=== PATIENT | male | born 1940 | race Caucasian/White ===

== ENCOUNTER 2019-04-10 17:47 | Inpatient (IN) | payer OTHER, MEDICAID ==
[~2019-04-10] VITALS: Ht 175.3 cm; Wt 74.9 kg
[2019-04-10 17:52] VITALS: Ht 175.3 cm; Wt 74.9 kg
[2019-04-10] MEDS ORDERED: SOD CHLORIDE 0.9% 500 ML IV STA (17:56)
[2019-04-10] MEDS ORDERED: SOD CHLORIDE 0.9% 100 ML ONE (19:41)
[2019-04-10] MEDS ORDERED: IOHEXOL 300MG/ML 150 ML BTL ONE (19:41)
[2019-04-10] MEDS ORDERED: SOD CHLORIDE 0.9% 1,000 ML IV STA (20:10)
[2019-04-10] MEDS ORDERED: CEFEPIME 2GM/50 ML (PMX) 50 ML IVPB STA (21:59)
[2019-04-10] MEDS ORDERED: ALBUMIN HUMAN 25% 100 ML IV ONE (22:00)
[2019-04-10] MEDS ORDERED: VANCOMYCIN 1 GM (PMX) 250 ML IVPB ONE (22:00)
[2019-04-10] MEDS ORDERED: ONDANSETRON 4 MG INJ IV PRN (22:30)
[2019-04-10] MEDS ORDERED: ACETAMINOPHEN 325 MG TAB PO PRN (22:30)
--- NOTE | 2019-04-10 22:58 | ERD ---
ER Documentation Chief Complaint Chief Complaint SOB, Low O2 saturation HPI This is a 78-year-old gentleman who presents to the emergency room with reported hypoxia. EMS reports that the patient was supposed to be transferred to [facility] because of a pleural effusion. However, when BLS arrived they took him off his regular 2 L of oxygen and noted that he became hypoxic. ALS was called and the patient was transferred to the nearest facility. Patient himself states that he feels that his baseline. He denies any fevers chills cough chest pain or shortness of breath. Patient has a complex medical history and has a biliary drain. He cannot articulate his underlying illness or history. ROS All systems reviewed and are negative except as per history of present illness. Allergies Allergies: Coded Allergies: No Known Allergy (Unverified , 04/10/19) PMhx/Soc History of Surgery: Yes (LBKA, Gall bladder stents, liver drain) Anesthesia Reaction: No Hx Neurological Disorder: No Hx Respiratory Disorders: No Hx Cardiac Disorders: Yes (arrhythmias) Hx Psychiatric Problems: No Hx Miscellaneous Medical Probl: No Hx Alcohol Use: No Hx Substance Use: No Hx Tobacco Use: No Smoking Status: Never smoker FmHx Family History: No diabetes Physical Exam Vitals Vital Signs Date Temp Pulse Resp B/P (MAP) Pulse Ox O2 O2 Flow FiO2 Time Delivery Rate 04/10/19 98.1 107 20 125/88 94 Nasal 5.0 22:00 (100) Cannula 04/10/19 113 30 95/73 (80) 91 Nasal 5.0 20:14 Cannula 04/10/19 Nasal 4 18:11 Cannula 04/10/19 Nasal 4.0 18:11 Cannula 04/10/19 98.3 109 25 92/78 (83) 94 Nasal 5.0 18:11 Cannula 04/10/19 98.1 80 18 97/61 (73) 92 17:52 Physical Exam General: Cachectic and jaundiced Head: Normocephalic, atraumatic. Eyes: Pupils equally reactive, EOM intact ENT: Dry mucous membranes Neck: Supple, no lymphadenopathy Respiratory: Lungs clear bilaterally, no distress Cardiovascular: RRR, no murmurs, rubs, or gallops Abdominal: Soft, biliary drain appears to be intact and draining bilious liquid : Deferred MSK: No edema, no unilateral swelling, 5/5 strength Neurologic: Alert and oriented, moving all extremities, normal speech, no focal weakness, no cerebellar signs Skin: No rash Psych: Normal mood Result Diagram: 04/10/198 04/10/191807 Results 24 hrs Laboratory Tests Test 04/10/19 18:08 04/10/19 22:19 White Blood Count 20.5 10^3/ul Red Blood Count 2.58 10^6/ul Hemoglobin 8.2 g/dl Hematocrit 25.3 % Mean Corpuscular Volume 98.1 fl Mean Corpuscular Hemoglobin 31.8 pg Mean Corpuscular Hemoglobin Concent 32.4 g/dl Red Cell Distribution Width 15.8 % Platelet Count 320 10^3/UL Mean Platelet Volume 9.9 fl Immature Granulocytes % 6.100 % Neutrophils % 85.8 % Lymphocytes % 3.6 % Monocytes % 3.9 % Eosinophils % 0.2 % Basophils % 0.4 % Nucleated Red Blood Cells % 0.0 /100WBC Immature Granulocytes # 1.240 10^3/ul Neutrophils # 17.6 10^3/ul Lymphocytes # 0.7 10^3/ul Monocytes # 0.8 10^3/ul Eosinophils # 0.0 10^3/ul Basophils # 0.1 10^3/ul Nucleated Red Blood Cells # 0.0 10^3/ul Prothrombin Time 26.2 Sec Prothrombin Time Ratio 2.0 INR International Normalized Ratio 2.40 Activated Partial Thromboplast Time 71.7 Sec Sodium Level 137 mmol/L Potassium Level 4.5 mmol/L Chloride Level 108 mmol/L Carbon Dioxide Level 16 mmol/L Anion Gap 13 Blood Urea Nitrogen 30 mg/dl Creatinine 1.93 mg/dl Est Glomerular Filtrat Rate mL/min mL/min Glucose Level 224 mg/dl Calcium Level 8.5 mg/dl Total Bilirubin 0.9 mg/dl Direct Bilirubin 0.00 mg/dl Indirect Bilirubin 0.9 mg/dl Aspartate Amino Transf (AST/SGOT) 22 IU/L Alanine Aminotransferase (ALT/SGPT) 30 IU/L Alkaline Phosphatase 383 IU/L Ammonia < 9 umol/l Troponin I < 0.012 ng/ml Total Protein 6.3 g/dl Albumin 2.7 g/dl Globulin 3.60 g/dl Albumin/Globulin Ratio 0.75 Lipase 35 U/L POC Venous Lactate 2.5 mmol/L Current Medications Medications Dose Sig/Rakesh Start Time Status Last (Trade) Ordered Route PRN Stop Time Admin Dose Reason Admin Sodium 500 ml @ Q1H STAT 04/10/19 DC 04/10/19 Chloride 500 mls/hr IV 17:56 18:10 04/10/19 18:55 IV Flush 10 ml STK-MED 04/10/19 DC (NS 10 ml) ONCE .ROUTE 19:41 04/10/19 19:42 Sodium 100 ml @ ud STK-MED 04/10/19 DC Chloride ONCE .ROUTE 19:41 04/10/19 19:42 Iohexol 150 ml STK-MED 04/10/19 DC (Omnipaque ONCE .ROUTE 19:41 300mg/ ml) 04/10/19 19:42 Sodium 1,000 ml @ Q1H STAT 04/10/19 DC 04/10/19 Chloride 1,000 mls/hr IV 20:10 20:42 04/10/19 21:09 Cefepime HCl 50 ml @ ONCE STAT 04/10/19 DC 04/10/19 100 mls/hr IVPB 21:59 22:32 04/10/19 22:28 Vancomycin 250 ml @ ONCE ONCE 04/10/19 HCl 125 mls/hr IVPB 22:00 04/10/19 23:59 Albumin 100 ml @ ONCE ONCE 04/10/19 DC Human 100 mls/hr IV 22:00 04/10/19 22:59 Ondansetron 4 mg ER BRIDGE 04/10/19 HCl (Zofran PRN IV 22:30 Inj) NAUSEA/VOMITI 04/11/19 22:29 NG 650 mg ER BRIDGE 04/10/19 Acetaminophen PRN PO 22:30 (Tylenol .MILD PAIN 04/11/19 22:29 Tab) 1-3 OR TEMP Procedures/MDM EKG, MONITORS, & DIAGNOSTIC IMAGING: EKG: I reviewed and interpreted a 12-lead EKG. Rhythm: Normal sinus rhythm ST Changes: No contiguous ST segment elevations T waves: No contiguous T wave inversions Impression: [No evidence of acute cardiac ischemia] CXR IMPRESSION: 1. Moderate to large right pleural effusion with probable underlying atelectasis/infiltrates. RPTAT: EE CT chest IMPRESSION: CT of the abdomen demonstrates presence of a transhepatic drain with the distal tip into the duodenum. There is intrahepatic ductal dilatation left greater than right. The gallbladder is not well visualized. Is contracted with thickening of the castañeda and multiple gallstones. There is questionable area of hypodensity within the pancreatic head and underline mass is not excluded. Would clinically correlate with previous imaging studies. Mild ascites is present with apparent wall thickening of the small bowel loops although this may be secondary to hypoalbuminemia. Large right-sided pleural effusion which is likely partially loculated along the superior aspect of the hemithorax with complete atelectasis of the right middle lobe and right lower lobe. There is also a small left pleural effusion present. Cardiomegaly with thin pericardial effusion measuring under 5 mm. Confluent soft tissue edema consistent with anasarca. RPTAT: LAB INTERPRETATION: I reviewed the laboratory testing and it shows elevated white blood cell count, creatinine elevation and elevated lactic acid MEDICAL DECISION MAKING: The patient presents to the emergency room because of hypoxia though the patient was removed from his regular nasal cannula. This is the potential etiology of the hypoxia. The patient is clear complex medical history that is possibly consistent with malignancy, he has a biliary drain. Concern for possible drain failure, consider pneumonia pleural effusion, less likely pulmonary embolism. Broad work-up was initiated. ER COURSE: * Initial work-up was initiated. The patient did not have a fever and had a normal heart rate. However during the patient's ER course his white blood cell count came back elevated. He became tachycardic and remained hypotensive. At that point sepsis screening was initiated and empiric antibiotics were provided. * Patient has a PICC line. His blood pressure seemed to improve with fluid resuscitation. Albumin provided. * Blood cultures were taken prior to antibiotics. * A phone call was made at [facility] to see if they were expecting the patient. * It should be noted that the patient does not in fact appear to have pneumonia based on dedicated CAT scan imaging. Empiric antibiotics would seem appropriate but there is no absolute clear source of infection. The patient's blood pressure, tachycardia and lactic acid could all be medical claims representative of the patient's malignancy status. Patient's hepatic failure will also likely contribute to this. Therefore I am not convinced that this is consistent with sepsis or severe sepsis or septic shock. * Again, vital signs have improved and the patient is more him dynamically stable. The patient does not require ICU at this time. Continue to monitor. CONSULTATION: [None] DISPOSITION PLAN: Telemetry admission Accepting care team and consultations: I discussed the current laboratory data, diagnostic imaging and emergency care provided. Admitting team: Dr. Nayak Admitting team indication: Insurance directed Departure Diagnosis: Primary Impression: SIRS (systemic inflammatory response syndrome) Additional Impressions: Acute renal insufficiency Pancreatic mass Lactic acidosis Leukocytosis Leukocytosis type: unspecified Qualified Codes: D72.829 - Elevated white blood cell count, unspecified Anemia Anemia type: unspecified type Qualified Codes: D64.9 - Anemia, unspecified Condition: Stable JANICE WILLIS MD Apr 10, 2019 22:58
--- NOTE | 2019-04-10 23:48 | HP ---
Date/Time of Note Date/Time of Note DATE: 04/10/19 TIME: 23:48 Assessment/Plan VTE Prophylaxis SCD applied (from Nsg): Yes Pharmacological prophylaxis: NA/contraindicated Pharm contraindication: low risk/ambulating Lines/Catheters IV Catheter Type (from Nrsg): PICC Line Central line still needed: Yes (clinical condition) Assessment/Plan Hospital Course This is a 78-year-old male being admitted to the telemetry floor for: #1 right-sided pleural effusion with hypoxia: Secondary possibly to underlying malignancy. Will obtain a diagnostic and therapeutic ultrasound thoracentesis. Patient does have elevated INR and PTT. He is on Eliquis. We will hold Eliquis. We will give 2 units of FFP. Obtain pleural fluid cell count, albumin, lactic dehydrogenase, glucose, Gram stain. Will consult pulmonology. Supplemental O2, may need BiPAP. Awaiting outside records. #2 diffuse jaundice: LFTs are within normal values. Patient does have evidence on CT scan of a transhepatic drain and possible pancreatic mass. MRI of the abdomen once patient is stable respiratory [place]. Will consult hepatobiliary surgery . #3 acute kidney injury: Unknown baseline. Creatinine 1.91. Will monitor renal function. Will check renal ultrasound. Check urine studies. Avoid nephrotoxic agents #4 lactic acidosis: Possibly secondary to underlying hypoxia. Patient is afebrile. I do not suspect at the current time pneumonia. He did receive antibiotics in the emergency room. We will continue to monitor closely. Check a procalcitonin. Blood cultures have been ordered. Check ESR and CRP #5 hypertension: Hold home BP meds given borderline blood pressures #6 diabetes mellitus: We will check hemoglobin A 1C, insulin sliding scale #7 possible pancreatic disease: CT scan shows mass in the pancreatic head. Continue Creon #8leukocytosis: Currently afebrile. No overt signs of infection. Did receive a dose of antibiotics in the emergency department. Patient was also on antibiotics as an outpatient of Zyvox and fluconazole we will continue these at the current time and await culture results. Will consult infectious disease Dr. Price. Awaiting outside hospital records. #9 DVT GI prophylaxis: Patient was on Eliquis however unsure what exactly this was for. We will hold this at the current time as patient will likely have a thoracentesis, and then can resume. Home H2 anival Further treatment strategy will be implemented as per the clinical course ++Awaiting outside hospital records, nursing communication put in to help obtain. Result Diagram: 04/10/19 1808 04/10/19 1808 Results 24hrs Laboratory Tests Test 04/10/19 18:08 04/10/19 22:19 White Blood Count 20.5 H Red Blood Count 2.58 L Hemoglobin 8.2 L Hematocrit 25.3 L Mean Corpuscular Volume 98.1 Mean Corpuscular Hemoglobin 31.8 Mean Corpuscular Hemoglobin Concent 32.4 Red Cell Distribution Width 15.8 H Platelet Count 320 Mean Platelet Volume 9.9 Immature Granulocytes % 6.100 H Neutrophils % 85.8 H Lymphocytes % 3.6 L Monocytes % 3.9 Eosinophils % 0.2 Basophils % 0.4 Nucleated Red Blood Cells % 0.0 Immature Granulocytes # 1.240 H Neutrophils # 17.6 H Lymphocytes # 0.7 L Monocytes # 0.8 Eosinophils # 0.0 Basophils # 0.1 Nucleated Red Blood Cells # 0.0 Prothrombin Time 26.2 H Prothrombin Time Ratio 2.0 INR International Normalized Ratio 2.40 Activated Partial Thromboplast Time 71.7 *H Sodium Level 137 Potassium Level 4.5 Chloride Level 108 Carbon Dioxide Level 16 L Anion Gap 13 Blood Urea Nitrogen 30 H Creatinine 1.93 H Est Glomerular Filtrat Rate mL/min Glucose Level 224 H Calcium Level 8.5 Total Bilirubin 0.9 Direct Bilirubin 0.00 Indirect Bilirubin 0.9 Aspartate Amino Transf (AST/SGOT) 22 Alanine Aminotransferase (ALT/SGPT) 30 Alkaline Phosphatase 383 H Ammonia < 9 L Troponin I < 0.012 Total Protein 6.3 Albumin 2.7 L Globulin 3.60 H Albumin/Globulin Ratio 0.75 Lipase 35 POC Venous Lactate 2.5 *H HPI/ROS Admit Date/Time Admit Date/Time Hx of Present Illness Chief complaint: Hypoxia Patient is a poor historian unable to provide full history. This is a 78-year-old gentleman who presents to the emergency room with reported hypoxia. EMS reports that the patient was supposed to be transferred to [place] because of a pleural effusion. However, when BLS arrived they took him off his regular 2 L of oxygen and noted that he became hypoxic. ALS was called and the patient was transferred to the nearest facility. Patient himself states that he feels that his baseline. He denies any fevers chills cough chest pain or shortness of breath. She reports that he was recently admitted to [facility] for his jaundice but he does not know what he had done for himself. He denies any chest pain or shortness of breath. He visibly on exam has generalized jaundice. Allergies: NKDA medications: Acetaminophen Eliquis Dulcolax Famotidine Fluconazole Glipizide Guaifenesin DuoNeb Lactobacillus Zyvox Creon Mag-Ox Reglan Lopressor Mineral oil enema Nifedipine Zofran Potassium 20 M EQ Senna Calcium carbonate Insulin Melatonin ROS Const: As per HPI Eyes : No pain discharge or redness or change in visual acuity ENT: No pain, sore throat, congestion, congestion, dysphagia or discharge Respiratory: As per HPI Cardiovascular: No chest pain, palpitation, PND, or edema GI : no change in appetite, abdominal pain, nausea, vomiting, diarrhea, constipation, or change in the color his stool Genitourinary: No dysuria, hematuria, flank pain , discharge or CVA tenderness Musculoskeletal: No joint pain, back pain, neck pain, restricted range of motion in neck or joints Skin: As per HPI Neuro: No headache, dizziness, syncope, seizure, focal weakness Endocrine: No polyuria, polydipsia, temperature intolerance Psych: No hallucination, depression, anxiety or suicidal ideation PMH/Family/Social Past Medical History Hypertension, Diabetes mellitus Possible pancreatic disease GERD Diabetes mellitus Further history unknown as patient is unable to provide Medications Current Medications Vancomycin HCl 250 ml @ 125 mls/hr ONCE ONCE IVPB ; Start 04/10/19 at 22:00; Stop 04/10/19 at 23:59 Ondansetron HCl (Zofran Inj) 4 mg ER BRIDGE PRN IV NAUSEA/VOMITING; Start 04/10/19 at 22:30; Stop 04/11/19 at 22:29 Acetaminophen (Tylenol Tab) 650 mg ER BRIDGE PRN PO .MILD PAIN 1-3 OR TEMP; Start 04/10/19 at 22:30; Stop 04/11/19 at 22:29 Coded Allergies: No Known Allergy (Unverified , 04/10/19) Past Surgical History Transhepatic drain, further history unknown as patient is unable to provide Social History Unknown Smoking Status: Never smoker Exam/Review of Systems Vital Signs Vitals Vital Signs Date Temp Pulse Resp B/P (MAP) Pulse Ox O2 O2 Flow FiO2 Time Delivery Rate 04/10/19 88 18 95/66 (76) 87 Nasal 5.0 23:32 Cannula 04/10/19 98.1 22:00 Exam Exam General: Currently lying in bed in no acute distress, patient has diffuse jaundice HEENT: Atraumatic, normocephalic. The pupils are equal, round and reactive. Extraocular motor are intact currently on BiPAP Neck: Supple with full range of motion. No rigidity or meningismus Chest: Nontender Lungs: Diminished breath sounds on the right lung field, no increased work of breathing Heart: Normal S1-S2, Regular rhythm and rate. No murmur, S3, or S4 Abdomen: Soft , nontender, nondistended , bowel sounds are present. No guarding no rebound tenderness , No masses or organomegaly. No costovertebral temporal angle mass Extremities: Normal to inspection, no edema no cyanosis Neurologic: Normal mental status, speech normal, cranial nerves II through XII are intact, motor and sensory are intact, Skin: Diffuse jaundice Additional Comments EKG Rhythm: Normal sinus rhythm ST Changes: No contiguous ST segment elevations T waves: No contiguous T wave inversions Impression: [No evidence of acute cardiac ischemia PROCEDURE: XR Chest. CLINICAL INDICATION: SOB. TECHNIQUE: Single view chest x-ray. COMPARISON: None FINDINGS: Lines/Tubes: None. Cardiac silhouette appears enlarged, partially obscured. There are atherosclerotic calcifications of the aortic arch.. Moderate to large right pleural effusion with probable underlying atelectasis/infiltrates. Left lung appears clear. No pneumothorax. Degenerative changes of the osseous structures. IMPRESSION: 1. Moderate to large right pleural effusion with probable underlying atelectasis/infiltrates. RPTAT: EE Physician Adelaide Date Time Electronically viewed and signed by Physician Adelaide on 04/10/2019 19:08 RP/ CC: JANICE WILLIS MD [id number] PROCEDURE: CT Chest, Abdomen and Pelvis with contrast. CLINICAL INDICATION: Biliary drain with jaundice TECHNIQUE: CT scan of the chest, abdomen, and pelvis with contrast was performed on a multi-detector high-resolution CT scanner. The patient was scanned following the uncomplicated intravenous administration of 100 cc of Omnipaque-300 intravenous contrast. Coronal and sagittal reformatted images were obtained from the axial source images. DICOM images are available. CTDI equals 12.55 mGy, DLP equals 1004.91 mGy-cm. One or more of the following dose reduction techniques were used: - Automated exposure control. - Adjustment of the mA and/or kV according to patient size. - Use of iterative reconstruction technique. COMPARISON: None available FINDINGS: CT CHEST: Images soft tissues demonstrate the aorta and great vessels are normal in appearance. The heart size is enlarged. Images the mediastinum demonstrate prominent right lower paratracheal node measuring 9 mm in diameter. There is a very thin pericardial effusion measuring under 5 mm. The visualized thyroid is normal. Images lungs demonstrate a probable loculated right-sided pleural effusion seen along the periphery of the upper lobe and layering along the right lower lobe with atelectasis of the entire right middle and lower lobes and partial atelectasis of the right upper lobe. Focal prominent interstitial markings are seen within the visualized right upper lobe. Images the left lung demonstrate a small left pleural effusion with mild left lower lobe atelectasis. The osseous structures are unremarkable. CT ABDOMEN/PELVIS: Images of the abdomen demonstrate presence of a transhepatic biliary drain with the distal tip in the duodenum. Images liver demonstrate presence of intrahepatic ductal dilatation, greater within the left lobe. Calcifications with and thickening contracted gallbladder are present. Images of the pancreas demonstrate mild prominence of the pancreatic duct, measuring up to 4 mm. There is slight hypodense appearance of the pancreatic head, ill-defined. The spleen and adrenal glands are unremarkable. There is symmetric contrast excretion within the kidneys. No evidence of hydronephrosis or renal stones are present. Bowel loops demonstrate prominent wall thickening of proximal jejunal loops which are not dilated. Colon is unremarkable. There is mild ascites present. Minimal calcifications are seen along the length of the aorta. No evidence of lymphadenopathy is visualized. Images the pelvis demonstrate the visualized colon is unremarkable. Prominent walled small bowel loops are present without distension in the setting of ascites. There is scattered stool throughout the length of the colon.. The bladder and reproductive organs are unremarkable. Osseous structures demonstrate no sclerotic or lytic lesions. There are degenerative changes at the L5-S1 level. Images of the surrounding soft tissues demonstrate confluent edema along the posterior subcutaneous tissues. IMPRESSION: CT of the abdomen demonstrates presence of a transhepatic drain with the distal tip into the duodenum. There is intrahepatic ductal dilatation left greater than right. The gallbladder is not well visualized. Is contracted with thickening of the castañeda and multiple gallstones. There is questionable area of hypodensity within the pancreatic head and underline mass is not excluded. Would clinically correlate with previous imaging studies. Mild ascites is present with apparent wall thickening of the small bowel loops although this may be secondary to hypoalbuminemia. Large right-sided pleural effusion which is likely partially loculated along the superior aspect of the hemithorax with complete atelectasis of the right middle lobe and right lower lobe. There is also a small left pleural effusion present. Cardiomegaly with thin pericardial effusion measuring under 5 mm. Confluent soft tissue edema consistent with anasarca. RPTAT: HH Physician Segun Date Time Electronically viewed and signed by Physician Segun on 04/10/2019 20:57 RL/ CC: JANICE WILLIS MD [id number] PETR REESE Apr 10, 2019 23:48
[2019-04-11] VITALS (14 sets, daily range): BP systolic 104–131; BP diastolic 57–76; PULSE 61–124; RESP 18–22
[2019-04-11] MEDS ORDERED: IPRA3AMP29 INHALATION
[2019-04-11] MEDS ORDERED: LACT1CAP28 PO
[2019-04-11] MEDS ORDERED: ALBUTEROL 0.083% (NEB) 2.5 MG/3 ML AMP NEB PRN
[2019-04-11] MEDS ORDERED: INSU100C SQ
[2019-04-11] MEDS ORDERED: GLIP5TAB13 PO
[2019-04-11] MEDS ORDERED: IPRATROPIUM (NEB) 0.5 MG/2.5 ML AMP NEB PRN
[2019-04-11] MEDS ORDERED: BISA10SU55 RC
[2019-04-11] MEDS ORDERED: FAMO20TA18 PO
[2019-04-11] MEDS ORDERED: DOCUSATE SODIUM 100 MG CAP PO PRN
[2019-04-11] MEDS ORDERED: BISACODYL (EC) 5 MG TAB PO PRN
[2019-04-11] MEDS ORDERED: MINE133E23 PR
[2019-04-11] MEDS ORDERED: MAGN400T28 PO
[2019-04-11] MEDS ORDERED: ACETAMINOPHEN 650MG/20.3ML CUP PO PRN
[2019-04-11] MEDS ORDERED: LIPA1CAP4 PO
[2019-04-11] MEDS ORDERED: CALC-459 PO
[2019-04-11] MEDS ORDERED: GUAI120S25 PO
[2019-04-11] MEDS ORDERED: MELA1TAB15 PO
[2019-04-11] MEDS ORDERED: APIX2.5T PO
[2019-04-11] MEDS ORDERED: HYDROCODONE/APAP (5/325) TAB PO PRN
[2019-04-11] MEDS ORDERED: FLUC100T39 PO
[2019-04-11] MEDS ORDERED: ALBUMIN HUMAN 25% 100 ML IV ONE
[2019-04-11] MEDS ORDERED: METO10TA92 PO (00:10)
[2019-04-11] MEDS ORDERED: SENN-120 PO (00:10)
[2019-04-11] MEDS ORDERED: TERA2CAP3 PO (00:10)
[2019-04-11] MEDS ORDERED: NIFE30TA23 PO (00:10)
[2019-04-11] MEDS ORDERED: POTA-57 PO (00:10)
[2019-04-11] MEDS ORDERED: METO25TA4 PO (00:10)
[2019-04-11] MEDS ORDERED: ACET325T33 PO (00:15)
[2019-04-11] MEDS ORDERED: ONDA4TAB95 PO (00:24)
[2019-04-11] MEDS ORDERED: LINE600T PO (00:26)
[2019-04-11] MEDS ORDERED: GLUCOSE GEL 15 GRAM TUBE PO PRN ×2 (00:30)
[2019-04-11] MEDS ORDERED: DEXTROSE 50% 50 ML SYRINGE IV PRN ×2 (00:30)
[2019-04-11] MEDS ORDERED: GLUCOSE GEL 15 GRAM TUBE BUCCAL PRN (00:30)
[2019-04-11] MEDS ORDERED: GLUCAGON 1 MG INJ IM PRN (00:30)
[2019-04-11] MEDS: FAMOTIDINE 20 MG INJ IV SCH ×2 (01:32→08:49)
[2019-04-11] MEDS: ACCU-CHEK XX SCH (04:00)
[2019-04-11] MEDS ORDERED: PENDING SANTYL ORDER FOR WOUND CARE XX PRN (08:00)
[2019-04-11] MEDS: INSULIN ASPART [NOVOLOG] 3 ML PEN SC SCH ×4 (08:00→20:56)
[2019-04-11] MEDS ORDERED: BISACODYL 10 MG SUPP PR PRN (09:00)
--- NOTE | 2019-04-11 13:31 | CONS ---
Assessment/Plan Assessment/Plan Hospital Course (Demo Recall) 1. marti on ckd vs progression of marti: due to hemodynamic changes with hypotension? - check urine lytes - MAURICIO pending - s/p albumin and gentle hydration 2. right sided pleural effusion: - thoracentesis 3. possible pancreatic mass with transhepatic drain: - hbs consulted 4. hx of htn: - recent hypotensive episode - improved 5. anemia: - check iron studies 6. leukocytosis: - unclear etiology - cx pending - ID consulted 7. Bone mineral disease: - monitor ca and phos Consultation Date/Type/Reason Admit Date/Time Type of Consult nephrology Reason for Consultation marti on ckd Date/Time of Note DATE: 04/11/19 TIME: 13:21 Hx of Present Illness Pt is a 78yo M with hx of HTN. DM and pancreatic disease who presented with hypoxia. Pt had CT a/p with IV contrast showing pleural effusion, and hepatic drain with hepatic duct dictation. Per SNF records pt's cr has been rising from 1.5 to 1.7 and now 1.9. He shortness of breath at this time. He is urinating without problems and denies n/v. He is currently receiving FFP. ROS Const: As per HPI Eyes : No pain discharge or redness or change in visual acuity ENT: No pain, sore throat, congestion, congestion, dysphagia or discharge Respiratory: As per HPI Cardiovascular: No chest pain, palpitation, PND, or edema GI : no change in appetite, abdominal pain, nausea, vomiting, diarrhea, constipation, or change in the color his stool Genitourinary: No dysuria, hematuria, flank pain , discharge or CVA tenderness Musculoskeletal: No joint pain, back pain, neck pain, restricted range of motion in neck or joints Skin: As per HPI Neuro: No headache, dizziness, syncope, seizure, focal weakness Endocrine: No polyuria, polydipsia, temperature intolerance Psych: No hallucination, depression, anxiety or suicidal ideation PMH/Family/Social PMH/Family/Social Past Medical History Hypertension, Diabetes mellitus Possible pancreatic disease GERD Diabetes mellitus Further history unknown as patient is unable to provide Medications Current Medications Vancomycin HCl 250 ml @ 125 mls/hr ONCE ONCE IVPB ; Start 04/10/19 at 22:00; Stop 04/10/19 at 23:59 Ondansetron HCl (Zofran Inj) 4 mg ER BRIDGE PRN IV NAUSEA/VOMITING; Start 04/10/19 at 22:30; Stop 04/11/19 at 22:29 Acetaminophen (Tylenol Tab) 650 mg ER BRIDGE PRN PO .MILD PAIN 1-3 OR TEMP; Start 04/10/19 at 22:30; Stop 04/11/19 at 22:29 Coded Allergies: No Known Allergy (Unverified , 04/10/19) Past Surgical History Transhepatic drain, further history unknown as patient is unable to provide Social History Unknown Smoking Status: Never smoker Past Medical History Home Meds Reported Medications Linezolid* (Zyvox*) 600 Mg Tablet, 600 MG PO BID, TAB 04/11/19 Ondansetron Hcl* (Ondansetron Hcl*) 4 Mg Tablet, 4 MG PO Q6H PRN for NAUSEA AND/ OR VOMITING, TAB 04/11/19 Acetaminophen* (Tylenol*) 325 Mg Tablet, 650 MG PO Q4H PRN for PAIN AND OR ELEVATED TEMP, TAB Give 2 tablets by mouth every 8hrs as needed 04/11/19 Terazosin Hcl* (Terazosin Hcl*) 2 Mg Capsule, 2 MG PO HS for HTN, CAP 04/11/19 Sennosides* (Senna Lax*) 8.6 Mg Tablet, 2 TAB PO BID for CONST, TAB 04/11/19 Potassium Chloride* (Klor-Con*) 20 Meq Tabsr, 20 MEQ PO TID for HYPOKALEMIA, TAB.SA 04/11/19 Nifedipine* (Nifedipine ER*) 30 Mg Tablet.sa, 30 MG PO DAILY for HTN, TAB.SA GIVE 30mgBY MOUTH ONE TIME A DAY FOR HTN HOLD IF SBP IS <110 or HR is <60 04/11/19 Metoprolol Tartrate* (Lopressor*) 25 Mg Tablet, 25 MG PO BID for HTN, #60 TAB 04/11/19 Metoclopramide* (Reglan*) 10 Mg Tablet, 0.5 MG PO TID for GERD, TAB 04/11/19 Melatonin (Melatonin) 1 Mg Tablet, 1 MG PO HS, TAB 04/11/19 Magnesium Oxide* (Magnesium Oxide*) 400 Mg Tablet, 400 MG PO BID, TAB 04/11/19 Lactobacillus Rhamnosus GG (Culturelle) 1 Each Capsule, 1 EACH PO BID WITH MEALS for To SupportGUT Tosin, CAP 04/11/19 Ipratropium-Albuterol (Ipratropium-Albuterol) 0.5-3 Mg/3 Ml Ampul.neb, 3 ML INHALATION Q2H, #30 VIAL 04/11/19 Insulin Lispro (Humalog) 100 Unit/1 Ml Cartridge, 100 UNIT SQ SS, EA INJECT PER SLIDING SCALE: IF 70-150=0 UNIT;151-200= 2 UNITS; 201-250=4UNITS; 251-300=6UNITS;301-350=8UNITS; 351-400=10UNITS>400=12UNITS and CALL 04/11/19 Ecmyzhiskvg-S-Ylahffbefg Hb* (Guaifenesin* DM Syrup) 120 Ml Syrup, 5 ML PO Q4H PRN for COUGH, ML 04/11/19 Glipizide* (Glipizide*) 5 Mg Tablet, 5 MG PO AC BREAKFAST, TAB 04/11/19 Fluconazole* (Fluconazole*) 100 Mg Tablet, 100 MG PO DAILY for FUNGAL INFECTION, TAB 04/11/19 Mineral Oil* (Fleet* Mineral Oil Enema) 133 Ml Oil, 133 ML SC NEEDED PRN for CONSTIPATION, ENEMA 04/11/19 Famotidine* (Famotidine*) 20 Mg Tablet, 20 MG PO DAILY, #30 TAB 04/11/19 Bisacodyl (Dulcolax) 10 Mg Supp.rect, 10 MG RC, SUPP.RECT 04/11/19 Vcmuig-Jkaraivn-Cntzdgy* (Al DR* 12,000) 12,000 L-38,000-60,000 Unit Capsule.dr, 1 CAP PO WITH MEALS, CAP 04/11/19 Calcium Carbonate (Calcium Carbonate) 500 Mg Tab.chew, 500 MG PO Q4H WHILE AWAKE for INDIGESTION, TAB.CHEW 04/11/19 Apixaban* (Eliquis*) 2.5 Mg Tablet, 2.5 MG PO BID, TAB 04/11/19 Medications Current Medications Ondansetron HCl (Zofran Inj) 4 mg ER BRIDGE PRN IV NAUSEA/VOMITING; Start 04/10/19 at 22:30; Stop 04/11/19 at 22:29 Acetaminophen (Tylenol Tab) 650 mg ER BRIDGE PRN PO .MILD PAIN 1-3 OR TEMP; Start 04/10/19 at 22:30; Stop 04/11/19 at 22:29 Albuterol (Proventil 0.083% (Neb)) 2.5 mg Q2H RESP THERAPY PRN NEB SHORTNESS OF BREATH; Start 04/11/19 at 00:00 Ipratropium [place] (Atrovent 0.02% (Neb)) 0.5 mg Q2H RESP THERAPY PRN NEB SHORTNESS OF BREATH; Start 04/11/19 at 00:00 Acetaminophen (Tylenol Liquid) 650 mg Q6H PRN PO PAIN LEVEL 1-3 OR FEVER; Start 04/11/19 at 00:00 Acetaminophen/ Hydrocodone Bitart ([place] (5/325)) 1 tab Q6H PRN PO PAIN LEVEL 4-6 Last administered on 04/11/19at 01:35; Admin Dose 1 TAB; Start 04/11/19 at 00:00 Docusate Sodium (Colace) 100 mg Q12H PRN PO CONSTIPATION; Start 04/11/19 at 00:00 Bisacodyl (Dulcolax) 5 mg DAILY PRN PO CONSTIPATION; Start 04/11/19 at 00:00 Diagnostic Test (Pha) (Accu-Chek) 1 ea 02 XX ; Start 04/11/19 at 02:00 Insulin Aspart (Novolog Insulin Pen) NOVOLOG *MILD* ALGORITHM WITH MEALS BEDTIME SC Last administered on 04/11/19at 12:05; Admin Dose 2 UNIT; Start 04/11/19 at 08:00 Miscellaneous Information 1 ea NOTE XX ; Start 04/11/19 at 00:30 Glucose (Glutose) 15 gm Q15M PRN PO DECREASED GLUCOSE; Start 04/11/19 at 00:30 Glucose (Glutose) 22.5 gm Q15M PRN PO DECREASED GLUCOSE; Start 04/11/19 at 00:30 Dextrose (D50w Syringe) 25 ml Q15M PRN IV DECREASED GLUCOSE; Start 04/11/19 at 00:30 Dextrose (D50w Syringe) 50 ml Q15M PRN IV DECREASED GLUCOSE; Start 04/11/19 at 00:30 Glucagon (Glucagen) 1 mg Q15M PRN IM DECREASED GLUCOSE; Start 04/11/19 at 00:30 Glucose (Glutose) 15 gm Q15M PRN BUCCAL DECREASED GLUCOSE; Start 04/11/19 at 00:30 Miscellaneous Information ([facility] This patient coyle... PRN PRN XX WOUND CARE; Start 04/11/19 at 08:00 Acetaminophen (Tylenol Tab) 650 mg Q4H PRN PO MILD PAIN(1-3)OR ELEVATED TEMP; Start 04/11/19 at 09:00 Bisacodyl (Dulcolax Supp) 10 mg DAILY PRN SC CONSTIPATION; Start 04/11/19 at 0 9:00 Famotidine (Pepcid) 20 mg DAILY PO ; Start 04/12/19 at 09:00 Fluconazole (Diflucan) 100 mg DAILY PO ; Start 04/11/19 at 09:00 Albuterol/ Ipratropium (Duoneb) 3 ml Q4H RESP THERAPY PRN INH SHORTNESS OF BREATH; Start 04/11/19 at 09:00 Linezolid (Zyvox) 600 mg BID PO ; Start 04/11/19 at 09:00 Amylase/Lipase/ Protease (CREON ([id number]-23k)) 1 cap WITH MEALS PO ; Start 04/11/19 at 12:00 Senna (Senokot) 2 tab BID PO ; Start 04/11/19 at 09:00 Terazosin HCl (Hytrin) 2 mg HS PO ; Start 04/11/19 at 21:00 Cefepime HCl 50 ml @ 100 mls/hr DAILY IVPB ; Start 04/11/19 at 13:00 Allergies: Coded Allergies: No Known Allergy (Unverified , 04/10/19) Social History Smoking Status: Never smoker Exam/Review of Systems Exam Vitals Vital Signs Date Temp Pulse Resp B/P (MAP) Pulse Ox O2 O2 Flow FiO2 Time Delivery Rate 04/11/19 122 12:01 04/11/19 98.8 120/65 98 Nasal 11:36 (83) Cannula 04/11/19 4.0 09:20 04/11/19 20 07:48 04/11/19 50 07:40 Exam gen nad cv rrr pulm decreased bs in lower lung field abd soft, nd, nt +bs ext: no edema Results Result Diagram: 04/10/19180704/10/191807 Results 24hrs Laboratory Tests Test 04/10/19 18:08 04/10/19 22:19 04/11/19 00:12 04/11/19 02:36 White Blood Count 20.5 H Red Blood Count 2.58 L Hemoglobin 8.2 L Hematocrit 25.3 L Mean Corpuscular 98.1 Volume Mean Corpuscular 31.8 Hemoglobin Mean Corpuscular 32.4 Hemoglobin Concen t Red Cell 15.8 H Distribution Width Platelet Count 320 Mean Platelet 9.9 Volume Immature 6.100 H Granulocytes % Neutrophils % 85.8 H Lymphocytes % 3.6 L Monocytes % 3.9 Eosinophils % 0.2 Basophils % 0.4 Nucleated Red 0.0 Blood Cells % Immature 1.240 H Granulocytes # Neutrophils # 17.6 H Lymphocytes # 0.7 L Monocytes # 0.8 Eosinophils # 0.0 Basophils # 0.1 Nucleated Red 0.0 Blood Cells # Prothrombin Time 26.2 H Prothrombin Time 2.0 Ratio INR International 2.40 Normalized Ratio Activated 71.7 *H Partial Thrombopl ast Time Sodium Level 137 Potassium Level 4.5 Chloride Level 108 Carbon Dioxide 16 L Level Anion Gap 13 Blood Urea 30 H Nitrogen Creatinine 1.93 H Est Glomerular Filtrat Rate mL/min Glucose Level 224 H Calcium Level 8.5 Total Bilirubin 0.9 Direct Bilirubin 0.00 Indirect 0.9 Bilirubin Aspartate Amino 22 Transf (AST/SGOT) Alanine 30 Aminotransferase (ALT/SGPT) Alkaline 383 H Phosphatase Ammonia < 9 L Troponin I < 0.012 Total Protein 6.3 Albumin 2.7 L Globulin 3.60 H Albumin/Globulin 0.75 Ratio Lipase 35 POC Venous 2.5 *H Lactate Lactic Acid Level 1.6 1.5 Test 04/11/19 07:00 04/11/19 07:44 04/11/19 10:04 04/11/19 11:54 Blood Gas Blood arterial Specimen Source Arterial Blood 04/11/2019 8:10:3 Date Drawn 9 AM Arterial Blood pH 7.394 (Temp corrected) Arterial Blood 26.7 L pCO2 (Temp correct) Arterial Blood 73.8 L pO2 (Temp corrected) Arterial Blood 15.9 L HCO3 Arterial Blood -8.0 L Base Excess Arterial Blood 94.7 L Oxygen Saturation [place] Test N/A Arterial Blood Right Brachial Gas Puncture Site Arterial 0.2 Blood Carboxyhemo globin Arterial Blood 0.3 Methemoglobin Blood Gas A-a O2 252.7 H Differential Oxyhemoglobin 94.2 Percent Blood Gas 37.0 Temperature Blood Gas 16.0 Respiration Rate Blood Gas Actual 21 Respiration Rate Blood Gas MASK - BIPAP Modality FiO2 50.0 Blood Gas 10 Pressure Support Blood Gas 15/5 IPAP/EPAP Ratio Blood Gas ALVARO IVY RN Critical Value Read Back Blood Gas [employer] Notified Whom Blood Gas 04/11/2019 9:16:3 Notified Time 3 AM Bedside Glucose 217 189 Erythrocyte 80 H Sedimentation Rate Osmolality 293 C-Reactive 23.8 H Protein Procalcitonin 1.00 H Medications Medication Current Medications Ondansetron HCl (Zofran Inj) 4 mg ER BRIDGE PRN IV NAUSEA/VOMITING; Start 04/10 at 22:30; Stop 04/11/19 at 22:29 Acetaminophen (Tylenol Tab) 650 mg ER BRIDGE PRN PO .MILD PAIN 1-3 OR TEMP; Start 04/10/19 at 22:30; Stop 04/11/19 at 22:29 Albuterol (Proventil 0.083% (Neb)) 2.5 mg Q2H RESP THERAPY PRN NEB SHORTNESS OF BREATH; Start 04/11/19 at 00:00 Ipratropium [place] (Atrovent 0.02% (Neb)) 0.5 mg Q2H RESP THERAPY PRN NEB SHORTNESS OF BREATH; Start 04/11/19 at 00:00 Acetaminophen (Tylenol Liquid) 650 mg Q6H PRN PO PAIN LEVEL 1-3 OR FEVER; Start 04/11/19 at 00:00 Acetaminophen/ Hydrocodone Bitart ([place] (5/325)) 1 tab Q6H PRN PO PAIN LEVEL 4-6 Last administered on 04/11/19at 01:35; Admin Dose 1 TAB; Start 04/11/19 at 00:00 Docusate Sodium (Colace) 100 mg Q12H PRN PO CONSTIPATION; Start 04/11/19 at 00:00 Bisacodyl (Dulcolax) 5 mg DAILY PRN PO CONSTIPATION; Start 04/11/19 at 00:00 Diagnostic Test (Pha) (Accu-Chek) 1 ea 02 XX ; Start 04/11/19 at 02:00 Insulin Aspart (Novolog Insulin Pen) NOVOLOG *MILD* ALGORITHM WITH MEALS BEDTIME SC Last administered on 04/11/19at 12:05; Admin Dose 2 UNIT; Start 04/11/19 at 08:00 Miscellaneous Information 1 ea NOTE XX ; Start 04/11/19 at 00:30 Glucose (Glutose) 15 gm Q15M PRN PO DECREASED GLUCOSE; Start 04/11/19 at 00:30 Glucose (Glutose) 22.5 gm Q15M PRN PO DECREASED GLUCOSE; Start 04/11/19 at 00:30 Dextrose (D50w Syringe) 25 ml Q15M PRN IV DECREASED GLUCOSE; Start 04/11/19 at 00:30 Dextrose (D50w Syringe) 50 ml Q15M PRN IV DECREASED GLUCOSE; Start 04/11/19 at 00:30 Glucagon (Glucagen) 1 mg Q15M PRN IM DECREASED GLUCOSE; Start 04/11/19 at 00:30 Glucose (Glutose) 15 gm Q15M PRN BUCCAL DECREASED GLUCOSE; Start 04/11/19 at 00:30 Miscellaneous Information [facility] This patient coyle. .. PRN PRN XX WOUND CARE; Start 04/11/19 at 08:00 Acetaminophen (Tylenol Tab) 650 mg Q4H PRN PO MILD PAIN(1-3)OR ELEVATED TEMP; Start 04/11/19 at 09:00 Bisacodyl (Dulcolax Supp) 10 mg DAILY PRN SC CONSTIPATION; Start 04/11/19 at 09:00 Famotidine (Pepcid) 20 mg DAILY PO ; Start 04/12/19 at 09:00 Fluconazole (Diflucan) 100 mg DAILY PO ; Start 04/11/19 at 09:00 Albuterol/ Ipratropium (Duoneb) 3 ml Q4H RESP THERAPY PRN INH SHORTNESS OF BREATH; Start 04/11/19 at 09:00 Linezolid (Zyvox) 600 mg BID PO ; Start 04/11/19 at 09:00 Amylase/Lipase/ Protease (CREON (12k-38k-60k)) 1 cap WITH MEALS PO ; Start 04/11/19 at 12:00 Senna (Senokot) 2 tab BID PO ; Start 04/11/19 at 09:00 Terazosin HCl (Hytrin) 2 mg HS PO ; Start 04/11/19 at 21:00 Cefepime HCl 50 ml @ 100 mls/hr DAILY IVPB ; Start 04/11/19 at 13:00 ELLIS PURCELL MD Apr 11, 2019 13:31
[2019-04-11] MEDS: SENNA TAB PO SCH ×2 (13:42→20:48)
[2019-04-11] MEDS: ZYVOX 600 MG TAB PO SCH ×2 (13:42→20:48)
[2019-04-11] MEDS: FLUCONAZOLE 100 MG TAB PO SCH (13:42)
[2019-04-11] MEDS: CREON (12k-38k-60k) 1 CAP PO SCH ×2 (13:44→18:10)
--- NOTE | 2019-04-11 13:51 | CONS ---
DATE OF ADMISSION: 04/11/2019 DATE OF CONSULTATION: 04/11/2019 Infectious Disease Consultation REASON FOR CONSULTATION: Antibiotic management. HISTORY OF PRESENT ILLNESS: Vicente Baca is a 78-year-old male who comes in with shortness of breath an d low oxygen saturation. EMS reports that the patient was supposed to be transferred to [facility] cause of pleural effusion; however, when BLS arrived, they took him off his regular 2 liters of oxyge n and noted that he became hypoxic. Patient was transferred to the nearest facility. He denies any fever or chills or cough or chest pain. His past problems include surgical problems includin. Left BKA. 2. Gallbladder stents. 3. Liver drain. 4. The patient has a history of cardiac arrhythmias. FAMILY HISTORY: Noncontributory. SOCIAL HISTORY: He does not smoke, drink or abuse drugs. ALLERGIES: NONE TO PENICILLIN, SULFA OR FOODS. MEDICATIONS: Per chart. REVIEW OF SYSTEMS: Noncontributory. PHYSICAL EXAMINATION: GENERAL: The patient is jaundiced and cachectic. VITAL SIGNS: Stable. Blood pressure is about 97/61, on the low side. SKIN: Without generalized rash, but he is icteric. HEENT: Scleral icterus. NECK: Supple. LYMPH NODES: None palpable. CHEST: Decreased breath sounds at the bases. HEART: Without murmur or gallop. ABDOMEN: Soft. There is a biliary drain that appears to be intact, draining bilious liquid. No org anosplenomegaly or masses. EXTREMITIES: Without cyanosis, clubbing, or edema. RECTAL AND GENITAL: Deferred. NEUROLOGIC: No focal neurological abnormality. ANCILLARY LABORATORY DATA: White count of 20.5, H and H of 8.2 and 25.3, platelet count 320,000. BU N and creatinine 30/1.93 and glucose of 224 with 86% neutrophils. As noted, his BUN and creatinine a re 30/1.93. The patient was started on vancomycin and cefepime. Chest x-ray shows moderate to large right pleural effusion with probable underlying atelectasis and infiltrate. A CT scan of the abdome n shows presence of a transhepatic drain with the distal tip into the duodenum. There is intrahepati c ductal dilatation, left greater than right. Gallbladder is not visualized, is contracted with thic kening of the castañeda with multiple gallstones. There is questionable area of hypodensity within the p ancreatic head and underlying mass is not excluded. Mild ascites is present with apparent thickening of the small bowel loops which may be secondary to hypoalbuminemia. A large right-sided pleural eff usion, partially loculated along the superior aspect of the hemithorax with complete atelectasis of t he right middle lobe and right lower lobe. There is also small left pleural effusion present, cardio megaly with thin pericardial effusion measuring under 5 mm. Confluent soft tissue edema consistent w ith anasarca. IMPRESSION AND PLAN: The patient comes in with hypoxemia, etiology is related to his pleural effusio n. He also has a biliary drain, his white count was significantly elevated, he had a tachycardia and was hypotensive, empiric antibiotics and fluids were provided. He has a PICC line. He had fluid re suscitation and albumin provided. Blood cultures were done. The patient is currently on fluconazole , linezolid. He was on vancomycin and cefepime. His right-sided pleural effusion could be possibly secondary to underlying malignancy. Plan is to get a diagnostic and therapeutic ultrasound thoracent esis. He is on Eliquis and that has to be held. He needs 2 units of fresh frozen plasma. He is dif fusely jaundice, possible pancreatic mass. He has lactic acidosis, hypotension, diabetes and leukocy tosis. The patient is on Zyvox and Fluconazole but is on no gram-negative coverage. I am going to add cefepime to his regimen. I am not sure why he is on linezolid rather than vancomycin. He seems to have been on it when he came into the hospital. I will dictate my findings to the hospitalist. Dictated By: JACEK JAVED MD, JD/ALEXI Conf#: [id number] DID#: [id number] CC: TANIKA GRAYSON MD; PETR REESE MD; ALVARO LA MD;*[facility]*
--- NOTE | 2019-04-11 15:05 | PN ---
Date/Time of Note Date/Time of Note DATE: 04/11/19 TIME: 14:53 Assessment/Plan VTE Prophylaxis Risk score (from Nsg)>0 risk: 6 SCD applied (from Nsg): Yes Pharmacological prophylaxis: NA/contraindicated Pharm contraindication: low risk/ambulating Lines/Catheters IV Catheter Type (from Nrsg): PICC Line Central line still needed: Yes Assessment/Plan Assessment/Plan This is a 78-year-old man with unclear medical history admitted for shortness of breath soon after recent hospital admission at [place]. #Hypoxemia #Dyspnea #R pleural effusion - Currently patient breathing comfortably on nasal cannula - According to speech therapy patient has dysphagia, will continue puree diet for now - Has loculated R pleural effusion. Thoracentesis has risks and may not improve respiratory status especially because it is loculated. Will wait to get outside records. #On antibiotics - Patient apparently was on linezolid and fluconazole - Not septic on admission. - Continue these for now until we get records from recent hospitalization. #Jaundice #Transhepatic drain #Pancreatic mass - Pending outside records #Elevated Cr - Unknown baseline Cr - Pending outside records. # hypertension: - Hold home BP meds given borderline blood pressures # diabetes mellitus: - insulin sliding scale #9 DVT GI prophylaxis: Patient was on Eliquis however unsure what exactly this was for. We will hold this at the current time as patient will likely have a thoracentesis, and then can resume. Home H2 anival Result Diagram: 04/10/198 04/10/19 1808 Subjective 24 Hr Interval Summary Free Text/Dictation Patient doing well overall. Breathing comfortably on nasal cannula after being on BiPAP overnight. Exam/Review of Systems Exam Vitals Vital Signs Date Temp Pulse Resp B/P (MAP) Pulse Ox O2 O2 Flow FiO2 Time Delivery Rate 04/11/19 103 22 96 Nasal 4.0 13:50 Cannula 04/11/19 98.8 120/65 11:36 (83) 04/11/19 50 07:40 Exam General: Frail appearing elderly man lying in bed, awake and alert. HEENT: Atraumatic, normocephalic. The pupils are equal, round and reactive. Neck: Supple with full range of motion. No JVD Chest: Nontender Lungs: Coarse breath sounds bilaterally, no increased work of breathing. Heart: Normal S1-S2, Regular rhythm and rate. No murmur, S3, or S4 Abdomen: Soft , nontender, nondistended , bowel sounds are present. RUQ transhepatic tube with biliary drainage. Extremities: Normal to inspection, no edema no cyanosis Neurologic: Normal mental status, speech normal, alert and oriented, able to give most medical history. Skin: Diffuse jaundice Results Results 24hrs Laboratory Tests Test 04/10/19 18:08 04/10/19 22:19 04/11/19 00:12 04/11/19 02:36 White Blood Count 20.5 H Red Blood Count 2.58 L Hemoglobin 8.2 L Hematocrit 25.3 L Mean Corpuscular 98.1 Volume Mean Corpuscular 31.8 Hemoglobin Mean Corpuscular 32.4 Hemoglobin Concen t Red Cell 15.8 H Distribution Width Platelet Count 320 Mean Platelet 9.9 Volume Immature 6.100 H Granulocytes % Neutrophils % 85.8 H Lymphocytes % 3.6 L Monocytes % 3.9 Eosinophils % 0.2 Basophils % 0.4 Nucleated Red 0.0 Blood Cells % Immature 1.240 H Granulocytes # Neutrophils # 17.6 H Lymphocytes # 0.7 L Monocytes # 0.8 Eosinophils # 0.0 Basophils # 0.1 Nucleated Red 0.0 Blood Cells # Prothrombin Time 26.2 H Prothrombin Time 2.0 Ratio INR International 2.40 Normalized Ratio Activated 71.7 *H Partial Thrombopl ast Time Sodium Level 137 Potassium Level 4.5 Chloride Level 108 Carbon Dioxide 16 L Level Anion Gap 13 Blood Urea 30 H Nitrogen Creatinine 1.93 H Est Glomerular Filtrat Rate mL/min Glucose Level 224 H Calcium Level 8.5 Total Bilirubin 0.9 Direct Bilirubin 0.00 Indirect 0.9 Bilirubin Aspartate Amino 22 Transf (AST/SGOT) Alanine 30 Aminotransferase (ALT/SGPT) Alkaline 383 H Phosphatase Ammonia < 9 L Troponin I < 0.012 Total Protein 6.3 Albumin 2.7 L Globulin 3.60 H Albumin/Globulin 0.75 Ratio Lipase 35 POC Venous 2.5 *H Lactate Lactic Acid Level 1.6 1.5 Test 04/11/19 07:00 04/11/19 07:44 04/11/19 10:04 04/11/19 11:54 Blood Gas Blood arterial Specimen Source Arterial Blood 04/11/2019 8:10:3 Date Drawn 9 AM Arterial Blood pH 7.394 (Temp corrected) Arterial Blood 26.7 L pCO2 (Temp correct) Arterial Blood 73.8 L pO2 (Temp corrected) Arterial Blood 15.9 L HCO3 Arterial Blood -8.0 L Base Excess Arterial Blood 94.7 L Oxygen Saturation [place] Test N/A Arterial Blood Right Brachial Gas Puncture Site Arterial 0.2 Blood Carboxyhemo globin Arterial Blood 0.3 Methemoglobin Blood Gas A-a O2 252.7 H Differential Oxyhemoglobin 94.2 Percent Blood Gas 37.0 Temperature Blood Gas 16.0 Respiration Rate Blood Gas Actual 21 Respiration Rate Blood Gas MASK - BIPAP Modality FiO2 50.0 Blood Gas 10 Pressure Support Blood Gas 15/ IPAP/EPAP Ratio Blood Gas ALVARO IVY RN Critical Value Read Back Blood Gas [employer]IST Notified Whom Blood Gas 04/11/2019 9:16:3 Notified Time 3 AM Bedside Glucose 217 189 Erythrocyte 80 H Sedimentation Rate Osmolality 293 C-Reactive 23.8 H Protein Procalcitonin 1.00 H Medications Medication Current Medications Ondansetron HCl (Zofran Inj) 4 mg ER BRIDGE PRN IV NAUSEA/VOMITING; Start 04/10/19 at 22:30; Stop 04/11/19 at 22:29 Acetaminophen (Tylenol Tab) 650 mg ER BRIDGE PRN PO .MILD PAIN 1-3 OR TEMP; Start 04/10/19 at 22:30; Stop 04/11/19 at 22:29 Albuterol (Proventil 0.083% (Neb)) 2.5 mg Q2H RESP THERAPY PRN NEB SHORTNESS OF BREATH Last administered on 04/11/19at 13:54; Admin Dose 2.5 MG; Start 04/11/19 at 00:00 Ipratropium [place] (Atrovent 0.02% (Neb)) 0.5 mg Q2H RESP THERAPY PRN NEB SHORTNESS OF BREATH Last administered on 04/11/19at 13:54; Admin Dose 0.5 MG; Start 04/11/19 at 00:00 Acetaminophen (Tylenol Liquid) 650 mg Q6H PRN PO PAIN LEVEL 1-3 OR FEVER; Start 04/11/19 at 00:00 Acetaminophen/ Hydrocodone Bitart ([place] (5/325)) 1 tab Q6H PRN PO PAIN LEVEL 4-6 Last administered on 04/11/19at 01:35; Admin Dose 1 TAB; Start 04/11/19 at 00:00 Docusate Sodium (Colace) 100 mg Q12H PRN PO CONSTIPATION; Start 04/11/19 at 00:00 Bisacodyl (Dulcolax) 5 mg DAILY PRN PO CONSTIPATION; Start 04/11/19 at 00:00 Diagnostic Test (Pha) (Accu-Chek) 1 ea 02 XX ; Start 04/11/19 at 02:00 Insulin Aspart (Novolog Insulin Pen) NOVOLOG *MILD* ALGORITHM WITH MEALS BEDTIME SC Last administered on 04/11/19at 12:05; Admin Dose 2 UNIT; Start 04/11/19 at 08:00 Miscellaneous Information 1 ea NOTE XX ; Start 04/11/19 at 00:30 Glucose (Glutose) 15 gm Q15M PRN PO DECREASED GLUCOSE; Start 04/11/19 at 00:30 Glucose (Glutose) 22.5 gm Q15M PRN PO DECREASED GLUCOSE; Start 04/11/19 at 00:30 Dextrose (D50w Syringe) 25 ml Q15M PRN IV DECREASED GLUCOSE; Start 04/11/19 at 00:30 Dextrose (D50w Syringe) 50 ml Q15M PRN IV DECREASED GLUCOSE; Start 04/11/19 at 00:30 Glucagon (Glucagen) 1 mg Q15M PRN IM DECREASED GLUCOSE; Start 04/11/19 at 00:30 Glucose (Glutose) 15 gm Q15M PRN BUCCAL DECREASED GLUCOSE; Start 04/11/19 at 00:30 Miscellaneous Information (Pending [facility] Order For Wound Care) This patient coyle... PRN PRN XX WOUND CARE; Start 04/11/19 at 08:00 Acetaminophen (Tylenol Tab) 650 mg Q4H PRN PO MILD PAIN(1-3)OR ELEVATED TEMP; Start 04/11/19 at 09:00 Bisacodyl (Dulcolax Supp) 10 mg DAILY PRN [place] CONSTIPATION; Start 04/11/19 at 09:00 Famotidine (Pepcid) 20 mg DAILY PO ; Start 04/12/19 at 09:00 Fluconazole (Diflucan) 100 mg DAILY PO Last administered on 04/11/19at 13:42; Admin Dose 100 MG; Start 04/11/19 at 09:00 Albuterol/ Ipratropium (Duoneb) 3 ml Q4H RESP THERAPY PRN INH SHORTNESS OF BREATH; Start 04/11/19 at 09:00 Linezolid (Zyvox) 600 mg BID PO Last administered on 04/11/19 13:42; Admin Dose 600 MG; Start 04/11/19 at 09:00 Amylase/Lipase/ Protease (CREON (12k-38k-60k)) 1 cap WITH MEALS PO Last administered on 04/11/19 13:44; Admin Dose 1 CAP; Start 04/11/19 at 12:00 Senna (Senokot) 2 tab BID PO Last administered on 04/11/19 13:42; Admin Dose 2 TAB; Start 04/11/19 at 09:00 Terazosin HCl (Hytrin) 2 mg HS PO ; Start 04/11/19 at 21:00 Cefepime HCl 50 ml @ 100 mls/hr DAILY IVPB ; Start 04/11/19 at 13:00 ALVARO LA MD Apr 11, 2019 15:04
[2019-04-11] MEDS: CEFEPIME 1GM/50 ML (PMX) 50 ML IVPB SCH (15:21)
--- NOTE | 2019-04-11 16:30 | CONS ---
Assessment/Plan Assessment/Plan Assessment/Plan (Daily) IMP: 1. Large loculated right pleural effusion--concerning for underlying malignancy; less likely parapneumonic. RECS: 1. Diagnostic/therapeutic thoracentesis today. 2. Please send pleural fluid for cell count with diff, LDH, TP, cytology, glucose, and GS/Cx Consultation Date/Type/Reason Admit Date/Time Date of Consultation: Apr 11, 2019 Type of Consult Pulm Date/Time of Note DATE: 04/11/19 TIME: 16:24 Hx of Present Illness Briefly, this is a 78-year-old man with a history of DM, HTN, GERD, likely pancreatobiliary pathology s/p transhepatic stent, poor historian, who was transferred from OSH for hypoxemia found to have a large loculated right pleural effusion. Subjective hx not possible: pt non-verbal Past Medical History Medical History: diabetes, GERD, hypertension, pancreatitis, renal disease Home Meds Reported Medications Linezolid* (Zyvox*) 600 Mg Tablet, 600 MG PO BID, TAB 04/11/19 Ondansetron Hcl* (Ondansetron Hcl*) 4 Mg Tablet, 4 MG PO Q6H PRN for NAUSEA A ND/OR VOMITING, TAB 04/11/19 Acetaminophen* (Tylenol*) 325 Mg Tablet, 650 MG PO Q4H PRN for PAIN AND OR ELEVATED TEMP, TAB Give 2 tablets by mouth every 8hrs as needed 04/11/19 Terazosin Hcl* (Terazosin Hcl*) 2 Mg Capsule, 2 MG PO HS for HTN, CAP 04/11/19 Sennosides* (Senna Lax*) 8.6 Mg Tablet, 2 TAB PO BID for CONST, TAB 04/11/19 Potassium Chloride* (Klor-Con*) 20 Meq Tabsr, 20 MEQ PO TID for HYPOKALEMIA, TAB.SA 04/11/19 Nifedipine* (Nifedipine ER*) 30 Mg Tablet.sa, 30 MG PO DAILY for HTN, TAB.SA GIVE 30mgBY MOUTH ONE TIME A DAY FOR HTN HOLD IF SBP IS <110 or HR is <60 04/11/19 Metoprolol Tartrate* (Lopressor*) 25 Mg Tablet, 25 MG PO BID for HTN, #60 TAB 04/11/19 Metoclopramide* (Reglan*) 10 Mg Tablet, 0.5 MG PO TID for GERD, TAB 04/11/19 Melatonin (Melatonin) 1 Mg Tablet, 1 MG PO HS, TAB 04/11/19 Magnesium Oxide* (Magnesium Oxide*) 400 Mg Tablet, 400 MG PO BID, TAB 04/11/19 Lactobacillus Rhamnosus GG (Culturelle) 1 Each Capsule, 1 EACH PO BID WITH MEALS for To SupportGUT Tosin, CAP 04/11/19 Ipratropium-Albuterol (Ipratropium-Albuterol) 0.5-3 Mg/3 Ml Ampul.neb, 3 ML INHALATION Q2H, #30 VIAL 04/11/19 Insulin Lispro (Humalog) 100 Unit/1 Ml Cartridge, 100 UNIT SQ SS, EA INJECT PER SLIDING SCALE: IF 70-150=0 UNIT;151-200= 2 UNITS; 201-250=4UNITS; 251-300=6UNITS;301-350=8UNITS; 351-400=10UNITS>400=12UNITS and CALL 04/11/19 Sziejhwysty-J-Twoldqjjsa Hb* (Guaifenesin* DM Syrup) 120 Ml Syrup, 5 ML PO Q4H PRN for COUGH, ML 04/11/19 Glipizide* (Glipizide*) 5 Mg Tablet, 5 MG PO AC BREAKFAST, TAB 04/11/19 Fluconazole* (Fluconazole*) 100 Mg Tablet, 100 MG PO DAILY for FUNGAL INFECTION, TAB 04/11/19 Mineral Oil* (Fleet* Mineral Oil Enema) 133 Ml Oil, 133 ML IN NEEDED PRN for CONSTIPATION, ENEMA 04/11/19 Famotidine* (Famotidine*) 20 Mg Tablet, 20 MG PO DAILY, #30 TAB 04/11/19 Bisacodyl (Dulcolax) 10 Mg Supp.rect, 10 MG RC, SUPP.RECT 04/11/19 Rvczbr-Xjdqqvrg-Abqahbk* (Al HUMPHREYS* 12000) 12,000 L-38,000-60,000 Unit Capsule.dr, 1 CAP PO WITH MEALS, CAP 04/11/19 Calcium Carbonate (Calcium Carbonate) 500 Mg Tab.chew, 500 MG PO Q4H WHILE AWAKE for INDIGESTION, TAB.CHEW 04/11/19 Apixaban* (Eliquis*) 2.5 Mg Tablet, 2.5 MG PO BID, TAB 04/11/19 Medications Current Medications Ondansetron HCl (Zofran Inj) 4 mg ER BRIDGE PRN IV NAUSEA/VOMITING; Start 04/10/19 at 22:30; Stop 04/11/19 at 22:29 Acetaminophen (Tylenol Tab) 650 mg ER BRIDGE PRN PO .MILD PAIN 1-3 OR TEMP; Start 04/10/19 at 22:30; Stop 04/11/19 at 22:29 Albuterol (Proventil 0.083% (Neb)) 2.5 mg Q2H RESP THERAPY PRN NEB SHORTNESS OF BREATH Last administered on 04/11/19at 13:54; Admin Dose 2.5 MG; Start 04/11/19 at 00:00 Ipratropium [place] (Atrovent 0.02% (Neb)) 0.5 mg Q2H RESP THERAPY PRN NEB SHORTNESS OF BREATH Last administered on 04/11/19at 13:54; Admin Dose 0.5 MG; Start 04/11/19 at 00:00 Acetaminophen (Tylenol Liquid) 650 mg Q6H PRN PO PAIN LEVEL 1-3 OR FEVER; Start 04/11/19 at 00:00 Acetaminophen/ Hydrocodone Bitart ([place] (5/325)) 1 tab Q6H PRN PO PAIN LEVEL 4-6 Last administered on 04/11/19at 01:35; Admin Dose 1 TAB; Start 04/11/19 at 00:00 Docusate Sodium (Colace) 100 mg Q12H PRN PO CONSTIPATION; Start 04/11/19 at 00:00 Bisacodyl (Dulcolax) 5 mg DAILY PRN PO CONSTIPATION; Start 04/11/19 at 00:00 Diagnostic Test (Pha) (Accu-Chek) 1 ea 02 XX ; Start 04/11/19 at 02:00 Insulin Aspart (Novolog Insulin Pen) NOVOLOG *MILD* ALGORITHM WITH MEALS BEDTIME SC Last administered on 04/11/19at 12:05; Admin Dose 2 UNIT; Start 04/11/19 at 08:00 Miscellaneous Information 1 ea NOTE XX ; Start 04/11/19 at 00:30 Glucose (Glutose) 15 gm Q15M PRN PO DECREASED GLUCOSE; Start 04/11/19 at 00:30 Glucose (Glutose) 22.5 gm Q15M PRN PO DECREASED GLUCOSE; Start 04/11/19 at 00:30 Dextrose (D50w Syringe) 25 ml Q15M PRN IV DECREASED GLUCOSE; Start 04/11/19 at 00:30 Dextrose (D50w Syringe) 50 ml Q15M PRN IV DECREASED GLUCOSE; Start 04/11/19 at 00:30 Glucagon (Glucagen) 1 mg Q15M PRN IM DECREASED GLUCOSE; Start 04/11/19 at 00:30 Glucose (Glutose) 15 gm Q15M PRN BUCCAL DECREASED GLUCOSE; Start 04/11/19 at 00:30 Miscellaneous Information ([facility] This patient coyle... PRN PRN XX WOUND CARE; Start 04/11/19 at 08:00 Acetaminophen (Tylenol Tab) 650 mg Q4H PRN PO MILD PAIN(1-3)OR ELEVATED TEMP; Start 04/11/19 at 09:00 Bisacodyl (Dulcolax Supp) 10 mg DAILY PRN [place] CONSTIPATION; Start 04/11/19 at 09:00 Famotidine (Pepcid) 20 mg DAILY PO ; Start 04/12/19 at 09:00 Fluconazole (Diflucan) 100 mg DAILY PO Last administered on 04/11/19at 13:42; Admin Dose 100 MG; Start 04/11/19 at 09:00 Albuterol/ Ipratropium (Duoneb) 3 ml Q4H RESP THERAPY PRN INH SHORTNESS OF BREATH; Start 04/11/19 at 09:00 Linezolid (Zyvox) 600 mg BID PO Last administered on 04/11/19at 13:42; Admin Dose 600 MG; Start 04/11/19 at 09:00 Amylase/Lipase/ Protease (CREON (12k-38k-60k)) 1 cap WITH MEALS PO Last ad ministered on 04/11/19at 13:44; Admin Dose 1 CAP; Start 04/11/19 at 12:00 Senna (Senokot) 2 tab BID PO Last administered on 04/11/19at 13:42; Admin Dose 2 TAB; Start 04/11/19 at 09:00 Terazosin HCl (Hytrin) 2 mg HS PO ; Start 04/11/19 at 21:00 Cefepime HCl 50 ml @ 100 mls/hr DAILY IVPB Last administered on 04/11/19at 15:21; Admin Dose 100 MLS/HR; Start 04/11/19 at 13:00 Allergies: Coded Allergies: No Known Allergy (Unverified , 04/10/19) Social History Smoking Status: Never smoker Exam/Review of Systems Exam Vitals Vital Signs Date Temp Pulse Resp B/P (MAP) Pulse Ox O2 O2 Flow FiO2 Time Delivery Rate 04/11/19 96.6 122 22 131/76 96 Nasal 15:40 (94) Cannula 04/11/19 4.0 13:50 04/11/19 50 07:40 Constitutional: frail Psych: confusion Head: normocephalic, atraumatic Eyes: nl conjunctiva, EOMI ENMT: nl external ears & nose Neck: supple, non-tender Respiratory: diminished breath sounds Cardiovascular: regular rate and rhythm Gastrointestinal: soft, nl liver, spleen Musculoskeletal: nl extremities to inspection Extremities: normal pulses Neurological: BABCOCK TESTER II-XII intact, confused Results Result Diagram: 04/10/19 1808 04/10/19 1808 Results 24hrs Laboratory Tests Test 04/10/19 18:08 04/10/19 22:19 04/11/19 00:12 04/11/19 02:36 White Blood 20.5 H Count Red Blood Count 2.58 L Hemoglobin 8.2 L Hematocrit 25.3 L Mean Corpuscular 98.1 Volume Mean Corpuscular 31.8 Hemoglobin Mean Corpuscular 32.4 Hemoglobin Neli nt Red Cell 15.8 H Distribution Width Platelet Count 320 Mean Platelet 9.9 Volume Immature 6.100 H Granulocytes % Neutrophils % 85.8 H Lymphocytes % 3.6 L Monocytes % 3.9 Eosinophils % 0.2 Basophils % 0.4 Nucleated Red 0.0 Blood Cells % Immature 1.240 H Granulocytes # Neutrophils # 17.6 H Lymphocytes # 0.7 L Monocytes # 0.8 Eosinophils # 0.0 Basophils # 0.1 Nucleated Red 0.0 Blood Cells # Prothrombin Time 26.2 H Prothrombin Time 2.0 Ratio INR 2.40 International Normalized Ratio Activated 71.7 *H Partial Thrombop last Time Sodium Level 137 Potassium Level 4.5 Chloride Level 108 Carbon Dioxide 16 L Level Anion Gap 13 Blood Urea 30 H Nitrogen Creatinine 1.93 H Est Glomerular Filtrat Rate mL/min Glucose Level 224 H Calcium Level 8.5 Total Bilirubin 0.9 Direct Bilirubin 0.00 Indirect 0.9 Bilirubin Aspartate Amino 22 Transf (AST/SGOT ) Alanine 30 Aminotransferase (ALT/SGPT) Alkaline 383 H Phosphatase Ammonia < 9 L Troponin I < 0.012 Total Protein 6.3 Albumin 2.7 L Globulin 3.60 H Albumin/Globulin 0.75 Ratio Lipase 35 POC Venous 2.5 *H Lactate Lactic Acid 1.6 1.5 Level Test 04/11/19 07:00 04/11/19 07:44 04/11/19 09:58 04/11/19 10:04 Blood Gas Blood arterial Specimen Source Arterial Blood 04/11/2019 8:10: Date Drawn 39 AM Arterial Blood 7.394 pH (Temp corrected) Arterial Blood 26.7 L pCO2 (Temp correct) Arterial Blood 73.8 L pO2 (Temp corrected) Arterial Blood 15.9 L HCO3 Arterial Blood -8.0 L Base Excess Arterial Blood 94.7 L Oxygen Saturatio n [place] Test N/A Arterial Blood Right Brachial Gas Puncture Site Arterial 0.2 Blood Carboxyhem oglobin Arterial Blood 0.3 Methemoglobin Blood Gas A-a O2 252.7 H Differential Oxyhemoglobin 94.2 Percent Blood Gas 37.0 Temperature Blood Gas 16.0 Respiration Rate Blood Gas Actual 21 Respiration Rate Blood Gas MASK - BIPAP Modality FiO2 50.0 Blood Gas 10 Pressure Support Blood Gas 15/5 IPAP/EPAP Ratio Blood Gas ALVARO IVY RN Critical Value Read Back Blood Gas [employer] 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 Notified Whom Blood Gas 04/11/2019 9:16: Notified Time 33 AM Bedside Glucose 217 Alpha < 0.83 Fetoprotein Carcinoembryonic 2.5 Antigen CA 19-9 Antigen 882.0 H Erythrocyte 80 H Sedimentation Rate Osmolality 293 C-Reactive 23.8 H Protein Procalcitonin 1.00 H Test 04/11/19 11:54 04/11/19 14:00 Bedside Glucose 189 Urine Color ANGELICA Urine Clarity SLIGHTLY CLOUDY A Urine pH 5.0 Urine Specific 1.035 H [place] Urine Ketones NEGATIVE Urine Nitrite NEGATIVE Urine Bilirubin NEGATIVE Urine NEGATIVE Urobilinogen Urine Leukocyte NEGATIVE Esterase Urine 4 Microscopic RBC Urine 3 Microscopic WBC Urine Hyaline FEW A Casts Urine Mucus FEW A Urine Hemoglobin NEGATIVE Urine Osmolality 525 Urine Random 82.60 Creatinine Urine Random 46 Sodium Urine 0.25 Protein/Creatini ne Ratio Urine Glucose NEGATIVE Urine Total NEGATIVE Protein Medications Medication Current Medications Ondansetron HCl (Zofran Inj) 4 mg ER BRIDGE PRN IV NAUSEA/VOMITING; Start 04/10/19 at 22:30; Stop 04/11/19 at 22:29 Acetaminophen (Tylenol Tab) 650 mg ER BRIDGE PRN PO .MILD PAIN 1-3 OR TEMP; Start 04/10/19 at 22:30; Stop 04/11/19 at 22:29 Albuterol (Proventil 0.083% (Neb)) 2.5 mg Q2H RESP THERAPY PRN NEB SHORTNESS OF BREATH Last administered on 04/11/19at 13:54; Admin Dose 2.5 MG; Start 04/11/19 at 00:00 Ipratropium [place] (Atrovent 0.02% (Neb)) 0.5 mg Q2H RESP THERAPY PRN NEB AMIRA RTNESS OF BREATH Last administered on 04/11/19at 13:54; Admin Dose 0.5 MG; Start 04/11/19 at 00:00 Acetaminophen (Tylenol Liquid) 650 mg Q6H PRN PO PAIN LEVEL 1-3 OR FEVER; Start 04/11/19 at 00:00 Acetaminophen/ Hydrocodone Bitart ([place] (5/325)) 1 tab Q6H PRN PO PAIN LEVEL 4-6 Last administered on 04/11/19at 01:35; Admin Dose 1 TAB; Start 04/11/19 at 00:00 Docusate Sodium (Colace) 100 mg Q12H PRN PO CONSTIPATION; Start 04/11/19 at 00:00 Bisacodyl (Dulcolax) 5 mg DAILY PRN PO CONSTIPATION; Start 04/11/19 at 00:00 Diagnostic Test (Pha) (Accu-Chek) 1 ea 02 XX ; Start 04/11/19 at 02:00 Insulin Aspart (Novolog Insulin Pen) NOVOLOG *MILD* ALGORITHM WITH MEALS BEDTIME SC Last administered on 04/11/19at 12:05; Admin Dose 2 UNIT; Start 04/11/19 at 08:00 Miscellaneous Information 1 ea NOTE XX ; Start 04/11/19 at 00:30 Glucose (Glutose) 15 gm Q15M PRN PO DECREASED GLUCOSE; Start 04/11/19 at 00:30 Glucose (Glutose) 22.5 gm Q15M PRN PO DECREASED GLUCOSE; Start 04/11/19 at 00:30 Dextrose (D50w Syringe) 25 ml Q15M PRN IV DECREASED GLUCOSE; Start 04/11/19 at 00:30 Dextrose (D50w Syringe) 50 ml Q15M PRN IV DECREASED GLUCOSE; Start 04/11/19 at 00:30 Glucagon (Glucagen) 1 mg Q15M PRN IM DECREASED GLUCOSE; Start 04/11/19 at 00:30 Glucose (Glutose) 15 gm Q15M PRN BUCCAL DECREASED GLUCOSE; Start 04/11/19 at 00:30 Miscellaneous Information ([facility] This patient coyle... PRN PRN XX WOUND CARE; Start 04/11/19 at 08:00 Acetaminophen (Tylenol Tab) 650 mg Q4H PRN PO MILD PAIN(1-3)OR ELEVATED TEMP; Start 04/11/19 at 09:00 Bisacodyl (Dulcolax Supp) 10 mg DAILY PRN IN CONSTIPATION; Start 04/11/19 at 09:00 Famotidine (Pepcid) 20 mg DAILY PO ; Start 04/12/19 at 09:00 Fluconazole (Diflucan) 100 mg DAILY PO Last administered on 04/11/19at 13:42; Admin Dose 100 MG; Start 04/11/19 at 09:00 Albuterol/ Ipratropium (Duoneb) 3 ml Q4H RESP THERAPY PRN INH SHORTNESS OF B REATH; Start 04/11/19 at 09:00 Linezolid (Zyvox) 600 mg BID PO Last administered on 04/11/19at 13:42; Admin Dose 600 MG; Start 04/11/19 at 09:00 Amylase/Lipase/ Protease (CREON (26o-63k-60k)) 1 cap WITH MEALS PO Last administered on 04/11/19at 13:44; Admin Dose 1 CAP; Start 04/11/19 at 12:00 Senna (Senokot) 2 tab BID PO Last administered on 04/11/19at 13:42; Admin Dose 2 TAB; Start 04/11/19 at 09:00 Terazosin HCl (Hytrin) 2 mg HS PO ; Start 04/11/19 at 21:00 Cefepime HCl 50 ml @ 100 mls/hr DAILY IVPB Last administered on 04/11/19at 15:21; Admin Dose 100 MLS/HR; Start 04/11/19 at 13:00 JAMES COLES MD Apr 11, 2019 16:30
--- NOTE | 2019-04-11 17:33 | RADRPT ---
Echocardiogram Report Patient Name: Edda RITTER ID: [id number] : 1940 (78y 6m)Study Date: 04/11/2019 7:24:32 AM Gender: Jadcession #: [id number] Tech: Jn Crowell RDCS Location: ER Ref.Physician: PETR REESE Height(Cm): BSA: Weight(Kg): Quality: AdequateOrder Physician: PETR REESE Account #: Procedures: Echocardiographic Report: Transthoracic echocardiogram with complete 2D, M-Mode, and doppler examination. Indications: Pericardial Effusion. Measurements: 2D/M Mode Doppler Measurement Value Normal Range Measurement Value Normal Range LVIDd 2D 4.7 [ 4.2 - 5.8 ] cm AV Peak Boaz 1.0 [ 100.0 - 170.0 ] cm/se c LVIDs 2D 2.9 [ 2.5 - 4.0 ] cm AV Peak PG 4.0 [ 2.0 - 9.0 ] mmHg LVPWd 2D 1.2 [ 0.6 - 1.0 ] cm LVOT Peak Boaz 0.6 [ 70.0 - 110.0 ] cm/sec IVSd 2D 0.6 [ 0.6 - 1.0 ] cm LVOT Peak PG 1.0 [ 2.0 - 6.0 ] mmHg AoR Diam 2D 3.8 [ 2.6 - 3.4 ] cm MV E Peak Boaz 1.0 [ 60.0 - 130.0 ] cm/sec EDV 2D 101.0 [ 62.0 - 150.0 ] ml MV A Peak [place] 1.1 [ 100.0 - 120.0 ] cm/se c ESV 2D 33.3 [ 21.0 - 61.0 ] ml MV E/A 0.9 [ 0.8 - 1.5 ] ratio EF 2D 67.0 [ 52.0 - 72.0 ] percent MV PHT 120.0 [ 20.0 - 100.0 ] msec LA Dimen 2D 4.0 [ 3.0 - 4.0 ] cm MV Decel Time 408 [ 104 - 258 ] msec MV Decel [place] 2 Med E` Boaz 0.2 cm/sec MV E/A 0.9 [ 0.8 - 1.5 ] ratio MVA PHT 1.8 [ 2.0 - 4.0 ] cm2 TR Peak Boaz 2.2 [ 100.0 - 280.0 ] cm/se c TR Peak PG 20.0 mmHg Findings: Left Ventricle: Normal left ventricular systolic function. Normal left ventricular cavity size. Normal left ventricular wall thickness. Ejection fraction is visually estimated at 50-55 %. Tissue Doppler/Mitral Doppler indices are consistent with impaired relaxation (Stage I diastolic dysfunction). Right Ventricle: Normal right ventricular size. Normal right ventricular systolic function. Left Atrium: The left atrium is normal in size. Right Atrium: The right atrium is normal in size. Atrial Septum: Normal atrial septum. Ventricular septum: Normal/intact ventricular septum. Mitral Valve: Normal appearance of the mitral valve. Mild to moderate mitral valve regurgitation. Aortic Valve: Normal appearance of the aortic valve. Mild aortic valve regurgitation. Tricuspid Valve: Normal appearance of the tricuspid valve. The estimated Peak RVSP is 20 mmHg. There is moderate to severe tricuspid regurgitation. Pulmonic Valve: Normal pulmonic valve appearance. No evidence of pulmonic regurgitation. Pericardium: Normal pericardium with no significant pericardial effusion. Aorta: Sinus of valsalva 3.80 cm. IVC: The IVC is not well visualized. Conclusions: Normal left ventricular systolic function. Normal left ventricular cavity size. Normal left ventricular wall thickness. Ejection fraction is visually estimated at 50-55 %. Tissue Doppler/Mitral Doppler indices are consistent with impaired relaxation (Stage I diastolic dysfunction). ). Normal right ventricular size. Normal right ventricular systolic function. Mild to moderate mitral valve regurgitation. Mild aortic valve regurgitation. The estimated Peak RVSP is 20 mmHg. There is moderate to severe tricuspid regurgitation. Normal pericardium with no significant pericardial effusion. Electronically Signed By: Aleksandar Dunbar 2019-04-11 17:32:18 PDT
[2019-04-11] MEDS: TERAZOSIN 2 MG CAP PO SCH (20:48)
--- NOTE | 2019-04-11 21:15 | CONS ---
DATE OF ADMISSION: 04/11/2019 DATE OF CONSULTATION: TYPE OF CONSULTATION: Gastroenterology. Dear Dr. Reese: Thank you for asking me to see Mr. Baca in GI consultation. HISTORY OF PRESENT ILLNESS: As you know, patient is a 78-year-old white gentleman who is admitted to the hospital because of shortness of breath and he has pleural effusion on the right side. However, as mentioned, he came to the hospital because of shortness of breath. The patient was supposed to b e transferred to [facility] because of the pleural effusion; however, he ended up getting ad mitted to [facility]. From the GI standpoint, he has abnormal liver functions and he has a transhepatic biliary drainage in place. Hence, the consultation is requested. Upon questioning the patient, the patient was hospita lized at [facility] where the endoscopic retrograde biliary stents were placed, including th e metal stent, and apparently, they did not help his jaundice. Transhepatic biliary drain was put in to the duodenum. He was seen by ____, the surgeon from [facility]. CAT scan of the abdomen in thi s hospitalization shows multiple findings: There is evidence of a transhepatic biliary drainage in p lacalejandra. Biliary ductal dilatation noted, more so in the left than on the right side. Gallbladder not visualized. It could be contracted with stones. Hypodensity within the pancreatic head, underlying mass cannot be excluded. Mild ascites noted. Large right-sided pleural effusion noted. Cardiomegal y noted. Again, upon discussion with the patient, very minimal information is given to me by the patient. How ever, the rest of the history includes hypertension, diabetes, kidney injury, and jaundice. SOCIAL HISTORY: The patient does have some history of alcoholism. Details are not available at the moment. PHYSICAL EXAMINATION GENERAL: The patient is a 78-year-old white gentleman who at this time is alert. He is quite short of breath. There is no jaundice. VITAL SIGNS: Pulse is 103, temperature is 98.8, blood pressure is 120/65. CARDIOVASCULAR EXAM: Normal heart sounds. RESPIRATORY: Some decreased breath sounds noted in the right chest. ABDOMEN: Soft. LABORATORY WORKUP: The WBC count is 20,700, hemoglobin 8.2. Potassium 4.5, bilirubin 0.9, AST 22, A LT 30, alkaline phosphatase 383, ammonia 0.9, lipase 25. CLINICAL IMPRESSION: The patient currently has a right pleural effusion, and that is giving us to sh ortness of breath. He has a transhepatic biliary drainage into the duodenum with a possible mass in the head of the pancreas. He does have a biliary ductal dilatation, more so on the left side than on the right side. We could be dealing with a metastatic pancreatic disease. PLAN: At this time, recommend continue present management, stabilize the patient, improve the prothr ombin time. Eventually, we may need to do ERCP and endoscopic biliary stent placement. Once again, doctor, thank you for this consultation. Dictated By: ANTONIA REYNOLDS/ALEXI Conf#: [id number] DID#: [id number] CC: ANTONIA BERRY MD; PETR REESE MD;*EndCC*
[2019-04-12] VITALS (9 sets, daily range): BP systolic 124–141; BP diastolic 79–88; PULSE 115–125; RESP 20–24
[2019-04-12] MEDS: ACCU-CHEK XX SCH (02:00)
[2019-04-12] MEDS: INSULIN ASPART [NOVOLOG] 3 ML PEN SC SCH ×4 (07:40→21:04)
[2019-04-12] MEDS: FAMOTIDINE 20 MG TAB PO SCH (08:14)
[2019-04-12] MEDS: FLUCONAZOLE 100 MG TAB PO SCH (08:14)
[2019-04-12] MEDS: CEFEPIME 1GM/50 ML (PMX) 50 ML IVPB SCH (08:14)
[2019-04-12] MEDS: ZYVOX 600 MG TAB PO SCH ×2 (08:14→20:52)
[2019-04-12] MEDS: SENNA TAB PO SCH ×2 (08:14→20:52)
[2019-04-12] MEDS: CREON (12k-38k-60k) 1 CAP PO SCH ×3 (08:14→17:40)
--- NOTE | 2019-04-12 13:20 | CONS ---
Assessment/Plan Assessment/Plan Hospital Course (Demo Recall) 1. marti on ckd vs progression of marti: due to hemodynamic changes with hypotension? - s/p albumin and gentle hydration - improved with gentle hydration - monitor renal function 2. right sided pleural effusion: - thoracentesis 3. possible pancreatic mass with transhepatic drain: - ercp per gi 4. hx of htn: - recent hypotensive episode - improved 5. anemia: - of chronic disease - monitor hg 6. leukocytosis: - unclear etiology - cx pending - ID consulted 7. Bone mineral disease: - monitor ca and phos Consultation Date/Type/Reason Admit Date/Time Apr 11, 2019 at 01:42 Initial Consult Date 04/11/19 Type of Consult nephrology Date/Time of Note DATE: 04/12/19 TIME: 13:17 24 HR Interval Summary Free Text/Dictation denies n/v or urinary issues still having some shortness of breath d/w rn gen nad cv rr pulm bibasilar rales abd soft, nd, nt +bs ext: no edema Exam/Review of Systems Exam Vitals Vital Signs Date Temp Pulse Resp B/P (MAP) Pulse Ox O2 O2 Flow FiO2 Time Delivery Rate 04/12/19 123 12:01 04/12/19 97.7 24 127/83 99 Nasal 11:37 (98) Cannula 04/12/19 3.0 08:00 04/11/19 50 07:40 Intake and Output 04/11/19 04/11/19 04/12/19 1515:00 23:00 07:00 IntakeIntake Total 880 ml 300 ml OutputOutput Total 400 ml 150 ml 400 ml BalanceBalance -400 ml 730 ml -100 ml Results Result Diagram: 04/12/19 0456 04/12/19 0456 Results 24hrs Laboratory Tests Test 04/11/19 14:00 04/11/19 17:59 04/11/19 20:41 04/12/19 01:14 Urine Color ANGELICA Urine Clarity SLIGHTLY CLOUDY A Urine pH 5.0 Urine Specific 1.035 H [place] Urine Ketones NEGATIVE Urine Nitrite NEGATIVE Urine Bilirubin NEGATIVE Urine NEGATIVE Urobilinogen Urine Leukocyte NEGATIVE Esterase Urine Microscopic 4 RBC Urine Microscopic 3 WBC Urine Hyaline FEW A Casts Urine Mucus FEW A Urine Hemoglobin NEGATIVE Urine Osmolality 525 Urine Random 82.60 Creatinine Urine Random 46 Sodium Urine 0.25 Protein/Creatinin e Ratio Urine Glucose NEGATIVE Urine Total NEGATIVE Protein Bedside Glucose 223 H 207 220 Test 04/12/19 04:56 04/12/19 07:22 04/12/19 11:51 White Blood Count 17.8 H Red Blood Count 2.63 L Hemoglobin 8.3 L Hematocrit 25.8 L Mean Corpuscular 98.1 Volume Mean Corpuscular 31.6 Hemoglobin Mean Corpuscular 32.2 Hemoglobin Concen t Red Cell 16.1 H Distribution Width Platelet Count 309 Mean Platelet 9.9 Volume Immature 6.100 H Granulocytes % Neutrophils % 87.4 H Lymphocytes % 2.5 L Monocytes % 3.5 Eosinophils % 0.3 Basophils % 0.2 Nucleated Red 0.0 Blood Cells % Immature 1.090 H Granulocytes # Neutrophils # 15.6 H Lymphocytes # 0.5 L Monocytes # 0.6 Eosinophils # 0.1 Basophils # 0.0 Nucleated Red 0.0 Blood Cells # Prothrombin Time 23.9 H Prothrombin Time 1.9 Ratio INR International 2.13 Normalized Ratio Activated 67.2 H Partial Thrombopl ast Time Sodium Level 139 Potassium Level 4.6 Chloride Level 110 Carbon Dioxide 19 L Level Anion Gap 10 Blood Urea 28 H Nitrogen Creatinine 1.80 H Est Glomerular Filtrat Rate mL/min Glucose Level 203 Hemoglobin A1c 5.6 Calcium Level 8.7 Magnesium Level 1.9 Iron Level 11 L Total Iron 200 L Binding Capacity Percent Iron 6 L Saturation Ferritin 1540.0 H Total Bilirubin 0.9 Direct Bilirubin 0.00 Indirect 0.9 Bilirubin Aspartate Amino 17 Transf (AST/SGOT) Alanine 27 Aminotransferase (ALT/SGPT) Alkaline 304 H Phosphatase Total Protein 6.3 Albumin 2.9 L Globulin 3.40 H Albumin/Globulin 0.85 Ratio Triglycerides 90 Level Cholesterol Level 173 LDL Cholesterol, 133 Calculated HDL Cholesterol 22 L Cholesterol/HDL 7.8 Ratio Thyroid 1.100 Stimulating Hormone (TSH) Bedside Glucose 195 239 H Medications Medication Current Medications Albuterol (Proventil 0.083% (Neb)) 2.5 mg Q2H RESP THERAPY PRN NEB SHORTNESS OF BREATH Last administered on 04/11/19at 13:54; Admin Dose 2.5 MG; Start 04/11/19 at 00:00 Ipratropium [place] (Atrovent 0.02% (Neb)) 0.5 mg Q2H RESP THERAPY PRN NEB SHORTNESS OF BREATH Last administered on 04/11/19at 13:54; Admin Dose 0.5 MG; Start 04/11/19 at 00:00 Acetaminophen (Tylenol Liquid) 650 mg Q6H PRN PO PAIN LEVEL 1-3 OR FEVER; Start 04/11/19 at 00:00 Acetaminophen/ Hydrocodone Bitart ([place] (5/325)) 1 tab Q6H PRN PO PAIN LEVEL 4-6 Last administered on 04/11/19at 01:35; Admin Dose 1 TAB; Start 04/11/19 at 00:00 Docusate Sodium (Colace) 100 mg Q12H PRN PO CONSTIPATION; Start 04/11/19 at 00:00 Bisacodyl (Dulcolax) 5 mg DAILY PRN PO CONSTIPATION; Start 04/11/19 at 00:00 Diagnostic Test (Pha) (Accu-Chek) 1 ea 02 XX ; Start 04/11/19 at 02:00 Insulin Aspart (Novolog Insulin Pen) NOVOLOG *MILD* ALGORITHM WITH MEALS BEDTIME SC Last administered on 04/12/19at 12:43; Admin Dose 3 UNIT; Start 04/11/19 at 08:00 Miscellaneous Information 1 ea NOTE XX ; Start 04/11/19 at 00:30 Glucose (Glutose) 15 gm Q15M PRN PO DECREASED GLUCOSE; Start 04/11/19 at 00:30 Glucose (Glutose) 22.5 gm Q15M PRN PO DECREASED GLUCOSE; Start 04/11/19 at 00:30 Dextrose (D50w Syringe) 25 ml Q15M PRN IV DECREASED GLUCOSE; Start 04/11/19 at 00:30 Dextrose (D50w Syringe) 50 ml Q15M PRN IV DECREASED GLUCOSE; Start 04/11/19 at 00:30 Glucagon (Glucagen) 1 mg Q15M PRN IM DECREASED GLUCOSE; Start 04/11/19 at 00:30 Glucose (Glutose) 15 gm Q15M PRN BUCCAL DECREASED GLUCOSE; Start 04/11/19 at 00:30 Miscellaneous Information (Pending [facility] Order For Wound Care) This patient coyle... PRN PRN XX WOUND CARE; Start 04/11/19 at 08:00 Acetaminophen (Tylenol Tab) 650 mg Q4H PRN PO MILD PAIN(1-3)OR ELEVATED TEMP; Start 04/11/19 at 09:00 Bisacodyl (Dulcolax Supp) 10 mg DAILY PRN [place] CONSTIPATION; Start 04/11/19 at 09:00 Famotidine (Pepcid) 20 mg DAILY PO Last administered on 04/12/19 08:14; Admin Dose 20 MG; Start 04/12/19 at 09:00 Fluconazole (Diflucan) 100 mg DAILY PO Last administered on 04/12/19 08:14; Admin Dose 100 MG; Start 04/11/19 at 09:00 Albuterol/ Ipratropium (Duoneb) 3 ml Q4H RESP THERAPY PRN INH SHORTNESS OF BREATH; Start 04/11/19 at 09:00 Linezolid (Zyvox) 600 mg BID PO Last administered on 04/12/19 08:14; Admin Dose 600 MG; Start 04/11/19 at 09:00 Amylase/Lipase/ Protease (CREON (12k-38k-60k)) 1 cap WITH MEALS PO Last administered on 04/12/19 12:39; Admin Dose 1 CAP; Start 04/11/19 at 12:00 Senna (Senokot) 2 tab BID PO Last administered on 04/12/19 08:14; Admin Dose 2 TAB; Start 04/11/19 at 09:00 Terazosin HCl (Hytrin) 2 mg HS PO Last administered on 04/11/19 20:48; Admin Dose 2 MG; Start 04/11/19 at 21:00 Cefepime HCl 50 ml @ 100 mls/hr DAILY IVPB Last administered on 04/12/19at 0 8:14; Admin Dose 100 MLS/HR; Start 04/11/19 at 13:00 ELLIS PURCELL MD Apr 12, 2019 13:20
--- NOTE | 2019-04-12 13:31 | CONS ---
Assessment/Plan Assessment/Plan Hospital Course (Demo Recall) Patient is awake looks comfortable no fevers overnight no pain WBC today 17.8 platelets 309 neutrophils 87.4 BUN 28 creatinine 1.80 Microbiology: Blood cultures remain negative Renal ultrasound was unremarkable. CT abdomen pelvis on admission revealed presence of transhepatic drain within the distal tip into the duodenum contracted gallbladder bladder with thickening of the castañeda and multiple gallstones questionable area of hypodensity within the pancreatic head and underlying mass is not excluded. Mild ascites with apparent wall thickening of the small bowel loops that could be secondary to hypoalbuminemia. Large right- sided pleural effusions which is likely partially loculated along the superior aspect of the hemithorax with complete atelectasis of the right middle lobe and right lower lobe. Please see final report in the chart Antimicrobials: Cefepime, fluconazole, Zyvox Physical examination: Well-developed ill-appearing elderly man who is awake in no distress. Head atraumatic normocephalic sclera anicteric bugle mucosa dry neck is supple trachea midline chest rise symmetrical breath sounds diminished bases heart: S1-S2 abdomen soft bowel sounds present patient has right-sided abdominal drainage catheter with the back attached. Extremities without cyanosis. Skin: Patient has jaundice Assessment: 1. Systemic inflammatory response syndrome with ongoing leukocytosis 2. Jaundice with abnormal CT of the abdomen finding, possible metastatic pancreatic disease 3. Large loculated right-sided pleural effusion possible malignant 4. Acute on chronic kidney disease 5. Hypertension 6. Hypertension Plan: Patient is clinically stable, being seen by pulmonary, GI and nephrology teams, continue on current antibiotics for now, pending medical records from [facility] facility, possible diagnostic thoracentesis Consultation Date/Type/Reason Admit Date/Time Apr 11, 2019 at 01:42 Initial Consult Date 04/11/19 Type of Consult id Date/Time of Note DATE: 04/12/19 TIME: 13:30 Exam/Review of Systems Exam Vitals Vital Signs Date Temp Pulse Resp B/P (MAP) Pulse Ox O2 O2 Flow FiO2 Time Delivery Rate 04/12/19 123 12:01 04/12/19 97.7 24 127/83 99 Nasal 11:37 (98) Cannula 04/12/19 3.0 08:00 04/11/19 50 07:40 Intake and Output 04/11/19 04/11/19 04/12/19 1515:00 23:00 07:00 IntakeIntake Total 880 ml 300 ml OutputOutput Total 400 ml 150 ml 400 ml BalanceBalance -400 ml 730 ml -100 ml Results Result Diagram: 04/12/19 0456 04/12/19 0456 Results 24hrs Laboratory Tests Test 04/11/19 14:00 04/11/19 17:59 04/11/19 20:41 04/12/19 01:14 Urine Color ANGELICA Urine Clarity SLIGHTLY CLOUDY A Urine pH 5.0 Urine Specific 1.035 H [place] Urine Ketones NEGATIVE Urine Nitrite NEGATIVE Urine Bilirubin NEGATIVE Urine NEGATIVE Urobilinogen Urine Leukocyte NEGATIVE Esterase Urine Microscopic 4 RBC Urine Microscopic 3 WBC Urine Hyaline FEW A Casts Urine Mucus FEW A Urine Hemoglobin NEGATIVE Urine Osmolality 525 Urine Random 82.60 Creatinine Urine Random 46 Sodium Urine 0.25 Protein/Creatinin e Ratio Urine Glucose NEGATIVE Urine Total NEGATIVE Protein Bedside Glucose 223 H 207 220 Test 04/12/19 04:56 04/12/19 07:22 04/12/19 11:51 White Blood Count 17.8 H Red Blood Count 2.63 L Hemoglobin 8.3 L Hematocrit 25.8 L Mean Corpuscular 98.1 Volume Mean Corpuscular 31.6 Hemoglobin Mean Corpuscular 32.2 Hemoglobin Concen t Red Cell 16.1 H Distribution Width Platelet Count 309 Mean Platelet 9.9 Volume Immature 6.100 H Granulocytes % Neutrophils % 87.4 H Lymphocytes % 2.5 L Monocytes % 3.5 Eosinophils % 0.3 Basophils % 0.2 Nucleated Red 0.0 Blood Cells % Immature 1.090 H Granulocytes # Neutrophils # 15.6 H Lymphocytes # 0.5 L Monocytes # 0.6 Eosinophils # 0.1 Basophils # 0.0 Nucleated Red 0.0 Blood Cells # Prothrombin Time 23.9 H Prothrombin Time 1.9 Ratio INR International 2.13 Normalized Ratio Activated 67.2 H Partial Thrombopl ast Time Sodium Level 139 Potassium Level 4.6 Chloride Level 110 Carbon Dioxide 19 L Level Anion Gap 10 Blood Urea 28 H Nitrogen Creatinine 1.80 H Est Glomerular Filtrat Rate mL/min Glucose Level 203 Hemoglobin A1c 5.6 Calcium Level 8.7 Magnesium Level 1.9 Iron Level 11 L Total Iron 200 L Binding Capacity Percent Iron 6 L Saturation Ferritin 1540.0 H Total Bilirubin 0.9 Direct Bilirubin 0.00 Indirect 0.9 Bilirubin Aspartate Amino 17 Transf (AST/SGOT) Alanine 27 Aminotransferase (ALT/SGPT) Alkaline 304 H Phosphatase Total Protein 6.3 Albumin 2.9 L Globulin 3.40 H Albumin/Globulin 0.85 Ratio Triglycerides 90 Level Cholesterol Level 173 LDL Cholesterol, 133 Calculated HDL Cholesterol 22 L Cholesterol/HDL 7.8 Ratio Thyroid 1.100 Stimulating Hormone (TSH) Bedside Glucose 195 239 H Medications Medication Current Medications Albuterol (Proventil 0.083% (Neb)) 2.5 mg Q2H RESP THERAPY PRN NEB SHORTNESS OF BREATH Last administered on 04/11/19at 13:54; Admin Dose 2.5 MG; Start 04/11/19 at 00:00 Ipratropium [place] (Atrovent 0.02% (Neb)) 0.5 mg Q2H RESP THERAPY PRN NEB SHORTNESS OF BREATH Last administered on 04/11/19at 13:54; Admin Dose 0.5 MG; Start 04/11/19 at 00:00 Acetaminophen (Tylenol Liquid) 650 mg Q6H PRN PO PAIN LEVEL 1-3 OR FEVER; Start 04/11/19 at 00:00 Acetaminophen/ Hydrocodone Bitart ([place] (5/325)) 1 tab Q6H PRN PO PAIN LEVEL 4-6 Last administered on 04/11/19at 01:35; Admin Dose 1 TAB; Start 04/11/19 at 00:00 Docusate Sodium (Colace) 100 mg Q12H PRN PO CONSTIPATION; Start 04/11/19 at 00:00 Bisacodyl (Dulcolax) 5 mg DAILY PRN PO CONSTIPATION; Start 04/11/19 at 00:00 Diagnostic Test (Pha) (Accu-Chek) 1 ea 02 XX ; Start 04/11/19 at 02:00 Insulin Aspart (Novolog Insulin Pen) NOVOLOG *MILD* ALGORITHM WITH MEALS BEDTIME SC Last administered on 04/12/19at 12:43; Admin Dose 3 UNIT; Start 04/11/19 at 08:00 Miscellaneous Information 1 ea NOTE XX ; Start 04/11/19 at 00:30 Glucose (Glutose) 15 gm Q15M PRN PO DECREASED GLUCOSE; Start 04/11/19 at 00:30 Glucose (Glutose) 22.5 gm Q15M PRN PO DECREASED GLUCOSE; Start 04/11/19 at 00:30 Dextrose (D50w Syringe) 25 ml Q15M PRN IV DECREASED GLUCOSE; Start 04/11/19 at 00:30 Dextrose (D50w Syringe) 50 ml Q15M PRN IV DECREASED GLUCOSE; Start 04/11/19 at 00:30 Glucagon (Glucagen) 1 mg Q15M PRN IM DECREASED GLUCOSE; Start 04/11/19 at 00:30 Glucose (Glutose) 15 gm Q15M PRN BUCCAL DECREASED GLUCOSE; Start 04/11/19 at 00:30 Miscellaneous Information ([facility]) This patient coyle... PRN PRN XX WOUND CARE; Start 04/11/19 at 08:00 Acetaminophen (Tylenol Tab) 650 mg Q4H PRN PO MILD PAIN(1-3)OR ELEVATED TEMP; Start 04/11/19 at 09:00 Bisacodyl (Dulcolax Supp) 10 mg DAILY PRN [place] CONSTIPATION; Start 04/11/19 at 09:00 Famotidine (Pepcid) 20 mg DAILY PO Last administered on 04/12/19at 08:14; Admin Dose 20 MG; Start 04/12/19 at 09:00 Fluconazole (Diflucan) 100 mg DAILY PO Last administered on 04/12/19at 08:14; Admin Dose 100 MG; Start 04/11/19 at 09:00 Albuterol/ Ipratropium (Duoneb) 3 ml Q4H RESP THERAPY PRN INH SHORTNESS OF BREATH; Start 04/11/19 at 09:00 Linezolid (Zyvox) 600 mg BID PO Last administered on 04/12/19at 08:14; Admin Dose 600 MG; Start 04/11/19 at 09:00 Amylase/Lipase/ Protease (CREON (12q-91k-60k)) 1 cap WITH MEALS PO Last administered on 04/12/19at 12:39; Admin Dose 1 CAP; Start 04/11/19 at 12:00 Senna (Senokot) 2 tab BID PO Last administered on 04/12/19at 08:14; Admin Dose 2 TAB; Start 04/11/19 at 09:00 Terazosin HCl (Hytrin) 2 mg HS PO Last administered on 04/11/19at 20:48; Admin Dose 2 MG; Start 04/11/19 at 21:00 Cefepime HCl 50 ml @ 100 mls/hr DAILY IVPB Last administered on 04/12/19at 08:1 4; Admin Dose 100 MLS/HR; Start 04/11/19 at 13:00 MAMI DIAZ NP Apr 12, 2019 13:31
[2019-04-12] MEDS ORDERED: SOD CHLORIDE 0.9% 250 ML IV* ONE (14:19)
--- NOTE | 2019-04-12 15:04 | PN ---
Date/Time of Note Date/Time of Note DATE: 04/12/19 TIME: 14:59 Assessment/Plan VTE Prophylaxis Risk score (from Nsg)>0 risk: 5 SCD applied (from Nsg): Yes Pharmacological prophylaxis: NA/contraindicated Pharm contraindication: blood coag disorder Lines/Catheters IV Catheter Type (from Nrsg): PICC Line Central line still needed: Yes Urinary Cath still in place: No Assessment/Plan Assessment/Plan This is a 78-year-old man with unclear medical history admitted for shortness of breath soon after recent hospital admission at [place]. #Hypoxemia #Dyspnea #R pleural effusion - Currently patient breathing comfortably on nasal cannula - According to speech therapy patient has dysphagia, will continue puree diet for now - Has loculated R pleural effusion. Per discussion with Dr. Baires will pursue US-guided drainage. - However interventionalist today Dr. Beck is not comfortable doing thoracentesis with INR>1.5. I explained we cannot get INR<1.7 with FFP. She recommended to wait until next radiologist comes on Saturday. #On antibiotics - Patient apparently was on linezolid and fluconazole - Not septic on admission. - Continue these for now until we get records from recent hospitalization. #Jaundice #Transhepatic drain #Pancreatic mass - Pending outside records #Elevated Cr - Unknown baseline Cr - Pending outside records. # hypertension: - Hold home BP meds given borderline blood pressures # diabetes mellitus: - insulin sliding scale #9 DVT GI prophylaxis: Patient was on Eliquis however unsure what exactly this was for. We will hold this at the current time as patient will likely have a thoracentesis, and then can resume. Home H2 anival Result Diagram: 04/12/19 0456 04/12/19 0456 Subjective 24 Hr Interval Summary Free Text/Dictation Still no outside records. Patient reports poor appetite. No nausea. No pain. Overall minimal complaints. Still on 5L nasal cannula. Exam/Review of Systems Exam Vitals Vital Signs Date Temp Pulse Resp B/P (MAP) Pulse Ox O2 O2 Flow FiO2 Time Delivery Rate 04/12/19 123 12:01 04/12/19 97.7 24 127/83 99 Nasal 11:37 (98) Cannula 04/12/19 3.0 08:00 04/11/19 50 07:40 Intake and Output 6/04/11/19 04/12/19 1515:00 23:00 07:00 IntakeIntake Total 880 ml 300 ml OutputOutput Total 400 ml 150 ml 400 ml BalanceBalance -400 ml 730 ml -100 ml Exam General: Frail appearing elderly man lying in bed, awake and alert. HEENT: Atraumatic, normocephalic. The pupils are equal, round and reactive. Neck: Supple with full range of motion. No JVD Chest: Nontender Lungs: Coarse breath sounds bilaterally, no increased work of breathing. Heart: Normal S1-S2, Regular rhythm and rate. No murmur, S3, or S4 Abdomen: Soft , nontender, nondistended , bowel sounds are present. RUQ transhepatic tube with biliary drainage. Extremities: Normal to inspection, no edema no cyanosis Neurologic: Normal mental status, speech normal, alert and oriented, able to give most medical history. Skin: Diffuse jaundice Results Results 24hrs Laboratory Tests Test 04/11/19 17:59 04/11/19 20:41 04/12/19 01:14 04/12/19 04:56 Bedside Glucose 223 H 207 220 White Blood Count 17.8 H Red Blood Count 2.63 L Hemoglobin 8.3 L Hematocrit 25.8 L Mean Corpuscular 98.1 Volume Mean Corpuscular 31.6 Hemoglobin Mean Corpuscular 32.2 Hemoglobin Concent Red Cell 16.1 H Distribution Width Platelet Count 309 Mean Platelet Volume 9.9 Immature 6.100 H Granulocytes % Neutrophils % 87.4 H Lymphocytes % 2.5 L Monocytes % 3.5 Eosinophils % 0.3 Basophils % 0.2 Nucleated Red Blood 0.0 Cells % Immature 1.090 H Granulocytes # Neutrophils # 15.6 H Lymphocytes # 0.5 L Monocytes # 0.6 Eosinophils # 0.1 Basophils # 0.0 Nucleated Red Blood 0.0 Cells # Prothrombin Time 23.9 H Prothrombin Time 1.9 Ratio INR International 2.13 Normalized Ratio Activated 67.2 H Partial Thromboplast Time Sodium Level 139 Potassium Level 4.6 Chloride Level 110 Carbon Dioxide Level 19 L Anion Gap 10 Blood Urea Nitrogen 28 H Creatinine 1.80 H Est Glomerular Filtrat Rate mL/min Glucose Level 203 Hemoglobin A1c 5.6 Calcium Level 8.7 Magnesium Level 1.9 Iron Level 11 L Total Iron Binding 200 L Capacity Percent Iron 6 L Saturation Ferritin 1540.0 H Total Bilirubin 0.9 Direct Bilirubin 0.00 Indirect Bilirubin 0.9 Aspartate Amino 17 Transf (AST/SGOT) Alanine 27 Aminotransferase (AL T/SGPT) Alkaline Phosphatase 304 H Total Protein 6.3 Albumin 2.9 L Globulin 3.40 H Albumin/Globulin 0.85 Ratio Triglycerides Level 90 Cholesterol Level 173 LDL Cholesterol, 133 Calculated HDL Cholesterol 22 L Cholesterol/HDL 7.8 Ratio Thyroid Stimulating 1.100 Hormone (TSH) Test 04/12/19 07:22 04/12/19 11:51 Bedside Glucose 195 239 H Medications Medication Current Medications Albuterol (Proventil 0.083% (Neb)) 2.5 mg Q2H RESP THERAPY PRN NEB SHORTNESS OF BREATH Last administered on 04/11/19at 13:54; Admin Dose 2.5 MG; Start 04/11/19 at 00:00 Ipratropium [place] (Atrovent 0.02% (Neb)) 0.5 mg Q2H RESP THERAPY PRN NEB SHORTNESS OF BREATH Last administered on 04/11/19at 13:54; Admin Dose 0.5 MG; Start 04/11/19 at 00:00 Acetaminophen (Tylenol Liquid) 650 mg Q6H PRN PO PAIN LEVEL 1-3 OR FEVER; Start 04/11/19 at 00:00 Acetaminophen/ Hydrocodone Bitart ([place] (5/325)) 1 tab Q6H PRN PO PAIN LEVEL 4-6 Last administered on 04/11/19at 01:35; Admin Dose 1 TAB; Start 04/11/19 at 00:00 Docusate Sodium (Colace) 100 mg Q12H PRN PO CONSTIPATION; Start 04/11/19 at 00: 00 Bisacodyl (Dulcolax) 5 mg DAILY PRN PO CONSTIPATION; Start 04/11/19 at 00:00 Diagnostic Test (Pha) (Accu-Chek) 1 ea 02 XX ; Start 04/11/19 at 02:00 Insulin Aspart (Novolog Insulin Pen) NOVOLOG *MILD* ALGORITHM WITH MEALS BEDTIME SC Last administered on 04/12/19at 12:43; Admin Dose 3 UNIT; Start 04/11/19 at 08:00 Miscellaneous Information 1 ea NOTE XX ; Start 04/11/19 at 00:30 Glucose (Glutose) 15 gm Q15M PRN PO DECREASED GLUCOSE; Start 04/11/19 at 00:30 Glucose (Glutose) 22.5 gm Q15M PRN PO DECREASED GLUCOSE; Start 04/11/19 at 00:30 Dextrose (D50w Syringe) 25 ml Q15M PRN IV DECREASED GLUCOSE; Start 04/11/19 at 00:30 Dextrose (D50w Syringe) 50 ml Q15M PRN IV DECREASED GLUCOSE; Start 04/11/19 at 00:30 Glucagon (Glucagen) 1 mg Q15M PRN IM DECREASED GLUCOSE; Start 04/11/19 at 00:30 Glucose (Glutose) 15 gm Q15M PRN BUCCAL DECREASED GLUCOSE; Start 04/11/19 at 00:30 Miscellaneous Information (Pending [facility] Order For Wound Care) This patient coyle... PRN PRN XX WOUND CARE; Start 04/11/19 at 08:00 Acetaminophen (Tylenol Tab) 650 mg Q4H PRN PO MILD PAIN(1-3)OR ELEVATED TEMP; Start 04/11/19 at 09:00 Bisacodyl (Dulcolax Supp) 10 mg DAILY PRN [place] CONSTIPATION; Start 04/11/19 at 09:00 Famotidine (Pepcid) 20 mg DAILY PO Last administered on 04/12/19at 08:14; Admin Dose 20 MG; Start 04/12/19 at 09:00 Fluconazole (Diflucan) 100 mg DAILY PO Last administered on 04/12/19at 08:14; Admin Dose 100 MG; Start 04/11/19 at 09:00 Albuterol/ Ipratropium (Duoneb) 3 ml Q4H RESP THERAPY PRN INH SHORTNESS OF BREATH; Start 04/11/19 at 09:00 Linezolid (Zyvox) 600 mg BID PO Last administered on 04/12/19at 08:14; Admin Dose 600 MG; Start 04/11/19 at 09:00 Amylase/Lipase/ Protease (CREON (87x-43n-60k)) 1 cap WITH MEALS PO Last administered on 04/12/19at 12:39; Admin Dose 1 CAP; Start 04/11/19 at 12:00 Senna (Senokot) 2 tab BID PO Last administered on 04/12/19at 08:14; Admin Dose 2 TAB; Start 04/11/19 at 09:00 Terazosin HCl (Hytrin) 2 mg HS PO Last administered on 04/11/19at 20:48; Admin Dose 2 MG; Start 04/11/19 at 21:00 Cefepime HCl 50 ml @ 100 mls/hr DAILY IVPB Last administered on 04/12/19at 08:14; Admin Dose 100 MLS/HR; Start 04/11/19 at 13:00 ALVARO LA MD Apr 12, 2019 15:04
--- NOTE | 2019-04-12 15:46 | CONS ---
Consult Date/Type/Reason Admit Date/Time Apr 11, 2019 at 01:42 Initial Consult Date 04/11/19 Type of Consultation: Pulm Date/Time of Note DATE: 04/12/19 TIME: 15:44 Subjective Events noted. INR too elevated for IR to perform diagnostic/therapeutic thoracentesis. Awaiting FFP. Objective Vitals Vital Signs Date Temp Pulse Resp B/P (MAP) Pulse Ox O2 O2 Flow FiO2 Time Delivery Rate 04/12/19 97.5 124 24 127/83 98 Nasal 15:28 (98) Cannula 04/12/19 3.0 08:00 04/11/19 50 07:40 Intake and Output 04/11/19 04/11/19 04/12/19 1515:00 23:00 07:00 IntakeIntake Total 880 ml 300 ml OutputOutput Total 400 ml 150 ml 400 ml BalanceBalance -400 ml 730 ml -100 ml Exam HEENT: Neck supple; no JVD; no LAD CVS: RRR, S1 and S2 CHEST: Decreased BS right lung > 1/2 way up ABD: Soft, NT, + BS EXT: No c/c/e Results/Medications Result Diagram: 04/12/19 0456 04/12/19 0456 Results 24 hrs Laboratory Tests Test 04/11/19 17:59 04/11/19 20:41 04/12/19 01:14 04/12/19 04:56 Bedside Glucose 223 H 207 220 White Blood Count 17.8 H Red Blood Count 2.63 L Hemoglobin 8.3 L Hematocrit 25.8 L Mean Corpuscular 98.1 Volume Mean Corpuscular 31.6 Hemoglobin Mean Corpuscular 32.2 Hemoglobin Concent Red Cell 16.1 H Distribution Width Platelet Count 309 Mean Platelet Volume 9.9 Immature 6.100 H Granulocytes % Neutrophils % 87.4 H Lymphocytes % 2.5 L Monocytes % 3.5 Eosinophils % 0.3 Basophils % 0.2 Nucleated Red Blood 0.0 Cells % Immature 1.090 H Granulocytes # Neutrophils # 15.6 H Lymphocytes # 0.5 L Monocytes # 0.6 Eosinophils # 0.1 Basophils # 0.0 Nucleated Red Blood 0.0 Cells # Prothrombin Time 23.9 H Prothrombin Time 1.9 Ratio INR International 2.13 Normalized Ratio Activated 67.2 H Partial Thromboplast Time Sodium Level 139 Potassium Level 4.6 Chloride Level 110 Carbon Dioxide Level 19 L Anion Gap 10 Blood Urea Nitrogen 28 H Creatinine 1.80 H Est Glomerular Filtrat Rate mL/min Glucose Level 203 Hemoglobin A1c 5.6 Calcium Level 8.7 Magnesium Level 1.9 Iron Level 11 L Total Iron Binding 200 L Capacity Percent Iron 6 L Saturation Ferritin 1540.0 H Total Bilirubin 0.9 Direct Bilirubin 0.00 Indirect Bilirubin 0.9 Aspartate Amino 17 Transf (AST/SGOT) Alanine 27 Aminotransferase (AL T/SGPT) Alkaline Phosphatase 304 H Total Protein 6.3 Albumin 2.9 L Globulin 3.40 H Albumin/Globulin 0.85 Ratio Triglycerides Level 90 Cholesterol Level 173 LDL Cholesterol, 133 Calculated HDL Cholesterol 22 L Cholesterol/HDL 7.8 Ratio Thyroid Stimulating 1.100 Hormone (TSH) Test 04/12/19 07:22 04/12/19 11:51 Bedside Glucose 195 239 H Home Meds Reported Medications Linezolid* (Zyvox*) 600 Mg Tablet, 600 MG PO BID, TAB 04/11/19 Ondansetron Hcl* (Ondansetron Hcl*) 4 Mg Tablet, 4 MG PO Q6H PRN for NAUSEA AND/OR VOMITING, TAB 04/11/19 Acetaminophen* (Tylenol*) 325 Mg Tablet, 650 MG PO Q4H PRN for PAIN AND OR ELEVATED TEMP, TAB Give 2 tablets by mouth every 8hrs as needed 04/11/19 Terazosin Hcl* (Terazosin Hcl*) 2 Mg Capsule, 2 MG PO HS for HTN, CAP 04/11/19 Sennosides* (Senna Lax*) 8.6 Mg Tablet, 2 TAB PO BID for CONST, TAB 04/11/19 Potassium Chloride* (Klor-Con*) 20 Meq Tabsr, 20 MEQ PO TID for HYPOKALEMIA, TAB.SA 04/11/19 Nifedipine* (Nifedipine ER*) 30 Mg Tablet.sa, 30 MG PO DAILY for HTN, TAB.SA GIVE 30mgBY MOUTH ONE TIME A DAY FOR HTN HOLD IF SBP IS <110 or HR is <60 04/11/19 Metoprolol Tartrate* (Lopressor*) 25 Mg Tablet, 25 MG PO BID for HTN, #60 TAB 04/11/19 Metoclopramide* (Reglan*) 10 Mg Tablet, 0.5 MG PO TID for GERD, TAB 04/11/19 Melatonin (Melatonin) 1 Mg Tablet, 1 MG PO HS, TAB 04/11/19 Magnesium Oxide* (Magnesium Oxide*) 400 Mg Tablet, 400 MG PO BID, TAB 04/11/19 Lactobacillus Rhamnosus GG (Culturelle) 1 Each Capsule, 1 EACH PO BID WITH MEALS for To SupportGUT Tosin, CAP 04/11/19 Ipratropium-Albuterol (Ipratropium-Albuterol) 0.5-3 Mg/3 Ml Ampul.neb, 3 ML INHALATION Q2H, #30 VIAL 04/11/19 Insulin Lispro (Humalog) 100 Unit/1 Ml Cartridge, 100 UNIT SQ SS, EA INJECT PER SLIDING SCALE: IF 70-150=0 UNIT;151-200= 2 UNITS; 201-250=4UNITS; 251-300=6UNITS;301-350=8UNITS; 351-400=10UNITS>400=12UNITS and CALL 04/11/19 Mqrynnpnzuq-Y-Qbdkmhemrg Hb* (Guaifenesin* DM Syrup) 120 Ml Syrup, 5 ML PO Q4H PRN for COUGH, ML 04/11/19 Glipizide* (Glipizide*) 5 Mg Tablet, 5 MG PO AC BREAKFAST, TAB 04/11/19 Fluconazole* (Fluconazole*) 100 Mg Tablet, 100 MG PO DAILY for FUNGAL INFECTION, TAB 04/11/19 Mineral Oil* (Fleet* Mineral Oil Enema) 133 Ml Oil, 133 ML NE NEEDED PRN for CONSTIPATION, ENEMA 04/11/19 Famotidine* (Famotidine*) 20 Mg Tablet, 20 MG PO DAILY, #30 TAB 04/11/19 Bisacodyl (Dulcolax) 10 Mg Supp.rect, 10 MG RC, SUPP.RECT 04/11/19 Renxzu-Vovvqfqn-Ukemctd* (Al HUMPHREYS* 12,000) 12,000 L-38,000-60,000 Unit Capsule.dr, 1 CAP PO WITH MEALS, CAP 04/11/19 Calcium Carbonate (Calcium Carbonate) 500 Mg Tab.chew, 500 MG PO Q4H WHILE AWAKE for INDIGESTION, TAB.CHEW 04/11/19 Apixaban* (Eliquis*) 2.5 Mg Tablet, 2.5 MG PO BID, TAB 04/11/19 Medications Current Medications Albuterol (Proventil 0.083% (Neb)) 2.5 mg Q2H RESP THERAPY PRN NEB SHORTNESS OF BREATH Last administered on 04/11/19at 13:54; Admin Dose 2.5 MG; Start 04/11/19 at 00:00 Ipratropium [place] (Atrovent 0.02% (Neb)) 0.5 mg Q2H RESP THERAPY PRN NEB AMIRA RTNESS OF BREATH Last administered on 04/11/19at 13:54; Admin Dose 0.5 MG; Start 04/11/19 at 00:00 Acetaminophen (Tylenol Liquid) 650 mg Q6H PRN PO PAIN LEVEL 1-3 OR FEVER; Start 04/11/19 at 00:00 Acetaminophen/ Hydrocodone Bitart ([place] (5/325)) 1 tab Q6H PRN PO PAIN LEVEL 4-6 Last administered on 04/11/19at 01:35; Admin Dose 1 TAB; Start 04/11/19 at 00:00 Docusate Sodium (Colace) 100 mg Q12H PRN PO CONSTIPATION; Start 04/11/19 at 00:00 Bisacodyl (Dulcolax) 5 mg DAILY PRN PO CONSTIPATION; Start 04/11/19 at 00:00 Diagnostic Test (Pha) (Accu-Chek) 1 ea 02 XX ; Start 04/11/19 at 02:00 Insulin Aspart (Novolog Insulin Pen) NOVOLOG *MILD* ALGORITHM WITH MEALS BEDTIME SC Last administered on 04/12/19at 12:43; Admin Dose 3 UNIT; Start 04/11/19 at 08:00 Miscellaneous Information 1 ea NOTE XX ; Start 04/11/19 at 00:30 Glucose (Glutose) 15 gm Q15M PRN PO DECREASED GLUCOSE; Start 04/11/19 at 00:30 Glucose (Glutose) 22.5 gm Q15M PRN PO DECREASED GLUCOSE; Start 04/11/19 at 00:30 Dextrose (D50w Syringe) 25 ml Q15M PRN IV DECREASED GLUCOSE; Start 04/11/19 at 00:30 Dextrose (D50w Syringe) 50 ml Q15M PRN IV DECREASED GLUCOSE; Start 04/11/19 at 00:30 Glucagon (Glucagen) 1 mg Q15M PRN IM DECREASED GLUCOSE; Start 04/11/19 at 00:30 Glucose (Glutose) 15 gm Q15M PRN BUCCAL DECREASED GLUCOSE; Start 04/11/19 at 00:30 Miscellaneous Information [facility] This patient coyle... PRN PRN XX WOUND CARE; Start 04/11/19 at 08:00 Acetaminophen (Tylenol Tab) 650 mg Q4H PRN PO MILD PAIN(1-3)OR ELEVATED TEMP; Start 04/11/19 at 09:00 Bisacodyl (Dulcolax Supp) 10 mg DAILY PRN [place] CONSTIPATION; Start 04/11/19 at 09:00 Famotidine (Pepcid) 20 mg DAILY PO Last administered on 04/12/19 08:14; Admin Dose 20 MG; Start 04/12/19 at 09:00 Fluconazole (Diflucan) 100 mg DAILY PO Last administered on 04/12/19at 08:14; Admin Dose 100 MG; Start 04/11/19 at 09:00 Albuterol/ Ipratropium (Duoneb) 3 ml Q4H RESP THERAPY PRN INH SHORTNESS OF BREATH; Start 04/11/19 at 09:00 Linezolid (Zyvox) 600 mg BID PO Last administered on 04/12/19 08:14; Admin Dose 600 MG; Start 04/11/19 at 09:00 Amylase/Lipase/ Protease (CREON ([id number])) 1 cap WITH MEALS PO Last administered on 04/12/19at 12:39; Admin Dose 1 CAP; Start 04/11/19 at 12:00 Senna (Senokot) 2 tab BID PO Last administered on 04/12/19 08:14; Admin Dose 2 TAB; Start 04/11/19 at 09:00 Terazosin HCl (Hytrin) 2 mg HS PO Last administered on 04/11/19at 20:48; Admin Dose 2 MG; Start 04/11/19 at 21:00 Cefepime HCl 50 ml @ 100 mls/hr DAILY IVPB Last administered on 04/12/19 08:14; Admin Dose 100 MLS/HR; Start 04/11/19 at 13:00 Assessment/Plan Assessment/Plan (Daily) IMP: 1. Large loculated right pleural effusion--concerning for underlying malignancy; less likely parapneumonic. RECS: 1. Diagnostic/therapeutic thoracentesis. 2. Please send pleural fluid for cell count with diff, LDH, TP, cytology, glucose, and GS/Cx 3. FFP prior to procedure JAMES COLES MD Apr 12, 2019 15:46
--- NOTE | 2019-04-12 17:14 | CONS ---
DATE OF ADMISSION: 04/11/2019 DATE OF CONSULTATION: SUBJECTIVE: The patient continues to have shortness of breath. He has a right pleural effusion. Th oracentesis has not been done because of the prothrombin time still being high with INR of 2.13. He has a pancreatic mass, has got external transhepatic biliary drainage. He is still clinically jaundi aris. PHYSICAL EXAMINATION: CARDIOVASCULAR: Normal heart sounds. RESPIRATORY: Decreased breath sounds in the right lower chest. ABDOMEN: Soft. He has a transhepatic cholangiographic drainage catheter in place. LABORATORY WORKUP: WBC 17,800. The bilirubin is 0.9, AST 17, ALT 27, alkaline phosphatase 304. CLINICAL IMPRESSION: 1. Pleural effusion which needs to be drained. Because of the INR, thoracentesis pending. Now, I a m giving him 2 units of FFP. 2. From the GI standpoint he seems to have a history of pancreatic cancer and there is evidence of C A 19-9 being elevated, being at 882. PLAN: Once the patient becomes comfortable from the breathing standpoint, we may have to further pur dona the biliary tract problems. Dictated By: ANTONIA BERRY MD NC/NTS Conf#: [id number] DID#: [id number] CC: PETR REESE MD;*End*
[2019-04-12] MEDS: TERAZOSIN 2 MG CAP PO SCH (20:53)
[2019-04-13] VITALS (11 sets, daily range): BP systolic 124–150; BP diastolic 73–89; PULSE 121–126; RESP 20–24
[2019-04-13] MEDS: ACETAMINOPHEN 325 MG TAB PO PRN (00:11)
[2019-04-13] MEDS: ALBUTEROL/IPRATROPIUM (NEB) 3 ML AMP INH PRN (00:34)
[2019-04-13] MEDS: ACCU-CHEK XX SCH (02:00)
[2019-04-13] MEDS: FLUCONAZOLE 100 MG TAB PO SCH (08:16)
[2019-04-13] MEDS: CREON (12k-38k-60k) 1 CAP PO SCH ×3 (08:16→17:35)
[2019-04-13] MEDS: ZYVOX 600 MG TAB PO SCH ×2 (08:16→20:52)
[2019-04-13] MEDS: FAMOTIDINE 20 MG TAB PO SCH (08:16)
[2019-04-13] MEDS: SENNA TAB PO SCH ×2 (08:16→20:52)
[2019-04-13] MEDS: INSULIN ASPART [NOVOLOG] 3 ML PEN SC SCH ×4 (08:37→20:57)
[2019-04-13] MEDS: CEFEPIME 1GM/50 ML (PMX) 50 ML IVPB SCH (10:11)
--- NOTE | 2019-04-13 10:50 | CONS ---
Assessment/Plan Assessment/Plan Assessment/Plan (Daily) Assessment and recommendations; 1. Patient admitted for shortness of breath with a moderate to large right pleural effusion, awaiting thoracentesis once INR is at an acceptable level. Malignant versus parapneumonic in etiology. 2. Placement of recent right upper quadrant drain. 3. Chronic renal insufficiency. 4. Anemia. 5. BPH. 6. Hypoxemia. Continue current supportive care. Awaiting thoracentesis. Consultation Date/Type/Reason Admit Date/Time Apr 11, 2019 at 01:42 Initial Consult Date 04/11/19 Type of Consult Pulmonary Patient's condition is stable. Denies any shortness of breath at rest. Any chest pain, coughing, wheezing or sputum production. General exam; elderly male, awake and alert. Currently in no distress. Reason for Consultation H EENT exam; supple neck, no JVD. No lymphadenopathy. Midline trachea. No thyromegaly. Patient has carious teeth. Chest exam; diminished breath sounds right lower lobe. Rest of the lung stone are fairly clear. S1-S2 audible, no murmurs. Abdomen exam; soft, no organomegaly. Bowel sounds audible. Right upper quadrant drain in place. Extremity exam; no edema. 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 Date/Time of Note DATE: 04/13/19 TIME: 10:48 Exam/Review of Systems Exam Vitals Vital Signs Date Temp Pulse Resp B/P (MAP) Pulse Ox O2 O2 Flow FiO2 Time Delivery Rate 04/13/19 Nasal 5.0 09:00 Cannula 04/13/19 124 08:01 04/13/19 98.3 20 136/89 99 07:24 (105) 04/11/19 50 07:40 Intake and Output 04/12/19 04/12/19 04/13/19 1515:00 23:00 07:00 IntakeIntake Total 50 ml 620 ml 850 ml OutputOutput Total 150 ml 400 ml BalanceBalance -100 ml 220 ml 850 ml Results Result Diagram: 04/13/19 0515 04/13/19 0515 Results 24hrs Laboratory Tests Test 04/12/19 11:51 04/12/19 17:09 04/12/19 20:51 04/13/19 01:54 Bedside Glucose 239 H 154 224 H 204 Test 04/13/19 05:15 04/13/19 08:06 White Blood Count 17.5 H Red Blood Count 2.48 L Hemoglobin 7.9 L Hematocrit 24.6 L Mean Corpuscular 99.2 Volume Mean Corpuscular 31.9 Hemoglobin Mean Corpuscular 32.1 Hemoglobin Concent Red Cell 15.9 H Distribution Width Platelet Count 296 Mean Platelet Volume 9.7 Immature 4.100 H Granulocytes % Neutrophils % 88.0 H Lymphocytes % 3.6 L Monocytes % 3.7 Eosinophils % 0.3 Basophils % 0.3 Nucleated Red Blood 0.0 Cells % Immature 0.720 H Granulocytes # Neutrophils # 15.3 H Lymphocytes # 0.6 L Monocytes # 0.7 Eosinophils # 0.1 Basophils # 0.1 Nucleated Red Blood 0.0 Cells # Sodium Level 140 Potassium Level 4.2 Chloride Level 110 Carbon Dioxide Level 19 L Anion Gap 11 Blood Urea Nitrogen 27 H Creatinine 1.51 H Est Glomerular Filtrat Rate mL/min Glucose Level 200 Calcium Level 8.6 Total Bilirubin 1.0 Direct Bilirubin 0.10 Indirect Bilirubin 0.9 Aspartate Amino 22 Transf (AST/SGOT) Alanine 24 Aminotransferase (AL T/SGPT) Alkaline Phosphatase 337 H Total Protein 6.7 Albumin 3.1 L Globulin 3.60 H Albumin/Globulin 0.86 Ratio Bedside Glucose 191 Medications Medication Current Medications Albuterol (Proventil 0.083% (Neb)) 2.5 mg Q2H RESP THERAPY PRN NEB SHORTNESS OF BREATH Last administered on 04/11/19at 13:54; Admin Dose 2.5 MG; Start 04/11/19 at 00:00 Ipratropium [place] (Atrovent 0.02% (Neb)) 0.5 mg Q2H RESP THERAPY PRN NEB SHORTNESS OF BREATH Last administered on 04/11/19at 13:54; Admin Dose 0.5 MG; Start 04/11/19 at 00:00 Acetaminophen (Tylenol Liquid) 650 mg Q6H PRN PO PAIN LEVEL 1-3 OR FEVER; Start 04/11/19 at 00:00 Acetaminophen/ Hydrocodone Bitart ([place] (5/325)) 1 tab Q6H PRN PO PAIN LEVEL 4-6 Last administered on 04/11/19at 01:35; Admin Dose 1 TAB; Start 04/11/19 at 00:00 Docusate Sodium (Colace) 100 mg Q12H PRN PO CONSTIPATION; Start 04/11/19 at 00:00 Bisacodyl (Dulcolax) 5 mg DAILY PRN PO CONSTIPATION; Start 04/11/19 at 00:00 Diagnostic Test (Pha) (Accu-Chek) 1 ea 02 XX ; Start 04/11/19 at 02:00 Insulin Aspart (Novolog Insulin Pen) NOVOLOG *MILD* ALGORITHM WITH MEALS BEDTIME SC Last administered on 04/13/19at 08:37; Admin Dose 2 UNIT; Start 04/11/19 at 08:00 Miscellaneous Information 1 ea NOTE XX ; Start 04/11/19 at 00:30 Glucose (Glutose) 15 gm Q15M PRN PO DECREASED GLUCOSE; Start 04/11/19 at 00:30 Glucose (Glutose) 22.5 gm Q15M PRN PO DECREASED GLUCOSE; Start 04/11/19 at 00:30 Dextrose (D50w Syringe) 25 ml Q15M PRN IV DECREASED GLUCOSE; Start 04/11/19 at 00:30 Dextrose (D50w Syringe) 50 ml Q15M PRN IV DECREASED GLUCOSE; Start 04/11/19 at 00:30 Glucagon (Glucagen) 1 mg Q15M PRN IM DECREASED GLUCOSE; Start 04/11/19 at 00:30 Glucose (Glutose) 15 gm Q15M PRN BUCCAL DECREASED GLUCOSE; Start 04/11/19 at 00:30 Miscellaneous Information (Pending [facility] Order For Wound Care) This patient coyle... PRN PRN XX WOUND CARE; Start 04/11/19 at 08:00 Acetaminophen (Tylenol Tab) 650 mg Q4H PRN PO MILD PAIN(1-3)OR ELEVATED TEMP Last administered on 04/13/19at 00:11; Admin Dose 650 MG; Start 04/11/19 at 09:00 Bisacodyl (Dulcolax Supp) 10 mg DAILY PRN [place] CONSTIPATION; Start 04/11/19 at 09:00 Famotidine (Pepcid) 20 mg DAILY PO Last administered on 04/13/19at 08:16; Admin Dose 20 MG; Start 04/12/19 at 09:00 Fluconazole (Diflucan) 100 mg DAILY PO Last administered on 04/13/19at 08:16; Admin Dose 100 MG; Start 04/11/19 at 09:00 Albuterol/ Ipratropium (Duoneb) 3 ml Q4H RESP THERAPY PRN INH SHORTNESS OF BREATH Last administered on 04/13/19at 00:34; Admin Dose 3 ML; Start 04/11/19 at 09:00 Linezolid (Zyvox) 600 mg BID PO Last administered on 04/13/19at 08:16; Admin Dose 600 MG; Start 04/11/19 at 09:00 Amylase/Lipase/ Protease (CREON (12m-38k-60k)) 1 cap WITH MEALS PO Last administered on 04/13/19at 08:16; Admin Dose 1 CAP; Start 04/11/19 at 12:00 Senna (Senokot) 2 tab BID PO Last administered on 04/13/19at 08:16; Admin Dose 2 TAB; Start 04/11/19 at 09:00 Terazosin HCl (Hytrin) 2 mg HS PO Last administered on 04/12/19at 20:53; Admin Dose 2 MG; Start 04/11/19 at 21:00 Cefepime HCl 50 ml @ 100 mls/hr DAILY IVPB Last administered on 04/13/19at 10:11; Admin Dose 100 MLS/HR; Start 04/11/19 at 13:00 Albumin Human 100 ml @ 100 mls/hr Q8H IV ; Start 04/13/19 at 09:00; Stop 04/14/19 at 01:59 TANIKA GRAYSON 17, 2019 10:50
[2019-04-13] MEDS: ALBUMIN HUMAN 25% 100 ML IV SCH ×2 (11:03→16:45)
--- NOTE | 2019-04-13 12:09 | PN ---
Date/Time of Note Date/Time of Note DATE: 04/13/19 TIME: 11:54 Assessment/Plan VTE Prophylaxis Risk score (from Ns)>0 risk: 8 SCD applied (from Ns): Yes Pharmacological prophylaxis: NA/contraindicated Pharm contraindication: blood coag disorder Lines/Catheters [facility] Urinary Cath still in place: No Assessment/Plan Hospital Course S: Patient seen by pulmonary speech therapy teams. Ordered for albumin today. Had no acute events overnight. Received FFP transfusion yesterday. Awaiting possible thoracentesis later today if INR is satisfactory. O: VS- see below PE: General: Frail appearing elderly man lying in bed HEENT: Atraumatic, normocephalic. The pupils are equal, round and reactive. Neck: Supple with full range of motion. No JVD Chest: Nontender Lungs: Coarse breath sounds bilaterally, no increased work of breathing. Heart: Normal S1-S2, Regular rhythm and rate. No murmur, S3, or S4 Abdomen: Soft , nontender, nondistended , bowel sounds are present. RUQ transhepatic tube with biliary drainage. Extremities: Normal to inspection, no edema no cyanosis Neurologic: Normal mental status, speech normal, alert and oriented, able to give most medical history. Skin: Diffuse jaundice Assessment/Plan: 78-year-old man with unclear medical history admitted for shortness of breath soon after recent hospital admission at [place]. #R pleural effusion- patient also earlier had hypoxia and dyspnea- Currently patient breathing comfortably on nasal cannula 5 L - Has loculated R pleural effusion. Thoracentesis was ordered yesterday, however interventionalist was not comfortable doing thoracentesis with INR>1.5. Thus patient received FFP yesterday. -Follow-up stat INR today, if satisfactory will proceed with thoracentesis later today - According to speech therapy patient has dysphagia, will continue puree diet for now #Unclear possible bacterial infection?-At outside hospital 4 days ago patient apparently was on linezolid and fluconazole- Not septic on admission. - Continue these for now until we get records from recent hospitalization. #Pancreatic mass -patient has jaundice and now transhepatic drain in place, GI on the case -Per them patient seems to have a history of pancreatic cancer and there is evidence of CA 19-9 being elevated, being at 882. -Monitor, follow GI recommendations, also pending outside records #Elevated Cr-slowly trending down but still overall elevated at 1.51 today, unknown baseline Cr -Monitor, follow renal recommendations, pending outside records. # hypertension: Blood pressure presently stable -Monitor, presently holding home BP meds given borderline blood pressures # diabetes mellitus: -Monitor, continue insulin sliding scale # DVT GI prophylaxis: Patient was on Eliquis however unsure what exactly this was for. We will hold this at the current time as patient will likely have a thoracentesis, and then can resume. Home H2 anival Result Diagram: 04/13/19 0515 04/13/1915 Results 24hrs Laboratory Tests Test 04/12/19 17:09 04/12/19 20:51 04/13/19 01:54 04/13/19 05:15 Bedside Glucose 154 224 H 204 White Blood Count 17.5 H Red Blood Count 2.48 L Hemoglobin 7.9 L Hematocrit 24.6 L Mean Corpuscular 99.2 Volume Mean Corpuscular 31.9 Hemoglobin Mean Corpuscular 32.1 Hemoglobin Concent Red Cell 15.9 H Distribution Width Platelet Count 296 Mean Platelet Volume 9.7 Immature 4.100 H Granulocytes % Neutrophils % 88.0 H Lymphocytes % 3.6 L Monocytes % 3.7 Eosinophils % 0.3 Basophils % 0.3 Nucleated Red Blood 0.0 Cells % Immature 0.720 H Granulocytes # Neutrophils # 15.3 H Lymphocytes # 0.6 L Monocytes # 0.7 Eosinophils # 0.1 Basophils # 0.1 Nucleated Red Blood 0.0 Cells # Sodium Level 140 Potassium Level 4.2 Chloride Level 110 Carbon Dioxide Level 19 L Anion Gap 11 Blood Urea Nitrogen 27 H Creatinine 1.51 H Est Glomerular Filtrat Rate mL/min Glucose Level 200 Calcium Level 8.6 Total Bilirubin 1.0 Direct Bilirubin 0.10 Indirect Bilirubin 0.9 Aspartate Amino 22 Transf (AST/SGOT) Alanine 24 Aminotransferase (AL T/SGPT) Alkaline Phosphatase 337 H Total Protein 6.7 Albumin 3.1 L Globulin 3.60 H Albumin/Globulin 0.86 Ratio Test 04/13/19 08:06 Bedside Glucose 191 Exam/Review of Systems Exam Vitals Vital Signs Date Temp Pulse Resp B/P (MAP) Pulse Ox O2 O2 Flow FiO2 Time Delivery Rate 04/13/19 98.3 122 20 134/89 97 11:41 (104) 04/13/19 Nasal 5.0 09:00 Cannula 04/11/19 50 07:40 Intake and Output 04/12/19 04/12/19 04/13/19 1515:00 23:00 07:00 IntakeIntake Total 50 ml 620 ml 850 ml OutputOutput Total 150 ml 400 ml BalanceBalance -100 ml 220 ml 850 ml Results Results 24hrs Laboratory Tests Test 04/12/19 17:09 04/12/19 20:51 04/13/19 01:54 04/13/19 05:15 Bedside Glucose 154 224 H 204 White Blood Count 17.5 H Red Blood Count 2.48 L Hemoglobin 7.9 L Hematocrit 24.6 L Mean Corpuscular 99.2 Volume Mean Corpuscular 31.9 Hemoglobin Mean Corpuscular 32.1 Hemoglobin Concent Red Cell 15.9 H Distribution Width Platelet Count 296 Mean Platelet Volume 9.7 Immature 4.100 H Granulocytes % Neutrophils % 88.0 H Lymphocytes % 3.6 L Monocytes % 3.7 Eosinophils % 0.3 Basophils % 0.3 Nucleated Red Blood 0.0 Cells % Immature 0.720 H Granulocytes # Neutrophils # 15.3 H Lymphocytes # 0.6 L Monocytes # 0.7 Eosinophils # 0.1 Basophils # 0.1 Nucleated Red Blood 0.0 Cells # Sodium Level 140 Potassium Level 4.2 Chloride Level 110 Carbon Dioxide Level 19 L Anion Gap 11 Blood Urea Nitrogen 27 H Creatinine 1.51 H Est Glomerular Filtrat Rate mL/min Glucose Level 200 Calcium Level 8.6 Total Bilirubin 1.0 Direct Bilirubin 0.10 Indirect Bilirubin 0.9 Aspartate Amino 22 Transf (AST/SGOT) Alanine 24 Aminotransferase (AL T/SGPT) Alkaline Phosphatase 337 H Total Protein 6.7 Albumin 3.1 L Globulin 3.60 H Albumin/Globulin 0.86 Ratio Test 04/13/19 08:06 Bedside Glucose 191 Medications Medication Current Medications Albuterol (Proventil 0.083% (Neb)) 2.5 mg Q2H RESP THERAPY PRN NEB SHORTNESS OF BREATH Last administered on 04/11/19at 13:54; Admin Dose 2.5 MG; Start 04/11/19 at 00:00 Ipratropium [place] (Atrovent 0.02% (Neb)) 0.5 mg Q2H RESP THERAPY PRN NEB SHORTNESS OF BREATH Last administered on 04/11/19at 13:54; Admin Dose 0.5 MG; Start 04/11/19 at 00:00 Acetaminophen (Tylenol Liquid) 650 mg Q6H PRN PO PAIN LEVEL 1-3 OR FEVER; Start 04/11/19 at 00:00 Acetaminophen/ Hydrocodone Bitart ([place] (5/325)) 1 tab Q6H PRN PO PAIN LEVEL 4-6 Last administered on 04/11/19at 01:35; Admin Dose 1 TAB; Start 04/11/19 at 00 :00 Docusate Sodium (Colace) 100 mg Q12H PRN PO CONSTIPATION; Start 04/11/19 at 00:00 Bisacodyl (Dulcolax) 5 mg DAILY PRN PO CONSTIPATION; Start 04/11/19 at 00:00 Diagnostic Test (Pha) (Accu-Chek) 1 ea 02 XX ; Start 04/11/19 at 02:00 Insulin Aspart (Novolog Insulin Pen) NOVOLOG *MILD* ALGORITHM WITH MEALS BEDTIME SC Last administered on 04/13/19at 08:37; Admin Dose 2 UNIT; Start 04/11/19 at 08:00 Miscellaneous Information 1 ea NOTE XX ; Start 04/11/19 at 00:30 Glucose (Glutose) 15 gm Q15M PRN PO DECREASED GLUCOSE; Start 04/11/19 at 00:30 Glucose (Glutose) 22.5 gm Q15M PRN PO DECREASED GLUCOSE; Start 04/11/19 at 00:30 Dextrose (D50w Syringe) 25 ml Q15M PRN IV DECREASED GLUCOSE; Start 04/11/19 at 00:30 Dextrose (D50w Syringe) 50 ml Q15M PRN IV DECREASED GLUCOSE; Start 04/11/19 at 00:30 Glucagon (Glucagen) 1 mg Q15M PRN IM DECREASED GLUCOSE; Start 04/11/19 at 00:30 Glucose (Glutose) 15 gm Q15M PRN BUCCAL DECREASED GLUCOSE; Start 04/11/19 at 00:30 Miscellaneous Information (Pending [facility] Order For Wound Care) This patient coyle... PRN PRN XX WOUND CARE; Start 04/11/19 at 08:00 Acetaminophen (Tylenol Tab) 650 mg Q4H PRN PO MILD PAIN(1-3)OR ELEVATED TEMP Last administered on 04/13/19at 00:11; Admin Dose 650 MG; Start 04/11/19 at 09:00 Bisacodyl (Dulcolax Supp) 10 mg DAILY PRN [place] CONSTIPATION; Start 04/11/19 at 09:00 Famotidine (Pepcid) 20 mg DAILY PO Last administered on 04/13/19 08:16; Admin Dose 20 MG; Start 04/12/19 at 09:00 Fluconazole (Diflucan) 100 mg DAILY PO Last administered on 04/13/19 08:16; Admin Dose 100 MG; Start 04/11/19 at 09:00 Albuterol/ Ipratropium (Duoneb) 3 ml Q4H RESP THERAPY PRN INH SHORTNESS OF BREATH Last administered on 04/13/19 00:34; Admin Dose 3 ML; Start 04/11/19 at 09:00 Linezolid (Zyvox) 600 mg BID PO Last administered on 04/13/19 08:16; Admin Dose 600 MG; Start 04/11/19 at 09:00 Amylase/Lipase/ Protease (CREON (12k-38k-60k)) 1 cap WITH MEALS PO Last administered on 04/13/19 08:16; Admin Dose 1 CAP; Start 04/11/19 at 12:00 Senna (Senokot) 2 tab BID PO Last administered on 04/13/19 08:16; Admin Dose 2 TAB; Start 04/11/19 at 09:00 Terazosin HCl (Hytrin) 2 mg HS PO Last administered on 04/12/19at 20:53; Admin Dose 2 MG; Start 04/11/19 at 21:00 Cefepime HCl 50 ml @ 100 mls/hr DAILY IVPB Last administered on 04/13/19at 10:11; Admin Dose 100 MLS/HR; Start 04/11/19 at 13:00 Albumin Human 100 ml @ 100 mls/hr Q8H IV Last administered on 04/13/19 11:03; Admin Dose 100 MLS/HR; Start 04/13/19 at 09:00; Stop 04/14/19 at 01:59 CHRIS GOMEZ 17, 2019 12:04
--- NOTE | 2019-04-13 16:17 | CONS ---
Assessment/Plan Assessment/Plan Hospital Course (Demo Recall) No acute changes, looks comfortable, no fevers over night Microbiology: Blood cultures remain negative Renal ultrasound was unremarkable. CT abdomen pelvis on admission revealed presence of transhepatic drain within the distal tip into the duodenum contracted gallbladder bladder with thickening of the castañeda and multiple gallstones questionable area of hypodensity within the pancreatic head and underlying mass is not excluded. Mild ascites with apparent wall thickening of the small bowel loops that could be secondary to hypoalbuminemia. Large right- sided pleural effusions which is likely partially loculated along the superior aspect of the hemithorax with complete atelectasis of the right middle lobe and right lower lobe. Please see final report in the chart Antimicrobials: Cefepime, fluconazole, Zyvox Physical examination: Well-developed ill-appearing elderly man who is awake in no distress. Head atraumatic normocephalic sclera anicteric bugle mucosa dry neck is supple trachea midline chest rise symmetrical breath sounds diminished bases heart: S1-S2 abdomen soft bowel sounds present patient has right-sided abdominal drainage catheter with the back attached. Extremities without cyanosis. Skin: Patient has jaundice Assessment: 1. Systemic inflammatory response syndrome with ongoing leukocytosis 2. Jaundice with abnormal CT of the abdomen finding, possible metastatic pancreatic disease 3. Large loculated right-sided pleural effusion possible malignant 4. Acute on chronic kidney disease 5. Hypertension 6. Hypertension Plan: Patient is clinically unchanged, pending thoracentesis Consultation Date/Type/Reason Admit Date/Time Apr 11, 2019 at 01:42 Initial Consult Date 04/11/19 Type of Consult id Date/Time of Note DATE: 04/13/19 TIME: 16:17 Exam/Review of Systems Exam Vitals Vital Signs Date Temp Pulse Resp B/P (MAP) Pulse Ox O2 O2 Flow FiO2 Time Delivery Rate 04/13/19 123 16:01 04/13/19 98.3 20 134/89 97 11:41 (104) 04/13/19 Nasal 5.0 09:00 Cannula 04/11/19 50 07:40 Intake and Output 04/12/19 04/12/19 04/13/19 1515:00 23:00 07:00 IntakeIntake Total 50 ml 620 ml 850 ml OutputOutput Total 150 ml 400 ml BalanceBalance -100 ml 220 ml 850 ml Results Result Diagram: 04/13/19 0515 04/13/19 0515 Results 24hrs Laboratory Tests Test 04/12/19 17:09 04/12/19 20:51 04/13/19 01:54 04/13/19 05:15 Bedside Glucose 154 224 H 204 White Blood Count 17.5 H Red Blood Count 2.48 L Hemoglobin 7.9 L Hematocrit 24.6 L Mean Corpuscular 99.2 Volume Mean Corpuscular 31.9 Hemoglobin Mean Corpuscular 32.1 Hemoglobin Concent Red Cell 15.9 H Distribution Width Platelet Count 296 Mean Platelet Volume 9.7 Immature 4.100 H Granulocytes % Neutrophils % 88.0 H Lymphocytes % 3.6 L Monocytes % 3.7 Eosinophils % 0.3 Basophils % 0.3 Nucleated Red Blood 0.0 Cells % Immature 0.720 H Granulocytes # Neutrophils # 15.3 H Lymphocytes # 0.6 L Monocytes # 0.7 Eosinophils # 0.1 Basophils # 0.1 Nucleated Red Blood 0.0 Cells # Sodium Level 140 Potassium Level 4.2 Chloride Level 110 Carbon Dioxide Level 19 L Anion Gap 11 Blood Urea Nitrogen 27 H Creatinine 1.51 H Est Glomerular Filtrat Rate mL/min Glucose Level 200 Calcium Level 8.6 Total Bilirubin 1.0 Direct Bilirubin 0.10 Indirect Bilirubin 0.9 Aspartate Amino 22 Transf (AST/SGOT) Alanine 24 Aminotransferase (AL T/SGPT) Alkaline Phosphatase 337 H Total Protein 6.7 Albumin 3.1 L Globulin 3.60 H Albumin/Globulin 0.86 Ratio Test 04/13/19 08:06 04/13/19 12:06 04/13/19 12:34 04/13/19 14:20 Bedside Glucose 191 173 Prothrombin Time 20.7 H Prothrombin Time 1.6 Ratio INR International 1.77 Normalized Ratio Activated 60.4 H Partial Thromboplast Time Medications Medication Current Medications Albuterol (Proventil 0.083% (Neb)) 2.5 mg Q2H RESP THERAPY PRN NEB SHORTNESS OF BREATH Last administered on 04/11/19at 13:54; Admin Dose 2.5 MG; Start 04/11/19 at 00:00 Ipratropium [place] (Atrovent 0.02% (Neb)) 0.5 mg Q2H RESP THERAPY PRN NEB SHORTNESS OF BREATH Last administered on 04/11/19at 13:54; Admin Dose 0.5 MG; Start 04/11/19 at 00:00 Acetaminophen (Tylenol Liquid) 650 mg Q6H PRN PO PAIN LEVEL 1-3 OR FEVER; Start 04/11/19 at 00:00 Acetaminophen/ Hydrocodone Bitart ([place] (5/325)) 1 tab Q6H PRN PO PAIN LEVEL 4-6 Last administered on 04/11/19at 01:35; Admin Dose 1 TAB; Start 04/11/19 at 00:00 Docusate Sodium (Colace) 100 mg Q12H PRN PO CONSTIPATION; Start 04/11/19 at 00:00 Bisacodyl (Dulcolax) 5 mg DAILY PRN PO CONSTIPATION; Start 04/11/19 at 00:00 Diagnostic Test (Pha) (Accu-Chek) 1 ea 02 XX ; Start 04/11/19 at 02:00 Insulin Aspart (Novolog Insulin Pen) NOVOLOG *MILD* ALGORITHM WITH MEALS BEDTIME SC Last administered on 04/13/19at 12:48; Admin Dose 1 UNIT; Start 04/11/19 at 08:00 Miscellaneous Information 1 ea NOTE XX ; Start 04/11/19 at 00:30 Glucose (Glutose) 15 gm Q15M PRN PO DECREASED GLUCOSE; Start 04/11/19 at 00:30 Glucose (Glutose) 22.5 gm Q15M PRN PO DECREASED GLUCOSE; Start 04/11/19 at 00:30 Dextrose (D50w Syringe) 25 ml Q15M PRN IV DECREASED GLUCOSE; Start 04/11/19 at 00:30 Dextrose (D50w Syringe) 50 ml Q15M PRN IV DECREASED GLUCOSE; Start 04/11/19 at 00:30 Glucagon (Glucagen) 1 mg Q15M PRN IM DECREASED GLUCOSE; Start 04/11/19 at 00:30 Glucose (Glutose) 15 gm Q15M PRN BUCCAL DECREASED GLUCOSE; Start 04/11/19 at 00:30 Miscellaneous Information (Pending [facility] Order For Wound Care) This patient coyle... PRN PRN XX WOUND CARE; Start 04/11/19 at 08:00 Acetaminophen (Tylenol Tab) 650 mg Q4H PRN PO MILD PAIN(1-3)OR ELEVATED TEMP Last administered on 04/13/19at 00:11; Admin Dose 650 MG; Start 04/11/19 at 09:00 Bisacodyl (Dulcolax Supp) 10 mg DAILY PRN [place] CONSTIPATION; Start 04/11/19 at 09 :00 Famotidine (Pepcid) 20 mg DAILY PO Last administered on 04/13/19 08:16; Admin Dose 20 MG; Start 04/12/19 at 09:00 Fluconazole (Diflucan) 100 mg DAILY PO Last administered on 04/13/19at 08:16; Ad min Dose 100 MG; Start 04/11/19 at 09:00 Albuterol/ Ipratropium (Duoneb) 3 ml Q4H RESP THERAPY PRN INH SHORTNESS OF BREATH Last administered on 04/13/19 00:34; Admin Dose 3 ML; Start 04/11/19 at 09:00 Linezolid (Zyvox) 600 mg BID PO Last administered on 04/13/19 08:16; Admin Dose 600 MG; Start 04/11/19 at 09:00 Amylase/Lipase/ Protease (CREON (12m-24k-60k)) 1 cap WITH MEALS PO Last administered on 04/13/19at 12:35; Admin Dose 1 CAP; Start 04/11/19 at 12:00 Senna (Senokot) 2 tab BID PO Last administered on 04/13/19 08:16; Admin Dose 2 TAB; Start 04/11/19 at 09:00 Terazosin HCl (Hytrin) 2 mg HS PO Last administered on 04/12/19at 20:53; Admin Dose 2 MG; Start 04/11/19 at 21:00 Cefepime HCl 50 ml @ 100 mls/hr DAILY IVPB Last administered on 04/13/19at 10:11; Admin Dose 100 MLS/HR; Start 04/11/19 at 13:00 Albumin Human 100 ml @ 100 mls/hr Q8H IV Last administered on 04/13/19 11:03; Admin Dose 100 MLS/HR; Start 04/13/19 at 09:00; Stop 04/14/19 at 01:59 MAMI DIAZ NP Apr 13, 2019 16:17
[2019-04-13] MEDS: TERAZOSIN 2 MG CAP PO SCH (20:51)
[2019-04-14] VITALS (9 sets, daily range): BP systolic 121–132; BP diastolic 81–86; PULSE 50–126; RESP 18–20
[2019-04-14] MEDS: ALBUMIN HUMAN 25% 100 ML IV SCH (00:27)
[2019-04-14] MEDS: ALBUTEROL/IPRATROPIUM (NEB) 3 ML AMP INH PRN ×2 (01:41→22:20)
[2019-04-14] MEDS: ACCU-CHEK XX SCH (02:00)
--- NOTE | 2019-04-14 06:23 | CONS ---
DATE OF ADMISSION: 04/11/2019 DATE OF CONSULTATION: I have been seeing the patient for a biliary tract disease. Some of the records were reviewed from [facility] where patient had an ERCP, plastic stents placed into the bile duct; however, they were not successful. Hence, the patient underwent a percutaneous transhepatic biliary drainage plac ed into the duodenum and at this time, the drainage is occurring through the biliary drain externally and has been draining like a 350 mL yesterday and 550 mL today. I do not think these drains have be en internalized. PHYSICAL EXAMINATION: GENERAL: The patient is alert and is less short of breath at this time. The thoracentesis was attempted, but because of the loculated fluid, thoracentesis was not performed. CLINICAL IMPRESSION: The patient still has sepsis with a white count of 17,500 despite antibiotics. His percutaneous transhepatic biliary drain is draining externally, but does not look like it was dra mustafa internally. PLAN: At this time, I would recommend that we will obtain a cholangiogram through the percutaneous t ranshepatic catheter and then eventually, he may need further ERCP and placement of a biliary stent e ndoscopically. Dictated By: ANTONIA REYNOLDS/NTS Conf#: [id number] DID#: [id number] CC: PETR REESE MD;*EndCC*
--- NOTE | 2019-04-14 07:06 | PN ---
DATE: 04/13/2019 SUBJECTIVE: The patient is stable, no events overnight. Patient remains confused, lethargic, no oth er events noted. OBJECTIVE: VITAL SIGNS: Blood pressure is 136/89, pulse 124, respirations 20, temperature 98.3. HEENT: Head is normocephalic. NECK: Supple. HEART: Regular rate. LUNGS: Show diminished breath sounds at the base. ABDOMEN: Soft, nontender to palpation without rebound or guarding. EXTREMITIES: Negative for clubbing, cyanosis, no edema. DERMATOLOGIC: No rashes. MUSCULOSKELETAL: No joint effusion. NEUROLOGIC: No change in exam. MEDICATIONS: The patient's medications have been reviewed. LABORATORY DATA: Has been reviewed. IMAGING STUDIES: Have been reviewed. ASSESSMENT AND PLAN: 1. Nonoliguric acute kidney injury on top of chronic kidney disease. Etiology of acute kidney injury is secondary to hemodynamics. The patient's renal function has improved with gentle IV hydration. At this point, continue current treatment plan, supportive care, renally dose all medication. 2. Chronic kidney disease. The patient is currently in acute kidney injury as stated above. Contin ue current treatment plan. Otherwise, continue disease factor modification. 3. Anemia. Monitor hemoglobin and hematocrit levels. 4. Mineral bone disorder, monitor calcium and phosphorus levels. 5. Right-sided pleural effusion. The patient is pending thoracentesis. 6. Possible pancreatic mass. Continue to monitor. Follow up with GI for possible ERCP. 7. History of hypertension. Continue to monitor closely as the patient was having episodes of hyper tension. 8. Leukocytosis, etiology unclear. Follow up infectious disease. Cultures have been reviewed. Con tinue antibiotic therapy. Dictated By: PRANEETH RODRIGUEZ DO NR/NTS Conf#: [id number] DID#: [id number] CC: CHRIS GOMEZ; PETR REESE MD; TANIKA GRAYSON MD;*End*
[2019-04-14] MEDS: INSULIN ASPART [NOVOLOG] 3 ML PEN SC SCH ×5 (08:00→22:45)
[2019-04-14] MEDS: CREON (12k-38k-60k) 1 CAP PO SCH ×4 (08:00→17:21)
[2019-04-14] MEDS: SENNA TAB PO SCH (08:34)
[2019-04-14] MEDS: FAMOTIDINE 20 MG TAB PO SCH (08:47)
[2019-04-14] MEDS: ZYVOX 600 MG TAB PO SCH ×2 (08:47→21:37)
[2019-04-14] MEDS: FLUCONAZOLE 100 MG TAB PO SCH (08:47)
[2019-04-14] MEDS: CEFEPIME 1GM/50 ML (PMX) 50 ML IVPB SCH (08:47)
--- NOTE | 2019-04-14 10:52 | PN ---
Date/Time of Note Date/Time of Note DATE: 04/14/19 TIME: 10:46 Assessment/Plan VTE Prophylaxis Risk score (from Ns)>0 risk: 4 SCD applied (from Ns): Yes Pharmacological prophylaxis: NA/contraindicated Pharm contraindication: blood coag disorder Lines/Catheters IV C[facility]ter Type (from [facility] Mid Line Urinary Cath still in place: No Assessment/Plan Hospital Course S: Patient not able to have thoracentesis performed yesterday because of loculated effusion, per radiology discussion. Awaiting cholangiogram for later today. Patient complaining of some mild shortness of breath symptoms. O: VS- see below PE: General: Frail appearing elderly man lying in bed, answering questions properly HEENT: Atraumatic, normocephalic. The pupils are equal, round and reactive. Neck: Supple with full range of motion. No JVD Chest: Nontender Lungs: Coarse breath sounds bilaterally Heart: Normal S1-S2, Regular rhythm and rate. No murmur, S3, or S4 Abdomen: Soft , nontender, nondistended , bowel sounds are present. RUQ transhepatic tube with biliary drainage. Extremities: Normal to inspection, no edema no cyanosis Neurologic: Normal mental status, speech normal, alert and oriented, able to give most medical history. Skin: Diffuse jaundice Assessment/Plan: 78-year-old man with unclear medical history admitted for shortness of breath soon after recent hospital admission at [place]. #R pleural effusion- patient also earlier had hypoxia and dyspnea- Currently patient breathing comfortably on nasal cannula 5 L - Has loculated R pleural effusion. Thoracentesis was attempted yesterday, but again because of the complexity of the fluid and possible loculation, not able to be performed. -Monitor for now, continue oxygen supplementation and follow-up final recommendations from pulmonary team - According to speech therapy patient has dysphagia, continue puree diet for now #Intra-abdominal infection/cholangitis?-At outside hospital a few days ago patient apparently was on linezolid Zosyn, and fluconazole- Not septic on admission. - Continue current antibiotics per ID recommendations, monitor white blood cell count #Pancreatic mass -patient has jaundice and now transhepatic drain in place, GI on the case -Per records obtained from [facility] where the patient was discharged last week on April 07, 2019, patient was found with obstructive jaundice at that time secondary to hepatic duct strictures + CBD strictures, and had percutaneous transhepatic drain placed on April 02, 2019. LFTs are trending down now. Patient also underwent 2 ERCPs with brushing revealing no evidence of malignancy at that time and subsequent biliary stent placement at that time x2, which have since been removed. -Monitor, follow GI recommendations, -Planning for cholangiogram later today #Elevated Cr-slowly trending down -Monitor, follow renal recommendations # hypertension: Blood pressure presently stable -Monitor, presently holding home BP meds given borderline blood pressures # diabetes mellitus: -Monitor, continue insulin sliding scale # DVT prophylaxis: Patient was on Eliquis for a history of atrial flutter, but this is being held secondary to elevated INR and for any potential seizures and may need to be performed in the next few days. Result Diagram: 04/14/19 0532 04/14/19 0532 Results 24hrs Laboratory Tests Test 04/13/19 12:06 04/13/19 12:34 04/13/19 14:20 04/13/19 17:34 Prothrombin Time 20.7 H Prothrombin Time 1.6 Ratio INR International 1.77 Normalized Ratio Bedside Glucose 173 183 Activated 60.4 H Partial Thromboplast Time Test 04/13/19 20:57 04/14/19 05:32 04/14/19 07:45 Bedside Glucose 166 180 White Blood Count 15.9 H Red Blood Count 2.49 L Hemoglobin 8.0 L Hematocrit 25.2 L Mean Corpuscular 101.2 H Volume Mean Corpuscular 32.1 Hemoglobin Mean Corpuscular 31.7 L Hemoglobin Concent Red Cell 15.6 H Distribution Width Platelet Count 269 Mean Platelet Volume 9.9 Immature 2.700 H Granulocytes % Neutrophils % 88.2 H Lymphocytes % 4.5 L Monocytes % 4.0 Eosinophils % 0.3 Basophils % 0.3 Nucleated Red Blood 0.0 Cells % Immature 0.430 H Granulocytes # Neutrophils # 14.0 H Lymphocytes # 0.7 L Monocytes # 0.6 Eosinophils # 0.1 Basophils # 0.1 Nucleated Red Blood 0.0 Cells # Sodium Level 142 Potassium Level 4.4 Chloride Level 109 Carbon Dioxide Level 21 Anion Gap 12 Blood Urea Nitrogen 26 H Creatinine 1.44 H Est Glomerular Filtrat Rate mL/min Glucose Level 184 Calcium Level 9.1 Total Bilirubin 1.5 H Direct Bilirubin 0.40 #H Indirect Bilirubin 1.1 Aspartate Amino 27 Transf (AST/SGOT) Alanine 22 Aminotransferase (AL T/SGPT) Alkaline Phosphatase 302 H Total Protein 6.6 Albumin 3.4 Globulin 3.20 Albumin/Globulin 1.06 Ratio Exam/Review of Systems Exam Vitals Vital Signs Date Temp Pulse Resp B/P (MAP) Pulse Ox O2 O2 Flow FiO2 Time Delivery Rate 04/14/19 123 08:11 04/14/19 98.3 20 128/85 100 07:20 (99) 04/14/19 Nasal 5.0 01:41 Cannula 04/11/19 50 07:40 Intake and Output 04/13/19 04/13/19 04/14/19 1515:00 23:00 07:00 IntakeIntake Total 150 ml 650 ml 200 ml OutputOutput Total 150 ml 1350 ml BalanceBalance 150 ml 500 ml -1150 ml Results Results 24hrs Laboratory Tests Test 04/13/19 12:06 04/13/19 12:34 04/13/19 14:20 04/13/19 17:34 Prothrombin Time 20.7 H Prothrombin Time 1.6 Ratio INR International 1.77 Normalized Ratio Bedside Glucose 173 183 Activated 60.4 H Partial Thromboplast Time Test 04/13/19 20:57 04/14/19 05:32 04/14/19 07:45 Bedside Glucose 166 180 White Blood Count 15.9 H Red Blood Count 2.49 L Hemoglobin 8.0 L Hematocrit 25.2 L Mean Corpuscular 101.2 H Volume Mean Corpuscular 32.1 Hemoglobin Mean Corpuscular 31.7 L Hemoglobin Concent Red Cell 15.6 H Distribution Width Platelet Count 269 Mean Platelet Volume 9.9 Immature 2.700 H Granulocytes % Neutrophils % 88.2 H Lymphocytes % 4.5 L Monocytes % 4.0 Eosinophils % 0.3 Basophils % 0.3 Nucleated Red Blood 0.0 Cells % Immature 0.430 H Granulocytes # Neutrophils # 14.0 H Lymphocytes # 0.7 L Monocytes # 0.6 Eosinophils # 0.1 Basophils # 0.1 Nucleated Red Blood 0.0 Cells # Sodium Level 142 Potassium Level 4.4 Chloride Level 109 Carbon Dioxide Level 21 Anion Gap 12 Blood Urea Nitrogen 26 H Creatinine 1.44 H Est Glomerular Filtrat Rate mL/min Glucose Level 184 Calcium Level 9.1 Total Bilirubin 1.5 H Direct Bilirubin 0.40 #H Indirect Bilirubin 1.1 Aspartate Amino 27 Transf (AST/SGOT) Alanine 22 Aminotransferase (AL T/SGPT) Alkaline Phosphatase 302 H Total Protein 6.6 Albumin 3.4 Globulin 3.20 Albumin/Globulin 1.06 Ratio Medications Medication Current Medications Albuterol (Proventil 0.083% (Neb)) 2.5 mg Q2H RESP THERAPY PRN NEB SHORTNESS OF BREATH Last administered on 04/11/19at 13:54; Admin Dose 2.5 MG; Start 04/11/19 at 00:00 Ipratropium [place] (Atrovent 0.02% (Neb)) 0.5 mg Q2H RESP THERAPY PRN NEB SHORTNESS OF BREATH Last administered on 04/11/19at 13:54; Admin Dose 0.5 MG; Start 04/11/19 at 00:00 Acetaminophen (Tylenol Liquid) 650 mg Q6H PRN PO PAIN LEVEL 1-3 OR FEVER; Start 04/11/19 at 00:00 Acetaminophen/ Hydrocodone Bitart ([place] (5/325)) 1 tab Q6H PRN PO PAIN LEVEL 4-6 Last administered on 04/11/19at 01:35; Admin Dose 1 TAB; Start 04/11/19 at 00:00 Docusate Sodium (Colace) 100 mg Q12H PRN PO CONSTIPATION; Start 04/11/19 at 00:00 Bisacodyl (Dulcolax) 5 mg DAILY PRN PO CONSTIPATION; Start 04/11/19 at 00:00 Diagnostic Test (Pha) (Accu-Chek) 1 ea 02 XX ; Start 04/11/19 at 02:00 Insulin Aspart (Novolog Insulin Pen) NOVOLOG *MILD* ALGORITHM WITH MEALS BEDTIME SC Last administered on 04/14/19at 08:58; Admin Dose 1 UNIT; Start 04/11/19 at 08:00 Miscellaneous Information 1 ea NOTE XX ; Start 04/11/19 at 00:30 Glucose (Glutose) 15 gm Q15M PRN PO DECREASED GLUCOSE; Start 04/11/19 at 00:30 Glucose (Glutose) 22.5 gm Q15M PRN PO DECREASED GLUCOSE; Start 04/11/19 at 00:30 Dextrose (D50w Syringe) 25 ml Q15M PRN IV DECREASED GLUCOSE; Start 04/11/19 at 00:30 Dextrose (D50w Syringe) 50 ml Q15M PRN IV DECREASED GLUCOSE; Start 04/11/19 at 00:30 Glucagon (Glucagen) 1 mg Q15M PRN IM DECREASED GLUCOSE; Start 04/11/19 at 00:30 Glucose (Glutose) 15 gm Q15M PRN BUCCAL DECREASED GLUCOSE; Start 04/11/19 at 00:30 Miscellaneous Information (Pending [facility] Order For Wound Care) This patient coyle... PRN PRN XX WOUND CARE; Start 04/11/19 at 08:00 Acetaminophen (Tylenol Tab) 650 mg Q4H PRN PO MILD PAIN(1-3)OR ELEVATED TEMP Last administered on 04/13/19at 00:11; Admin Dose 650 MG; Start 04/11/19 at 09:00 Bisacodyl (Dulcolax Supp) 10 mg DAILY PRN [place] CONSTIPATION; Start 04/11/19 at 09:00 Famotidine (Pepcid) 20 mg DAILY PO Last administered on 04/14/19at 08:47; Admin Dose 20 MG; Start 04/12/19 at 09:00 Fluconazole (Diflucan) 100 mg DAILY PO Last administered on 04/14/19 08:47; Admin Dose 100 MG; Start 04/11/19 at 09:00 Albuterol/ Ipratropium (Duoneb) 3 ml Q4H RESP THERAPY PRN INH SHORTNESS OF BREATH Last administered on 04/14/19at 01:41; Admin Dose 3 ML; Start 04/11/19 at 09:00 Linezolid (Zyvox) 600 mg BID PO Last administered on 04/14/19 08:47; Admin Dose 600 MG; Start 04/11/19 at 09:00 Amylase/Lipase/ Protease (CREON ([id number])) 1 cap WITH MEALS PO Last administered on 04/14/19 08:47; Admin Dose 1 CAP; Start 04/11/19 at 12:00 Terazosin HCl (Hytrin) 2 mg HS PO Last administered on 04/13/19 20:51; Admin Dose 2 MG; Start 04/11/19 at 21:00 Cefepime HCl 50 ml @ 100 mls/hr DAILY IVPB Last administered on 04/14/19 08:47; Admin Dose 100 MLS/HR; Start 04/11/19 at 13:00 CHRIS GOMEZ Apr 14, 2019 10:52
--- NOTE | 2019-04-14 11:19 | CONS ---
Consultation Date/Type/Reason Admit Date/Time Apr 11, 2019 at 01:42 Initial Consult Date 04/11/19 Type of Consult Pulmonary Patient's condition is stable. Denies any shortness of breath at rest. Any chest pain, coughing, wheezing or sputum production. General exam; elderly male, awake and alert. Currently in no distress. Date/Time of Note DATE: 04/14/19 TIME: 11:17 24 HR Interval Summary Free Text/Dictation Patient's condition is fairly stable. Remains completely awake and alert. Denies any shortness of breath, coughing, abdominal pain. General exam; elderly male, laying comfortably in bed. Currently in no distress. H EENT exam; patient is icteric. Has multiple carious teeth. Pupils are small bilaterally. No neck masses. Supple neck. Chest exam; diminished breath sounds right upper lobe. Rest of the lung stone are fairly clear. S1-S2 audible, no murmurs. Abdomen exam; soft, right upper quadrant drain in place. Bowel sounds audible. Abdomen is nontender. Extremity exam; no peripheral edema. FINANCIAL WR[employer] exam; no focal deficit. Assessment and recommendations; 1. Patient with history of obstructive jaundice status post ERCP and stent placement with removal admitted for shortness of breath, patient does have a complicated right pleural effusion likely representing parapneumonic effusion due to pneumonia. Currently on appropriate empiric antimicrobial coverage. 2. Persistent icterus. Indicative of ongoing obstructive jaundice. Malignancy has been ruled out by cytology. 3. Renal insufficiency. Likely chronic. 4. History of pancreatic exocrine deficiency. 5. Anemia. 6. Persistent leukocytosis. 7. Coagulopathy. Continue current supportive care. Patient is scheduled for cholangiogram. Because of multiple comorbidities patient is currently too high risk for VATS decortication. Once patient's obstructive jaundice resolves, he can certainly be evaluated for possible VATS. Exam/Review of Systems Exam Vitals Vital Signs Date Temp Pulse Resp B/P (MAP) Pulse Ox O2 O2 Flow FiO2 Time Delivery Rate 04/14/19 Nasal 5.0 09:00 Cannula 04/14/19 123 08:11 04/14/19 98.3 20 128/85 100 07:20 (99) 04/11/19 50 07:40 Intake and Output 04/13/19 04/13/19 04/14/19 1515:00 23:00 07:00 IntakeIntake Total 150 ml 650 ml 200 ml OutputOutput Total 150 ml 1350 ml BalanceBalance 150 ml 500 ml -1150 ml Results Result Diagram: 04/14/19 0532 04/14/19 0532 Results 24hrs Laboratory Tests Test 04/13/19 12:06 04/13/19 12:34 04/13/19 14:20 04/13/19 17:34 Prothrombin Time 20.7 H Prothrombin Time 1.6 Ratio INR International 1.77 Normalized Ratio Bedside Glucose 173 183 Activated 60.4 H Partial Thromboplast Time Test 04/13/19 20:57 04/14/19 05:32 04/14/19 07:45 Bedside Glucose 166 180 White Blood Count 15.9 H Red Blood Count 2.49 L Hemoglobin 8.0 L Hematocrit 25.2 L Mean Corpuscular 101.2 H Volume Mean Corpuscular 32.1 Hemoglobin Mean Corpuscular 31.7 L Hemoglobin Concent Red Cell 15.6 H Distribution Width Platelet Count 269 Mean Platelet Volume 9.9 Immature 2.700 H Granulocytes % Neutrophils % 88.2 H Lymphocytes % 4.5 L Monocytes % 4.0 Eosinophils % 0.3 Basophils % 0.3 Nucleated Red Blood 0.0 Cells % Immature 0.430 H Granulocytes # Neutrophils # 14.0 H Lymphocytes # 0.7 L Monocytes # 0.6 Eosinophils # 0.1 Basophils # 0.1 Nucleated Red Blood 0.0 Cells # Sodium Level 142 Potassium Level 4.4 Chloride Level 109 Carbon Dioxide Level 21 Anion Gap 12 Blood Urea Nitrogen 26 H Creatinine 1.44 H Est Glomerular Filtrat Rate mL/min Glucose Level 184 Calcium Level 9.1 Total Bilirubin 1.5 H Direct Bilirubin 0.40 #H Indirect Bilirubin 1.1 Aspartate Amino 27 Transf (AST/SGOT) Alanine 22 Aminotransferase (AL T/SGPT) Alkaline Phosphatase 302 H Total Protein 6.6 Albumin 3.4 Globulin 3.20 Albumin/Globulin 1.06 Ratio Medications Medication Current Medications Albuterol (Proventil 0.083% (Neb)) 2.5 mg Q2H RESP THERAPY PRN NEB SHORTNESS OF BREATH Last administered on 04/11/19at 13:54; Admin Dose 2.5 MG; Start 04/11/19 at 00:00 Ipratropium [place] (Atrovent 0.02% (Neb)) 0.5 mg Q2H RESP THERAPY PRN NEB SHORTNESS OF BREATH Last administered on 04/11/19at 13:54; Admin Dose 0.5 MG; Start 04/11/19 at 00:00 Acetaminophen (Tylenol Liquid) 650 mg Q6H PRN PO PAIN LEVEL 1-3 OR FEVER; Start 04/11/19 at 00:00 Acetaminophen/ Hydrocodone Bitart ([place] (5/325)) 1 tab Q6H PRN PO PAIN LEVEL 4-6 Last administered on 04/11/19at 01:35; Admin Dose 1 TAB; Start 04/11/19 at 00:00 Docusate Sodium (Colace) 100 mg Q12H PRN PO CONSTIPATION; Start 04/11/19 at 00:00 Bisacodyl (Dulcolax) 5 mg DAILY PRN PO CONSTIPATION; Start 04/11/19 at 00:00 Diagnostic Test (Pha) (Accu-Chek) 1 ea 02 XX ; Start 04/11/19 at 02:00 Insulin Aspart (Novolog Insulin Pen) NOVOLOG *MILD* ALGORITHM WITH MEALS BEDTIME SC Last administered on 04/14/19at 08:58; Admin Dose 1 UNIT; Start 04/11/19 at 08:00 Miscellaneous Information 1 ea NOTE XX ; Start 04/11/19 at 00:30 Glucose (Glutose) 15 gm Q15M PRN PO DECREASED GLUCOSE; Start 04/11/19 at 00:30 Glucose (Glutose) 22.5 gm Q15M PRN PO DECREASED GLUCOSE; Start 04/11/19 at 00:30 Dextrose (D50w Syringe) 25 ml Q15M PRN IV DECREASED GLUCOSE; Start 04/11/19 at 00:30 Dextrose (D50w Syringe) 50 ml Q15M PRN IV DECREASED GLUCOSE; Start 04/11/19 at 00:30 Glucagon (Glucagen) 1 mg Q15M PRN IM DECREASED GLUCOSE; Start 04/11/19 at 00:30 Glucose (Glutose) 15 gm Q15M PRN BUCCAL DECREASED GLUCOSE; Start 04/11/19 at 00:30 [facility] This patient coyle... PRN PRN XX WOUND CARE; Start 04/11/19 at 08:00 Acetaminophen (Tylenol Tab) 650 mg Q4H PRN PO MILD PAIN(1-3)OR ELEVATED TEMP Last administered on 04/13/19 00:11; Admin Dose 650 MG; Start 04/11/19 at 09:00 Bisacodyl (Dulcolax Supp) 10 mg DAILY PRN [place] CONSTIPATION; Start 04/11/19 at 09:00 Famotidine (Pepcid) 20 mg DAILY PO Last administered on 04/14/19 08:47; Admin Dose 20 MG; Start 04/12/19 at 09:00 Fluconazole (Diflucan) 100 mg DAILY PO Last administered on 04/14/19 08:47; Admin Dose 100 MG; Start 04/11/19 at 09:00 Albuterol/ Ipratropium (Duoneb) 3 ml Q4H RESP THERAPY PRN INH SHORTNESS OF BREATH Last administered on 04/14/19 01:41; Admin Dose 3 ML; Start 04/11/19 at 09:00 Linezolid (Zyvox) 600 mg BID PO Last administered on 04/14/19 08:47; Admin Dose 600 MG; Start 04/11/19 at 09:00 Amylase/Lipase/ Protease (CREON ([id number])) 1 cap WITH MEALS PO Last administered on 04/14/19 08:47; Admin Dose 1 CAP; Start 04/11/19 at 12:00 Terazosin HCl (Hytrin) 2 mg HS PO Last administered on 04/13/19 20:51; Admin Dose 2 MG; Start 04/11/19 at 21:00 Cefepime HCl 50 ml @ 100 mls/hr DAILY IVPB Last administered on 04/14/19 08:47; Admin Dose 100 MLS/HR; Start 04/11/19 at 13:00 TANIKA GRAYSON 18, 2019 11:19
[2019-04-14] MEDS ORDERED: IOHEXOL 300MG/ML 150 ML BTL ONE (13:17)
[2019-04-14] MEDS: SOD CHLORIDE 0.9% 1,000 ML IV SCH (13:42)
--- NOTE | 2019-04-14 14:44 | CONS ---
Assessment/Plan Assessment/Plan Hospital Course (Demo Recall) No acute changes patient is in no distress looks comfortable he is tachycardic no shortness of breath at rest nasal cannula at 2 L WBC 15.9 H&H 8 and 25.2 platelets 269 neutrophils 88.2 BUN 26 creatinine 1.44 Microbiology: Blood cultures remain negative Renal ultrasound was unremarkable. CT abdomen pelvis on admission revealed presence of transhepatic drain within the distal tip into the duodenum contracted gallbladder bladder with thickening of the castañeda and multiple gallstones questionable area of hypodensity within the pancreatic head and underlying mass is not excluded. Mild ascites with apparent wall thickening of the small bowel loops that could be secondary to hypoalbuminemia. Large right- sided pleural effusions which is likely partially loculated along the superior aspect of the hemithorax with complete atelectasis of the right middle lobe and right lower lobe. Please see final report in the chart Antimicrobials: Cefepime, fluconazole, Zyvox Physical examination: Well-developed ill-appearing elderly man who is awake in no distress. Head atraumatic normocephalic sclera anicteric bugle mucosa dry neck is supple trachea midline chest rise symmetrical breath sounds diminished bases heart: S1-S2 abdomen soft bowel sounds present patient has right-sided abdominal drainage catheter with the back attached. Extremities without cyanosis. Skin: Patient has jaundice Assessment: 1. Systemic inflammatory response syndrome with ongoing leukocytosis 2. Jaundice with abnormal CT of the abdomen finding, possible metastatic pancreatic disease 3. Large loculated right-sided pleural effusion possible malignant 4. Acute on chronic kidney disease 5. Hypertension 6. Hypertension Plan: Patient is clinically unchanged, thoracentesis not performed secondary to loculation, pulmonary recommendations noted, patient is at high risk for VATS, continue on current antibiotics Consultation Date/Type/Reason Admit Date/Time Apr 11, 2019 at 01:42 Initial Consult Date 04/11/19 Type of Consult id Date/Time of Note DATE: 04/14/19 TIME: 14:43 Exam/Review of Systems Exam Vitals Vital Signs Date Temp Pulse Resp B/P (MAP) Pulse Ox O2 O2 Flow FiO2 Time Delivery Rate 04/14/19 124 12:03 04/14/19 98.5 20 121/82 100 11:21 (95) 04/14/19 Nasal 5.0 09:00 Cannula 04/11/19 50 07:40 Intake and Output 604/13/19 04/14/19 1515:00 23:00 07:00 IntakeIntake Total 150 ml 650 ml 200 ml OutputOutput Total 150 ml 1350 ml BalanceBalance 150 ml 500 ml -1150 ml Results Result Diagram: 04/14/19 0532 04/14/19 0532 Results 24hrs Laboratory Tests Test 04/13/19 17:34 04/13/19 20:57 04/14/19 05:32 04/14/19 07:45 Bedside Glucose 183 166 180 White Blood Count 15.9 H Red Blood Count 2.49 L Hemoglobin 8.0 L Hematocrit 25.2 L Mean Corpuscular 101.2 H Volume Mean Corpuscular 32.1 Hemoglobin Mean Corpuscular 31.7 L Hemoglobin Concent Red Cell 15.6 H Distribution Width Platelet Count 269 Mean Platelet Volume 9.9 Immature 2.700 H Granulocytes % Neutrophils % 88.2 H Lymphocytes % 4.5 L Monocytes % 4.0 Eosinophils % 0.3 Basophils % 0.3 Nucleated Red Blood 0.0 Cells % Immature 0.430 H Granulocytes # Neutrophils # 14.0 H Lymphocytes # 0.7 L Monocytes # 0.6 Eosinophils # 0.1 Basophils # 0.1 Nucleated Red Blood 0.0 Cells # Sodium Level 142 Potassium Level 4.4 Chloride Level 109 Carbon Dioxide Level 21 Anion Gap 12 Blood Urea Nitrogen 26 H Creatinine 1.44 H Est Glomerular Filtrat Rate mL/min Glucose Level 184 Calcium Level 9.1 Total Bilirubin 1.5 H Direct Bilirubin 0.40 #H Indirect Bilirubin 1.1 Aspartate Amino 27 Transf (AST/SGOT) Alanine 22 Aminotransferase (AL T/SGPT) Alkaline Phosphatase 302 H Total Protein 6.6 Albumin 3.4 Globulin 3.20 Albumin/Globulin 1.06 Ratio Test 04/14/19 12:08 Bedside Glucose 200 Medications Medication Current Medications Albuterol (Proventil 0.083% (Neb)) 2.5 mg Q2H RESP THERAPY PRN NEB SHORTNESS OF BREATH Last administered on 04/11/19at 13:54; Admin Dose 2.5 MG; Start 04/11/19 at 00:00 Ipratropium [place] (Atrovent 0.02% (Neb)) 0.5 mg Q2H RESP THERAPY PRN NEB SHORTNESS OF BREATH Last administered on 04/11/19at 13:54; Admin Dose 0.5 MG; Start 04/11/19 at 00:00 Acetaminophen (Tylenol Liquid) 650 mg Q6H PRN PO PAIN LEVEL 1-3 OR FEVER; Start 04/11/19 at 00:00 Acetaminophen/ Hydrocodone Bitart ([place] (5/325)) 1 tab Q6H PRN PO PAIN LEVEL 4-6 Last administered on 04/11/19at 01:35; Admin Dose 1 TAB; Start 04/11/19 at 00:00 Docusate Sodium (Colace) 100 mg Q12H PRN PO CONSTIPATION; Start 04/11/19 at 00:00 Bisacodyl (Dulcolax) 5 mg DAILY PRN PO CONSTIPATION; Start 04/11/19 at 00:00 Diagnostic Test (Pha) (Accu-Chek) 1 ea 02 XX ; Start 04/11/19 at 02:00 Insulin Aspart (Novolog Insulin Pen) NOVOLOG *MILD* ALGORITHM WITH MEALS BEDTIME SC Last administered on 04/14/19at 12:14; Admin Dose 2 UNIT; Start 04/11/19 at 08:00 Miscellaneous Information 1 ea NOTE XX ; Start 04/11/19 at 00:30 Glucose (Glutose) 15 gm Q15M PRN PO DECREASED GLUCOSE; Start 04/11/19 at 00:30 Glucose (Glutose) 22.5 gm Q15M PRN PO DECREASED GLUCOSE; Start 04/11/19 at 00:30 Dextrose (D50w Syringe) 25 ml Q15M PRN IV DECREASED GLUCOSE; Start 04/11/19 at 00:30 Dextrose (D50w Syringe) 50 ml Q15M PRN IV DECREASED GLUCOSE; Start 04/11/19 at 00:30 Glucagon (Glucagen) 1 mg Q15M PRN IM DECREASED GLUCOSE; Start 04/11/19 at 00:30 Glucose (Glutose) 15 gm Q15M PRN BUCCAL DECREASED GLUCOSE; Start 04/11/19 at 00:30 Miscellaneous Information (Pending [facility] Order For Wound Care) This patient coyle... PRN PRN XX WOUND CARE; Start 04/11/19 at 08:00 Acetaminophen (Tylenol Tab) 650 mg Q4H PRN PO MILD PAIN(1-3)OR ELEVATED TEMP Last administered on 04/13/19at 00:11; Admin Dose 650 MG; Start 04/11/19 at 09:00 Bisacodyl (Dulcolax Supp) 10 mg DAILY PRN [place] CONSTIPATION; Start 04/11/19 at 09:00 Famotidine (Pepcid) 20 mg DAILY PO Last administered on 04/14/19 08:47; Admin Dose 20 MG; Start 04/12/19 at 09:00 Fluconazole (Diflucan) 100 mg DAILY PO Last administered on 04/14/19 08:47; Admin Dose 100 MG; Start 04/11/19 at 09:00 Albuterol/ Ipratropium (Duoneb) 3 ml Q4H RESP THERAPY PRN INH SHORTNESS OF BREATH Last administered on 04/14/19 01:41; Admin Dose 3 ML; Start 04/11/19 at 09:00 Linezolid (Zyvox) 600 mg BID PO Last administered on 04/14/19 08:47; Admin Dose 600 MG; Start 04/11/19 at 09:00 Amylase/Lipase/ Protease (CREON ([id number])) 1 cap WITH MEALS PO Last administered on 04/14/19 08:47; Admin Dose 1 CAP; Start 04/11/19 at 12:00 Terazosin HCl (Hytrin) 2 mg HS PO Last administered on 04/13/19 20:51; Admin Dose 2 MG; Start 04/11/19 at 21:00 Cefepime HCl 50 ml @ 100 mls/hr DAILY IVPB Last administered on 04/14/19 08:47; Admin Dose 100 MLS/HR; Start 04/11/19 at 13:00 Sodium Chloride 1,000 ml @ 50 mls/hr Q20H IV Last administered on 04/14/19at 13:42; Admin Dose 50 MLS/HR; Start 04/14/19 at 12:30 MAMI DIAZ NP Apr 14, 2019 14:44
[2019-04-14] MEDS: TERAZOSIN 2 MG CAP PO SCH (21:51)
[2019-04-14] MEDS: ACETAMINOPHEN 325 MG TAB PO PRN (23:22)
[2019-04-15] VITALS (8 sets, daily range): BP systolic 103–135; BP diastolic 71–85; PULSE 118–127; RESP 16–19
[2019-04-15] MEDS: ACCU-CHEK XX SCH (01:41)
--- NOTE | 2019-04-15 03:50 | PN ---
DATE: 04/14/2019 SUBJECTIVE: The patient is stable. No events overnight. OBJECTIVE: VITAL SIGNS: Blood pressure is 121/82, pulse 124, respirations 20, temperature 98.5. HEENT: Head is normocephalic. NECK: Supple. HEART: Regular rate. LUNGS: Show diminished breath sounds at the base. ABDOMEN: Soft, nontender to palpation without rebound or guarding. EXTREMITIES: Negative for clubbing, cyanosis, no edema. DERMATOLOGIC: No rashes. MUSCULOSKELETAL: No joint effusions. NEUROLOGIC: No change in exam. MEDICATIONS: Reviewed. LABORATORY DATA: Has been reviewed. ASSESSMENT AND PLAN: 1. Nonoliguric acute kidney injury on top of chronic kidney disease. Etiology of acute kidney injur y is secondary to hemodynamics. Renal function is fluctuating, but appears to be slowly improving wi th gentle IV hydration. At this point, continue current treatment plan, supportive care, renally dos e all meds. Continue another course of IV albumin. 2. Chronic kidney disease. The patient is currently in acute kidney injury as stated above. Contin ue current treatment plan. Continue disease factor modifications. 3. Anemia. Monitor hemoglobin and hematocrit levels. 4. Mineral bone disorder. Monitor calcium and phosphorus levels. 5. Right-sided pleural effusion. 6. Possible pancreatic mass. Continue to monitor. Follow up with GI. 7. History of hypertension. Continue current blood pressure regimen. 8. Tachyarrhythmia. Continue to monitor. 9. Leukocytosis. Etiology is unclear. Continue antibiotic therapy. Infectious workup is ongoing. Dictated By: PRANEETH BARNES/ALEXI Conf#: [id number] DID#: [id number] CC: PETR REESE MD;*EndCC*
[2019-04-15] MEDS: CREON (12k-38k-60k) 1 CAP PO SCH ×3 (08:00→17:18)
[2019-04-15] MEDS: INSULIN ASPART [NOVOLOG] 3 ML PEN SC SCH ×4 (08:09→21:29)
[2019-04-15] MEDS: SOD CHLORIDE 0.9% 1,000 ML IV SCH (08:30)
--- NOTE | 2019-04-15 09:51 | CONS ---
Assessment/Plan Assessment/Plan Assessment/Plan (Daily) Assessment and recommendations; 1. Patient admitted with shortness of breath due to right parapneumonic effusion and right upper lobe pneumonia, currently on appropriate antimicrobial regimen. 2. Partially loculated right pleural effusion, thoracentesis could not be done. 3. Obstructive jaundice, status post extensive work-up done. Malignancy has so far been ruled out. 4. Coagulopathy. 5. Chronic renal insufficiency. Continue current supportive care. Obtain follow-up chest x-ray in 24 hours. Patient currently is too unstable to undergo right VATS procedure. Issue of obstructive jaundice needs to be resolved first. Further recommendations per sld teacher. Consultation Date/Type/Reason Admit Date/Time Apr 11, 2019 at 01:42 Initial Consult Date 04/11/19 Type of Consult Pulmonary Patient's condition is stable. Denies any shortness of breath at rest. Any chest pain, coughing, wheezing or sputum production. General exam; elderly male, awake and alert. Currently in no distress. Date/Time of Note DATE: 04/15/19 TIME: 09:48 24 HR Interval Summary Free Text/Dictation Patient's condition is a stable overall. Remains awake and alert. General exam; elderly male, currently in no distress. Laying comfortably in bed. Exam/Review of Systems Exam Vitals Vital Signs Date Temp Pulse Resp B/P (MAP) Pulse Ox O2 O2 Flow FiO2 Time Delivery Rate 04/15/19 124 08:04 04/15/19 97.5 16 103/71 98 Nasal 5.0 07:22 (82) Cannula 04/11/19 50 07:40 Intake and Output 04/14/19 04/14/19 04/15/19 1515:00 23:00 07:00 IntakeIntake Total 50 ml 850 ml 730 ml OutputOutput Total 280 ml 100 ml BalanceBalance 50 ml 570 ml 630 ml Exam H EENT exam; supple neck, no JVD. No lymphadenopathy. Midline trachea. No thyromegaly. Patient has multiple carious teeth. Remains icteric. Chest exam; diminished breath sounds right upper lobe. Rest of the lung stone are fairly clear. S1-S2 audible, no murmurs. Regular rhythm. Abdomen exam; soft, no organomegaly. Bowel sounds audible. Right upper quadrant drain in place. Extremity exam; no peripheral edema. Patient does have patchy ecchymosis. [employer] exam; no focal motor deficit. Results Result Diagram: 04/15/19 0515 04/15/19 0515 Results 24hrs Laboratory Tests Test 04/14/19 12:08 04/14/19 17:20 04/14/19 21:51 04/15/19 01:35 Bedside Glucose 200 161 236 H 196 Test 04/15/19 05:15 04/15/19 07:58 White Blood Count 13.3 H Red Blood Count 2.60 L Hemoglobin 8.2 L Hematocrit 25.8 L Mean Corpuscular 99.2 Volume Mean Corpuscular 31.5 Hemoglobin Mean Corpuscular 31.8 L Hemoglobin Concent Red Cell 15.6 H Distribution Width Platelet Count 250 Mean Platelet Volume 10.0 Immature 2.000 H Granulocytes % Neutrophils % 88.7 H Lymphocytes % 5.3 L Monocytes % 3.3 Eosinophils % 0.5 Basophils % 0.2 Nucleated Red Blood 0.0 Cells % Immature 0.270 H Granulocytes # Neutrophils # 11.8 H Lymphocytes # 0.7 L Monocytes # 0.4 Eosinophils # 0.1 Basophils # 0.0 Nucleated Red Blood 0.0 Cells # Sodium Level 140 Potassium Level 4.0 Chloride Level 108 Carbon Dioxide Level 23 Anion Gap 9 Blood Urea Nitrogen 25 H Creatinine 1.31 H Est Glomerular Filtrat Rate mL/min Glucose Level 182 Calcium Level 8.6 Total Bilirubin 1.1 Direct Bilirubin 0.10 # Indirect Bilirubin 1.0 Aspartate Amino 29 Transf (AST/SGOT) Alanine 25 Aminotransferase (AL T/SGPT) Alkaline Phosphatase 323 H Total Protein 6.1 Albumin 2.9 L Globulin 3.20 Albumin/Globulin 0.90 Ratio Bedside Glucose 172 Medications Medication Current Medications Albuterol (Proventil 0.083% (Neb)) 2.5 mg Q2H RESP THERAPY PRN NEB SHORTNESS OF BREATH Last administered on 04/11/19at 13:54; Admin Dose 2.5 MG; Start 04/11/19 at 00:00 Ipratropium [place] (Atrovent 0.02% (Neb)) 0.5 mg Q2H RESP THERAPY PRN NEB SHORTNESS OF BREATH Last administered on 04/11/19at 13:54; Admin Dose 0.5 MG; Start 04/11/19 at 00:00 Acetaminophen (Tylenol Liquid) 650 mg Q6H PRN PO PAIN LEVEL 1-3 OR FEVER; Start 04/11/19 at 00:00 Acetaminophen/ Hydrocodone Bitart ([place] (5/325)) 1 tab Q6H PRN PO PAIN LEVEL 4-6 Last administered on 04/11/19at 01:35; Admin Dose 1 TAB; Start 04/11/19 at 00:00 Docusate Sodium (Colace) 100 mg Q12H PRN PO CONSTIPATION; Start 04/11/19 at 00:00 Bisacodyl (Dulcolax) 5 mg DAILY PRN PO CONSTIPATION; Start 04/11/19 at 00:00 Diagnostic Test (Pha) (Accu-Chek) 1 ea 02 XX Last administered on 04/15/19at 01:41; Admin Dose 1 EA; Start 04/11/19 at 02:00 Insulin Aspart (Novolog Insulin Pen) NOVOLOG *MILD* ALGORITHM WITH MEALS BEDTIME SC Last administered on 04/15/19at 08:09; Admin Dose 1 UNIT; Start 04/11/19 at 08:00 Miscellaneous Information 1 ea NOTE XX ; Start 04/11/19 at 00:30 Glucose (Glutose) 15 gm Q15M PRN PO DECREASED GLUCOSE; Start 04/11/19 at 00:30 Glucose (Glutose) 22.5 gm Q15M PRN PO DECREASED GLUCOSE; Start 04/11/19 at 00:30 Dextrose (D50w Syringe) 25 ml Q15M PRN IV DECREASED GLUCOSE; Start 04/11/19 at 00:30 Dextrose (D50w Syringe) 50 ml Q15M PRN IV DECREASED GLUCOSE; Start 04/11/19 at 00:30 Glucagon (Glucagen) 1 mg Q15M PRN IM DECREASED GLUCOSE; Start 04/11/19 at 00:30 Glucose (Glutose) 15 gm Q15M PRN BUCCAL DECREASED GLUCOSE; Start 04/11/19 at 00:30 Miscellaneous Information (Pending [facility] Order For Wound Care) This patient coyle... PRN PRN XX WOUND CARE; Start 04/11/19 at 08:00 Acetaminophen (Tylenol Tab) 650 mg Q4H PRN PO MILD PAIN(1-3)OR ELEVATED TEMP Last administered on 04/14/19at 23:22; Admin Dose 650 MG; Start 04/11/19 at 09:00 Bisacodyl (Dulcolax Supp) 10 mg DAILY PRN IN CONSTIPATION; Start 04/11/19 at 09:00 Famotidine (Pepcid) 20 mg DAILY PO Last administered on 04/14/19 08:47; Admin Dose 20 MG; Start 04/12/19 at 09:00 Fluconazole (Diflucan) 100 mg DAILY PO Last administered on 04/14/19 08:47; Admin Dose 100 MG; Start 04/11/19 at 09:00 Albuterol/ Ipratropium (Duoneb) 3 ml Q4H RESP THERAPY PRN INH SHORTNESS OF BREATH Last administered on 04/14/19 22:20; Admin Dose 3 ML; Start 04/11/19 at 09:00 Linezolid (Zyvox) 600 mg BID PO Last administered on 04/14/19 21:37; Admin Dose 600 MG; Start 04/11/19 at 09:00 Amylase/Lipase/ Protease (CREON ([id number])) 1 cap WITH MEALS PO Last administered on 04/14/19 08:47; Admin Dose 1 CAP; Start 04/11/19 at 12:00 Terazosin HCl (Hytrin) 2 mg HS PO Last administered on 04/14/19 21:51; Admin Dose 2 MG; Start 04/11/19 at 21:00 Cefepime HCl 50 ml @ 100 mls/hr DAILY IVPB Last administered on 04/14/19 08:47; Admin Dose 100 MLS/HR; Start 04/11/19 at 13:00 Sodium Chloride 1,000 ml @ 50 mls/hr Q20H IV Last administered on 04/14/19 13:42; Admin Dose 50 MLS/HR; Start 04/14/19 at 12:30 TANIKA GRAYSON 19, 2019 09:51
[2019-04-15] MEDS: ZYVOX 600 MG TAB PO SCH ×2 (09:54→20:33)
[2019-04-15] MEDS: FAMOTIDINE 20 MG TAB PO SCH (09:54)
[2019-04-15] MEDS: FLUCONAZOLE 100 MG TAB PO SCH (09:54)
[2019-04-15] MEDS: CEFEPIME 1GM/50 ML (PMX) 50 ML IVPB SCH (09:57)
--- NOTE | 2019-04-15 10:32 | PN ---
Date/Time of Note Date/Time of Note DATE: 04/15/19 TIME: 10:28 Assessment/Plan VTE Prophylaxis Risk score (from Ns)>0 risk: 5 SCD applied (from Ns): Yes Pharmacological prophylaxis: NA/contraindicated Pharm contraindication: blood coag disorder Lines/Catheters IV [facility] Mid Line Urinary Cath still in place: No Assessment/Plan Hospital Course S: Patient seen by pulmonary team this morning. Had cholangiogram performed yesterday, which shows some leakage of contrast into the peritoneal cavity originating from the biliary drainage catheter. O: VS- see below PE: General: Frail appearing elderly man lying in bed, answering questions properly HEENT: Atraumatic, normocephalic. The pupils are equal, round and reactive. Neck: Supple with full range of motion. No JVD Chest: Nontender Lungs: Coarse breath sounds bilaterally Heart: Normal S1-S2, Regular rhythm and rate. No murmur, S3, or S4 Abdomen: Soft , nontender, nondistended , bowel sounds are present. RUQ transhepatic tube with biliary drainage. Extremities: Normal to inspection, no edema no cyanosis Neurologic: Normal mental status, speech normal, alert and oriented, able to give most medical history. Skin: Diffuse jaundice Assessment/Plan: 78-year-old man with unclear medical history admitted for shortness of breath soon after recent hospital admission at [place]. #R pleural effusion- patient also earlier had hypoxia and dyspnea- Currently patient breathing comfortably on nasal cannula 5 L - Has loculated R pleural effusion. Thoracentesis was attempted yesterday, but again because of the complexity of the fluid and possible loculation, not able to be performed. -Monitor for now, continue oxygen supplementation and follow-up final recommendations from pulmonary team - According to speech therapy patient has dysphagia, continue puree diet for now #Intra-abdominal infection/cholangitis?-At outside hospital a few days ago patient apparently was on linezolid Zosyn, and fluconazole- Not septic on admission. - Continue current antibiotics per ID recommendations, monitor white blood cell count #Pancreatic mass -patient has jaundice and now transhepatic drain in place, GI on the case -Per records obtained from [place] where the patient was discharged last week on April 07, 2019, patient was found with obstructive jaundice at that time secondary to hepatic duct strictures + CBD strictures, and had percutaneous transhepatic drain placed on April 02, 2019. LFTs are trending down now. Patient also underwent 2 ERCPs with brushing revealing no evidence of malignancy at that time and subsequent biliary stent placement at that time x2, which have since been removed. -Monitor, follow GI recommendations, -Based on cholangiogram results, will discuss with GI team about the need to correct the leakage of the contrast into the peritoneal cavity originating from the midportion of the biliary drainage catheter (ie: IR?) #Elevated Cr-slowly trending down -Monitor, follow renal recommendations # hypertension: Blood pressure presently stable -Monitor, presently holding home BP meds given borderline blood pressures # diabetes mellitus: -Monitor, continue insulin sliding scale # DVT prophylaxis: Patient was on Eliquis for a history of atrial flutter, but this is being held secondary to elevated INR and for any potential procedures and may need to be performed in the next few days. Result Diagram: 04/15/19 0515 04/15/19 0515 Results 24hrs Laboratory Tests Test 04/14/19 12:08 04/14/19 17:20 04/14/19 21:51 04/15/19 01:35 Bedside Glucose 200 161 236 H 196 Test 04/15/19 05:15 04/15/19 07:58 White Blood Count 13.3 H Red Blood Count 2.60 L Hemoglobin 8.2 L Hematocrit 25.8 L Mean Corpuscular 99.2 Volume Mean Corpuscular 31.5 Hemoglobin Mean Corpuscular 31.8 L Hemoglobin Concent Red Cell 15.6 H Distribution Width Platelet Count 250 Mean Platelet Volume 10.0 Immature 2.000 H Granulocytes % Neutrophils % 88.7 H Lymphocytes % 5.3 L Monocytes % 3.3 Eosinophils % 0.5 Basophils % 0.2 Nucleated Red Blood 0.0 Cells % Immature 0.270 H Granulocytes # Neutrophils # 11.8 H Lymphocytes # 0.7 L Monocytes # 0.4 Eosinophils # 0.1 Basophils # 0.0 Nucleated Red Blood 0.0 Cells # Sodium Level 140 Potassium Level 4.0 Chloride Level 108 Carbon Dioxide Level 23 Anion Gap 9 Blood Urea Nitrogen 25 H Creatinine 1.31 H Est Glomerular Filtrat Rate mL/min Glucose Level 182 Calcium Level 8.6 Total Bilirubin 1.1 Direct Bilirubin 0.10 # Indirect Bilirubin 1.0 Aspartate Amino 29 Transf (AST/SGOT) Alanine 25 Aminotransferase (AL T/SGPT) Alkaline Phosphatase 323 H Total Protein 6.1 Albumin 2.9 L Globulin 3.20 Albumin/Globulin 0.90 Ratio Bedside Glucose 172 Exam/Review of Systems Exam Vitals Vital Signs Date Temp Pulse Resp B/P (MAP) Pulse Ox O2 O2 Flow FiO2 Time Delivery Rate 04/15/19 124 08:04 04/15/19 97.5 16 103/71 98 Nasal 5.0 07:22 (82) Cannula 04/11/19 50 07:40 Intake and Output 04/14/19 04/14/19 04/15/19 1515:00 23:00 07:00 IntakeIntake Total 50 ml 850 ml 730 ml OutputOutput Total 280 ml 100 ml BalanceBalance 50 ml 570 ml 630 ml Results Results 24hrs Laboratory Tests Test 04/14/19 12:08 04/14/19 17:20 04/14/19 21:51 04/15/19 01:35 Bedside Glucose 200 161 236 H 196 Test 04/15/19 05:15 04/15/19 07:58 White Blood Count 13.3 H Red Blood Count 2.60 L Hemoglobin 8.2 L Hematocrit 25.8 L Mean Corpuscular 99.2 Volume Mean Corpuscular 31.5 Hemoglobin Mean Corpuscular 31.8 L Hemoglobin Concent Red Cell 15.6 H Distribution Width Platelet Count 250 Mean Platelet Volume 10.0 Immature 2.000 H Granulocytes % Neutrophils % 88.7 H Lymphocytes % 5.3 L Monocytes % 3.3 Eosinophils % 0.5 Basophils % 0.2 Nucleated Red Blood 0.0 Cells % Immature 0.270 H Granulocytes # Neutrophils # 11.8 H Lymphocytes # 0.7 L Monocytes # 0.4 Eosinophils # 0.1 Basophils # 0.0 Nucleated Red Blood 0.0 Cells # Sodium Level 140 Potassium Level 4.0 Chloride Level 108 Carbon Dioxide Level 23 Anion Gap 9 Blood Urea Nitrogen 25 H Creatinine 1.31 H Est Glomerular Filtrat Rate mL/min Glucose Level 182 Calcium Level 8.6 Total Bilirubin 1.1 Direct Bilirubin 0.10 # Indirect Bilirubin 1.0 Aspartate Amino 29 Transf (AST/SGOT) Alanine 25 Aminotransferase (AL T/SGPT) Alkaline Phosphatase 323 H Total Protein 6.1 Albumin 2.9 L Globulin 3.20 Albumin/Globulin 0.90 Ratio Bedside Glucose 172 Medications Medication Current Medications Albuterol (Proventil 0.083% (Neb)) 2.5 mg Q2H RESP THERAPY PRN NEB SHORTNESS OF BREATH Last administered on 04/11/19at 13:54; Admin Dose 2.5 MG; Start 04/11/19 at 00:00 Ipratropium [place] (Atrovent 0.02% (Neb)) 0.5 mg Q2H RESP THERAPY PRN NEB SHORTNESS OF BREATH Last administered on 04/11/19at 13:54; Admin Dose 0.5 MG; Start 04/11/19 at 00:00 Acetaminophen (Tylenol Liquid) 650 mg Q6H PRN PO PAIN LEVEL 1-3 OR FEVER; Start 04/11/19 at 00:00 Acetaminophen/ Hydrocodone Bitart ([place] (5/325)) 1 tab Q6H PRN PO PAIN LEVEL 4-6 Last administered on 04/11/19at 01:35; Admin Dose 1 TAB; Start 04/11/19 at 00:00 Docusate Sodium (Colace) 100 mg Q12H PRN PO CONSTIPATION; Start 04/11/19 at 00:00 Bisacodyl (Dulcolax) 5 mg DAILY PRN PO CONSTIPATION; Start 04/11/19 at 00:00 Diagnostic Test (Pha) (Accu-Chek) 1 ea 02 XX Last administered on 04/15/19at 01:41; Admin Dose 1 EA; Start 04/11/19 at 02:00 Insulin Aspart (Novolog Insulin Pen) NOVOLOG *MILD* ALGORITHM WITH MEALS BEDTIME SC Last administered on 04/15/19at 08:09; Admin Dose 1 UNIT; Start 04/11/19 at 08:00 Miscellaneous Information 1 ea NOTE XX ; Start 04/11/19 at 00:30 Glucose (Glutose) 15 gm Q15M PRN PO DECREASED GLUCOSE; Start 04/11/19 at 00:30 Glucose (Glutose) 22.5 gm Q15M PRN PO DECREASED GLUCOSE; Start 04/11/19 at 00:30 Dextrose (D50w Syringe) 25 ml Q15M PRN IV DECREASED GLUCOSE; Start 04/11/19 at 00:30 Dextrose (D50w Syringe) 50 ml Q15M PRN IV DECREASED GLUCOSE; Start 04/11/19 at 00:30 Glucagon (Glucagen) 1 mg Q15M PRN IM DECREASED GLUCOSE; Start 04/11/19 at 00:30 Glucose (Glutose) 15 gm Q15M PRN BUCCAL DECREASED GLUCOSE; Start 04/11/19 at 00:30 Miscellaneous Information (Pending [facility] Order For Wound Care) This patient coyle... PRN PRN XX WOUND CARE; Start 04/11/19 at 08:00 Acetaminophen (Tylenol Tab) 650 mg Q4H PRN PO MILD PAIN(1-3)OR ELEVATED TEMP Last administered on 04/14/19 23:22; Admin Dose 650 MG; Start 04/11/19 at 09:00 Bisacodyl (Dulcolax Supp) 10 mg DAILY PRN CA CONSTIPATION; Start 04/11/19 at 09:00 Famotidine (Pepcid) 20 mg DAILY PO Last administered on 04/15/19 09:54; Admin Dose 20 MG; Start 04/12/19 at 09:00 Fluconazole (Diflucan) 100 mg DAILY PO Last administered on 04/15/19 09:54; Admin Dose 100 MG; Start 04/11/19 at 09:00 Albuterol/ Ipratropium (Duoneb) 3 ml Q4H RESP THERAPY PRN INH SHORTNESS OF BREATH Last administered on 04/14/19 22:20; Admin Dose 3 ML; Start 04/11/19 at 09:00 Linezolid (Zyvox) 600 mg BID PO Last administered on 04/15/19 09:54; Admin Dose 600 MG; Start 04/11/19 at 09:00 Amylase/Lipase/ Protease (CREON (08u-[id number])) 1 cap WITH MEALS PO Last administered on 04/14/19 08:47; Admin Dose 1 CAP; Start 04/11/19 at 12:00 Terazosin HCl (Hytrin) 2 mg HS PO Last administered on 04/14/19 21:51; Admin Dose 2 MG; Start 04/11/19 at 21:00 Cefepime HCl 50 ml @ 100 mls/hr DAILY IVPB Last administered on 04/15/19at 0 9:57; Admin Dose 100 MLS/HR; Start 04/11/19 at 13:00 Sodium Chloride 1,000 ml @ 50 mls/hr Q20H IV Last administered on 04/14/19 13:42; Admin Dose 50 MLS/HR; Start 04/14/19 at 12:30 CHRIS GOMEZ Apr 15, 2019 10:32
--- NOTE | 2019-04-15 10:44 | CONS ---
DATE OF ADMISSION: 04/11/2019 DATE OF CONSULTATION: SUBJECTIVE: The patient at this time is alert. Cholangiogram was performed today by the radiologist through the percutaneous transhepatic drainage catheter, and the report says that the drainage liset ter has moved from the duodenum into the common hepatic duct area. There is significant leakage of t he contrast into the peritoneal cavity originating from the mid portion of the catheter and with resu ltant suboptimal opacification of the biliary ducts. Visualized right intrahepatic biliary ducts are normal in caliber. Left intrahepatic biliary ducts could not be opacified. Distal portion of the c ommon bile duct is normal in caliber with appropriate emptying of contrast into the duodenum. PHYSICAL EXAMINATION: GASTROINTESTINAL: On examination, the biliary drainage tube is draining into the bag, significant bi le is noted. VITAL SIGNS: His temperature is normal 97.9, blood pressure 132/85. ABDOMEN: Soft. LABORATORY WORKUP: WBC count 15,900. The chemistry bilirubin is 1.5, AST 27, ALT 22, alkaline phosp hatase is 302. ASSESSMENT: The discussion that I had with the business representative from [facility] is as fol lows: 1. Initially, the patient had obstructive jaundice and endoscopic retrograde cholangiopancreatograph y (ERCP) was performed. The brushings of the distal bile duct were done, which was negative. He had 2 common bile duct stents placed. The bilirubin kept going, so transhepatic percutaneous biliary ca theter was put into the distal duodenum. At that time, the patient also underwent subtotal cholecyst ectomy by Dr. Anguiano and he could not do a total cholecystectomy. The cholangiogram shows felecia ost tumor with some strictures in the confluence of the duct in the left and right and probably some middle hepatic ducts but the drainage catheter was placed into the duodenum, which is in a goo d position. 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 But it was also felt that all this process could be due to bad sammy cystitis causing what looks like a tumor-like picture. No definitive diagnosis [facility]. So it was left in the position where the drainage catheter from the bile duct would drai n the bile outside. PLAN: At this time, the drainage catheter has to be replaced, the surgeon has to be involved and thi s can be probably accomplished in the hospital. We need to get a hepatobiliary pancreatic surgeon on the case, then we need to discuss. Dictated By: ANTONIA BERRY MD NC/NTS Conf#: [id number] DID#: [id number] CC: PETR REESE MD;*End*
[2019-04-15] MEDS: ACETAMINOPHEN 325 MG TAB PO PRN ×2 (11:35→18:11)
[2019-04-15] MEDS: ASCORBIC ACID 500 MG TAB PO SCH ×2 (11:41→20:32)
[2019-04-15] MEDS: MULTIVITAMINS THERAPEUTIC TAB PO SCH (11:41)
[2019-04-15] MEDS: ZINC SULFATE 220 MG CAP PO SCH (11:41)
--- NOTE | 2019-04-15 13:29 | PN ---
DATE: 04/15/2019 SUBJECTIVE: The patient is stable. No events overnight. The patient had a cholangiogram yesterday. OBJECTIVE: VITAL SIGNS: Blood pressure is 103/71, respirations 16, pulse 125, temperature 97.5. HEENT: Head is normocephalic. NECK: Supple. HEART: Regular rate. LUNGS: Show diminished breath sounds at the base. ABDOMEN: Soft, nontender to palpation without rebound or guarding. EXTREMITIES: Negative for clubbing, cyanosis, no edema. DERMATOLOGIC: No rashes. MUSCULOSKELETAL: No joint effusion. NEUROLOGIC: No change in exam. MEDICATIONS: The patient's medications have been reviewed. LABORATORY DATA: Has been reviewed. IMAGING STUDIES: Have been reviewed. ASSESSMENT AND PLAN: 1. Nonoliguric acute kidney injury on top of chronic kidney disease. Etiology of acute kidney injur y is secondary to hemodynamics. The patient's renal function is slowly improving with IV hydration. Continue current treatment plan, supportive care, renally dose all meds. 2. Chronic kidney disease. The patient is currently in acute kidney injury as stated above. Contin ue current treatment plan. 3. Anemia. Monitor hemoglobin and hematocrit levels. 4. Mineral bone disorder. Monitor calcium and phosphorus levels. 5. Pancreatic mass. The patient is status post cholangiogram. Results have been reviewed. Follow up with GI. 6. History of hypertension. Continue to monitor. 7. Leukocytosis, systemic inflammatory response syndrome. Continue to monitor. Continue current an tibiotic regimen. Follow up with infectious disease. Dictated By: PRANEEHT BARNES/ALEXI Conf#: [id number] DID#: [id number] CC: PETR REESE MD;*EndCC*
--- NOTE | 2019-04-15 15:08 | CONS ---
Assessment/Plan Assessment/Plan Hospital Course (Demo Recall) No acute changes overnight patient is sleeping looks comfortable no fevers WBC 13.3 platelets 250 neutrophils 88.7 BUN 25 creatinine 1.31 Microbiology: Blood cultures remain negative Cholangiogram: 1. Biliary drainage catheter is changed in position, with pigtail now located within the common hepatic duct, as above. 2. There is significant leakage of contrast into the peritoneal cavity originating from the mid portion of the catheter, with resultant suboptimal opacification of the biliary ducts. 3. Visualized right intrahepatic biliary ducts are normal in caliber. Left intrahepatic biliary ducts could not be opacified. 4. Distal portion of the common bile duct is normal in caliber, with appropriate emptying of contrast into the duodenum. Antimicrobials: Cefepime, fluconazole, Zyvox Physical examination: Well-developed ill-appearing elderly man who is awake in no distress. Head atraumatic normocephalic sclera anicteric bugle mucosa dry neck is supple trachea midline chest rise symmetrical breath sounds diminished bases heart: S1-S2 abdomen soft bowel sounds present patient has right-sided abdominal drainage catheter with the back attached. Extremities without cyanos is. Skin: Patient has jaundice Assessment: 1. Systemic inflammatory response syndrome with ongoing leukocytosis 2. Jaundice with abnormal CT of the abdomen finding, possible metastatic pancreatic disease 3. Large loculated right-sided pleural effusion possible malignant 4. Acute on chronic kidney disease 5. Hypertension 6. Hypertension Plan: Patient is clinically unchanged, wbc trending down, GI rec-s noted, pending evaluation by surgery and hepatobiliary specialist, continue antibiotics Consultation Date/Type/Reason Admit Date/Time Apr 11, 2019 at 01:42 Initial Consult Date 04/11/19 Type of Consult id Date/Time of Note DATE: 04/15/19 TIME: 15:04 Exam/Review of Systems Exam Vitals Vital Signs Date Temp Pulse Resp B/P (MAP) Pulse Ox O2 O2 Flow FiO2 Time Delivery Rate 04/15/19 126 12:03 04/15/19 97.5 17 121/81 Nasal 11:57 (94) Cannula 04/15/19 98 5.0 07:22 04/11/19 50 07:40 Intake and Output 04/14/19 04/14/19 04/15/19 1515:00 23:00 07:00 IntakeIntake Total 50 ml 850 ml 730 ml OutputOutput Total 280 ml 100 ml BalanceBalance 50 ml 570 ml 630 ml Results Result Diagram: 04/15/19 0515 04/15/19 0515 Results 24hrs Laboratory Tests Test 04/14/19 17:20 04/14/19 21:51 04/15/19 01:35 04/15/19 05:15 Bedside Glucose 161 236 H 196 White Blood Count 13.3 H Red Blood Count 2.60 L Hemoglobin 8.2 L Hematocrit 25.8 L Mean Corpuscular 99.2 Volume Mean Corpuscular 31.5 Hemoglobin Mean Corpuscular 31.8 L Hemoglobin Concent Red Cell 15.6 H Distribution Width Platelet Count 250 Mean Platelet Volume 10.0 Immature 2.000 H Granulocytes % Neutrophils % 88.7 H Lymphocytes % 5.3 L Monocytes % 3.3 Eosinophils % 0.5 Basophils % 0.2 Nucleated Red Blood 0.0 Cells % Immature 0.270 H Granulocytes # Neutrophils # 11.8 H Lymphocytes # 0.7 L Monocytes # 0.4 Eosinophils # 0.1 Basophils # 0.0 Nucleated Red Blood 0.0 Cells # Sodium Level 140 Potassium Level 4.0 Chloride Level 108 Carbon Dioxide Level 23 Anion Gap 9 Blood Urea Nitrogen 25 H Creatinine 1.31 H Est Glomerular Filtrat Rate mL/min Glucose Level 182 Calcium Level 8.6 Total Bilirubin 1.1 Direct Bilirubin 0.10 # Indirect Bilirubin 1.0 Aspartate Amino 29 Transf (AST/SGOT) Alanine 25 Aminotransferase (AL T/SGPT) Alkaline Phosphatase 323 H Total Protein 6.1 Albumin 2.9 L Globulin 3.20 Albumin/Globulin 0.90 Ratio Test 04/15/19 07:58 04/15/19 11:46 Bedside Glucose 172 190 Medications Medication Current Medications Albuterol (Proventil 0.083% (Neb)) 2.5 mg Q2H RESP THERAPY PRN NEB SHORTNESS OF BREATH Last administered on 04/11/19at 13:54; Admin Dose 2.5 MG; Start 04/11/19 a t 00:00 Ipratropium [place] (Atrovent 0.02% (Neb)) 0.5 mg Q2H RESP THERAPY PRN NEB SHORTNESS OF BREATH Last administered on 04/11/19at 13:54; Admin Dose 0.5 MG; Start 04/11/19 at 00:00 Acetaminophen (Tylenol Liquid) 650 mg Q6H PRN PO PAIN LEVEL 1-3 OR FEVER; Start 04/11/19 at 00:00 Acetaminophen/ Hydrocodone Bitart ([place] (5/325)) 1 tab Q6H PRN PO PAIN LEVEL 4-6 Last administered on 04/11/19at 01:35; Admin Dose 1 TAB; Start 04/11/19 at 00:00 Docusate Sodium (Colace) 100 mg Q12H PRN PO CONSTIPATION; Start 04/11/19 at 00:00 Bisacodyl (Dulcolax) 5 mg DAILY PRN PO CONSTIPATION; Start 04/11/19 at 00:00 Diagnostic Test (Pha) (Accu-Chek) 1 ea 02 XX Last administered on 04/15/19 01:41; Admin Dose 1 EA; Start 04/11/19 at 02:00 Insulin Aspart (Novolog Insulin Pen) NOVOLOG *MILD* ALGORITHM WITH MEALS BEDTIME SC Last administered on 04/15/19 11:52; Admin Dose 2 UNIT; Start 04/11/19 at 08:00 Miscellaneous Information 1 ea NOTE XX ; Start 04/11/19 at 00:30 Glucose (Glutose) 15 gm Q15M PRN PO DECREASED GLUCOSE; Start 04/11/19 at 00:30 Glucose (Glutose) 22.5 gm Q15M PRN PO DECREASED GLUCOSE; Start 04/11/19 at 00:30 Dextrose (D50w Syringe) 25 ml Q15M PRN IV DECREASED GLUCOSE; Start 04/11/19 at 00:30 Dextrose (D50w Syringe) 50 ml Q15M PRN IV DECREASED GLUCOSE; Start 04/11/19 at 00:30 Glucagon (Glucagen) 1 mg Q15M PRN IM DECREASED GLUCOSE; Start 04/11/19 at 00:30 Glucose (Glutose) 15 gm Q15M PRN BUCCAL DECREASED GLUCOSE; Start 04/11/19 at 00:30 Miscellaneous Information (Pending [facility] Order For Wound Care) This patient coyle... PRN PRN XX WOUND CARE; Start 04/11/19 at 08:00 Acetaminophen (Tylenol Tab) 650 mg Q4H PRN PO MILD PAIN(1-3)OR ELEVATED TEMP Last administered on 04/15/19 11:35; Admin Dose 650 MG; Start 04/11/19 at 09:00 Bisacodyl (Dulcolax Supp) 10 mg DAILY PRN [place] CONSTIPATION; Start 04/11/19 at 09:00 Famotidine (Pepcid) 20 mg DAILY PO Last administered on 04/15/19 09:54; Admin Dose 20 MG; Start 04/12/19 at 09:00 Fluconazole (Diflucan) 100 mg DAILY PO Last administered on 04/15/19 09:54; Admin Dose 100 MG; Start 04/11/19 at 09:00 Albuterol/ Ipratropium (Duoneb) 3 ml Q4H RESP THERAPY PRN INH SHORTNESS OF BREATH Last administered on 04/14/19 22:20; Admin Dose 3 ML; Start 04/11/19 at 09:00 Linezolid (Zyvox) 600 mg BID PO Last administered on 04/15/19 09:54; Admin Dose 600 MG; Start 04/11/19 at 09:00 Amylase/Lipase/ Protease (CREON (12k-38k-60k)) 1 cap WITH MEALS PO Last administered on 04/14/19 08:47; Admin Dose 1 CAP; Start 04/11/19 at 12:00 Terazosin HCl (Hytrin) 2 mg HS PO Last administered on 04/14/19 21:51; Admin Dose 2 MG; Start 04/11/19 at 21:00 Cefepime HCl 50 ml @ 100 mls/hr DAILY IVPB Last administered on 04/15/19 09:57; Admin Dose 100 MLS/HR; Start 04/11/19 at 13:00 Sodium Chloride 1,000 ml @ 50 mls/hr Q20H IV Last administered on 04/15/19 08:30; Admin Dose 50 MLS/HR; Start 04/14/19 at 12:30 Multivitamins Therapeutic (Theragran) 1 tab DAILY PO Last administered on 04/15/19 11:41; Admin Dose 1 TAB; Start 04/15/19 at 11:30 Ascorbic Acid (Vitamin C) 500 mg BID PO Last administered on 04/15/19 11:41; Admin Dose 500 MG; Start 04/15/19 at 11:30 Zinc Sulfate (Zinc Sulfate) 220 mg DAILY PO Last administered on 04/15/19 11:41; Admin Dose 220 MG; Start 04/15/19 at 11:30 MAMI DIAZ NP Apr 15, 2019 15:08
[2019-04-15] MEDS: TERAZOSIN 2 MG CAP PO SCH (20:36)
[2019-04-16] VITALS (11 sets, daily range): BP systolic 100–118; BP diastolic 65–81; PULSE 109–126; RESP 18–20
[2019-04-16] MEDS: ACCU-CHEK XX SCH (02:53)
[2019-04-16] MEDS: SOD CHLORIDE 0.9% 1,000 ML IV SCH ×2 (05:14→23:24)
[2019-04-16] MEDS: INSULIN ASPART [NOVOLOG] 3 ML PEN SC SCH ×4 (07:58→20:48)
[2019-04-16] MEDS: CREON (12k-38k-60k) 1 CAP PO SCH ×3 (08:00→17:26)
[2019-04-16] MEDS: FAMOTIDINE 20 MG TAB PO SCH (09:00)
[2019-04-16] MEDS: ZINC SULFATE 220 MG CAP PO SCH (09:00)
[2019-04-16] MEDS: MULTIVITAMINS THERAPEUTIC TAB PO SCH (09:00)
[2019-04-16] MEDS: ASCORBIC ACID 500 MG TAB PO SCH ×2 (09:00→20:38)
--- NOTE | 2019-04-16 09:03 | CONS ---
DATE OF ADMISSION: 04/11/2019 DATE OF CONSULTATION: 04/15/2019 Patient currently has a percutaneous transhepatic catheter, which was placed into the duodenum. Appa rently it has migrated into the common hepatic duct area. I discussed with radiologist. The radiolo gist agreed that he can put a new percutaneous transhepatic catheter into the duodenum for proper nasrin inage. At this time, the same catheter is draining externally because of the migration of the tube. The patient seems to have some evidence of a [place] tumor based on the cholangiographic study. PHYSICAL EXAMINATION: GENERAL: The patient is alert. He is not in distress. VITAL SIGNS: Blood pressure is 121/81, temperature 97.5, pulse is 120. ABDOMEN: Examination of the abdomen is unremarkable. LABORATORY WORKUP: WBC count is 13,300. The alkaline phosphatase is 323, bilirubin 1.1, AST 29, ALT 25. CLINICAL IMPRESSION: Possible [place] tumor and the patient had a percutaneous transhepatic cathete r placed into the duodenum, which migrated. PLAN: Radiologist has agreed to change the G-tube. Subsequently patient needs ERCP and a cholangios copic examination with a Spy Glass to visualize the possible tumor and to do the biopsy. This can be done in a few days because the equipment and personnel are not available at this time. Dictated By: ANTONIA REYNOLDS/ALEXI Conf#: [id number] DID#: [id number] CC: PETR REESE MD;*EndCC*
[2019-04-16] MEDS: ZYVOX 600 MG TAB PO SCH ×2 (09:22→20:37)
[2019-04-16] MEDS: CEFEPIME 1GM/50 ML (PMX) 50 ML IVPB SCH (09:22)
[2019-04-16] MEDS: FLUCONAZOLE 100 MG TAB PO SCH (09:22)
--- NOTE | 2019-04-16 10:53 | PN ---
DATE: 04/16/2019 SUBJECTIVE: The patient is stable, no events overnight. OBJECTIVE: VITAL SIGNS: Blood pressure is 109/70, pulse 124, respirations 20, temperature 97.4. HEENT: Head is normocephalic. NECK: Supple. HEART: Regular rate. LUNGS: Show diminished breath sounds at the base. ABDOMEN: Soft, nontender to palpation without rebound or guarding. EXTREMITIES: Negative for clubbing, cyanosis, no edema. DERMATOLOGIC: No rashes. MUSCULOSKELETAL: No joint effusion. NEUROLOGIC: No change in exam. MEDICATIONS: Reviewed. LABORATORY DATA: Reviewed. IMAGING STUDIES: Reviewed. ASSESSMENT AND PLAN: 1. Nonoliguric acute kidney injury on top of chronic kidney disease. Etiology of acute kidney injur y is secondary to hemodynamics. Renal function is slowly improving with IV hydration. Continue curr ent treatment plan, supportive care, and renally dose all medications. 2. Chronic kidney disease. The patient is currently in acute kidney injury as stated above, renal f unction appears to have stabilized around creatinine of 1.3 mg/dL. Continue to monitor. 3. Anemia. Monitor hemoglobin and hematocrit levels. 4. Mineral bone disorder. Continue to monitor calcium and phosphorus levels. 5. History of hypertension. Continue to monitor. 6. Leukocytosis, systemic inflammatory response syndrome. Continue current antibiotic regimen. Fol low up with infectious disease. 7. Possible pancreatic mass. The patient is status post cholangiogram. The patient has noted leak of contrast material. The patient's drainage catheter may need to be replaced. Continue to monitor. Follow up with GI. Dictated By: PRANEETH RODRIGUEZ DO NR/NTS Conf#: [id number] DID#: [id number] CC: SEE VILLELA MD; CHRIS GOMEZ; PETR REESE MD;*EndCC*
--- NOTE | 2019-04-16 10:54 | PN ---
Date/Time of Note Date/Time of Note DATE: 04/16/19 TIME: 10:48 Assessment/Plan VTE Prophylaxis Risk score (from Ns)>0 risk: 4 SCD applied (from Ns): Yes Pharmacological prophylaxis: NA/contraindicated Pharm contraindication: blood coag disorder Lines/Catheters IV Catheter Type (from [facility]): Mid Line Urinary Cath still in place: No Assessment/Plan Hospital Course S: Patient seen by GI team yesterday and today, and awaiting IR replacement/exchange of the trans-hepatic biliary drain catheter in place now. O: VS- see below PE: General: Frail appearing elderly man lying in bed, answering questions properly HEENT: Atraumatic, normocephalic. The pupils are equal, round and reactive. Neck: Supple with full range of motion. No JVD Chest: Nontender Lungs: Coarse breath sounds bilaterally Heart: Normal S1-S2, Regular rhythm and rate. No murmur, S3, or S4 Abdomen: Soft , nontender, nondistended , bowel sounds are present. RUQ transhe patic tube with biliary drainage. Extremities: Normal to inspection, no edema no cyanosis Neurologic: Normal mental status, speech normal, alert and oriented, able to give most medical history. Skin: Diffuse jaundice Assessment/Plan: 78-year-old man with unclear medical history admitted for shortness of breath soon after recent hospital admission at [facility]. #R pleural effusion- patient also earlier had hypoxia and dyspnea- Currently patient breathing comfortably on nasal cannula 5 L - Has loculated R pleural effusion-thoracentesis not able to be performed secondary to loculated effusion -Monitor for now, continue oxygen supplementation and follow-up final recommendations from pulmonary team - continue puree diet for now #Intra-abdominal infection/cholangitis?-At outside hospital a few days ago patient apparently was on linezolid Zosyn, and fluconazole- Not septic on admission. - Continue current antibiotics per ID recommendations, monitor white blood cell count #Pancreatic mass -patient has jaundice and now transhepatic drain in place, GI on the case -Per records obtained from [facility] where the patient was discharged last week on April 07, 2019, patient was found with obstructive jaundice at that time secondary to hepatic duct strictures + CBD strictures, and had percutaneous transhepatic drain placed on April 02, 2019. LFTs are trending down now. Patient also underwent 2 ERCPs with brushing revealing no evidence of malignancy at that time and subsequent biliary stent placement at that time x2, which have since been removed. -Monitor, follow GI recommendations; based on cholangiogram results, GI team is recommending the following: a. IR exchange/replacement of the biliary drainage catheter (ie: IR?) today b. Another ERCP and a cholangioscopic examination with a Spy Glass to visualize the possible tumor and perform biopsy c. Hepatobiliary surgeon consult #Elevated Cr-slowly trending down -Monitor, follow renal recommendations # hypertension: Blood pressure presently stable -Monitor, presently holding home BP meds given borderline blood pressures # diabetes mellitus: -Monitor, continue insulin sliding scale # DVT prophylaxis: Patient was on Eliquis for a history of atrial flutter, but this is being held secondary to elevated INR and for any potential procedures and may need to be performed in the next few days. Result Diagram: 04/15/19 0515 04/16/19 0505 Results 24hrs Laboratory Tests Test 04/15/19 11:46 04/15/19 17:10 04/15/19 20:31 04/16/19 02:42 Bedside Glucose 190 215 211 165 Test 04/16/19 05:05 04/16/19 07:03 04/16/19 07:56 Sodium Level 142 Potassium Level 4.3 Chloride Level 109 Carbon Dioxide 23 Level Anion Gap 10 Blood Urea 24 H Nitrogen Creatinine 1.30 H Est Glomerular Filtrat Rate mL/min Glucose Level 162 Calcium Level 8.6 Phosphorus Level 2.9 Magnesium Level 1.9 Lab Scanned BLOOD TRANSFUSIO Report N Bedside Glucose 156 Exam/Review of Systems Exam Vitals Vital Signs Date Temp Pulse Resp B/P (MAP) Pulse Ox O2 O2 Flow FiO2 Time Delivery Rate 04/16/19 124 08:04 04/16/19 97.4 20 109/70 100 Nasal 07:24 (83) Cannula 04/16/19 5.0 04:16 Intake and Output 04/15/19 04/15/19 04/16/19 1515:00 23:00 07:00 IntakeIntake Total 750 ml OutputOutput Total 150 ml 25 ml BalanceBalance 600 ml -25 ml Results Results 24hrs Laboratory Tests Test 04/15/19 11:46 04/15/19 17:10 04/15/19 20:31 04/16/19 02:42 Bedside Glucose 190 215 211 165 Test 04/16/19 05:05 04/16/19 07:03 04/16/19 07:56 Sodium Level 142 Potassium Level 4.3 Chloride Level 109 Carbon Dioxide 23 Level Anion Gap 10 Blood Urea 24 H Nitrogen Creatinine 1.30 H Est Glomerular Filtrat Rate mL/min Glucose Level 162 Calcium Level 8.6 Phosphorus Level 2.9 Magnesium Level 1.9 Lab Scanned BLOOD TRANSFUSIO Report N Bedside Glucose 156 Medications Medication Current Medications Albuterol (Proventil 0.083% (Neb)) 2.5 mg Q2H RESP THERAPY PRN NEB SHORTNESS OF BREATH Last administered on 04/11/19at 13:54; Admin Dose 2.5 MG; Start 04/11/19 at 00:00 Ipratropium [place] (Atrovent 0.02% (Neb)) 0.5 mg Q2H RESP THERAPY PRN NEB SHORTNESS OF BREATH Last administered on 04/11/19at 13:54; Admin Dose 0.5 MG; Start 04/11/19 at 00:00 Acetaminophen (Tylenol Liquid) 650 mg Q6H PRN PO PAIN LEVEL 1-3 OR FEVER; Start 04/11/19 at 00:00 Acetaminophen/ Hydrocodone Bitart ([place] (5/325)) 1 tab Q6H PRN PO PAIN LEVEL 4-6 Last administered on 04/11/19at 01:35; Admin Dose 1 TAB; Start 04/11/19 at 00:00 Docusate Sodium (Colace) 100 mg Q12H PRN PO CONSTIPATION; Start 04/11/19 at 00:00 Bisacodyl (Dulcolax) 5 mg DAILY PRN PO CONSTIPATION; Start 04/11/19 at 00:00 Diagnostic Test (Pha) (Accu-Chek) 1 ea 02 XX Last administered on 04/16/19at 02:53; Admin Dose 1 EA; Start 04/11/19 at 02:00 Insulin Aspart (Novolog Insulin Pen) NOVOLOG *MILD* ALGORITHM WITH MEALS BEDTIME SC Last administered on 04/15/19at 21:29; Admin Dose 1 UNIT; Start 04/11/19 at 08:00 Miscellaneous Information 1 ea NOTE XX ; Start 04/11/19 at 00:30 Glucose (Glutose) 15 gm Q15M PRN PO DECREASED GLUCOSE; Start 04/11/19 at 00:30 Glucose (Glutose) 22.5 gm Q15M PRN PO DECREASED GLUCOSE; Start 04/11/19 at 00:30 Dextrose (D50w Syringe) 25 ml Q15M PRN IV DECREASED GLUCOSE; Start 04/11/19 at 00:30 Dextrose (D50w Syringe) 50 ml Q15M PRN IV DECREASED GLUCOSE; Start 04/11/19 at 00:30 Glucagon (Glucagen) 1 mg Q15M PRN IM DECREASED GLUCOSE; Start 04/11/19 at 00:30 Glucose (Glutose) 15 gm Q15M PRN BUCCAL DECREASED GLUCOSE; Start 04/11/19 at 00:30 Miscellaneous Information (Pending [facility] Order For Wound Care) This patient coyle... PRN PRN XX WOUND CARE; Start 04/11/19 at 08:00 Acetaminophen (Tylenol Tab) 650 mg Q4H PRN PO MILD PAIN(1-3)OR ELEVATED TEMP Last administered on 04/15/19at 18:11; Admin Dose 650 MG; Start 04/11/19 at 09:00 Bisacodyl (Dulcolax Supp) 10 mg DAILY PRN [place] CONSTIPATION; Start 04/11/19 at 09:00 Famotidine (Pepcid) 20 mg DAILY PO Last administered on 04/15/19at 09:54; Admin Dose 20 MG; Start 04/12/19 at 09:00 Fluconazole (Diflucan) 100 mg DAILY PO Last administered on 04/16/19 09:22; Admin Dose 100 MG; Start 04/11/19 at 09:00 Albuterol/ Ipratropium (Duoneb) 3 ml Q4H RESP THERAPY PRN INH SHORTNESS OF BREATH Last administered on 04/14/19at 22:20; Admin Dose 3 ML; Start 04/11/19 at 09:00 Linezolid (Zyvox) 600 mg BID PO Last administered on 04/16/19 09:22; Admin Dose 600 MG; Start 04/11/19 at 09:00 Amylase/Lipase/ Protease (CREON (12k-38k-60k)) 1 cap WITH MEALS PO Last administered on 04/15/19at 17:18; Admin Dose 1 CAP; Start 04/11/19 at 12:00 Terazosin HCl (Hytrin) 2 mg HS PO Last administered on 04/15/19 20:36; Admin Dose 2 MG; Start 04/11/19 at 21:00 Cefepime HCl 50 ml @ 100 mls/hr DAILY IVPB Last administered on 04/16/19 09:22; Admin Dose 100 MLS/HR; Start 04/11/19 at 13:00 Sodium Chloride 1,000 ml @ 50 mls/hr Q20H IV Last administered on 04/16/19 05:14; Admin Dose 50 MLS/HR; Start 04/14/19 at 12:30 Multivitamins Therapeutic (Theragran) 1 tab DAILY PO Last administered on 04/15/19 11:41; Admin Dose 1 TAB; Start 04/15/19 at 11:30 Ascorbic Acid (Vitamin C) 500 mg BID PO Last administered on 04/15/19 20:32; Admin Dose 500 MG; Start 04/15/19 at 11:30 Zinc Sulfate (Zinc Sulfate) 220 mg DAILY PO Last administered on 04/15/19 11:41; Admin Dose 220 MG; Start 04/15/19 at 11:30 CHRIS GOMEZ Apr 16, 2019 10:54
--- NOTE | 2019-04-16 10:57 | CONS ---
Assessment/Plan Assessment/Plan Assessment/Plan (Daily) Assessment and recommendations; 1. Patient admitted with shortness of breath due to likely right lower lobe pneumonia with parapneumonic effusion with loculated which is loculated. Thoracentesis could not be done because of multiple loculations. 2. Obstructive jaundice, patient with hepatic drain in place. Is scheduled for ERCP. Drain has migrated. 3. History of anemia and mild chronic renal insufficiency. 4. Persistent hypoxemia due to right lower lobe pneumonia. Continue current supportive care. Patient likely will need to have a right VATS done after obstructive jaundice issue is resolved. Obtain follow-up chest x- ray. Continue current antimicrobial regimen. Consultation Date/Type/Reason Admit Date/Time Apr 11, 2019 at 01:42 Initial Consult Date 04/11/19 Type of Consult Pulmonary Patient's condition is stable. Denies any shortness of breath at rest. Any chest pain, coughing, wheezing or sputum production. General exam; elderly male, awake and alert. Currently in no distress. Date/Time of Note DATE: 04/16/19 TIME: 10:54 24 HR Interval Summary Free Text/Dictation Patient's condition is fairly stable. Denies any shortness of breath, chest pain, abdominal pain, nausea vomiting. General exam; elderly male, awake alert, laying comfortably in bed. On 4 to 5 L nasal cannula per minute. Currently in no distress. Exam/Review of Systems Exam Vitals Vital Signs Date Temp Pulse Resp B/P (MAP) Pulse Ox O2 O2 Flow FiO2 Time Delivery Rate 04/16/19 124 08:04 04/16/19 97.4 20 109/70 100 Nasal 07:24 (83) Cannula 04/16/19 5.0 04:16 Intake and Output 04/15/19 04/15/19 04/16/19 1515:00 23:00 07:00 IntakeIntake Total 750 ml OutputOutput Total 150 ml 25 ml BalanceBalance 600 ml -25 ml Exam H ENT exam; supple neck, no JVD. No lymphadenopathy. Midline trachea. No thyromegaly. No neck masses. Pupils are small bilaterally. Chest exam; diminished breath sounds like regular. Rest of the lung stone are clear. S1-S2 audible, no murmurs. Regular rhythm. Abdomen exam; right upper quadrant drain in place. Abdomen is nontender. No organomegaly. Bowel sounds audible. Extremity exam; no peripheral edema clubbing. 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 Results Result Diagram: 04/15/19 0515 04/16/19 0505 Results 24hrs Laboratory Tests Test 04/15/19 11:46 04/15/19 17:10 04/15/19 20:31 04/16/19 02:42 Bedside Glucose 190 215 211 165 Test 04/16/19 05:05 04/16/19 07:03 04/16/19 07:56 Sodium Level 142 Potassium Level 4.3 Chloride Level 109 Carbon Dioxide 23 Level Anion Gap 10 Blood Urea 24 H Nitrogen Creatinine 1.30 H Est Glomerular Filtrat Rate mL/min Glucose Level 162 Calcium Level 8.6 Phosphorus Level 2.9 Magnesium Level 1.9 Lab Scanned BLOOD TRANSFUSIO Report N Bedside Glucose 156 Medications Medication Current Medications Albuterol (Proventil 0.083% (Neb)) 2.5 mg Q2H RESP THERAPY PRN NEB SHORTNESS OF BREATH Last administered on 04/11/19at 13:54; Admin Dose 2.5 MG; Start 04/11/19 at 00:00 Ipratropium [place] (Atrovent 0.02% (Neb)) 0.5 mg Q2H RESP THERAPY PRN NEB SHOR TNESS OF BREATH Last administered on 04/11/19at 13:54; Admin Dose 0.5 MG; Start 04/11/19 at 00:00 Acetaminophen (Tylenol Liquid) 650 mg Q6H PRN PO PAIN LEVEL 1-3 OR FEVER; Start 04/11/19 at 00:00 Acetaminophen/ Hydrocodone Bitart ([place] (5/325)) 1 tab Q6H PRN PO PAIN LEVEL 4-6 Last administered on 04/11/19at 01:35; Admin Dose 1 TAB; Start 04/11/19 at 00:00 Docusate Sodium (Colace) 100 mg Q12H PRN PO CONSTIPATION; Start 04/11/19 at 00:00 Bisacodyl (Dulcolax) 5 mg DAILY PRN PO CONSTIPATION; Start 04/11/19 at 00:00 Diagnostic Test (Pha) (Accu-Chek) 1 ea 02 XX Last administered on 04/16/19at 02: 53; Admin Dose 1 EA; Start 04/11/19 at 02:00 Insulin Aspart (Novolog Insulin Pen) NOVOLOG *MILD* ALGORITHM WITH MEALS BEDTIME SC Last administered on 04/15/19at 21:29; Admin Dose 1 UNIT; Start 04/11/19 at 08:00 Miscellaneous Information 1 ea NOTE XX ; Start 04/11/19 at 00:30 Glucose (Glutose) 15 gm Q15M PRN PO DECREASED GLUCOSE; Start 04/11/19 at 00:30 Glucose (Glutose) 22.5 gm Q15M PRN PO DECREASED GLUCOSE; Start 04/11/19 at 00:30 Dextrose (D50w Syringe) 25 ml Q15M PRN IV DECREASED GLUCOSE; Start 04/11/19 at 00:30 Dextrose (D50w Syringe) 50 ml Q15M PRN IV DECREASED GLUCOSE; Start 04/11/19 at 00:30 Glucagon (Glucagen) 1 mg Q15M PRN IM DECREASED GLUCOSE; Start 04/11/19 at 00:30 Glucose (Glutose) 15 gm Q15M PRN BUCCAL DECREASED GLUCOSE; Start 04/11/19 at 00:30 Miscellaneous Information (Pending [facility] Order For Wound Care) This patient coyle... PRN PRN XX WOUND CARE; Start 04/11/19 at 08:00 Acetaminophen (Tylenol Tab) 650 mg Q4H PRN PO MILD PAIN(1-3)OR ELEVATED TEMP Last administered on 04/15/19at 18:11; Admin Dose 650 MG; Start 04/11/19 at 09:00 Bisacodyl (Dulcolax Supp) 10 mg DAILY PRN [place] CONSTIPATION; Start 04/11/19 at 09:00 Famotidine (Pepcid) 20 mg DAILY PO Last administered on 04/15/19at 09:54; Admin Dose 20 MG; Start 04/12/19 at 09:00 Fluconazole (Diflucan) 100 mg DAILY PO Last administered on 04/16/19at 09:22; Admin Dose 100 MG; Start 04/11/19 at 09:00 Albuterol/ Ipratropium (Duoneb) 3 ml Q4H RESP THERAPY PRN INH SHORTNESS OF BREATH Last administered on 04/14/19at 22:20; Admin Dose 3 ML; Start 04/11/19 at 09:00 Linezolid (Zyvox) 600 mg BID PO Last administered on 04/16/19at 09:22; Admin Dose 600 MG; Start 04/11/19 at 09:00 Amylase/Lipase/ Protease (CREON (12k-38k-60k)) 1 cap WITH MEALS PO Last administered on 04/15/19 17:18; Admin Dose 1 CAP; Start 04/11/19 at 12:00 Terazosin HCl (Hytrin) 2 mg HS PO Last administered on 04/15/19 20:36; Admin Dose 2 MG; Start 04/11/19 at 21:00 Cefepime HCl 50 ml @ 100 mls/hr DAILY IVPB Last administered on 04/16/19 09:22; Admin Dose 100 MLS/HR; Start 04/11/19 at 13:00 Sodium Chloride 1,000 ml @ 50 mls/hr Q20H IV Last administered on 04/16/19 05:14; Admin Dose 50 MLS/HR; Start 04/14/19 at 12:30 Multivitamins Therapeutic (Theragran) 1 tab DAILY PO Last administered on 04/15/19 11:41; Admin Dose 1 TAB; Start 04/15/19 at 11:30 Ascorbic Acid (Vitamin C) 500 mg BID PO Last administered on 04/15/19 20:32; Admin Dose 500 MG; Start 04/15/19 at 11:30 Zinc Sulfate (Zinc Sulfate) 220 mg DAILY PO Last administered on 04/15/19 11:41; Admin Dose 220 MG; Start 04/15/19 at 11:30 TANIKA GRAYSON 20, 2019 10:57
--- NOTE | 2019-04-16 15:06 | CONS ---
Assessment/Plan Assessment/Plan Hospital Course (Demo Recall) Patient is awake and looks comfortable no shortness of breath at rest, no fevers Microbiology: Blood cultures remain negative Cholangiogram: 1. Biliary drainage catheter is changed in position, with pigtail now located within the common hepatic duct, as above. 2. There is significant leakage of contrast into the peritoneal cavity originating from the mid portion of the catheter, with resultant suboptimal opacification of the biliary ducts. 3. Visualized right intrahepatic biliary ducts are normal in caliber. Left intrahepatic biliary ducts could not be opacified. 4. Distal portion of the common bile duct is normal in caliber, with appropriate emptying of contrast into the duodenum. Antimicrobials: Cefepime, fluconazole, Zyvox Physical examination: Well-developed ill-appearing elderly man who is awake in no distress. Head atraumatic normocephalic sclera anicteric bugle mucosa dry neck is supple trachea midline chest rise symmetrical breath sounds diminished bases heart: S1-S2 abdomen soft bowel sounds present patient has right-sided abdominal drainage catheter with the back attached. Extremities without cyanosis. Skin: Patient has jaundice Assessment: 1. Systemic inflammatory response syndrome with ongoing leukocytosis 2. Jaundice with abnormal CT of the abdomen finding, possible metastatic pancreatic disease 3. Large loculated right-sided pleural effusion possible malignant 4. Acute on chronic kidney disease 5. Hypertension 6. Hypertension Plan: Patient is clinically unchanged, overall stable, per GI recommendation may need IR exchange or replacement of biliary drainage catheter and possible another ERCP. Continue present care and antibiotics pending hepatic biliary surgical evaluation Consultation Date/Type/Reason Admit Date/Time Apr 11, 2019 at 01:42 Initial Consult Date 04/11/19 Type of Consult id Date/Time of Note DATE: 04/16/19 TIME: 15:05 Exam/Review of Systems Exam Vitals Vital Signs Date Temp Pulse Resp B/P (MAP) Pulse Ox O2 O2 Flow FiO2 Time Delivery Rate 04/16/19 125 12:09 04/16/19 Nasal 5.0 07:35 Cannula 04/16/19 97.4 20 109/70 100 07:24 (83) Intake and Output 04/15/19 04/15/19 04/16/19 1515:00 23:00 07:00 IntakeIntake Total 750 ml OutputOutput Total 150 ml 25 ml BalanceBalance 600 ml -25 ml Results Result Diagram: 04/15/19 0515 04/16/19 0505 Results 24hrs Laboratory Tests Test 04/15/19 17:10 04/15/19 20:31 04/16/19 02:42 04/16/19 05:05 Bedside Glucose 215 211 165 Sodium Level 142 Potassium Level 4.3 Chloride Level 109 Carbon Dioxide 23 Level Anion Gap 10 Blood Urea 24 H Nitrogen Creatinine 1.30 H Est Glomerular Filtrat Rate mL/min Glucose Level 162 Calcium Level 8.6 Phosphorus Level 2.9 Magnesium Level 1.9 Test 04/16/19 07:03 04/16/19 07:56 04/16/19 12:01 Lab Scanned BLOOD TRANSFUSIO Report N Bedside Glucose 156 147 Medications Medication Current Medications Albuterol (Proventil 0.083% (Neb)) 2.5 mg Q2H RESP THERAPY PRN NEB SHORTNESS OF BREATH Last administered on 04/11/19at 13:54; Admin Dose 2.5 MG; Start 04/11/19 at 00:00 Ipratropium [place] (Atrovent 0.02% (Neb)) 0.5 mg Q2H RESP THERAPY PRN NEB SHORTNESS OF BREATH Last administered on 04/11/19at 13:54; Admin Dose 0.5 MG; Start 04/11/19 at 00:00 Acetaminophen (Tylenol Liquid) 650 mg Q6H PRN PO PAIN LEVEL 1-3 OR FEVER; Start 04/11/19 at 00:00 Acetaminophen/ Hydrocodone Bitart ([place] (5/325)) 1 tab Q6H PRN PO PAIN LEVEL 4-6 Last administered on 04/11/19at 01:35; Admin Dose 1 TAB; Start 04/11/19 at 00:00 Docusate Sodium (Colace) 100 mg Q12H PRN PO CONSTIPATION; Start 04/11/19 at 00:00 Bisacodyl (Dulcolax) 5 mg DAILY PRN PO CONSTIPATION; Start 04/11/19 at 00:00 Diagnostic Test (Pha) (Accu-Chek) 1 ea 02 XX Last administered on 04/16/19at 02:53; Admin Dose 1 EA; Start 04/11/19 at 02:00 Insulin Aspart (Novolog Insulin Pen) NOVOLOG *MILD* ALGORITHM WITH MEALS BEDTIME SC Last administered on 04/15/19 21:29; Admin Dose 1 UNIT; Start 04/11/19 at 08:00 Miscellaneous Information 1 ea NOTE XX ; Start 04/11/19 at 00:30 Glucose (Glutose) 15 gm Q15M PRN PO DECREASED GLUCOSE; Start 04/11/19 at 00:30 Glucose (Glutose) 22.5 gm Q15M PRN PO DECREASED GLUCOSE; Start 04/11/19 at 00:30 Dextrose (D50w Syringe) 25 ml Q15M PRN IV DECREASED GLUCOSE; Start 04/11/19 at 00:30 Dextrose (D50w Syringe) 50 ml Q15M PRN IV DECREASED GLUCOSE; Start 04/11/19 at 00:30 Glucagon (Glucagen) 1 mg Q15M PRN IM DECREASED GLUCOSE; Start 04/11/19 at 00:30 Glucose (Glutose) 15 gm Q15M PRN BUCCAL DECREASED GLUCOSE; Start 04/11/19 at 00:30 Miscellaneous Information (Pending [facility] Order For Wound Care) This patient coyle... PRN PRN XX WOUND CARE; Start 04/11/19 at 08:00 Acetaminophen (Tylenol Tab) 650 mg Q4H PRN PO MILD PAIN(1-3)OR ELEVATED TEMP Last administered on 04/15/19at 18:11; Admin Dose 650 MG; Start 04/11/19 at 09:00 Bisacodyl (Dulcolax Supp) 10 mg DAILY PRN [place] CONSTIPATION; Start 04/11/19 at 09:00 Famotidine (Pepcid) 20 mg DAILY PO Last administered on 04/15/19at 09:54; Admin Dose 20 MG; Start 04/12/19 at 09:00 Fluconazole (Diflucan) 100 mg DAILY PO Last administered on 04/16/19at 09:22; Admin Dose 100 MG; Start 04/11/19 at 09:00 Albuterol/ Ipratropium (Duoneb) 3 ml Q4H RESP THERAPY PRN INH SHORTNESS OF BREATH Last administered on 04/14/19at 22:20; Admin Dose 3 ML; Start 04/11/19 at 09:00 Linezolid (Zyvox) 600 mg BID PO Last administered on 04/16/19at 09:22; Admin Dose 600 MG; Start 04/11/19 at 09:00 Amylase/Lipase/ Protease (CREON ([id number]-60k)) 1 cap WITH MEALS PO Last administered on 04/15/19 17:18; Admin Dose 1 CAP; Start 04/11/19 at 12:00 Terazosin HCl (Hytrin) 2 mg HS PO Last administered on 04/15/19 20:36; Admin Dose 2 MG; Start 04/11/19 at 21:00 Cefepime HCl 50 ml @ 100 mls/hr DAILY IVPB Last administered on 04/16/19 09:22; Admin Dose 100 MLS/HR; Start 04/11/19 at 13:00 Sodium Chloride 1,000 ml @ 50 mls/hr Q20H IV Last administered on 04/16/19 05:14; Admin Dose 50 MLS/HR; Start 04/14/19 at 12:30 Multivitamins Therapeutic (Theragran) 1 tab DAILY PO Last administered on 04/15/19 11:41; Admin Dose 1 TAB; Start 04/15/19 at 11:30 Ascorbic Acid (Vitamin C) 500 mg BID PO Last administered on 04/15/19 20:32; Admin Dose 500 MG; Start 04/15/19 at 11:30 Zinc Sulfate (Zinc Sulfate) 220 mg DAILY PO Last administered on 04/15/19 11:41; Admin Dose 220 MG; Start 04/15/19 at 11:30 MAMI DIAZ NP Apr 16, 2019 15:06
[2019-04-16] MEDS ORDERED: LIDOCAINE 1% (MDV) 20 ML INJ ONE (16:29)
[2019-04-16] MEDS ORDERED: IOHEXOL 350MG/ML 50 ML BTL ONE (16:29)
[2019-04-16] MEDS ORDERED: SOD CHLORIDE 0.9% 500 ML ONE (17:14)
[2019-04-16] MEDS ORDERED: FENTAnyl 50 MCG/ML VIAL ONE ×2 (17:14→17:37)
[2019-04-16] MEDS ORDERED: MIDAZOLAM 1 MG/ML 2 ML INJ ONE (17:37)
[2019-04-16] MEDS: TERAZOSIN 2 MG CAP PO SCH (20:37)
[2019-04-17] VITALS (9 sets, daily range): BP systolic 100–111; BP diastolic 58–73; PULSE 18–126; RESP 17–20
[2019-04-17] MEDS: ACCU-CHEK XX SCH ×2 (01:26→21:56)
[2019-04-17] MEDS: CREON (12k-38k-60k) 1 CAP PO SCH ×3 (07:43→18:00)
[2019-04-17] MEDS: INSULIN ASPART [NOVOLOG] 3 ML PEN SC SCH ×4 (07:46→21:00)
[2019-04-17] MEDS: FLUCONAZOLE 100 MG TAB PO SCH (08:08)
[2019-04-17] MEDS: FAMOTIDINE 20 MG TAB PO SCH (08:08)
[2019-04-17] MEDS: MULTIVITAMINS THERAPEUTIC TAB PO SCH (08:08)
[2019-04-17] MEDS: ZYVOX 600 MG TAB PO SCH ×2 (08:08→21:56)
[2019-04-17] MEDS: ASCORBIC ACID 500 MG TAB PO SCH ×2 (08:09→21:56)
[2019-04-17] MEDS: CEFEPIME 1GM/50 ML (PMX) 50 ML IVPB SCH (08:09)
[2019-04-17] MEDS: ZINC SULFATE 220 MG CAP PO SCH (08:09)
--- NOTE | 2019-04-17 09:57 | PN ---
DATE: 04/17/2019 SUBJECTIVE: The patient is stable. No events overnight. OBJECTIVE: VITAL SIGNS: Blood pressure is 102/58, respiration 18, pulse 98, temperature 98.0. HEENT: Head is normocephalic. NECK: Supple. HEART: Regular rate. LUNGS: Show diminished breath sounds at the base. ABDOMEN: Soft, nontender to palpation without rebound or guarding. EXTREMITIES: Negative for clubbing, cyanosis, no edema. DERMATOLOGIC: No rashes. MUSCULOSKELETAL: No joint effusion. NEUROLOGIC: No change in exam. MEDICATIONS: The patient's medications have been reviewed. LABORATORY DATA: Has been reviewed. Imaging studies have been reviewed. ASSESSMENT AND PLAN: 1. Nonoliguric acute kidney injury on top of CKD, etiology is secondary to hemodynamics. Renal func tion has slowly been improving. At this point, renal function appears to be near baseline. We will continue current treatment plan and supportive care and renally dose all meds. Will discontinue IV f luids. 2. Chronic kidney disease. The patient is currently in acute kidney injury as stated above. Renal function appears to be stabilizing. Continue current treatment plan. Continue disease factor modifi cation. 3. Anemia. Monitor hemoglobin and hematocrit levels. 4. Mineral bone disorder. Monitor calcium and phosphorus levels. 5. Hypertension. Continue to monitor. 6. Leukocytosis, SIRS, continue antibiotic regimen. 7. Pancreatic mass. The patient is status post cholangiogram, status post placement of hepatobiliary drainage. Continue to monitor. Follow up with GI. Dictated By: PRANEETH RODRIGUEZ DO NR/NTS Conf#: [id number] DID#: [id number] CC: SEE VILLELA MD; CHRIS GOMEZ; PETR REESE MD;*EndCC*
--- NOTE | 2019-04-17 10:37 | CONS ---
Assessment/Plan Assessment/Plan Assessment/Plan (Daily) Assessment and recommendations; 1. Patient admitted with obstructive jaundice as well as right lower lobe pneumonia with complicated right parapneumonic effusion. Because of septations and loculations thoracentesis could not be performed. Chest x-ray is not showing any interval improvement despite antibiotic administration. 2. Migration of biliary drain. 3. Chronic renal insufficiency. 4. Anemia. Continue current supportive care. Patient scheduled for ERCP. Once obstructive jaundice issue is resolved patient likely will need to have a right-sided VATS procedure performed. Consultation Date/Type/Reason Admit Date/Time Apr 11, 2019 at 01:42 Initial Consult Date 04/11/19 Type of Consult Pulmonary Patient's condition is stable. Denies any shortness of breath at rest. Any chest pain, coughing, wheezing or sputum production. General exam; elderly male, awake and alert. Currently in no distress. Date/Time of Note DATE: 04/17/19 TIME: 10:35 24 HR Interval Summary Free Text/Dictation Patient's condition is fairly stable. Remains awake and alert. Denies any shortness of breath any coughing, chest pain wheezing or sputum production. Denies any fever. Denies any abdominal pain, nausea or vomiting. General exam; elderly male, laying comfortably in bed. Currently in no distress. Exam/Review of Systems Exam Vitals Vital Signs Date Temp Pulse Resp B/P (MAP) Pulse Ox O2 O2 Flow FiO2 Time Delivery Rate 04/17/19 126 08:29 04/17/19 3.0 07:57 04/17/19 Nasal 07:35 Cannula 04/17/19 98.0 18 102/58 98 07:28 (73) Intake and Output 04/16/19 04/16/19 04/17/19 1515:00 23:00 07:00 IntakeIntake Total 120 ml 1540 ml OutputOutput Total 700 ml 400 ml 1100 ml BalanceBalance -700 ml -280 ml 440 ml Exam H EENT exam; supple neck, no JVD. No lymphadenopathy. Midline trachea. No thyromegaly. Patient has a multiple carious teeth. Chest exam; diminished breath sounds like regular. S1-S2 audible, no murmurs. Regular rhythm. Abdomen exam; soft, no organomegaly. Right upper quadrant drain in place. Bowel sounds are audible. Abdomen is nondistended and nontender. Extremity exam; no peripheral edema. Patient does have patchy ecchymosis. 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 Results Result Diagram: 04/15/19 0515 04/17/19 0457 Results 24hrs Laboratory Tests Test 04/16/19 12:01 04/16/19 20:45 04/17/19 04:57 04/17/19 07:26 Bedside Glucose 147 134 244 H Sodium Level 141 Potassium Level 4.6 Chloride Level 110 Carbon Dioxide Level 22 Anion Gap 9 Blood Urea Nitrogen 22 H Creatinine 1.27 H Est Glomerular Filtrat Rate mL/min Glucose Level 220 Calcium Level 8.3 L Phosphorus Level 3.1 Magnesium Level 1.9 Medications Medication Current Medications Albuterol (Proventil 0.083% (Neb)) 2.5 mg Q2H RESP THERAPY PRN NEB SHORTNESS OF BREATH Last administered on 04/11/19at 13:54; Admin Dose 2.5 MG; Start 04/11/19 at 00:00 Ipratropium [place] (Atrovent 0.02% (Neb)) 0.5 mg Q2H RESP THERAPY PRN NEB SHORTNESS OF BREATH Last administered on 04/11/19at 13:54; Admin Dose 0.5 MG; Start 04/11/19 at 00:00 Acetaminophen (Tylenol Liquid) 650 mg Q6H PRN PO PAIN LEVEL 1-3 OR FEVER; Start 04/11/19 at 00:00 Acetaminophen/ Hydrocodone Bitart ([place] (5/325)) 1 tab Q6H PRN PO PAIN LEVEL 4-6 Last administered on 04/11/19at 01:35; Admin Dose 1 TAB; Start 04/11/19 at 00:00 Docusate Sodium (Colace) 100 mg Q12H PRN PO CONSTIPATION; Start 04/11/19 at 00:00 Bisacodyl (Dulcolax) 5 mg DAILY PRN PO CONSTIPATION; Start 04/11/19 at 00:00 Diagnostic Test (Pha) (Accu-Chek) 1 ea 02 XX Last administered on 04/16/19at 02:53; Admin Dose 1 EA; Start 04/11/19 at 02:00 Insulin Aspart (Novolog Insulin Pen) NOVOLOG *MILD* ALGORITHM WITH MEALS BEDTIME SC Last administered on 04/17/19at 07:46; Admin Dose 3 UNIT; Start 04/11/19 at 08:00 Miscellaneous Information 1 ea NOTE XX ; Start 04/11/19 at 00:30 Glucose (Glutose) 15 gm Q15M PRN PO DECREASED GLUCOSE; Start 04/11/19 at 00:30 Glucose (Glutose) 22.5 gm Q15M PRN PO DECREASED GLUCOSE; Start 04/11/19 at 00:30 Dextrose (D50w Syringe) 25 ml Q15M PRN IV DECREASED GLUCOSE; Start 04/11/19 at 00:30 Dextrose (D50w Syringe) 50 ml Q15M PRN IV DECREASED GLUCOSE; Start 04/11/19 at 00:30 Glucagon (Glucagen) 1 mg Q15M PRN IM DECREASED GLUCOSE; Start 04/11/19 at 00:30 Glucose (Glutose) 15 gm Q15M PRN BUCCAL DECREASED GLUCOSE; Start 04/11/19 at 00:30 [facility]isc[facility] This patient coyle... PRN PRN XX WOUND CARE; Start 04/11/19 at 08:00 Acetaminophen (Tylenol Tab) 650 mg Q4H PRN PO MILD PAIN(1-3)OR ELEVATED TEMP Last administered on 04/15/19at 18:11; Admin Dose 650 MG; Start 04/11/19 at 09:00 Bisacodyl (Dulcolax Supp) 10 mg DAILY PRN [place] CONSTIPATION; Start 04/11/19 at 09:00 Famotidine (Pepcid) 20 mg DAILY PO Last administered on 04/17/19at 08:08; Admin Dose 20 MG; Start 04/12/19 at 09:00 Fluconazole (Diflucan) 100 mg DAILY PO Last administered on 04/17/19at 08:08; Admin Dose 100 MG; Start 04/11/19 at 09:00 Albuterol/ Ipratropium (Duoneb) 3 ml Q4H RESP THERAPY PRN INH SHORTNESS OF BREATH Last administered on 04/14/19at 22:20; Admin Dose 3 ML; Start 04/11/19 at 09:00 Linezolid (Zyvox) 600 mg BID PO Last administered on 04/17/19at 08:08; Admin Dose 600 MG; Start 04/11/19 at 09:00 Amylase/Lipase/ Protease (CREON (12k-[id number])) 1 cap WITH MEALS PO Last administered on 04/17/19 07:43; Admin Dose 1 CAP; Start 04/11/19 at 12:00 Terazosin HCl (Hytrin) 2 mg HS PO Last administered on 04/16/19 20:37; Admin Dose 2 MG; Start 04/11/19 at 21:00 Cefepime HCl 50 ml @ 100 mls/hr DAILY IVPB Last administered on 04/17/19 08:09; Admin Dose 100 MLS/HR; Start 04/11/19 at 13:00 Multivitamins Therapeutic (Theragran) 1 tab DAILY PO Last administered on 04/17/19 08:08; Admin Dose 1 TAB; Start 04/15/19 at 11:30 Ascorbic Acid (Vitamin C) 500 mg BID PO Last administered on 04/17/19 08:09; Admin Dose 500 MG; Start 04/15/19 at 11:30 Zinc Sulfate (Zinc Sulfate) 220 mg DAILY PO Last administered on 04/17/19 08:09; Admin Dose 220 MG; Start 04/15/19 at 11:30 TANIKA GRAYSON Apr 17, 2019 10:37
--- NOTE | 2019-04-17 11:18 | RADRPT ---
PROCEDURE: 1. Cholangioplasty 2. Placement of right external internal biliary drainage catheter 3. Fluoroscopic guidance of above CLINICAL INDICATION: Displaced biliary drain. Leak about catheter site. TECHNIQUE: Informed consent was obtained from the patient following careful explanation of the risks and benefit s of the procedure. The procedure was performed under moderate sedation. Fentanyl and Versed were adm inistered intravenously by the nurse monitoring the patient. Fluoroscopy time: 15.2 min Number of images: 1 The patient was placed supine on the angiographic table and the right side of the abdomen and anterio r chest wall were prepped and draped in the usual sterile fashion. Maximal sterile barrier technique was utilized with a cap, mask, sterile gown, sterile gloves, and large sterile drape. Hand hygiene an d surgical site cutaneous antisepsis was also obtained prior to the procedure with 2% chlorhexidine. A procedural pause was performed to ensure the correct procedure was being performed on the correct p atient. 1% lidocaine was used for local anesthesia. The indwelling drain was injected with contrast which opacified the internal hepatic biliary system. Wire was advanced through the catheter and exchange was attempted however significant biliary stenosi s and tortuosity of the indwelling catheter precluded exchange. Catheter was subsequently removed. A 21-gauge needle was advanced from an intercostal pole space in the mid axillary line towards the op acified system utilizing fluoroscopic guidance. Contrast was injected utilizing fluoroscopy and opaci fication of multifocal stenotic bile ducts was appreciated. A guidewire was advanced into the bile du cts and small bowel. The needle was exchanged over the guide wire for a introducer which was placed in the bile ducts. Utilizing a [place] catheter and glide wire, access was obtained into the duodenum. An Amplatz wire was placed within the duodenum. The catheter was exchanged over the wire for an 8.5 [place] biliary drain catheter which could not be advanced into the small bowel secondary to significant biliary stenosis and/or liver parenchymal melida dening. Exchange over wire was made for a 3 mm x 10 cm balloon. Cholangioplasty was performed of the intrahepatic and extrahepatic biliary system. Subsequently an 8 [place] external internal drain was pl aced with distal tip in the duodenum. Contrast injection confirmed proper positioning of the tube. Th e catheter was connected to a drainage bag and sutured to the patient's skin. A sterile dressing was applied. The patient tolerated the procedure well. COMPARISON: CT 04/10/2019 FINDINGS: Displaced biliary drain which was removed. 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 IMPRESSION: Successful placement of a right sided external internal biliary drainage catheter and cholanioplasty of multifocal stenotic biliary ducts. RPTAT: PP Physician Tushar Date Time Electronically viewed and signed by Eugene Dockery Physician on 04/17/2019 11:18 MD/
--- NOTE | 2019-04-17 11:37 | CONS ---
Assessment/Plan Assessment/Plan Hospital Course (Demo Recall) All noted, no acute events Microbiology: Blood cultures remain negative Cholangiogram: 1. Biliary drainage catheter is changed in position, with pigtail now located within the common hepatic duct, as above. 2. There is significant leakage of contrast into the peritoneal cavity originating from the mid portion of the catheter, with resultant suboptimal opacification of the biliary ducts. 3. Visualized right intrahepatic biliary ducts are normal in caliber. Left intrahepatic biliary ducts could not be opacified. 4. Distal portion of the common bile duct is normal in caliber, with ap propriate emptying of contrast into the duodenum. Antimicrobials: Cefepime, fluconazole, Zyvox Physical examination: Well-developed ill-appearing elderly man who is awake in no distress. Head atraumatic normocephalic sclera anicteric bugle mucosa dry neck is supple trachea midline chest rise symmetrical breath sounds diminished bases heart: S1-S2 abdomen soft bowel sounds present patient has right-sided abdominal drainage catheter with the back attached. Extremities without cyanosis. Skin: Patient has jaundice Assessment: 1. Systemic inflammatory response syndrome with ongoing leukocytosis 2. 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 Large loculated right-sided pleural effusion ? malignant vs infectious 4. Acute on chronic kidney disease 5. Hypertension 6. Hypertension Plan: Patient is clinically unchanged, per dw Dr Gurrola pt needs to be tx to [facility] for exchange or replacement of biliary drainage catheter and possible another ERCP. Continue present care and antibiotics, pulmonary rec-s noted, pt may need VATS Consultation Date/Type/Reason Admit Date/Time Apr 11, 2019 at 01:42 Initial Consult Date 04/11/19 Type of Consult id Date/Time of Note DATE: 04/17/19 TIME: 11:34 Exam/Review of Systems Exam Vitals Vital Signs Date Temp Pulse Resp B/P (MAP) Pulse Ox O2 O2 Flow FiO2 Time Delivery Rate 04/17/19 126 08:29 04/17/19 3.0 07:57 04/17/19 Nasal 07:35 Cannula 04/17/19 98.0 18 102/58 98 07:28 (73) Intake and Output 04/16/19 04/16/19 04/17/19 1515:00 23:00 07:00 IntakeIntake Total 120 ml 1540 ml OutputOutput Total 700 ml 400 ml 1100 ml BalanceBalance -700 ml -280 ml 440 ml Results Result Diagram: 04/15/19 0515 04/17/19 0457 Results 24hrs Laboratory Tests Test 04/16/19 12:01 04/16/19 20:45 04/17/19 04:57 04/17/19 07:26 Bedside Glucose 147 134 244 H Sodium Level 141 Potassium Level 4.6 Chloride Level 110 Carbon Dioxide Level 22 Anion Gap 9 Blood Urea Nitrogen 22 H Creatinine 1.27 H Est Glomerular Filtrat Rate mL/min Glucose Level 220 Calcium Level 8.3 L Phosphorus Level 3.1 Magnesium Level 1.9 Medications Medication Current Medications Albuterol (Proventil 0.083% (Neb)) 2.5 mg Q2H RESP THERAPY PRN NEB SHORTNESS OF BREATH Last administered on 04/11/19at 13:54; Admin Dose 2.5 MG; Start 04/11/19 at 00:00 Ipratropium Freedom (Atrovent 0.02% (Neb)) 0.5 mg Q2H RESP THERAPY PRN NEB SHORTNESS OF BREATH Last administered on 04/11/19at 13:54; Admin Dose 0.5 MG; Start 04/11/19 at 00:00 Acetaminophen (Tylenol Liquid) 650 mg Q6H PRN PO PAIN LEVEL 1-3 OR FEVER; Start 04/11/19 at 00:00 Acetaminophen/ Hydrocodone Bitart (Sabin (5/325)) 1 tab Q6H PRN PO PAIN LEVEL 4-6 Last administered on 04/11/19at 01:35; Admin Dose 1 TAB; Start 04/11/19 at 00:00 Docusate Sodium (Colace) 100 mg Q12H PRN PO CONSTIPATION; Start 04/11/19 at 00:00 Bisacodyl (Dulcolax) 5 mg DAILY PRN PO CONSTIPATION; Start 04/11/19 at 00:00 Diagnostic Test (Pha) (Accu-Chek) 1 ea 02 XX Last administered on 04/16/19at 02:53; Admin Dose 1 EA; Start 04/11/19 at 02:00 Insulin Aspart (Novolog Insulin Pen) NOVOLOG *MILD* ALGORITHM WITH MEALS BEDTIME SC Last administered on 04/17/19at 07:46; Admin Dose 3 UNIT; Start 04/11/19 at 08:00 Miscellaneous Information 1 ea NOTE XX ; Start 04/11/19 at 00:30 Glucose (Glutose) 15 gm Q15M PRN PO DECREASED GLUCOSE; Start 04/11/19 at 00:30 Glucose (Glutose) 22.5 gm Q15M PRN PO DECREASED GLUCOSE; Start 04/11/19 at 00:30 Dextrose (D50w Syringe) 25 ml Q15M PRN IV DECREASED GLUCOSE; Start 04/11/19 at 00:30 Dextrose (D50w Syringe) 50 ml Q15M PRN IV DECREASED GLUCOSE; Start 04/11/19 at 00:30 Glucagon (Glucagen) 1 mg Q15M PRN IM DECREASED GLUCOSE; Start 04/11/19 at 00:30 Glucose (Glutose) 15 gm Q15M PRN BUCCAL DECREASED GLUCOSE; Start 04/11/19 at 00:30 Miscellaneous Information (Pending [facility] Order For Wound Care) This patient coyle... PRN PRN XX WOUND CARE; Start 04/11/19 at 08:00 Acetaminophen (Tylenol Tab) 650 mg Q4H PRN PO MILD PAIN(1-3)OR ELEVATED TEMP Last administered on 04/15/19at 18:11; Admin Dose 650 MG; Start 04/11/19 at 09:00 Bisacodyl (Dulcolax Supp) 10 mg DAILY PRN SD CONSTIPATION; Start 04/11/19 at 09:00 Famotidine (Pepcid) 20 mg DAILY PO Last administered on 04/17/19at 08:08; Admin Dose 20 MG; Start 04/12/19 at 09:00 Fluconazole (Diflucan) 100 mg DAILY PO Last administered on 04/17/19at 08:08; Admin Dose 100 MG; Start 04/11/19 at 09:00 Albuterol/ Ipratropium (Duoneb) 3 ml Q4H RESP THERAPY PRN INH SHORTNESS OF BREATH Last administered on 04/14/19at 22:20; Admin Dose 3 ML; Start 04/11/19 at 09:00 Linezolid (Zyvox) 600 mg BID PO Last administered on 04/17/19at 08:08; Admin Dose 600 MG; Start 04/11/19 at 09:00 Amylase/Lipase/ Protease (CREON (35k-35k-60k)) 1 cap WITH MEALS PO Last administered on 04/17/19at 07:43; Admin Dose 1 CAP; Start 04/11/19 at 12:00 Terazosin HCl (Hytrin) 2 mg HS PO Last administered on 04/16/19 20:37; Admin Dose 2 MG; Start 04/11/19 at 21:00 Cefepime HCl 50 ml @ 100 mls/hr DAILY IVPB Last administered on 04/17/19 08:09; Admin Dose 100 MLS/HR; Start 04/11/19 at 13:00 Multivitamins Therapeutic (Theragran) 1 tab DAILY PO Last administered on 04/17/19 08:08; Admin Dose 1 TAB; Start 04/15/19 at 11:30 Ascorbic Acid (Vitamin C) 500 mg BID PO Last administered on 04/17/19 08:09; Admin Dose 500 MG; Start 04/15/19 at 11:30 Zinc Sulfate (Zinc Sulfate) 220 mg DAILY PO Last administered on 04/17/19 08:09; Admin Dose 220 MG; Start 04/15/19 at 11:30 MAMI DIAZ NP Apr 17, 2019 11:37
--- NOTE | 2019-04-17 11:39 | PDOCDIS ---
Discharge Instructions CONDITION [id number] Patient Condition: [id number] Serious HOME CARE INSTRUCTIONS: [id number] Diet Instructions: Unful1p Low Fat /Cholesterol ACTIVITY: [id number] Activity Restrictions: [id number] Slowly Increase Activity Rest between Activity Avoid heavy lifting CHRIS GOMEZ Apr 17, 2019 11:39
--- NOTE | 2019-04-17 11:48 | DS ---
Date/Time of Note Date/Time of Note DATE: 04/17/19 TIME: 11:39 Discharge Summary Admission/Discharge Info Admit Date/Time Apr 11, 2019 at 01:42 Discharge Date/Time Discharge Diagnosis #R pleural effusion- patient also earlier had hypoxia and dyspnea- Currently patient breathing comfortably on nasal cannula 5 L - Has loculated R pleural effusion-thoracentesis not able to be performed secondary to loculated effusion #Intra-abdominal infection/cholangitis-At outside hospital a few days ago patient apparently was on linezolid Zosyn, and fluconazole- Not septic on admission. #Pancreatic mass -patient has jaundice and now transhepatic drain in place, GI on the case -Per records obtained from [facility] where the patient was discharged last week on April 07, 2019, patient was found with obstructive jaundice at that time secondary to hepatic duct strictures + CBD strictures, and had percutaneous transhepatic drain placed on April 02, 2019. LFTs are trending down now. Patient also underwent 2 ERCPs with brushing revealing no evidence of malignancy at that time and subsequent biliary stent placement at that time x2, which have since been removed. #Elevated Cr-slowly trending down -Monitor, follow renal recommendations # hypertension: Blood pressure presently stable # diabetes mellitus: Patient Condition: Serious Procedures A. April 16: PROCEDURE: 1. Cholangioplasty 2. Placement of right external internal biliary drainage catheter 3. Fluoroscopic guidance of above IMPRESSION: Successful placement of a right sided external internal biliary drainage catheter and cholanioplasty of multifocal stenotic biliary ducts. B. 2D ECHO April 11, 2019: Conclusions: Normal left ventricular systolic function. Normal left ventricular cavity size. Normal left ventricular wall thickness. Ejection fraction is visually estimated at 50-55 %. Tissue Doppler/Mitral Doppler indices are consistent with impaired relaxation (Stage I diastolic dysfunction). Normal right ventricular size. Normal right ventricular systolic function. Mild to moderate mitral valve regurgitation. Mild aortic valve regurgitation. The estimated Peak RVSP is 20 mmHg. There is moderate to severe tricuspid regurgitation. Normal pericardium with no significant pericardial effusion. Hx of Present Illness 78-year-old gentleman who presents to the emergency room with reported hypoxia. EMS reports that the patient was supposed to be transferred to [facility] because of a pleural effusion. However, when BLS arrived they took him off his regular 2 L of oxygen and noted that he became hypoxic. ALS was called and the patient was transferred to the nearest facility. Patient himself states that he feels that his baseline. He denies any fevers chills cough chest pain or shortness of breath. She reports that he was recently admitted to [facility] for his jaundice but he does not know what he had done for himself. He denies any chest pain or shortness of breath. He visibly on exam has generalized jaundice. Hospital Course Patient was admitted and seen by infectious disease, renal, GI, and pulmonary teams during this hospital stay. He was placed on oxygen supplementation and found on pulmonary imaging studies with pleural effusion on the right side. There was a thoracentesis that was attempted, however this was unsuccessful as there was found to be loculated pleural effusion. Regarding his hepatic issues, his hepatic biliary drainage catheter was evaluated by the GI team. He underwent cholangiogram which did show some possible leaking internally and the interventional radiologist performed a successful placement of a right sided external internal biliary drainage catheter and cholanioplasty of multifocal stenotic biliary ducts. Patient's LFTs were monitored and he was also continued on antibiotics for possible cholangitis which she was treated for at the outside hospital for 4 weeks at [facility] before he was discharged from there a week prior to this admission. He had no fevers and his white blood cell count was trending down as well. Despite the hepatic drainage catheter appearing to work well and the trending down of the patient's LFTs and improvement in his cholangitis, based on the abdominal imaging studies there is still a concern of a possible [place] tumor or some kind of mass in either the common bile duct area or even the pancreatic head. CA 19 and 9 levels were found to be elevated as well. Thus our GI doctor recommended that the patient needs and another ERCP and a cholangioscopic examination with a Spy Glass to visualize the possible jaxon or and to do the biopsy of any potential mass there. Because we are not able to have the equipment here at this hospital at this time, and because our interventional radiology department does not appear to be able to take a biopsy of the mass at this time, after discussing the case with the GI doctor and also over the phone with the hepatobiliary surgeon, it was determined that the patient could better have these possible procedures done for biopsy performed at an acute care center, specifically the one he was treated at just prior to this admission here. Thus patient will be transferred over there later today once a bed becomes available in current condition. See printed medicine reconciliation sheet for full list of active medications. Home Meds Reported Medications Linezolid* (Zyvox*) 600 Mg Tablet, 600 MG PO BID, TAB 04/11/19 Ondansetron Hcl* (Ondansetron Hcl*) 4 Mg Tablet, 4 MG PO Q6H PRN for NAUSEA AND/OR VOMITING, TAB 04/11/19 Acetaminophen* (Tylenol*) 325 Mg Tablet, 650 MG PO Q4H PRN for PAIN AND OR ELEVATED TEMP, TAB Give 2 tablets by mouth every 8hrs as needed 04/11/19 Terazosin Hcl* (Terazosin Hcl*) 2 Mg Capsule, 2 MG PO HS for HTN, CAP 04/11/19 Sennosides* (Senna Lax*) 8.6 Mg Tablet, 2 TAB PO BID for CONST, TAB 04/11/19 Potassium Chloride* (Klor-Con*) 20 Meq Tabsr, 20 MEQ PO TID for HYPOKALEMIA, TAB.SA 04/11/19 Nifedipine* (Nifedipine ER*) 30 Mg Tablet.sa, 30 MG PO DAILY for HTN, TAB.SA GIVE 30mgBY MOUTH ONE TIME A DAY FOR HTN HOLD IF SBP IS <110 or HR is <60 04/11/19 Metoprolol Tartrate* (Lopressor*) 25 Mg Tablet, 25 MG PO BID for HTN, #60 TAB 04/11/19 Metoclopramide* (Reglan*) 10 Mg Tablet, 0.5 MG PO TID for GERD, TAB 04/11/19 Melatonin (Melatonin) 1 Mg Tablet, 1 MG PO HS, TAB 04/11/19 Magnesium Oxide* (Magnesium Oxide*) 400 Mg Tablet, 400 MG PO BID, TAB 04/11/19 Lactobacillus Rhamnosus GG (Culturelle) 1 Each Capsule, 1 EACH PO BID WITH MEALS for To SupportGUT Tosin, CAP 04/11/19 Ipratropium-Albuterol (Ipratropium-Albuterol) 0.5-3 Mg/3 Ml Ampul.neb, 3 ML INHALATION Q2H, #30 VIAL 04/11/19 Insulin Lispro (Humalog) 100 Unit/1 Ml Cartridge, 100 UNIT SQ SS, EA INJECT PER SLIDING SCALE: IF 70-150=0 UNIT;151-200= 2 UNITS; 201-250=4UNITS; 251-300=6UNITS;301-350=8UNITS; 351-400=10UNITS>400=12UNITS and CALL 04/11/19 Bopclpxirlq-R-Oomzznvrth Hb* (Guaifenesin* DM Syrup) 120 Ml Syrup, 5 ML PO Q4H PRN for COUGH, ML 04/11/19 Glipizide* (Glipizide*) 5 Mg Tablet, 5 MG PO AC BREAKFAST, TAB 04/11/19 Fluconazole* (Fluconazole*) 100 Mg Tablet, 100 MG PO DAILY for FUNGAL INFECTION, TAB 04/11/19 Mineral Oil* (Fleet* Mineral Oil Enema) 133 Ml Oil, 133 ML IN NEEDED PRN for CONSTIPATION, ENEMA 04/11/19 Famotidine* (Famotidine*) 20 Mg Tablet, 20 MG PO DAILY, #30 TAB 04/11/19 Bisacodyl (Dulcolax) 10 Mg Supp.rect, 10 MG RC, SUPP.RECT 04/11/19 Qqabpw-Hseakzya-Fpsosdw* (Al DR* 12,000) 12,000 L-38,000-60,000 Unit Capsule.dr, 1 CAP PO WITH MEALS, CAP 04/11/19 Calcium Carbonate (Calcium Carbonate) 500 Mg Tab.chew, 500 MG PO Q4H WHILE AWAKE for INDIGESTION, TAB.CHEW 04/11/19 Apixaban* (Eliquis*) 2.5 Mg Tablet, 2.5 MG PO BID, TAB 04/11/19 Primary Care Provider Not On Staff Doctor Time spent on discharge: > 30 minutes Pending Labs Laboratory Tests Test 04/16/19 12:01 04/16/19 20:45 04/17/19 04:57 04/17/19 07:26 Bedside 147 134 244 Glucose mg/dL (70-220) mg/dL (70-220) mg/dL (70-220) Sodium Level 141 mmol/L (135-14 4) Potassium 4.6 Level mmol/L (3.5-5. 1) Chloride Level 110 mmol/L (97-110 ) Carbon Dioxide 22 Level mmol/L (21-31) Anion Gap 9 (5-13) Blood Urea 22 Nitrogen mg/dl (7-20) Creatinine 1.27 mg/dl (0.61-1. 24) Est Glomerular mL/min (>60) Filtrat Rate mL/min Glucose Level 220 mg/dl (70-220) Calcium Level 8.3 mg/dl (8.4-10. 2) Phosphorus 3.1 Level mg/dl (2.5-4.9 ) Magnesium 1.9 Level mg/dl (1.7-2.5 ) CHRIS GOMEZ. Apr 17, 2019 11:48
[2019-04-17] MEDS: TERAZOSIN 2 MG CAP PO SCH (21:56)
--- NOTE | 2019-04-17 22:07 | CONS ---
DATE OF ADMISSION: 04/11/2019 DATE OF CONSULTATION: 04/17/2019 HISTORY OF PRESENT ILLNESS: The patient was previously known to have percutaneous transhepatic bilia ry drainage catheter put into the duodenum because of common hepatic duct obstruction, obstruction pr obably in the confluence of the left and right hepatic ducts, etiology not known and drainage cathete r was migrated into the common hepatic duct area and the patient also started leaking contrast into t he peritoneal cavity from the catheter. Hence, the patient was ordered to have a change of the percu taneous transhepatic drainage catheter and a new drainage catheter was placed through the percutaneou s transhepatic approach into the duodenum by the radiologist yesterday. PHYSICAL EXAMINATION: The patient is alert and he is afebrile. Drainage catheter through the percut aneous approach is draining bile. LABORATORY WORKUP: WBC count 13,300. Alkaline phosphatase is 323, bilirubin is 1.1, AST 29 and ALT is 25. 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 CA 19-9 is elevated t o 800, indicating that there could be cholangiocarcinoma or perhaps even this elevation of CA 19-9 of 882 could also be due to cholangitis. The patient had a subtotal cholecystectomy in the past at [facility], [place]. PLAN: At this time, discussion was made between the hepatobiliary pancreatic surgeon and the hospita list. Plan was made to transfer the patient to [facility] for further management. However, if the patient needs cholangioscopy with the SpyGlass instrument, there seems to be some problems wi th the side-viewing duodenoscope at [facility]. Hence, the transfer to [facility] at this time is put on hold and it is felt that cholangioscopy could be attempted in this hospital an d if necessary, the patient can be transferred subsequently to [facility], depending upon th e outcome of the cholangioscopy. The above discussion was made with Dr. Bundy, the hospitalist at [facility]. Dictated By: ANTONIA REYNOLDS/ALEXI Conf#: [id number] DID#: [id number] CC: PETR REESE MD;*[facility]*
[2019-04-18] VITALS (10 sets, daily range): BP systolic 94–131; BP diastolic 56–83; PULSE 112–127; RESP 17–20
[2019-04-18] MEDS: CREON (12k-38k-60k) 1 CAP PO SCH ×3 (07:40→17:20)
[2019-04-18] MEDS: INSULIN ASPART [NOVOLOG] 3 ML PEN SC SCH ×4 (07:46→20:37)
[2019-04-18] MEDS: FAMOTIDINE 20 MG TAB PO SCH (08:42)
[2019-04-18] MEDS: ASCORBIC ACID 500 MG TAB PO SCH ×2 (08:42→20:31)
[2019-04-18] MEDS: MULTIVITAMINS THERAPEUTIC TAB PO SCH (08:42)
[2019-04-18] MEDS: ZYVOX 600 MG TAB PO SCH ×2 (08:42→20:31)
[2019-04-18] MEDS: ZINC SULFATE 220 MG CAP PO SCH (08:42)
[2019-04-18] MEDS: CEFEPIME 1GM/50 ML (PMX) 50 ML IVPB SCH (08:43)
[2019-04-18] MEDS: FLUCONAZOLE 100 MG TAB PO SCH (08:43)
--- NOTE | 2019-04-18 09:26 | CONS ---
Consult Date/Type/Reason Admit Date/Time Apr 11, 2019 at 01:42 Initial Consult Date 04/11/19 Type of Consultation: neph Date/Time of Note DATE: 04/18/19 TIME: 09:22 Subjective The patient is stable. No events overnight. Plan for ERCP and biopsy on Saturday. Patient slept well. Had an episode of bowel incontinence. HEENT: Head is normocephalic. NECK: Supple. HEART: Regular rate. LUNGS: Show diminished breath sounds at the base. ABDOMEN: Soft, nontender to palpation without rebound or guarding. EXTREMITIES: Negative for clubbing, cyanosis, no edema. DERMATOLOGIC: No rashes. MUSCULOSKELETAL: No joint effusion. NEUROLOGIC: No change in exam. Objective Vitals Vital Signs Date Temp Pulse Resp B/P (MAP) Pulse Ox O2 O2 Flow FiO2 Time Delivery Rate 04/18/19 124 08:00 04/18/19 98.0 18 106/65 100 07:50 (79) 04/18/19 Nasal 3.0 07:47 Cannula Intake and Output 04/17/19 04/17/19 04/18/19 1515:00 23:00 07:00 IntakeIntake Total 470 ml 440 ml OutputOutput Total 800 ml 600 ml 300 ml BalanceBalance -330 ml -160 ml -300 ml Results/Medications Result Diagram: 04/15/19 0515 04/17/19 0457 Results 24 hrs Laboratory Tests Test 04/17/19 11:38 04/17/19 17:10 04/17/19 21:55 04/18/19 07:41 Bedside Glucose 206 181 136 156 Home Meds Reported Medications Linezolid* (Zyvox*) 600 Mg Tablet, 600 MG PO BID, TAB 04/11/19 Ondansetron Hcl* (Ondansetron Hcl*) 4 Mg Tablet, 4 MG PO Q6H PRN for NAUSEA AND/OR VOMITING, TAB 04/11/19 Acetaminophen* (Tylenol*) 325 Mg Tablet, 650 MG PO Q4H PRN for PAIN AND OR ELEVATED TEMP, TAB Give 2 tablets by mouth every 8hrs as needed 04/11/19 Terazosin Hcl* (Terazosin Hcl*) 2 Mg Capsule, 2 MG PO HS for HTN, CAP 04/11/19 Sennosides* (Senna Lax*) 8.6 Mg Tablet, 2 TAB PO BID for CONST, TAB 04/11/19 Potassium Chloride* (Klor-Con*) 20 Meq Tabsr, 20 MEQ PO TID for HYPOKALEMIA, TAB.SA 04/11/19 Nifedipine* (Nifedipine ER*) 30 Mg Tablet.sa, 30 MG PO DAILY for HTN, TAB.SA GIVE 30mgBY MOUTH ONE TIME A DAY FOR HTN HOLD IF SBP IS <110 or HR is <60 04/11/19 Metoprolol Tartrate* (Lopressor*) 25 Mg Tablet, 25 MG PO BID for HTN, #60 TAB 04/11/19 Metoclopramide* (Reglan*) 10 Mg Tablet, 0.5 MG PO TID for GERD, TAB 04/11/19 Melatonin (Melatonin) 1 Mg Tablet, 1 MG PO HS, TAB 04/11/19 Magnesium Oxide* (Magnesium Oxide*) 400 Mg Tablet, 400 MG PO BID, TAB 04/11/19 Lactobacillus Rhamnosus GG (Culturelle) 1 Each Capsule, 1 EACH PO BID WITH MEALS for To SupportGUT Tosin, CAP 04/11/19 Ipratropium-Albuterol (Ipratropium-Albuterol) 0.5-3 Mg/3 Ml Ampul.neb, 3 ML INHALATION Q2H, #30 VIAL 04/11/19 Insulin Lispro (Humalog) 100 Unit/1 Ml Cartridge, 100 UNIT SQ SS, EA INJECT PER SLIDING SCALE: IF 70-150=0 UNIT;151-200= 2 UNITS; 201-250=4UNITS; 251-300=6UNITS;301-350=8UNITS; 351-400=10UNITS>400=12UNITS and CALL 04/11/19 Tklasmxwffv-L-Ninhpqwwbv Hb* (Guaifenesin* DM Syrup) 120 Ml Syrup, 5 ML PO Q4H PRN for COUGH, ML 04/11/19 Glipizide* (Glipizide*) 5 Mg Tablet, 5 MG PO AC BREAKFAST, TAB 04/11/19 Fluconazole* (Fluconazole*) 100 Mg Tablet, 100 MG PO DAILY for FUNGAL INFECTION, TAB 04/11/19 Mineral Oil* (Fleet* Mineral Oil Enema) 133 Ml Oil, 133 ML NE NEEDED PRN for CONSTIPATION, ENEMA 04/11/19 Famotidine* (Famotidine*) 20 Mg Tablet, 20 MG PO DAILY, #30 TAB 04/11/19 Bisacodyl (Dulcolax) 10 Mg Supp.rect, 10 MG RC, SUPP.RECT 04/11/19 Iijbmb-Hlxaxrti-Rvednkt* (Al HUMPHREYS* 12,000) 12,000 L-38,000-60,000 Unit Capsule.dr, 1 CAP PO WITH MEALS, CAP 04/11/19 Calcium Carbonate (Calcium Carbonate) 500 Mg Tab.chew, 500 MG PO Q4H WHILE AWAKE for INDIGESTION, TAB.CHEW 04/11/19 Apixaban* (Eliquis*) 2.5 Mg Tablet, 2.5 MG PO BID, TAB 04/11/19 Medications Current Medications Albuterol (Proventil 0.083% (Neb)) 2.5 mg Q2H RESP THERAPY PRN NEB SHORTNESS OF BREATH Last administered on 04/11/19at 13:54; Admin Dose 2.5 MG; Start 04/11/19 at 00:00 Ipratropium [place] (Atrovent 0.02% (Neb)) 0.5 mg Q2H RESP THERAPY PRN NEB SHORTNESS OF BREATH Last administered on 04/11/19at 13:54; Admin Dose 0.5 MG; Start 04/11/19 at 00:00 Acetaminophen (Tylenol Liquid) 650 mg Q6H PRN PO PAIN LEVEL 1-3 OR FEVER; Start 04/11/19 at 00:00 Acetaminophen/ Hydrocodone Bitart ([place] (5/325)) 1 tab Q6H PRN PO PAIN LEVEL 4-6 Last administered on 04/11/19at 01:35; Admin Dose 1 TAB; Start 04/11/19 at 00:00 Docusate Sodium (Colace) 100 mg Q12H PRN PO CONSTIPATION; Start 04/11/19 at 00:00 Bisacodyl (Dulcolax) 5 mg DAILY PRN PO CONSTIPATION; Start 04/11/19 at 00:00 Diagnostic Test (Pha) (Accu-Chek) 1 ea 02 XX Last administered on 04/16/19at 02:53; Admin Dose 1 EA; Start 04/11/19 at 02:00 Insulin Aspart (Novolog Insulin Pen) NOVOLOG *MILD* ALGORITHM WITH MEALS BEDTIME SC Last administered on 04/18/19at 07:46; Admin Dose 1 UNIT; Start 04/11/19 at 08:00 Miscellaneous Information 1 ea NOTE XX ; Start 04/11/19 at 00:30 Glucose (Glutose) 15 gm Q15M PRN PO DECREASED GLUCOSE; Start 04/11/19 at 00:30 Glucose (Glutose) 22.5 gm Q15M PRN PO DECREASED GLUCOSE; Start 04/11/19 at 00:30 Dextrose (D50w Syringe) 25 ml Q15M PRN IV DECREASED GLUCOSE; Start 04/11/19 at 00:30 Dextrose (D50w Syringe) 50 ml Q15M PRN IV DECREASED GLUCOSE; Start 04/11/19 at 00:30 Glucagon (Glucagen) 1 mg Q15M PRN IM DECREASED GLUCOSE; Start 04/11/19 at 00:30 Glucose (Glutose) 15 gm Q15M PRN BUCCAL DECREASED GLUCOSE; Start 04/11/19 at 00:30 Miscellaneous Information (Pending Santyl Order For Wound Care) This patient coyle... PRN PRN XX WOUND CARE; Start 04/11/19 at 08:00 Acetaminophen (Tylenol Tab) 650 mg Q4H PRN PO MILD PAIN(1-3)OR ELEVATED TEMP Last administered on 04/15/19at 18:11; Admin Dose 650 MG; Start 04/11/19 at 09:00 Bisacodyl (Dulcolax Supp) 10 mg DAILY PRN NE CONSTIPATION; Start 04/11/19 at 09:00 Famotidine (Pepcid) 20 mg DAILY PO Last administered on 04/18/19at 08:42; Admin Dose 20 MG; Start 04/12/19 at 09:00 Fluconazole (Diflucan) 100 mg DAILY PO Last administered on 04/18/19at 08:43; Admin Dose 100 MG; Start 04/11/19 at 09:00 Albuterol/ Ipratropium (Duoneb) 3 ml Q4H RESP THERAPY PRN INH SHORTNESS OF BREATH Last administered on 04/14/19at 22:20; Admin Dose 3 ML; Start 04/11/19 at 09:00 Linezolid (Zyvox) 600 mg BID PO Last administered on 04/18/19at 08:42; Admin Dose 600 MG; Start 04/11/19 at 09:00 Amylase/Lipase/ Protease (CREON ([id number])) 1 cap WITH MEALS PO Last administered on 04/18/19 07:40; Admin Dose 1 CAP; Start 04/11/19 at 12:00 Terazosin HCl (Hytrin) 2 mg HS PO Last administered on 04/17/19 21:56; Admin Dose 2 MG; Start 04/11/19 at 21:00 Cefepime HCl 50 ml @ 100 mls/hr DAILY IVPB Last administered on 04/18/19 08:43; Admin Dose 100 MLS/HR; Start 04/11/19 at 13:00 Multivitamins Therapeutic (Theragran) 1 tab DAILY PO Last administered on 04/18/19 08:42; Admin Dose 1 TAB; Start 04/15/19 at 11:30 Ascorbic Acid (Vitamin C) 500 mg BID PO Last administered on 04/18/19 08:42; Admin Dose 500 MG; Start 04/15/19 at 11:30 Zinc Sulfate (Zinc Sulfate) 220 mg DAILY PO Last administered on 04/18/19 08:42; Admin Dose 220 MG; Start 04/15/19 at 11:30 Loperamide HCl (Imodium Cap) 2 mg BID PRN PO DIARRHEA; Start 04/17/19 at 15:00 Assessment/Plan Assessment/Plan (Daily) 1. Nonoliguric acute kidney injury on top of CKD, etiology is secondary to hemodynamics. Renal function has slowly been improving. At this point, renal function appears to be near baseline. We will continue current treatment plan and supportive care and renally dose all meds. monitor off ivf - watch for diuretic phase of marti with electrolyte wasting - all meds dosed ok. 2. Chronic kidney disease. The patient is currently in acute kidney injury as stated above. Renal function appears to be stabilizing. Continue current treatment plan. Continue disease factor modification. 3. Anemia. Monitor hemoglobin and hematocrit levels. 4. Mineral bone disorder. Monitor calcium and phosphorus levels. 5. Hypertension. Continue to monitor. 6. Leukocytosis, SIRS, continue antibiotic regimen. 7. Pancreatic mass. The patient is status post cholangiogram, status post placement of hepatobiliary drainage. Continue to monitor. Follow up with GI. OSCAR PANDEY MD Apr 18, 2019 09:26
--- NOTE | 2019-04-18 11:09 | CONS ---
Assessment/Plan Assessment/Plan Hospital Course (Demo Recall) ID PROGRESS NOTE CURRENT ABX: DAY # =>Cefepime, fluconazole, Zyvox 04/18/19 1007 04/17/19 0457 24H INTERVAL SUMMARY * VSS, NAD, no fevers, lethargic * POD #1-> S/P 04/17/19 PROCEDURE: * 1. Cholangioplasty * 2. Placement of right external internal biliary drainage catheter * 3. Fluoroscopic guidance of above * CLINICAL INDICATION: Displaced biliary drain. Leak about catheter site. DIAGNOSTIC IMAGING * 04/16/19 CXR: No significant change in pulmonary vascular congestion, large loculated right pleural effusion with adjacent opacification of the right lung. Coexisting pneumonia not excluded. Stable small left pleural effusion with mild increase in left basilar opacities. * 04/10/19 Microbiology: Blood cultures remain negative * 04/14/19 Cholangiogram: * 1. Biliary drainage catheter is changed in position, with pigtail now located within the common hepatic duct, as above. * 2. There is significant leakage of contrast into the peritoneal cavity originating from the mid portion of the catheter, with resultant suboptimal opacification of the biliary ducts. * 3. Visualized right intrahepatic biliary ducts are normal in caliber. Left intrahepatic biliary ducts could not be opacified. * 4. Distal portion of the common bile duct is normal in caliber, with appropriate emptying of contrast into the duodenum. PHYSICAL EXAMINATION: GENERAL: VSS, NAD -- (+)JAUNDICE HEENT: AT, NC, (+)iCTERIC NECK: Supple, CHEST: Rise symmetrical, without dyspnea at rest on observation HEART: Pulse RRR ABDOMEN: ABD DRAIN IN PLACE EXTREMITIES: Warm, dry SKIN: No rash, no diaphoresis ID ASSESSMENT 78 yo M admit with: 1. Systemic inflammatory response syndrome with ongoing leukocytosis 2. 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 Large loculated right-sided pleural effusion ? malignant vs infectious 4. Acute on chronic kidney disease 5. Hypertension 6. Hypertension (-)MRSA Nares ABX ALLERGIES: KNDA INVASIVES: PIV CURRENT ABX: DAY # Cefepime, fluconazole, Zyvox ID RECOMMENDATIONS/PLAN: 1. Continue current ABX 2. PER ID ADMINISTRATIVE SUPERVISOR COLLEAGUE NOTE QUOTING BELOW: * "Plan: Patient is clinically unchanged, per dw Dr Gurrola pt needs to be tx to [facility] for exchange or replacement of biliary drainage catheter and possible another ERCP. Continue present care and antibiotics, pulmonary rec-s noted, pt may need VATS" . Consultation Date/Type/Reason Admit Date/Time Apr 11, 2019 at 01:42 Initial Consult Date 04/11/19 Date/Time of Note DATE: 04/18/19 TIME: 11:08 Exam/Review of Systems Exam Vitals Vital Signs Date Temp Pulse Resp B/P (MAP) Pulse Ox O2 O2 Flow FiO2 Time Delivery Rate 04/18/19 124 08:00 04/18/19 98.0 18 106/65 100 07:50 (79) 04/18/19 Nasal 3.0 07:47 Cannula Intake and Output 04/17/19 04/17/19 04/18/19 1515:00 23:00 07:00 IntakeIntake Total 470 ml 440 ml OutputOutput Total 800 ml 600 ml 300 ml BalanceBalance -330 ml -160 ml -300 ml Results Result Diagram: 04/18/19 1007 04/17/19 0457 Results 24hrs Laboratory Tests Test 04/17/19 11:38 04/17/19 17:10 04/17/19 21:55 04/18/19 07:41 Bedside Glucose 206 181 136 156 Test 04/18/19 10:07 White Blood Count 12.2 H Red Blood Count 2.65 L Hemoglobin 8.3 L Hematocrit 26.6 L Mean Corpuscular 100.4 Volume Mean Corpuscular 31.3 Hemoglobin Mean Corpuscular 31.2 L Hemoglobin Concent Red Cell 15.2 H Distribution Width Platelet Count 197 # Mean Platelet Volume 9.7 Immature 1.400 H Granulocytes % Neutrophils % 88.0 H Lymphocytes % 5.5 L Monocytes % 4.1 Eosinophils % 0.7 Basophils % 0.3 Nucleated Red Blood 0.0 Cells % Immature 0.170 H Granulocytes # Neutrophils # 10.8 H Lymphocytes # 0.7 L Monocytes # 0.5 Eosinophils # 0.1 Basophils # 0.0 Nucleated Red Blood 0.0 Cells # Medications Medication Current Medications Albuterol (Proventil 0.083% (Neb)) 2.5 mg Q2H RESP THERAPY PRN NEB SHORTNESS OF BREATH Last administered on 04/11/19at 13:54; Admin Dose 2.5 MG; Start 04/11/19 at 00:00 Ipratropium [place] (Atrovent 0.02% (Neb)) 0.5 mg Q2H RESP THERAPY PRN NEB SHORTNESS OF BREATH Last administered on 04/11/19at 13:54; Admin Dose 0.5 MG; Start 04/11/19 at 00:00 Acetaminophen (Tylenol Liquid) 650 mg Q6H PRN PO PAIN LEVEL 1-3 OR FEVER; Start 04/11/19 at 00:00 Acetaminophen/ Hydrocodone Bitart ([place] (5/325)) 1 tab Q6H PRN PO PAIN LEVEL 4-6 Last administered on 04/11/19at 01:35; Admin Dose 1 TAB; Start 04/11/19 at 00:00 Docusate Sodium (Colace) 100 mg Q12H PRN PO CONSTIPATION; Start 04/11/19 at 00:00 Bisacodyl (Dulcolax) 5 mg DAILY PRN PO CONSTIPATION; Start 04/11/19 at 00:00 Diagnostic Test (Pha) (Accu-Chek) 1 ea 02 XX Last administered on 04/16/19at 02:53; Admin Dose 1 EA; Start 04/11/19 at 02:00 Insulin Aspart (Novolog Insulin Pen) NOVOLOG *MILD* ALGORITHM WITH MEALS BEDTIME SC Last administered on 04/18/19at 07:46; Admin Dose 1 UNIT; Start 04/11/19 at 08:00 Miscellaneous Information 1 ea NOTE XX ; Start 04/11/19 at 00:30 Glucose (Glutose) 15 gm Q15M PRN PO DECREASED GLUCOSE; Start 04/11/19 at 00:30 Glucose (Glutose) 22.5 gm Q15M PRN PO DECREASED GLUCOSE; Start 04/11/19 at 00:30 Dextrose (D50w Syringe) 25 ml Q15M PRN IV DECREASED GLUCOSE; Start 04/11/19 at 00:30 Dextrose (D50w Syringe) 50 ml Q15M PRN IV DECREASED GLUCOSE; Start 04/11/19 at 00:30 Glucagon (Glucagen) 1 mg Q15M PRN IM DECREASED GLUCOSE; Start 04/11/19 at 00:30 Glucose (Glutose) 15 gm Q15M PRN BUCCAL DECREASED GLUCOSE; Start 04/11/19 at 00:30 [facility] This patient coyle... PRN PRN XX WOUND CARE; Start 04/11/19 at 08:00 Acetaminophen (Tylenol Tab) 650 mg Q4H PRN PO MILD PAIN(1-3)OR ELEVATED TEMP Last administered on 04/15/19 18:11; Admin Dose 650 MG; Start 04/11/19 at 09:00 Bisacodyl (Dulcolax Supp) 10 mg DAILY PRN [place] CONSTIPATION; Start 04/11/19 at 09:00 Famotidine (Pepcid) 20 mg DAILY PO Last administered on 04/18/19 08:42; Admin Dose 20 MG; Start 04/12/19 at 09:00 Fluconazole (Diflucan) 100 mg DAILY PO Last administered on 04/18/19 08:43; Admin Dose 100 MG; Start 04/11/19 at 09:00 Albuterol/ Ipratropium (Duoneb) 3 ml Q4H RESP THERAPY PRN INH SHORTNESS OF BREATH Last administered on 04/14/19 22:20; Admin Dose 3 ML; Start 04/11/19 at 09:00 Linezolid (Zyvox) 600 mg BID PO Last administered on 04/18/19 08:42; Admin Dose 600 MG; Start 04/11/19 at 09:00 Amylase/Lipase/ Protease (CREON ([id number])) 1 cap WITH MEALS PO Last administered on 04/18/19 07:40; Admin Dose 1 CAP; Start 04/11/19 at 12:00 Terazosin HCl (Hytrin) 2 mg HS PO Last administered on 04/17/19 21:56; Admin Dose 2 MG; Start 04/11/19 at 21:00 Cefepime HCl 50 ml @ 100 mls/hr DAILY IVPB Last administered on 04/18/19 08:43; Admin Dose 100 MLS/HR; Start 04/11/19 at 13:00 Multivitamins Therapeutic (Theragran) 1 tab DAILY PO Last administered on 04/18/19 08:42; Admin Dose 1 TAB; Start 04/15/19 at 11:30 Ascorbic Acid (Vitamin C) 500 mg BID PO Last administered on 04/18/19 08:42; Admin Dose 500 MG; Start 04/15/19 at 11:30 Zinc Sulfate (Zinc Sulfate) 220 mg DAILY PO Last administered on 04/18/19 08:42; Admin Dose 220 MG; Start 04/15/19 at 11:30 Loperamide HCl (Imodium Cap) 2 mg BID PRN PO DIARRHEA; Start 04/17/19 at 15:00 MAZIN GREGG NP Apr 18, 2019 11:09
[2019-04-18] MEDS: ESCITALOPRAM 10 MG TAB PO SCH (12:34)
--- NOTE | 2019-04-18 13:42 | PN ---
Date/Time of Note Date/Time of Note DATE: 04/18/19 TIME: 13:39 Assessment/Plan VTE Prophylaxis Risk score (from Nsg)>0 risk: 5 SCD applied (from Nsg): Yes Pharmacological prophylaxis: NA/contraindicated Pharm contraindication: blood coag disorder Lines/Catheters IV Catheter Type (from [facility]): Mid Line Urinary Cath still in place: No Assessment/Plan Hospital Course S: Patient transfer to [place] held now secondary to equipment issue not being available there. Planning for ERCP on Saturday with spyglass per GI. No acute events overnight. O: VS- see below PE: General: Frail appearing elderly man lying in bed, answering questions properly HEENT: Atraumatic, normocephalic. The pupils are equal, round and reactive. Neck: Supple with full range of motion. No JVD Chest: Nontender Lungs: Coarse breath sounds bilaterally Heart: Normal S1-S2, Regular rhythm and rate. No murmur, S3, or S4 Abdomen: Soft , nontender, nondistended , bowel sounds are present. RUQ transhepatic tube with biliary drainage. Extremities: Normal to inspection, no edema no cyanosis Neurologic: Normal mental status, speech normal, alert and oriented, able to give most medical history. Skin: Diffuse jaundice Assessment/Plan: 78-year-old man with unclear medical history admitted for shortness of breath soon after recent hospital admission at [facility]. #R pleural effusion- patient also earlier had hypoxia and dyspnea- Currently patient breathing comfortably on nasal cannula 5 L - Has loculated R pleural effusion-thoracentesis not able to be performed secondary to loculated effusion - Monitor for now, continue oxygen supplementation and follow-up final recommendations from pulmonary team - continue puree diet for now #Intra-abdominal infection/cholangitis?-At outside hospital a few days ago patient apparently was on linezolid Zosyn, and fluconazole- Not septic on admission. - Continue current antibiotics per ID recommendations, monitor white blood cell count #Pancreatic mass -patient has jaundice and now transhepatic drain in place, GI on the case -Per records obtained from [place] where the patient was discharged last week on April 07, 2019, patient was found with obstructive jaundice at that time secondary to hepatic duct strictures + CBD strictures, and had percutaneous transhepatic drain placed on April 02, 2019. LFTs are trending down now. Patient also underwent 2 ERCPs with brushing revealing no evidence of malignancy at that time and subsequent biliary stent placement at that time x2, which have since been removed. -Monitor, follow GI recommendations; based on cholangiogram results, GI team is recommending the following: b. Another ERCP and a cholangioscopic examination with a Spy Glass to visualize the possible tumor and perform biopsy -to be done in 48 hours #Elevated Cr-slowly trending down -Monitor, follow renal recommendations # hypertension: Blood pressure presently stable -Monitor, presently holding home BP meds given borderline blood pressures # diabetes mellitus: -Monitor, continue insulin sliding scale # DVT prophylaxis: Patient was on Eliquis for a history of atrial flutter, but this is being held secondary to elevated INR and for any potential procedures going to be performed in the next few days. Result Diagram: 04/18/19 1007 04/18/19 1007 Results 24hrs Laboratory Tests Test 04/17/19 17:10 04/17/19 21:55 04/18/19 07:41 04/18/19 10:07 Bedside Glucose 181 136 156 White Blood Count 12.2 H Red Blood Count 2.65 L Hemoglobin 8.3 L Hematocrit 26.6 L Mean Corpuscular 100.4 Volume Mean Corpuscular 31.3 Hemoglobin Mean Corpuscular 31.2 L Hemoglobin Concent Red Cell 15.2 H Distribution Width Platelet Count 197 # Mean Platelet Volume 9.7 Immature 1.400 H Granulocytes % Neutrophils % 88.0 H Lymphocytes % 5.5 L Monocytes % 4.1 Eosinophils % 0.7 Basophils % 0.3 Nucleated Red Blood 0.0 Cells % Immature 0.170 H Granulocytes # Neutrophils # 10.8 H Lymphocytes # 0.7 L Monocytes # 0.5 Eosinophils # 0.1 Basophils # 0.0 Nucleated Red Blood 0.0 Cells # Sodium Level 137 Potassium Level 4.3 Chloride Level 107 Carbon Dioxide Level 22 Anion Gap 8 Blood Urea Nitrogen 23 H Creatinine 1.23 Est Glomerular Filtrat Rate mL/min Glucose Level 228 H Calcium Level 8.1 L Phosphorus Level 2.9 Magnesium Level 1.9 Test 04/18/19 11:46 Bedside Glucose 238 H Exam/Review of Systems Exam Vitals Vital Signs Date Temp Pulse Resp B/P (MAP) Pulse Ox O2 O2 Flow FiO2 Time Delivery Rate 04/18/19 125 12:00 04/18/19 97.5 17 131/82 98 11:20 (98) 04/18/19 Nasal 3.0 07:47 Cannula Intake and Output 04/17/19 04/17/19 04/18/19 1414:59 22:59 06:59 IntakeIntake Total 470 ml 440 ml OutputOutput Total 800 ml 600 ml 300 ml BalanceBalance -330 ml -160 ml -300 ml Results Results 24hrs Laboratory Tests Test 04/17/19 17:10 04/17/19 21:55 04/18/19 07:41 04/18/19 10:07 Bedside Glucose 181 136 156 White Blood Count 12.2 H Red Blood Count 2.65 L Hemoglobin 8.3 L Hematocrit 26.6 L Mean Corpuscular 100.4 Volume Mean Corpuscular 31.3 Hemoglobin Mean Corpuscular 31.2 L Hemoglobin Concent Red Cell 15.2 H Distribution Width Platelet Count 197 # Mean Platelet Volume 9.7 Immature 1.400 H Granulocytes % Neutrophils % 88.0 H Lymphocytes % 5.5 L Monocytes % 4.1 Eosinophils % 0.7 Basophils % 0.3 Nucleated Red Blood 0.0 Cells % Immature 0.170 H Granulocytes # Neutrophils # 10.8 H Lymphocytes # 0.7 L Monocytes # 0.5 Eosinophils # 0.1 Basophils # 0.0 Nucleated Red Blood 0.0 Cells # Sodium Level 137 Potassium Level 4.3 Chloride Level 107 Carbon Dioxide Level 22 Anion Gap 8 Blood Urea Nitrogen 23 H Creatinine 1.23 Est Glomerular Filtrat Rate mL/min Glucose Level 228 H Calcium Level 8.1 L Phosphorus Level 2.9 Magnesium Level 1.9 Test 04/18/19 11:46 Bedside Glucose 238 H Medications Medication Current Medications Albuterol (Proventil 0.083% (Neb)) 2.5 mg Q2H RESP THERAPY PRN NEB SHORTNESS OF BREATH Last administered on 04/11/19at 13:54; Admin Dose 2.5 MG; Start 04/11/19 at 00:00 Ipratropium [place] (Atrovent 0.02% (Neb)) 0.5 mg Q2H RESP THERAPY PRN NEB SHORTNESS OF BREATH Last administered on 04/11/19at 13:54; Admin Dose 0.5 MG; Start 04/11/19 at 00:00 Acetaminophen (Tylenol Liquid) 650 mg Q6H PRN PO PAIN LEVEL 1-3 OR FEVER; Start 04/11/19 at 00:00 Acetaminophen/ Hydrocodone Bitart ([place] (5/325)) 1 tab Q6H PRN PO PAIN LEVEL 4-6 Last administered on 04/11/19at 01:35; Admin Dose 1 TAB; Start 04/11/19 at 00:00 Docusate Sodium (Colace) 100 mg Q12H PRN PO CONSTIPATION; Start 04/11/19 at 00:00 Bisacodyl (Dulcolax) 5 mg DAILY PRN PO CONSTIPATION; Start 04/11/19 at 00:00 Diagnostic Test (Pha) (Accu-Chek) 1 ea 02 XX Last administered on 04/16/19at 02:53; Admin Dose 1 EA; Start 04/11/19 at 02:00 Insulin Aspart (Novolog Insulin Pen) NOVOLOG *MILD* ALGORITHM WITH MEALS BEDTIME SC Last administered on 04/18/19at 11:48; Admin Dose 3 UNIT; Start 04/11/19 at 08:00 Miscellaneous Information 1 ea NOTE XX ; Start 04/11/19 at 00:30 Glucose (Glutose) 15 gm Q15M PRN PO DECREASED GLUCOSE; Start 04/11/19 at 00:30 Glucose (Glutose) 22.5 gm Q15M PRN PO DECREASED GLUCOSE; Start 04/11/19 at 00:30 Dextrose (D50w Syringe) 25 ml Q15M PRN IV DECREASED GLUCOSE; Start 04/11/19 at 00:30 Dextrose (D50w Syringe) 50 ml Q15M PRN IV DECREASED GLUCOSE; Start 04/11/19 at 00:30 Glucagon (Glucagen) 1 mg Q15M PRN IM DECREASED GLUCOSE; Start 04/11/19 at 00:30 Glucose (Glutose) 15 gm Q15M PRN BUCCAL DECREASED GLUCOSE; Start 04/11/19 at 0 0:30 Miscellaneous Information (Pending Santyl Order For Wound Care) This patient coyle... PRN PRN XX WOUND CARE; Start 04/11/19 at 08:00 Acetaminophen (Tylenol Tab) 650 mg Q4H PRN PO MILD PAIN(1-3)OR ELEVATED TEMP Last administered on 04/15/19at 18:11; Admin Dose 650 MG; Start 04/11/19 at 09:00 Bisacodyl (Dulcolax Supp) 10 mg DAILY PRN DE CONSTIPATION; Start 04/11/19 at 09:00 Famotidine (Pepcid) 20 mg DAILY PO Last administered on 04/18/19 08:42; Admin Dose 20 MG; Start 04/12/19 at 09:00 Fluconazole (Diflucan) 100 mg DAILY PO Last administered on 04/18/19 08:43; Admin Dose 100 MG; Start 04/11/19 at 09:00 Albuterol/ Ipratropium (Duoneb) 3 ml Q4H RESP THERAPY PRN INH SHORTNESS OF BREATH Last administered on 04/14/19 22:20; Admin Dose 3 ML; Start 04/11/19 at 09:00 Linezolid (Zyvox) 600 mg BID PO Last administered on 04/18/19 08:42; Admin Dose 600 MG; Start 04/11/19 at 09:00 Amylase/Lipase/ Protease (CREON (12k-38k-60k)) 1 cap WITH MEALS PO Last administered on 04/18/19 11:45; Admin Dose 1 CAP; Start 04/11/19 at 12:00 Terazosin HCl (Hytrin) 2 mg HS PO Last administered on 04/17/19 21:56; Admin Dose 2 MG; Start 04/11/19 at 21:00 Cefepime HCl 50 ml @ 100 mls/hr DAILY IVPB Last administered on 04/18/19 08:43; Admin Dose 100 MLS/HR; Start 04/11/19 at 13:00 Multivitamins Therapeutic (Theragran) 1 tab DAILY PO Last administered on 04/18/19 08:42; Admin Dose 1 TAB; Start 04/15/19 at 11:30 Ascorbic Acid (Vitamin C) 500 mg BID PO Last administered on 04/18/19 08:42; Admin Dose 500 MG; Start 04/15/19 at 11:30 Zinc Sulfate (Zinc Sulfate) 220 mg DAILY PO Last administered on 04/18/19 08:42; Admin Dose 220 MG; Start 04/15/19 at 11:30 Loperamide HCl (Imodium Cap) 2 mg BID PRN PO DIARRHEA; Start 04/17/19 at 15:00 Escitalopram Oxalate (Lexapro) 10 mg DAILY PO Last administered on 04/18/19 12:34; Admin Dose 10 MG; Start 04/18/19 at 12:30 CHRIS GOMEZ Apr 18, 2019 13:42
[2019-04-18] MEDS: LOPERAMIDE 2 MG CAP PO PRN ×2 (14:39→20:31)
[2019-04-18] MEDS: TERAZOSIN 2 MG CAP PO SCH (20:31)
--- NOTE | 2019-04-18 23:58 | CONS ---
DATE OF ADMISSION: 04/11/2019 DATE OF CONSULTATION: 04/18/2019 The patient at this time is comfortable. He is sleeping; however, he is aware of what is happening. Patient has what appears like [place] tumor. Whether it is a tumor or infectious process is not v ginette clear. PHYSICAL EXAMINATION: He remains comfortable, not in distress. LABORATORY WORKUP: WBC count is 12,200. He is on antibiotics. Hemoglobin is 8.3. CLINICAL IMPRESSION: The patient has a questionable [place] tumor versus infectious process in the area of the confluence of the left and right hepatic duct with some stricture in the hepatic duct. PLAN: At this time, will do ERCP and cholangioscope and a biopsy of the possible pathological proces s in the common hepatic duct and the confluence of the hepatic duct area. The patient understands th is very well. This will be done on Saturday. Discussed with Dr. Bundy the family doctor and [facility] case. Dictated By: ANTONIA REYNOLDS/ALEXI Conf#: [id number] DID#: [id number]
[2019-04-19] VITALS (13 sets, daily range): BP systolic 94–113; BP diastolic 62–74; PULSE 74–124; RESP 17–19
--- NOTE | 2019-04-19 00:47 | PN ---
DATE: 04/18/2019 Chart reviewed. Events noted. April followup noted. Currently, patient on 3 liters O2 nasal cannula , saturating 98% and does not appear in acute distress. PHYSICAL EXAMINATION VITAL SIGNS: Blood pressure 131/82, pulse 115, respirations 17, temperature 97.5. HEENT: Pupils are equal and reactive to light. NECK: Supple, no JVD noted, no cervical adenopathy noted. LUNGS: Decreased breath sounds at the right. CARDIOVASCULAR: S1 and S2. Tachycardic. ABDOMEN: Soft, nondistended, nontender. EXTREMITIES: No clubbing, cyanosis, or edema noted. Areas of ecchymosis noted. NEUROLOGIC: No focal deficits. LABORATORY DATA: WBC 12.2, hemoglobin 8.3, hematocrit 26.6, platelets 197. Sodium 137, potassium 4. 3, chloride 107, CO2 22, BUN 23, creatinine 1.23, glucose 228. IMPRESSION: 1. Obstructive jaundice. 2. Right lower lobe pneumonia. 3. Complicated right parapneumonic effusion with loculations. 4. Chronic kidney disease. 5. Anemia. PLAN: 1. Continue current antibiotics. 2. Gastroenterology plans regarding ERCP noted. 3. Once patient is stable, the patient will need a right-sided VATS procedure. 4. Consultants noted. Dictated By: ADRIANA MEANS MD, MA/ALEXI Conf#: [id number] DID#: [id number] CC: PETR REESE MD;*EndCC*
[2019-04-19] MEDS: ACCU-CHEK XX SCH (01:14)
[2019-04-19] MEDS: ALBUTEROL/IPRATROPIUM (NEB) 3 ML AMP INH PRN (01:41)
[2019-04-19] MEDS: INSULIN ASPART [NOVOLOG] 3 ML PEN SC SCH ×4 (07:52→21:07)
[2019-04-19] MEDS: ASCORBIC ACID 500 MG TAB PO SCH ×2 (08:08→20:41)
[2019-04-19] MEDS: FLUCONAZOLE 100 MG TAB PO SCH (08:09)
[2019-04-19] MEDS: CREON (12k-38k-60k) 1 CAP PO SCH ×3 (08:09→17:34)
[2019-04-19] MEDS: ZYVOX 600 MG TAB PO SCH ×2 (08:09→20:41)
[2019-04-19] MEDS: MULTIVITAMINS THERAPEUTIC TAB PO SCH (08:09)
[2019-04-19] MEDS: ESCITALOPRAM 10 MG TAB PO SCH (08:09)
[2019-04-19] MEDS: FAMOTIDINE 20 MG TAB PO SCH (08:09)
[2019-04-19] MEDS: ZINC SULFATE 220 MG CAP PO SCH (08:09)
[2019-04-19] MEDS: CEFEPIME 1GM/50 ML (PMX) 50 ML IVPB SCH (08:13)
--- NOTE | 2019-04-19 09:27 | CONS ---
Consult Date/Type/Reason Admit Date/Time Apr 11, 2019 at 01:42 Initial Consult Date 04/11/19 Type of Consultation: neph Date/Time of Note DATE: 04/19/19 TIME: 09:23 Subjective The patient is stable. No events overnight. Plan for ERCP and biopsy on Saturday. Patient slept poorly. noted some cough. nonproductive. HEENT: Head is normocephalic. NECK: Supple. HEART: Regular rate. LUNGS: Show diminished breath sounds at the base. ABDOMEN: Soft, nontender to palpation without rebound or guarding. EXTREMITIES: Negative for clubbing, cyanosis, no edema. DERMATOLOGIC: No rashes. MUSCULOSKELETAL: No joint effusion. NEUROLOGIC: No change in exam. Objective Vitals Vital Signs Date Temp Pulse Resp B/P (MAP) Pulse Ox O2 O2 Flow FiO2 Time Delivery Rate 04/19/19 113 08:20 04/19/19 97.7 17 108/73 100 07:31 (85) 04/19/19 Nasal 3.0 32 01:42 Cannula Intake and Output 04/18/19 04/18/19 04/19/19 1515:00 23:00 07:00 IntakeIntake Total 300 ml 200 ml OutputOutput Total 350 ml 100 ml 400 ml BalanceBalance -50 ml -100 ml -200 ml Results/Medications Result Diagram: 04/19/19 04404/19/192 Results 24 hrs Laboratory Tests Test 04/18/19 10:07 04/18/19 11:46 04/18/19 17:20 04/18/19 20:25 White Blood Count 12.2 H Red Blood Count 2.65 L Hemoglobin 8.3 L Hematocrit 26.6 L Mean Corpuscular 100.4 Volume Mean Corpuscular 31.3 Hemoglobin Mean Corpuscular 31.2 L Hemoglobin Concent Red Cell 15.2 H Distribution Width Platelet Count 197 # Mean Platelet Volume 9.7 Immature 1.400 H Granulocytes % Neutrophils % 88.0 H Lymphocytes % 5.5 L Monocytes % 4.1 Eosinophils % 0.7 Basophils % 0.3 Nucleated Red Blood 0.0 Cells % Immature 0.170 H Granulocytes # Neutrophils # 10.8 H Lymphocytes # 0.7 L Monocytes # 0.5 Eosinophils # 0.1 Basophils # 0.0 Nucleated Red Blood 0.0 Cells # Sodium Level 137 Potassium Level 4.3 Chloride Level 107 Carbon Dioxide Level 22 Anion Gap 8 Blood Urea Nitrogen 23 H Creatinine 1.23 Est Glomerular Filtrat Rate mL/min Glucose Level 228 H Calcium Level 8.1 L Phosphorus Level 2.9 Magnesium Level 1.9 Bedside Glucose 238 H 192 199 Test 04/19/19 01:14 04/19/19 04:42 04/19/19 07:38 Bedside Glucose 165 148 White Blood Count 10.1 Red Blood Count 2.48 L Hemoglobin 7.8 L Hematocrit 24.7 L Mean Corpuscular 99.6 Volume Mean Corpuscular 31.5 Hemoglobin Mean Corpuscular 31.6 L Hemoglobin Concent Red Cell 15.0 H Distribution Width Platelet Count 184 Mean Platelet Volume 9.8 Immature 1.200 H Granulocytes % Neutrophils % 85.6 H Lymphocytes % 8.3 L Monocytes % 4.0 Eosinophils % 0.6 Basophils % 0.3 Nucleated Red Blood 0.0 Cells % Immature 0.120 H Granulocytes # Neutrophils # 8.6 H Lymphocytes # 0.8 Monocytes # 0.4 Eosinophils # 0.1 Basophils # 0.0 Nucleated Red Blood 0.0 Cells # Sodium Level 137 Potassium Level 3.9 Chloride Level 107 Carbon Dioxide Level 24 Anion Gap 6 Blood Urea Nitrogen 21 H Creatinine 1.25 H Est Glomerular Filtrat Rate mL/min Glucose Level 154 Calcium Level 8.0 L Phosphorus Level 3.2 Magnesium Level 1.8 Home Meds Reported Medications Linezolid* (Zyvox*) 600 Mg Tablet, 600 MG PO BID, TAB 04/11/19 Ondansetron Hcl* (Ondansetron Hcl*) 4 Mg Tablet, 4 MG PO Q6H PRN for NAUSEA AND/OR VOMITING, TAB 04/11/19 Acetaminophen* (Tylenol*) 325 Mg Tablet, 650 MG PO Q4H PRN for PAIN AND OR ELEVATED TEMP, TAB Give 2 tablets by mouth every 8hrs as needed 04/11/19 Terazosin Hcl* (Terazosin Hcl*) 2 Mg Capsule, 2 MG PO HS for HTN, CAP 04/11/19 Sennosides* (Senna Lax*) 8.6 Mg Tablet, 2 TAB PO BID for CONST, TAB 04/11/19 Potassium Chloride* (Klor-Con*) 20 Meq Tabsr, 20 MEQ PO TID for HYPOKALEMIA, TAB.SA 04/11/19 Nifedipine* (Nifedipine ER*) 30 Mg Tablet.sa, 30 MG PO DAILY for HTN, TAB.SA GIVE 30mgBY MOUTH ONE TIME A DAY FOR HTN HOLD IF SBP IS <110 or HR is <60 04/11/19 Metoprolol Tartrate* (Lopressor*) 25 Mg Tablet, 25 MG PO BID for HTN, #60 TAB 04/11/19 Metoclopramide* (Reglan*) 10 Mg Tablet, 0.5 MG PO TID for GERD, TAB 04/11/19 Melatonin (Melatonin) 1 Mg Tablet, 1 MG PO HS, TAB 04/11/19 Magnesium Oxide* (Magnesium Oxide*) 400 Mg Tablet, 400 MG PO BID, TAB 04/11/19 Lactobacillus Rhamnosus GG (Culturelle) 1 Each Capsule, 1 EACH PO BID WITH MEALS for To SupportGUT Tosin, CAP 04/11/19 Ipratropium-Albuterol (Ipratropium-Albuterol) 0.5-3 Mg/3 Ml Ampul.neb, 3 ML INHALATION Q2H, #30 VIAL 04/11/19 Insulin Lispro (Humalog) 100 Unit/1 Ml Cartridge, 100 UNIT SQ SS, EA INJECT PER SLIDING SCALE: IF 70-150=0 UNIT;151-200= 2 UNITS; 201-250=4UNITS; 251-300=6UNITS;301-350=8UNITS; 351-400=10UNITS>400=12UNITS and CALL 04/11/19 Ipdpswfceua-N-Rriezosvzd Hb* (Guaifenesin* DM Syrup) 120 Ml Syrup, 5 ML PO Q4H PRN for COUGH, ML 04/11/19 Glipizide* (Glipizide*) 5 Mg Tablet, 5 MG PO AC BREAKFAST, TAB 04/11/19 Fluconazole* (Fluconazole*) 100 Mg Tablet, 100 MG PO DAILY for FUNGAL INFECTION, TAB 04/11/19 Mineral Oil* (Fleet* Mineral Oil Enema) 133 Ml Oil, 133 ML AL NEEDED PRN for CONSTIPATION, ENEMA 04/11/19 Famotidine* (Famotidine*) 20 Mg Tablet, 20 MG PO DAILY, #30 TAB 04/11/19 Bisacodyl (Dulcolax) 10 Mg Supp.rect, 10 MG RC, SUPP.RECT 04/11/19 Ihkmhp-Jiqeziva-Wzzmwdp* (Creon DR* 12,000) 12,000 L-38,000-60,000 Unit Ca psule.dr, 1 CAP PO WITH MEALS, CAP 04/11/19 Calcium Carbonate (Calcium Carbonate) 500 Mg Tab.chew, 500 MG PO Q4H WHILE AWAKE for INDIGESTION, TAB.CHEW 04/11/19 Apixaban* (Eliquis*) 2.5 Mg Tablet, 2.5 MG PO BID, TAB 04/11/19 Medications Current Medications Albuterol (Proventil 0.083% (Neb)) 2.5 mg Q2H RESP THERAPY PRN NEB SHORTNESS OF BREATH Last administered on 04/11/19at 13:54; Admin Dose 2.5 MG; Start 04/11/19 at 00:00 Ipratropium [place] (Atrovent 0.02% (Neb)) 0.5 mg Q2H RESP THERAPY PRN NEB SHORTNESS OF BREATH Last administered on 04/11/19at 13:54; Admin Dose 0.5 MG; Start 04/11/19 at 00:00 Acetaminophen (Tylenol Liquid) 650 mg Q6H PRN PO PAIN LEVEL 1-3 OR FEVER; Start 04/11/19 at 00:00 Acetaminophen/ Hydrocodone Bitart ([place] (5/325)) 1 tab Q6H PRN PO PAIN LEVEL 4-6 Last administered on 04/11/19at 01:35; Admin Dose 1 TAB; Start 04/11/19 at 00:00 Docusate Sodium (Colace) 100 mg Q12H PRN PO CONSTIPATION; Start 04/11/19 at 00:00 Bisacodyl (Dulcolax) 5 mg DAILY PRN PO CONSTIPATION; Start 04/11/19 at 00:00 Diagnostic Test (Pha) (Accu-Chek) 1 ea 02 XX Last administered on 04/19/19at 01:14; Admin Dose 1 EA; Start 04/11/19 at 02:00 Insulin Aspart (Novolog Insulin Pen) NOVOLOG *MILD* ALGORITHM WITH MEALS BEDTIME SC Last administered on 04/19/19at 07:52; Admin Dose 1 UNIT; Start 04/11/19 at 08:00 Miscellaneous Information 1 ea NOTE XX ; Start 04/11/19 at 00:30 Glucose (Glutose) 15 gm Q15M PRN PO DECREASED GLUCOSE; Start 04/11/19 at 00:30 Glucose (Glutose) 22.5 gm Q15M PRN PO DECREASED GLUCOSE; Start 04/11/19 at 00:30 Dextrose (D50w Syringe) 25 ml Q15M PRN IV DECREASED GLUCOSE; Start 04/11/19 at 00:30 Dextrose (D50w Syringe) 50 ml Q15M PRN IV DECREASED GLUCOSE; Start 04/11/19 at 00:30 Glucagon (Glucagen) 1 mg Q15M PRN IM DECREASED GLUCOSE; Start 04/11/19 at 00:30 Glucose (Glutose) 15 gm Q15M PRN BUCCAL DECREASED GLUCOSE; Start 04/11/19 at 00:30 Miscellaneous Information (Pending Santyl Order For Wound Care) This patient coyle... PRN PRN XX WOUND CARE; Start 04/11/19 at 08:00 Acetaminophen (Tylenol Tab) 650 mg Q4H PRN PO MILD PAIN(1-3)OR ELEVATED TEMP Last administered on 04/15/19at 18:11; Admin Dose 650 MG; Start 04/11/19 at 09:00 Bisacodyl (Dulcolax Supp) 10 mg DAILY PRN AL CONSTIPATION; Start 04/11/19 at 09:00 Famotidine (Pepcid) 20 mg DAILY PO Last administered on 04/19/19 08:09; Admin Dose 20 MG; Start 04/12/19 at 09:00 Fluconazole (Diflucan) 100 mg DAILY PO Last administered on 04/19/19 08:09; Admin Dose 100 MG; Start 04/11/19 at 09:00 Albuterol/ Ipratropium (Duoneb) 3 ml Q4H RESP THERAPY PRN INH SHORTNESS OF BREATH Last administered on 04/19/19at 01:41; Admin Dose 3 ML; Start 04/11/19 at 09:00 Linezolid (Zyvox) 600 mg BID PO Last administered on 04/19/19 08:09; Admin Dose 600 MG; Start 04/11/19 at 09:00 Amylase/Lipase/ Protease (CREON (12m-83k-60k)) 1 cap WITH MEALS PO Last administered on 04/19/19 08:09; Admin Dose 1 CAP; Start 04/11/19 at 12:00 Terazosin HCl (Hytrin) 2 mg HS PO Last administered on 04/18/19 20:31; Admin Dose 2 MG; Start 04/11/19 at 21:00 Cefepime HCl 50 ml @ 100 mls/hr DAILY IVPB Last administered on 04/19/19 08:13; Admin Dose 100 MLS/HR; Start 04/11/19 at 13:00 Multivitamins Therapeutic (Theragran) 1 tab DAILY PO Last administered on 04/19/19 08:09; Admin Dose 1 TAB; Start 04/15/19 at 11:30 Ascorbic Acid (Vitamin C) 500 mg BID PO Last administered on 04/19/19 08:08; Admin Dose 500 MG; Start 04/15/19 at 11:30 Zinc Sulfate (Zinc Sulfate) 220 mg DAILY PO Last administered on 04/19/19 08:09; Admin Dose 220 MG; Start 04/15/19 at 11:30 Loperamide HCl (Imodium Cap) 2 mg BID PRN PO DIARRHEA Last administered on 04/18/19 20:31; Admin Dose 2 MG; Start 04/17/19 at 15:00 Escitalopram Oxalate (Lexapro) 10 mg DAILY PO Last administered on 04/19/19 08:09; Admin Dose 10 MG; Start 04/18/19 at 12:30 Assessment/Plan Hospital Course (Demo Recall) 1. Nonoliguric acute kidney injury on top of CKD, etiology is secondary to hemodynamics. Renal function has slowly been improving. At this point, renal function appears to be near baseline. We will continue current treatment plan and supportive care and renally dose all meds. monitor off ivf - watch for diuretic phase of marti with electrolyte wasting - all meds dosed ok. 2. Chronic kidney disease. The patient is currently in acute kidney injury as stated above. Renal function appears to be stabilizing. Continue current treatment plan. Continue disease factor modification. 3. Anemia. Monitor hemoglobin and hematocrit levels. 4. Mineral bone disorder. Monitor calcium and phosphorus levels. 5. Hypertension. Continue to monitor. 6. Leukocytosis, SIRS, continue antibiotic regimen. 7. Pancreatic mass. The patient is status post cholangiogram, status post placement of hepatobiliary drainage. Continue to monitor. Follow up with GI. OSCAR PANDEY MD Apr 19, 2019 09:27
--- NOTE | 2019-04-19 09:50 | PN ---
Date/Time of Note Date/Time of Note DATE: 04/19/19 TIME: 09:38 Assessment/Plan VTE Prophylaxis Risk score (from Ns)>0 risk: 6 SCD applied (from Ns): Yes Pharmacological prophylaxis: NA/contraindicated Pharm contraindication: blood coag disorder Lines/Catheters IV Catheter Type (from Nrs): Mid Line Urinary Cath still in place: No Assessment/Plan Hospital Course S: Patient seen by GI and renal teams. Started on antidepressant yesterday. O: VS- see below PE: General: Frail appearing elderly man lying in bed, answering questions properly HEENT: Atraumatic, normocephalic. The pupils are equal, round and reactive. Neck: Supple with full range of motion. No JVD Chest: Nontender Lungs: Coarse breath sounds bilaterally Heart: Normal S1-S2, Regular rhythm and rate. No murmur, S3, or S4 Abdomen: Soft , nontender, nondistended , bowel sounds are present. RUQ transhepatic tube with biliary drainage. Extremities: Normal to inspection, no edema no cyanosis Neurologic: Normal mental status, speech normal, alert and oriented, able to give most medical history. Skin: Diffuse jaundice Assessment/Plan: 78-year-old man with unclear medical history admitted for shortness of breath soon after recent hospital admission at [place]. #R pleural effusion- patient also earlier had hypoxia and dyspnea- Currently patient breathing comfortably on nasal cannula 5 L - Has loculated R pleural effusion-thoracentesis not able to be performed secondary to loculated effusion. - Monitor for now, continue oxygen supplementation and follow-up final recommendations from pulmonary team - continue puree diet for now #Intra-abdominal infection/cholangitis?-At outside hospital a few days ago patient apparently was on linezolid, Zosyn, and fluconazole- Not septic on admission. - Continue current antibiotics per ID recommendations, monitor white blood cell count #Pancreatic mass -patient has jaundice and now transhepatic drain in place, GI on the case -Per records obtained from [facility] where the patient was discharged last week on April 07, 2019, patient was found with obstructive jaundice at that time secondary to hepatic duct strictures + CBD strictures, and had percutaneous transhepatic drain placed on April 02, 2019. LFTs are trending down now. Patient also underwent 2 ERCPs with brushing revealing no evidence of malignancy at that time and subsequent biliary stent placement at that time x2, which have since been removed. -Monitor, follow GI recommendations; based on cholangiogram results, GI team is recommending the following: Another ERCP and a cholangioscopic examination with a Spy Glass to visualize the possible tumor and perform biopsy - to be done in 24 hours on Saturday. -Before that, again will attempt to have IR perform another hepatic drain catheter change or exchange today (or at least an evaluation) since there is some leaking noted externally again #Elevated Cr-slowly trending down -Monitor, follow renal recommendations # hypertension: Blood pressure presently stable -Monitor, presently holding home BP meds given borderline blood pressures # diabetes mellitus: -Monitor, continue insulin sliding scale # DVT prophylaxis: Patient was on Eliquis for a history of atrial flutter, but this is being held secondary to elevated INR and for any potential procedures going to be performed in the next few days. Result Diagram: 04/19/19 0442 04/19/19 0442 Results 24hrs Laboratory Tests Test 04/18/19 10:07 04/18/19 11:46 04/18/19 17:20 04/18/19 20:25 White Blood Count 12.2 H Red Blood Count 2.65 L Hemoglobin 8.3 L Hematocrit 26.6 L Mean Corpuscular 100.4 Volume Mean Corpuscular 31.3 Hemoglobin Mean Corpuscular 31.2 L Hemoglobin Concent Red Cell 15.2 H Distribution Width Platelet Count 197 # Mean Platelet Volume 9.7 Immature 1.400 H Granulocytes % Neutrophils % 88.0 H Lymphocytes % 5.5 L Monocytes % 4.1 Eosinophils % 0.7 Basophils % 0.3 Nucleated Red Blood 0.0 Cells % Immature 0.170 H Granulocytes # Neutrophils # 10.8 H Lymphocytes # 0.7 L Monocytes # 0.5 Eosinophils # 0.1 Basophils # 0.0 Nucleated Red Blood 0.0 Cells # Sodium Level 137 Potassium Level 4.3 Chloride Level 107 Carbon Dioxide Level 22 Anion Gap 8 Blood Urea Nitrogen 23 H Creatinine 1.23 Est Glomerular Filtrat Rate mL/min Glucose Level 228 H Calcium Level 8.1 L Phosphorus Level 2.9 Magnesium Level 1.9 Bedside Glucose 238 H 192 199 Test 04/19/19 01:14 04/19/19 04:42 04/19/19 07:38 Bedside Glucose 165 148 White Blood Count 10.1 Red Blood Count 2.48 L Hemoglobin 7.8 L Hematocrit 24.7 L Mean Corpuscular 99.6 Volume Mean Corpuscular 31.5 Hemoglobin Mean Corpuscular 31.6 L Hemoglobin Concent Red Cell 15.0 H Distribution Width Platelet Count 184 Mean Platelet Volume 9.8 Immature 1.200 H Granulocytes % Neutrophils % 85.6 H Lymphocytes % 8.3 L Monocytes % 4.0 Eosinophils % 0.6 Basophils % 0.3 Nucleated Red Blood 0.0 Cells % Immature 0.120 H Granulocytes # Neutrophils # 8.6 H Lymphocytes # 0.8 Monocytes # 0.4 Eosinophils # 0.1 Basophils # 0.0 Nucleated Red Blood 0.0 Cells # Sodium Level 137 Potassium Level 3.9 Chloride Level 107 Carbon Dioxide Level 24 Anion Gap 6 Blood Urea Nitrogen 21 H Creatinine 1.25 H Est Glomerular Filtrat Rate mL/min Glucose Level 154 Calcium Level 8.0 L Phosphorus Level 3.2 Magnesium Level 1.8 Exam/Review of Systems Exam Vitals Vital Signs Date Temp Pulse Resp B/P (MAP) Pulse Ox O2 O2 Flow FiO2 Time Delivery Rate 04/19/19 113 08:20 04/19/19 97.7 17 108/73 100 07:31 (85) 04/19/19 Nasal 3.0 32 01:42 Cannula Intake and Output 04/18/19 04/18/19 04/19/19 1515:00 23:00 07:00 IntakeIntake Total 300 ml 200 ml OutputOutput Total 350 ml 100 ml 400 ml BalanceBalance -50 ml -100 ml -200 ml Results Results 24hrs Laboratory Tests Test 04/18/19 10:07 04/18/19 11:46 04/18/19 17:20 04/18/19 20:25 White Blood Count 12.2 H Red Blood Count 2.65 L Hemoglobin 8.3 L Hematocrit 26.6 L Mean Corpuscular 100.4 Volume Mean Corpuscular 31.3 Hemoglobin Mean Corpuscular 31.2 L Hemoglobin Concent Red Cell 15.2 H Distribution Width Platelet Count 197 # Mean Platelet Volume 9.7 Immature 1.400 H Granulocytes % Neutrophils % 88.0 H Lymphocytes % 5.5 L Monocytes % 4.1 Eosinophils % 0.7 Basophils % 0.3 Nucleated Red Blood 0.0 Cells % Immature 0.170 H Granulocytes # Neutrophils # 10.8 H Lymphocytes # 0.7 L Monocytes # 0.5 Eosinophils # 0.1 Basophils # 0.0 Nucleated Red Blood 0.0 Cells # Sodium Level 137 Potassium Level 4.3 Chloride Level 107 Carbon Dioxide Level 22 Anion Gap 8 Blood Urea Nitrogen 23 H Creatinine 1.23 Est Glomerular Filtrat Rate mL/min Glucose Level 228 H Calcium Level 8.1 L Phosphorus Level 2.9 Magnesium Level 1.9 Bedside Glucose 238 H 192 199 Test 04/19/19 01:14 04/19/19 04:42 04/19/19 07:38 Bedside Glucose 165 148 White Blood Count 10.1 Red Blood Count 2.48 L Hemoglobin 7.8 L Hematocrit 24.7 L Mean Corpuscular 99.6 Volume Mean Corpuscular 31.5 Hemoglobin Mean Corpuscular 31.6 L Hemoglobin Concent Red Cell 15.0 H Distribution Width Platelet Count 184 Mean Platelet Volume 9.8 Immature 1.200 H Granulocytes % Neutrophils % 85.6 H Lymphocytes % 8.3 L Monocytes % 4.0 Eosinophils % 0.6 Basophils % 0.3 Nucleated Red Blood 0.0 Cells % Immature 0.120 H Granulocytes # Neutrophils # 8.6 H Lymphocytes # 0.8 Monocytes # 0.4 Eosinophils # 0.1 Basophils # 0.0 Nucleated Red Blood 0.0 Cells # Sodium Level 137 Potassium Level 3.9 Chloride Level 107 Carbon Dioxide Level 24 Anion Gap 6 Blood Urea Nitrogen 21 H Creatinine 1.25 H Est Glomerular Filtrat Rate mL/min Glucose Level 154 Calcium Level 8.0 L Phosphorus Level 3.2 Magnesium Level 1.8 Medications Medication Current Medications Albuterol (Proventil 0.083% (Neb)) 2.5 mg Q2H RESP THERAPY PRN NEB SHORTNESS OF BREATH Last administered on 04/11/19at 13:54; Admin Dose 2.5 MG; Start 04/11/19 at 00:00 Ipratropium [place] (Atrovent 0.02% (Neb)) 0.5 mg Q2H RESP THERAPY PRN NEB SHORTNESS OF BREATH Last administered on 04/11/19at 13:54; Admin Dose 0.5 MG; Start 04/11/19 at 00:00 Acetaminophen (Tylenol Liquid) 650 mg Q6H PRN PO PAIN LEVEL 1-3 OR FEVER; Star t 04/11/19 at 00:00 Acetaminophen/ Hydrocodone Bitart ([place] (5/325)) 1 tab Q6H PRN PO PAIN LEVEL 4-6 Last administered on 04/11/19at 01:35; Admin Dose 1 TAB; Start 04/11/19 at 00:00 Docusate Sodium (Colace) 100 mg Q12H PRN PO CONSTIPATION; Start 04/11/19 at 00:00 Bisacodyl (Dulcolax) 5 mg DAILY PRN PO CONSTIPATION; Start 04/11/19 at 00:00 Diagnostic Test (Pha) (Accu-Chek) 1 ea 02 XX Last administered on 04/19/19at 01:14; Admin Dose 1 EA; Start 04/11/19 at 02:00 Insulin Aspart (Novolog Insulin Pen) NOVOLOG *MILD* ALGORITHM WITH MEALS BEDTIME SC Last administered on 04/19/19at 07:52; Admin Dose 1 UNIT; Start 04/11/19 at 08:00 Miscellaneous Information 1 ea NOTE XX ; Start 04/11/19 at 00:30 Glucose (Glutose) 15 gm Q15M PRN PO DECREASED GLUCOSE; Start 04/11/19 at 00:30 Glucose (Glutose) 22.5 gm Q15M PRN PO DECREASED GLUCOSE; Start 04/11/19 at 00:30 Dextrose (D50w Syringe) 25 ml Q15M PRN IV DECREASED GLUCOSE; Start 04/11/19 at 00:30 Dextrose (D50w Syringe) 50 ml Q15M PRN IV DECREASED GLUCOSE; Start 04/11/19 at 00:30 Glucagon (Glucagen) 1 mg Q15M PRN IM DECREASED GLUCOSE; Start 04/11/19 at 00:30 Glucose (Glutose) 15 gm Q15M PRN BUCCAL DECREASED GLUCOSE; Start 04/11/19 at 00:30 [facility]isc[facility] This patient coyle... PRN PRN XX WOUND CARE; Start 04/11/19 at 08:00 Acetaminophen (Tylenol Tab) 650 mg Q4H PRN PO MILD PAIN(1-3)OR ELEVATED TEMP Last administered on 04/15/19at 18:11; Admin Dose 650 MG; Start 04/11/19 at 09:00 Bisacodyl (Dulcolax Supp) 10 mg DAILY PRN [place] CONSTIPATION; Start 04/11/19 at 09:00 Famotidine (Pepcid) 20 mg DAILY PO Last administered on 04/19/19 08:09; Admin Dose 20 MG; Start 04/12/19 at 09:00 Fluconazole (Diflucan) 100 mg DAILY PO Last administered on 04/19/19 08:09; Admin Dose 100 MG; Start 04/11/19 at 09:00 Albuterol/ Ipratropium (Duoneb) 3 ml Q4H RESP THERAPY PRN INH SHORTNESS OF BREATH Last administered on 04/19/19 01:41; Admin Dose 3 ML; Start 04/11/19 at 09:00 Linezolid (Zyvox) 600 mg BID PO Last administered on 04/19/19 08:09; Admin Dose 600 MG; Start 04/11/19 at 09:00 Amylase/Lipase/ Protease (CREON ([id number])) 1 cap WITH MEALS PO Last administered on 04/19/19 08:09; Admin Dose 1 CAP; Start 04/11/19 at 12:00 Terazosin HCl (Hytrin) 2 mg HS PO Last administered on 04/18/19 20:31; Admin Dose 2 MG; Start 04/11/19 at 21:00 Cefepime HCl 50 ml @ 100 mls/hr DAILY IVPB Last administered on 04/19/19 08:13; Admin Dose 100 MLS/HR; Start 04/11/19 at 13:00 Multivitamins Therapeutic (Theragran) 1 tab DAILY PO Last administered on 04/19/19 08:09; Admin Dose 1 TAB; Start 04/15/19 at 11:30 Ascorbic Acid (Vitamin C) 500 mg BID PO Last administered on 04/19/19 08:08; Admin Dose 500 MG; Start 04/15/19 at 11:30 Zinc Sulfate (Zinc Sulfate) 220 mg DAILY PO Last administered on 04/19/19 08:09; Admin Dose 220 MG; Start 04/15/19 at 11:30 Loperamide HCl (Imodium Cap) 2 mg BID PRN PO DIARRHEA Last administered on 04/18/19 20:31; Admin Dose 2 MG; Start 04/17/19 at 15:00 Escitalopram Oxalate (Lexapro) 10 mg DAILY PO Last administered on 04/19/19 08:09; Admin Dose 10 MG; Start 04/18/19 at 12:30 CHRIS GOMEZ. Apr 19, 2019 09:49
[2019-04-19] MEDS ORDERED: SOD CHLORIDE 0.9% 250 ML IV* ONE (10:54)
--- NOTE | 2019-04-19 13:20 | PN ---
DATE: 04/19/2019 SUBJECTIVE: Chart was reviewed. The patient currently on 3 liters O2 nasal cannula, saturating 100% and does not appear in acute distress. PHYSICAL EXAMINATION: VITAL SIGNS: Blood pressure 113/71, pulse 120, respiration 18, temperature 97.9. HEENT: Pupils are equal and react to light. NECK: Supple. No JVD noted. No cervical adenopathy noted. LUNGS: Decreased breath sounds on the right. CARDIOVASCULAR: S1, S2. Tachycardic. ABDOMEN: Soft, nontender, positive bowel sounds. EXTREMITIES: No clubbing, cyanosis or edema noted. NEUROLOGIC: No focal deficits. LABORATORY DATA: Hemoglobin 7.7, hematocrit 24.7 which is not much significantly different than yest jamarcusay. Sodium 137, potassium 3.9, chloride 107, CO2 of 24, BUN 21, creatinine 1.25, glucose 154. IMPRESSION: 1. Obstructive jaundice. 2. Right lower lobe pneumonia. 3. Complicated right parapneumonic effusion with loculations. 4. Chronic kidney disease. 5. Anemia. RECOMMENDATIONS: 1. Continue antibiotics. 2. GI workup as per consultants. 3. Once the patient is stable, the patient will need right-sided VATS procedure. 4. Followup labs. Dictated By: ADRIANA MEANS MD, MA/ALEXI Conf#: [id number] DID#: [id number] CC: CHRIS GOMEZ; PETR REESE MD; SEE VILLELA MD;*End*
--- NOTE | 2019-04-19 18:32 | CONS ---
Assessment/Plan Assessment/Plan Hospital Course (Demo Recall) ID PROGRESS NOTE CURRENT ABX: DAY # =>Cefepime, fluconazole, Zyvox 24H INTERVAL SUMMARY * PATIENT IS SOMNOLENT AND NOT DISTURBED -- CHART REVIEWED * VSS, NAD, no fevers, lethargic * POD #2-> S/P 04/17/19 PROCEDURE: * 1. Cholangioplasty * 2. Placement of right external internal biliary drainage catheter * 3. Fluoroscopic guidance of above * CLINICAL INDICATION: Displaced biliary drain. Leak about catheter site. DIAGNOSTIC IMAGING * 04/16/19 CXR: No significant change in pulmonary vascular congestion, large loculated right pleural effusion with adjacent opacification of the right lung. Coexisting pneumonia not excluded. Stable small left pleural effusion with mild increase in left basilar opacities. * 04/10/19 Microbiology: Blood cultures remain negative * 04/14/19 Cholangiogram: * 1. Biliary drainage catheter is changed in position, with pigtail now located within the common hepatic duct, as above. * 2. There is significant leakage of contrast into the peritoneal cavity originating from the mid portion of the catheter, with resultant suboptimal opacification of the biliary ducts. * 3. Visualized right intrahepatic biliary ducts are normal in caliber. Left intrahepatic biliary ducts could not be opacified. * 4. Distal portion of the common bile duct is normal in caliber, with appropriate emptying of contrast into the duodenum. PHYSICAL EXAMINATION: GENERAL: VSS, NAD -- (+)JAUNDICE HEENT: AT, NC, (+)iCTERIC NECK: Supple, CHEST: Rise symmetrical, without dyspnea at rest on observation HEART: Pulse RRR ABDOMEN: ABD DRAIN IN PLACE EXTREMITIES: Warm, dry SKIN: No rash, no diaphoresis ID ASSESSMENT 78 yo M admit with: 1. Systemic inflammatory response syndrome with ongoing leukocytosis 2. 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 Large loculated right-sided pleural effusion ? malignant vs infectious 4. Acute on chronic kidney disease 5. Hypertension 6. Hypertension (-)MRSA Nares ABX ALLERGIES: KNDA INVASIVES: PIV CURRENT ABX: DAY # Cefepime, fluconazole, Zyvox ID RECOMMENDATIONS/PLAN: 1. Continue current ABX 2. PER ID [employer] NOTE QUOTING BELOW: * "Plan: Patient is clinically unchanged, per dw Dr Gurrola pt needs to be tx to [facility] for exchange or replacement of biliary drainage catheter and possible another ERCP. Continue present care and antibiotics, pulmonary rec-s noted, pt may need VATS" . Consultation Date/Type/Reason Admit Date/Time Apr 11, 2019 at 01:42 Initial Consult Date 04/11/19 Date/Time of Note DATE: 04/19/19 TIME: 18:31 Exam/Review of Systems Exam Vitals Vital Signs Date Temp Pulse Resp B/P (MAP) Pulse Ox O2 O2 Flow FiO2 Time Delivery Rate 04/19/19 103 16:08 04/19/19 97.3 18 112/74 99 15:40 (87) 04/19/19 3.0 32 14:02 04/19/19 Nasal 09:05 Cannula Intake and Output 04/18/19 04/18/19 04/19/19 1515:00 23:00 07:00 IntakeIntake Total 300 ml 200 ml OutputOutput Total 350 ml 100 ml 400 ml BalanceBalance -50 ml -100 ml -200 ml Results Result Diagram: 04/19/19 1034 04/19/19 0442 Results 24hrs Laboratory Tests Test 04/18/19 20:25 04/19/19 01:14 04/19/19 04:42 04/19/19 07:38 Bedside Glucose 199 165 148 White Blood Count 10.1 Red Blood Count 2.48 L Hemoglobin 7.8 L Hematocrit 24.7 L Mean Corpuscular 99.6 Volume Mean Corpuscular 31.5 Hemoglobin Mean Corpuscular 31.6 L Hemoglobin Concent Red Cell 15.0 H Distribution Width Platelet Count 184 Mean Platelet Volume 9.8 Immature 1.200 H Granulocytes % Neutrophils % 85.6 H Lymphocytes % 8.3 L Monocytes % 4.0 Eosinophils % 0.6 Basophils % 0.3 Nucleated Red Blood 0.0 Cells % Immature 0.120 H Granulocytes # Neutrophils # 8.6 H Lymphocytes # 0.8 Monocytes # 0.4 Eosinophils # 0.1 Basophils # 0.0 Nucleated Red Blood 0.0 Cells # Sodium Level 137 Potassium Level 3.9 Chloride Level 107 Carbon Dioxide Level 24 Anion Gap 6 Blood Urea Nitrogen 21 H Creatinine 1.25 H Est Glomerular Filtrat Rate mL/min Glucose Level 154 Calcium Level 8.0 L Phosphorus Level 3.2 Magnesium Level 1.8 Test 04/19/19 10:34 04/19/19 12:16 04/19/19 16:47 Hemoglobin 7.7 L Hematocrit 24.7 L Prothrombin Time 17.5 H Prothrombin Time 1.4 Ratio INR International 1.42 Normalized Ratio Bedside Glucose 257 H 201 Medications Medication Current Medications Albuterol (Proventil 0.083% (Neb)) 2.5 mg Q2H RESP THERAPY PRN NEB SHORTNESS OF BREATH Last administered on 04/11/19at 13:54; Admin Dose 2.5 MG; Start 04/11/19 at 00:00 Ipratropium [place] (Atrovent 0.02% (Neb)) 0.5 mg Q2H RESP THERAPY PRN NEB SHORTNESS OF BREATH Last administered on 04/11/19at 13:54; Admin Dose 0.5 MG; Start 04/11/19 at 00:00 Acetaminophen (Tylenol Liquid) 650 mg Q6H PRN PO PAIN LEVEL 1-3 OR FEVER; Start 04/11/19 at 00:00 Acetaminophen/ Hydrocodone Bitart ([place] (5/325)) 1 tab Q6H PRN PO PAIN LEVEL 4-6 Last administered on 04/11/19at 01:35; Admin Dose 1 TAB; Start 04/11/19 at 00:00 Docusate Sodium (Colace) 100 mg Q12H PRN PO CONSTIPATION; Start 04/11/19 at 00:00 Bisacodyl (Dulcolax) 5 mg DAILY PRN PO CONSTIPATION; Start 04/11/19 at 00:00 Diagnostic Test (Pha) (Accu-Chek) 1 ea 02 XX Last administered on 04/19/19at 01:14; Admin Dose 1 EA; Start 04/11/19 at 02:00 Insulin Aspart (Novolog Insulin Pen) NOVOLOG *MILD* ALGORITHM WITH MEALS BEDTIME SC Last administered on 04/19/19at 12:19; Admin Dose 3 UNIT; Start 04/11/19 at 08:00 Miscellaneous Information 1 ea NOTE XX ; Start 04/11/19 at 00:30 Glucose (Glutose) 15 gm Q15M PRN PO DECREASED GLUCOSE; Start 04/11/19 at 00:30 Glucose (Glutose) 22.5 gm Q15M PRN PO DECREASED GLUCOSE; Start 04/11/19 at 00:30 Dextrose (D50w Syringe) 25 ml Q15M PRN IV DECREASED GLUCOSE; Start 04/11/19 at 00:30 Dextrose (D50w Syringe) 50 ml Q15M PRN IV DECREASED GLUCOSE; Start 04/11/19 at 00:30 Glucagon (Glucagen) 1 mg Q15M PRN IM DECREASED GLUCOSE; Start 04/11/19 at 00:30 Glucose (Glutose) 15 gm Q15M PRN BUCCAL DECREASED GLUCOSE; Start 04/11/19 at 00:30 Miscellaneous Information (Pending Santyl Order For Wound Care) This patient coyle... PRN PRN XX WOUND CARE; Start 04/11/19 at 08:00 Acetaminophen (Tylenol Tab) 650 mg Q4H PRN PO MILD PAIN(1-3)OR ELEVATED TEMP Last administered on 04/15/19 18:11; Admin Dose 650 MG; Start 04/11/19 at 09:00 Bisacodyl (Dulcolax Supp) 10 mg DAILY PRN [place] CONSTIPATION; Start 04/11/19 at 09:00 Famotidine (Pepcid) 20 mg DAILY PO Last administered on 04/19/19 08:09; Admin Dose 20 MG; Start 04/12/19 at 09:00 Fluconazole (Diflucan) 100 mg DAILY PO Last administered on 04/19/19 08:09; Admin Dose 100 MG; Start 04/11/19 at 09:00 Albuterol/ Ipratropium (Duoneb) 3 ml Q4H RESP THERAPY PRN INH SHORTNESS OF BREATH Last administered on 04/19/19 01:41; Admin Dose 3 ML; Start 04/11/19 at 09:00 Linezolid (Zyvox) 600 mg BID PO Last administered on 04/19/19 08:09; Admin Dose 600 MG; Start 04/11/19 at 09:00 Amylase/Lipase/ Protease (CREON ([id number])) 1 cap WITH MEALS PO Last administered on 04/19/19 17:34; Admin Dose 1 CAP; Start 04/11/19 at 12:00 Terazosin HCl (Hytrin) 2 mg HS PO Last administered on 04/18/19 20:31; Admin Dose 2 MG; Start 04/11/19 at 21:00 Cefepime HCl 50 ml @ 100 mls/hr DAILY IVPB Last administered on 04/19/19 08:13; Admin Dose 100 MLS/HR; Start 04/11/19 at 13:00 Multivitamins Therapeutic (Theragran) 1 tab DAILY PO Last administered on 04/19/19 08:09; Admin Dose 1 TAB; Start 04/15/19 at 11:30 Ascorbic Acid (Vitamin C) 500 mg BID PO Last administered on 04/19/19 08:08; Admin Dose 500 MG; Start 04/15/19 at 11:30 Zinc Sulfate (Zinc Sulfate) 220 mg DAILY PO Last administered on 04/19/19 08:09; Admin Dose 220 MG; Start 04/15/19 at 11:30 Loperamide HCl (Imodium Cap) 2 mg BID PRN PO DIARRHEA Last administered on 04/18/19 20:31; Admin Dose 2 MG; Start 04/17/19 at 15:00 Escitalopram Oxalate (Lexapro) 10 mg DAILY PO Last administered on 04/19/19 08:09; Admin Dose 10 MG; Start 04/18/19 at 12:30 MAZIN GREGG NP Apr 19, 2019 18:32
[2019-04-19] MEDS ORDERED: PHYTONADIONE 10 MG/ML INJ SC ONE (19:30)
[2019-04-19] MEDS: TERAZOSIN 2 MG CAP PO SCH (20:41)
[2019-04-20] VITALS (22 sets, daily range): BP systolic 97–117; BP diastolic 45–79; PULSE 103–123; RESP 13–22
[2019-04-20] MEDS: ACCU-CHEK XX SCH (02:47)
--- NOTE | 2019-04-20 07:14 | PN ---
DATE: 04/19/2019 SUBJECTIVE: I am seeing the patient because of biliary obstruction. The patient seems to have obstruction at the confluence of the left and right hepatic ducts and at th e area of the common hepatic duct. A cholangiocarcinoma versus infectious process is being considere d. PHYSICAL EXAMINATION: GENERAL: The patient is quite alert at this time. CARDIOVASCULAR: Normal heart sounds. RESPIRATORY: Normal breath sounds. ABDOMEN: Shows soft abdomen. Biliary drainage catheter is in place into the duodenum. PLAN: At this time, the patient will have ERCP, SpyGlass examination to visualize the [place] tumor or any other process that is going on at the common hepatic and left and right hepatic duct confluen ce. The patient understands and agreed for ERCP with SpyGlass examination. Dictated By: ANTONIA BERRY MD NC/NTS Conf#: [id number] DID#: [id number] CC: PETR REESE MD; TANIKA GRAYSON MD; CHRIS GOMEZ;*EndCC*
[2019-04-20] MEDS: INSULIN ASPART [NOVOLOG] 3 ML PEN SC SCH ×4 (08:00→21:42)
[2019-04-20] MEDS: CREON (12k-38k-60k) 1 CAP PO SCH ×3 (08:00→17:47)
[2019-04-20] MEDS: CEFEPIME 1GM/50 ML (PMX) 50 ML IVPB SCH (08:35)
[2019-04-20] MEDS: ZINC SULFATE 220 MG CAP PO SCH (08:35)
[2019-04-20] MEDS: MULTIVITAMINS THERAPEUTIC TAB PO SCH (08:35)
[2019-04-20] MEDS: ZYVOX 600 MG TAB PO SCH ×2 (08:36→21:26)
[2019-04-20] MEDS: FAMOTIDINE 20 MG TAB PO SCH (08:36)
[2019-04-20] MEDS: ASCORBIC ACID 500 MG TAB PO SCH ×2 (08:36→21:25)
[2019-04-20] MEDS: FLUCONAZOLE 100 MG TAB PO SCH (08:36)
[2019-04-20] MEDS: ESCITALOPRAM 10 MG TAB PO SCH (08:36)
--- NOTE | 2019-04-20 08:51 | PN ---
DATE: 04/20/2019 SUBJECTIVE: The patient is stable. The patient is pending EGD today. No other events noted. OBJECTIVE: VITAL SIGNS: Blood pressure is 115/73, pulse 109, respirations 22, temperature 98.0. HEENT: Head is normocephalic. NECK: Supple. HEART: Regular rate. LUNGS: Show diminished breath sounds at the base. ABDOMEN: Soft, nontender to palpation without rebound or guarding. EXTREMITIES: Negative for clubbing, cyanosis, no edema. DERMATOLOGIC: No rashes. MUSCULOSKELETAL: No joint effusion. NEUROLOGIC: No change in exam. MEDICATIONS: Reviewed. LABORATORY DATA: Reviewed. IMAGING STUDIES: Reviewed. ASSESSMENT AND PLAN: 1. Nonoliguric acute kidney injury on top of chronic kidney disease. Etiology of acute kidney injur y is secondary to hemodynamics. Renal function has improved. At this point, continue current treatm ent plan, supportive care, renally dose all medications. 2. Chronic kidney disease. The patient is currently in acute kidney injury as stated above. Renal function appears to be stabilizing. Continue current treatment plan, supportive care, renally dose a ll medications. Continue disease factor modification. 3. Anemia. Monitor hemoglobin and hematocrit levels. 4. Mineral bone disorder. Monitor calcium and phosphorus levels. 5. Hypertension. Continue current blood pressure regimen. 6. Pancreatic mass. The patient is status post cholangiogram. Follow up with GI. The patient is p ending possible EGD. 7. Leukocytosis, systemic inflammatory response syndrome. Continue current antibiotic regimen. Dictated By: PRANEETH RODRIGUEZ DO NR/NTS Conf#: [id number] DID#: [id number] CC: PETR REESE MD; ALVARO LA MD; TANIKA GRAYSON MD;*EndCC*
--- NOTE | 2019-04-20 14:53 | CONS ---
Assessment/Plan Assessment/Plan Hospital Course (Demo Recall) 1300 no acute events overnight patient looks comfortable, no fevers Microbiology: Blood cultures remain negative Cholangiogram: 1. Biliary drainage catheter is changed in position, with pigtail now located within the common hepatic duct, as above. 2. There is significant leakage of contrast into the peritoneal cavity originating from the mid portion of the catheter, with resultant suboptimal opacification of the biliary ducts. 3. Visualized right intrahepatic biliary ducts are normal in caliber. Left intrahepatic biliary ducts could not be opacified. 4. Distal portion of the common bile duct is normal in caliber, with appropriate emptying of contrast into the duodenum. Antimicrobials: Cefepime, fluconazole, Zyvox Physical examination: Well-developed ill-appearing elderly man who is awake in no distress. Head atraumatic normocephalic sclera anicteric bugle mucosa dry neck is supple trachea midline chest rise symmetrical breath sounds diminished bases heart: S1-S2 abdomen soft bowel sounds present patient has right-sided abdominal drainage catheter with the back attached. Extremities without cyanosis. Skin: Patient has jaundice Assessment: 1. Systemic inflammatory response syndrome with ongoing leukocytosis 2. 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 Large loculated right-sided pleural effusion ? malignant vs infectious 4. Acute on chronic kidney disease 5. Hypertension 6. Hypertension Plan: Patient is clinically unchanged, overall stable, continue present care, plan for ERCP per GI recommendations Consultation Date/Type/Reason Admit Date/Time Apr 11, 2019 at 01:42 Initial Consult Date 04/11/19 Type of Consult id Date/Time of Note DATE: 04/20/19 TIME: 14:52 Exam/Review of Systems Exam Vitals Vital Signs Date Temp Pulse Resp B/P (MAP) Pulse Ox O2 O2 Flow FiO2 Time Delivery Rate 04/20/19 98.5 112 22 117/70 12:02 (86) 04/20/19 Nasal 3.0 08:00 Cannula 04/20/19 96 07:44 04/20/19 31 01:38 Intake and Output 04/19/19 04/19/19 04/20/19 1515:00 23:00 07:00 IntakeIntake Total 250 ml OutputOutput Total 200 ml 550 ml BalanceBalance 50 ml -550 ml Results Result Diagram: 04/20/19 0510 04/20/19 0510 Results 24hrs Laboratory Tests Test 04/19/19 16:47 04/19/19 20:52 04/20/19 02:42 04/20/19 05:10 Bedside Glucose 201 205 204 White Blood Count 10.6 Red Blood Count 2.93 L Hemoglobin 8.9 L Hematocrit 28.3 L Mean Corpuscular 96.6 Volume Mean Corpuscular 30.4 Hemoglobin Mean Corpuscular 31.4 L Hemoglobin Concen t Red Cell 16.2 H Distribution Width Platelet Count 172 Mean Platelet 9.6 Volume Immature 0.900 H Granulocytes % Neutrophils % 85.6 H Lymphocytes % 8.3 L Monocytes % 4.2 Eosinophils % 0.8 Basophils % 0.2 Nucleated Red 0.0 Blood Cells % Immature 0.100 H Granulocytes # Neutrophils # 9.1 H Lymphocytes # 0.9 Monocytes # 0.4 Eosinophils # 0.1 Basophils # 0.0 Nucleated Red 0.0 Blood Cells # Prothrombin Time 17.7 H Prothrombin Time 1.4 Ratio INR International 1.45 Normalized Ratio Activated 49.8 H Partial Thrombopl ast Time Sodium Level 140 Potassium Level 4.3 Chloride Level 105 Carbon Dioxide 24 Level Anion Gap 11 Blood Urea 20 Nitrogen Creatinine 1.24 Est Glomerular Filtrat Rate mL/min Glucose Level 185 Calcium Level 8.4 Test 04/20/19 07:17 04/20/19 08:02 04/20/19 12:27 Lab Scanned BLOOD TRANSFUSIO Report N Bedside Glucose 201 194 Medications Medication Current Medications Albuterol (Proventil 0.083% (Neb)) 2.5 mg Q2H RESP THERAPY PRN NEB SHORTNESS OF BREATH Last administered on 04/11/19at 13:54; Admin Dose 2.5 MG; Start 04/11/19 at 00:00 Ipratropium [place] (Atrovent 0.02% (Neb)) 0.5 mg Q2H RESP THERAPY PRN NEB SHORTNESS OF BREATH Last administered on 04/11/19at 13:54; Admin Dose 0.5 MG; Start 04/11/19 at 00:00 Acetaminophen (Tylenol Liquid) 650 mg Q6H PRN PO PAIN LEVEL 1-3 OR FEVER; Start 04/11/19 at 00:00 Acetaminophen/ Hydrocodone Bitart ([place] (5/325)) 1 tab Q6H PRN PO PAIN LEVEL 4-6 Last administered on 04/11/19at 01:35; Admin Dose 1 TAB; Start 04/11/19 at 00:00 Docusate Sodium (Colace) 100 mg Q12H PRN PO CONSTIPATION; Start 04/11/19 at 00:00 Bisacodyl (Dulcolax) 5 mg DAILY PRN PO CONSTIPATION; Start 04/11/19 at 00:00 Diagnostic Test (Pha) (Accu-Chek) 1 ea 02 XX Last administered on 04/20/19at 02:47; Admin Dose 1 EA; Start 04/11/19 at 02:00 Insulin Aspart (Novolog Insulin Pen) NOVOLOG *MILD* ALGORITHM WITH MEALS BEDTIME SC Last administered on 04/19/19at 21:07; Admin Dose 1 UNIT; Start 04/11/19 at 08:00 Miscellaneous Information 1 ea NOTE XX ; Start 04/11/19 at 00:30 Glucose (Glutose) 15 gm Q15M PRN PO DECREASED GLUCOSE; Start 04/11/19 at 00:30 Glucose (Glutose) 22.5 gm Q15M PRN PO DECREASED GLUCOSE; Start 04/11/19 at 00:30 Dextrose (D50w Syringe) 25 ml Q15M PRN IV DECREASED GLUCOSE; Start 04/11/19 at 00:30 Dextrose (D50w Syringe) 50 ml Q15M PRN IV DECREASED GLUCOSE; Start 04/11/19 at 00:30 Glucagon (Glucagen) 1 mg Q15M PRN IM DECREASED GLUCOSE; Start 04/11/19 at 00:30 Glucose (Glutose) 15 gm Q15M PRN BUCCAL DECREASED GLUCOSE; Start 04/11/19 at 00:30 Miscellaneous Information (Pending [facility] Order For Wound Care) This patient coyle... PRN PRN XX WOUND CARE; Start 04/11/19 at 08:00 Acetaminophen (Tylenol Tab) 650 mg Q4H PRN PO MILD PAIN(1-3)OR ELEVATED TEMP Last administered on 04/15/19at 18:11; Admin Dose 650 MG; Start 04/11/19 at 09:00 Bisacodyl (Dulcolax Supp) 10 mg DAILY PRN [place] CONSTIPATION; Start 04/11/19 at 09:00 Famotidine (Pepcid) 20 mg DAILY PO Last administered on 04/20/19at 08:36; Admin Dose 20 MG; Start 04/12/19 at 09:00 Fluconazole (Diflucan) 100 mg DAILY PO Last administered on 04/20/19 08:36; Admin Dose 100 MG; Start 04/11/19 at 09:00 Albuterol/ Ipratropium (Duoneb) 3 ml Q4H RESP THERAPY PRN INH SHORTNESS OF BREATH Last administered on 04/19/19 01:41; Admin Dose 3 ML; Start 04/11/19 at 09:00 Linezolid (Zyvox) 600 mg BID PO Last administered on 04/20/19 08:36; Admin Dose 600 MG; Start 04/11/19 at 09:00 Amylase/Lipase/ Protease (CREON ([id number])) 1 cap WITH MEALS PO Last administered on 04/19/19 17:34; Admin Dose 1 CAP; Start 04/11/19 at 12:00 Terazosin HCl (Hytrin) 2 mg HS PO Last administered on 04/19/19 20:41; Admin Dose 2 MG; Start 04/11/19 at 21:00 Cefepime HCl 50 ml @ 100 mls/hr DAILY IVPB Last administered on 04/20/19 08:35; Admin Dose 100 MLS/HR; Start 04/11/19 at 13:00 Multivitamins Therapeutic (Theragran) 1 tab DAILY PO Last administered on 04/20/19 08:35; Admin Dose 1 TAB; Start 04/15/19 at 11:30 Ascorbic Acid (Vitamin C) 500 mg BID PO Last administered on 04/20/19 08:36; Admin Dose 500 MG; Start 04/15/19 at 11:30 Zinc Sulfate (Zinc Sulfate) 220 mg DAILY PO Last administered on 04/20/19 08:35; Admin Dose 220 MG; Start 04/15/19 at 11:30 Loperamide HCl (Imodium Cap) 2 mg BID PRN PO DIARRHEA Last administered on 04/18/19 20:31; Admin Dose 2 MG; Start 04/17/19 at 15:00 Escitalopram Oxalate (Lexapro) 10 mg DAILY PO Last administered on 04/20/19 08:36; Admin Dose 10 MG; Start 04/18/19 at 12:30 MAMI DIAZ NP Apr 20, 2019 14:53
--- NOTE | 2019-04-20 15:05 | PN ---
Date/Time of Note Date/Time of Note DATE: 04/20/19 TIME: 15:03 Assessment/Plan VTE Prophylaxis Risk score (from Ns)>0 risk: 5 SCD applied (from Ns): Yes Pharmacological prophylaxis: NA/contraindicated Pharm contraindication: surgical contra Lines/Catheters IV Catheter Type (from [facility]): Mid Line Urinary Cath still in place: No Assessment/Plan Assessment/Plan 78-year-old man with unclear medical history admitted for shortness of breath soon after recent hospital admission at [facility]. #R pleural effusion- patient also earlier had hypoxia and dyspnea- Currently patient breathing comfortably on nasal cannula 5 L - Has loculated R pleural ef fusion-thoracentesis not able to be performed secondary to loculated effusion. - Monitor for now, continue oxygen supplementation and follow-up final recommendations from pulmonary team - continue puree diet for now #Intra-abdominal infection/cholangitis?-At outside hospital a few days ago don[place] nt apparently was on linezolid, Zosyn, and fluconazole- Not septic on admission. - Continue current antibiotics per ID recommendations, monitor white blood cell count #Pancreatic mass -patient has jaundice and now transhepatic drain in place, GI on the case -[facility] week on April 07, 2019, patient was found with obstructive jaundi ce at that time secondary to hepatic duct strictures + CBD strictures, and had percutaneous transhepatic drain placed on April 02, 2019. LFTs are trending down now. Patient also underwent 2 ERCPs with brushing revealing no evidence of malignancy at that time and subsequent biliary stent placement at that time x2, which have since been removed. -Monitor, follow GI recommendations; based on cholangiogram results, GI team is recommending the following: Another ERCP and a cholangioscopic examination with a Spy Glass to visualize the possible tumor and perform biopsy - to be done in 24 hours on Saturday. -Before that, again will attempt to have IR perform another hepatic drain catheter change or exchange today (or at least an evaluation) since there is some leaking noted externally again #Elevated Cr-slowly trending down -Monitor, follow renal recommendations # hypertension: Blood pressure presently stable -Monitor, presently holding home BP meds given borderline blood pressures # diabetes mellitus: -Monitor, continue insulin sliding scale # DVT prophylaxis: Patient was on Eliquis for a history of atrial flutter, but this is being held secondary to elevated INR and for any potential procedures going to be performed in the next few days. Result Diagram: 04/20/19 0510 04/20/19 0510 Subjective 24 Hr Interval Summary Free Text/Dictation No acute overnight events. Patient awake, no new complaints. Going for ERCP with possible biopsy today. Exam/Review of Systems Exam Vitals Vital Signs Date Temp Pulse Resp B/P (MAP) Pulse Ox O2 O2 Flow FiO2 Time Delivery Rate 04/20/19 98.5 112 22 117/70 12:02 (86) 04/20/19 Nasal 3.0 08:00 Cannula 04/20/19 96 07:44 04/20/19 31 01:38 Intake and Output 04/19/19 04/19/19 04/20/19 1515:00 23:00 07:00 IntakeIntake Total 250 ml OutputOutput Total 200 ml 550 ml BalanceBalance 50 ml -550 ml Exam General: Frail appearing elderly man lying in bed, answering questions properly HEENT: Atraumatic, normocephalic. The pupils are equal, round and reactive. Neck: Supple with full range of motion. No JVD Chest: Nontender Lungs: Coarse breath sounds bilaterally Heart: Normal S1-S2, Regular rhythm and rate. No murmur, S3, or S4 Abdomen: Soft , nontender, nondistended , bowel sounds are present. RUQ tr anshepatic tube with biliary drainage. Extremities: Normal to inspection, no edema no cyanosis Neurologic: Normal mental status, speech normal, alert and oriented, able to give most medical history. Skin: Diffuse jaundice Results Results 24hrs Laboratory Tests Test 04/19/19 16:47 04/19/19 20:52 04/20/19 02:42 04/20/19 05:10 Bedside Glucose 201 205 204 White Blood Count 10.6 Red Blood Count 2.93 L Hemoglobin 8.9 L Hematocrit 28.3 L Mean Corpuscular 96.6 Volume Mean Corpuscular 30.4 Hemoglobin Mean Corpuscular 31.4 L Hemoglobin Concen t Red Cell 16.2 H Distribution Width Platelet Count 172 Mean Platelet 9.6 Volume Immature 0.900 H Granulocytes % Neutrophils % 85.6 H Lymphocytes % 8.3 L Monocytes % 4.2 Eosinophils % 0.8 Basophils % 0.2 Nucleated Red 0.0 Blood Cells % Immature 0.100 H Granulocytes # Neutrophils # 9.1 H Lymphocytes # 0.9 Monocytes # 0.4 Eosinophils # 0.1 Basophils # 0.0 Nucleated Red 0.0 Blood Cells # Prothrombin Time 17.7 H Prothrombin Time 1.4 Ratio INR International 1.45 Normalized Ratio Activated 49.8 H Partial Thrombopl ast Time Sodium Level 140 Potassium Level 4.3 Chloride Level 105 Carbon Dioxide 24 Level Anion Gap 11 Blood Urea 20 Nitrogen Creatinine 1.24 Est Glomerular Filtrat Rate mL/min Glucose Level 185 Calcium Level 8.4 Test 04/20/19 07:17 04/20/19 08:02 04/20/19 12:27 Lab Scanned BLOOD TRANSFUSIO Report N Bedside Glucose 201 194 Medications Medication Current Medications Albuterol (Proventil 0.083% (Neb)) 2.5 mg Q2H RESP THERAPY PRN NEB SHORTNESS OF BREATH Last administered on 04/11/19 13:54; Admin Dose 2.5 MG; Start 04/11/19 at 00:00 Ipratropium [place] (Atrovent 0.02% (Neb)) 0.5 mg Q2H RESP THERAPY PRN NEB SHORTNESS OF BREATH Last administered on 04/11/19 13:54; Admin Dose 0.5 MG; Start 04/11/19 at 00:00 Acetaminophen (Tylenol Liquid) 650 mg Q6H PRN PO PAIN LEVEL 1-3 OR FEVER; Start 04/11/19 at 00:00 Acetaminophen/ Hydrocodone Bitart ([place] (5/325)) 1 tab Q6H PRN PO PAIN LEVEL 4-6 Last administered on 04/11/19at 01:35; Admin Dose 1 TAB; Start 04/11/19 at 00:00 Docusate Sodium (Colace) 100 mg Q12H PRN PO CONSTIPATION; Start 04/11/19 at 00:00 Bisacodyl (Dulcolax) 5 mg DAILY PRN PO CONSTIPATION; Start 04/11/19 at 00:00 Diagnostic Test (Pha) (Accu-Chek) 1 ea 02 XX Last administered on 04/20/19at 02:47; Admin Dose 1 EA; Start 04/11/19 at 02:00 Insulin Aspart (Novolog Insulin Pen) NOVOLOG *MILD* ALGORITHM WITH MEALS BED TIME SC Last administered on 04/19/19 21:07; Admin Dose 1 UNIT; Start 04/11/19 at 08:00 Miscellaneous Information 1 ea NOTE XX ; Start 04/11/19 at 00:30 Glucose (Glutose) 15 gm Q15M PRN PO DECREASED GLUCOSE; Start 04/11/19 at 00:30 Glucose (Glutose) 22.5 gm Q15M PRN PO DECREASED GLUCOSE; Start 04/11/19 at 00:30 Dextrose (D50w Syringe) 25 ml Q15M PRN IV DECREASED GLUCOSE; Start 04/11/19 at 00:30 Dextrose (D50w Syringe) 50 ml Q15M PRN IV DECREASED GLUCOSE; Start 04/11/19 at 00:30 Glucagon (Glucagen) 1 mg Q15M PRN IM DECREASED GLUCOSE; Start 04/11/19 at 00:30 Glucose (Glutose) 15 gm Q15M PRN BUCCAL DECREASED GLUCOSE; Start 04/11/19 at 00:30 Miscellaneous Information (Pending Santyl Order For Wound Care) This patient coyle... PRN PRN XX WOUND CARE; Start 04/11/19 at 08:00 Acetaminophen (Tylenol Tab) 650 mg Q4H PRN PO MILD PAIN(1-3)OR ELEVATED TEMP Last administered on 04/15/19at 18:11; Admin Dose 650 MG; Start 04/11/19 at 09:00 Bisacodyl (Dulcolax Supp) 10 mg DAILY PRN [place] CONSTIPATION; Start 04/11/19 at 09:00 Famotidine (Pepcid) 20 mg DAILY PO Last administered on 04/20/19at 08:36; Admin Dose 20 MG; Start 04/12/19 at 09:00 Fluconazole (Diflucan) 100 mg DAILY PO Last administered on 04/20/19at 08:36; Admin Dose 100 MG; Start 04/11/19 at 09:00 Albuterol/ Ipratropium (Duoneb) 3 ml Q4H RESP THERAPY PRN INH SHORTNESS OF BREATH Last administered on 04/19/19at 01:41; Admin Dose 3 ML; Start 04/11/19 at 09:00 Linezolid (Zyvox) 600 mg BID PO Last administered on 04/20/19at 08:36; Admin Dose 600 MG; Start 04/11/19 at 09:00 Amylase/Lipase/ Protease (CREON ([id number])) 1 cap WITH MEALS PO Last administered on 04/19/19 17:34; Admin Dose 1 CAP; Start 04/11/19 at 12:00 Terazosin HCl (Hytrin) 2 mg HS PO Last administered on 04/19/19 20:41; Admin Dose 2 MG; Start 04/11/19 at 21:00 Cefepime HCl 50 ml @ 100 mls/hr DAILY IVPB Last administered on 04/20/19 08:35; Admin Dose 100 MLS/HR; Start 04/11/19 at 13:00 Multivitamins Therapeutic (Theragran) 1 tab DAILY PO Last administered on 04/20/19 08:35; Admin Dose 1 TAB; Start 04/15/19 at 11:30 Ascorbic Acid (Vitamin C) 500 mg BID PO Last administered on 04/20/19 08:36; Admin Dose 500 MG; Start 04/15/19 at 11:30 Zinc Sulfate (Zinc Sulfate) 220 mg DAILY PO Last administered on 04/20/19 08:35; Admin Dose 220 MG; Start 04/15/19 at 11:30 Loperamide HCl (Imodium Cap) 2 mg BID PRN PO DIARRHEA Last administered on 04/18/19 20:31; Admin Dose 2 MG; Start 04/17/19 at 15:00 Escitalopram Oxalate (Lexapro) 10 mg DAILY PO Last administered on 04/20/19 08:36; Admin Dose 10 MG; Start 04/18/19 at 12:30 ALVARO LA MD Apr 20, 2019 15:05
--- NOTE | 2019-04-20 15:29 | CONS ---
Consult Date/Type/Reason Admit Date/Time Apr 11, 2019 at 01:42 Initial Consult Date 04/11/19 Type of Consult Pulmonary Date/Time of Note DATE: 04/20/19 TIME: 15:29 Subjective Patient stable this morning. Pending possible ERCP. Objective Vital Signs Date Temp Pulse Resp B/P (MAP) Pulse Ox O2 O2 Flow FiO2 Time Delivery Rate 04/20/19 98.5 112 22 117/70 12:02 (86) 04/20/19 Nasal 3.0 08:00 Cannula 04/20/19 96 07:44 04/20/19 31 01:38 Intake and Output 04/19/19 04/19/19 04/20/19 1515:00 23:00 07:00 IntakeIntake Total 250 ml OutputOutput Total 200 ml 550 ml BalanceBalance 50 ml -550 ml Exam PHYSICAL EXAMINATION: VITAL SIGNS: Blood pressure 113/71, pulse 120, respiration 18, temperature 97.9. HEENT: Pupils are equal and react to light. NECK: Supple. No JVD noted. No cervical adenopathy noted. LUNGS: Decreased breath sounds on the right. CARDIOVASCULAR: S1, S2. Tachycardic. ABDOMEN: Soft, nontender, positive bowel sounds. EXTREMITIES: No clubbing, cyanosis or edema noted. NEUROLOGIC: No focal deficits. Vent Setting Fraction of Inspired Oxygen pe: 31 Results/Medications Result Diagram: 04/20/19 0510 04/20/19 0510 Results 24 hrs Laboratory Tests Test 04/19/19 16:47 04/19/19 20:52 04/20/19 02:42 04/20/19 05:10 Bedside Glucose 201 205 204 White Blood Count 10.6 Red Blood Count 2.93 L Hemoglobin 8.9 L Hematocrit 28.3 L Mean Corpuscular 96.6 Volume Mean Corpuscular 30.4 Hemoglobin Mean Corpuscular 31.4 L Hemoglobin Concen t Red Cell 16.2 H Distribution Width Platelet Count 172 Mean Platelet 9.6 Volume Immature 0.900 H Granulocytes % Neutrophils % 85.6 H Lymphocytes % 8.3 L Monocytes % 4.2 Eosinophils % 0.8 Basophils % 0.2 Nucleated Red 0.0 Blood Cells % Immature 0.100 H Granulocytes # Neutrophils # 9.1 H Lymphocytes # 0.9 Monocytes # 0.4 Eosinophils # 0.1 Basophils # 0.0 Nucleated Red 0.0 Blood Cells # Prothrombin Time 17.7 H Prothrombin Time 1.4 Ratio INR International 1.45 Normalized Ratio Activated 49.8 H Partial Thrombopl ast Time Sodium Level 140 Potassium Level 4.3 Chloride Level 105 Carbon Dioxide 24 Level Anion Gap 11 Blood Urea 20 Nitrogen Creatinine 1.24 Est Glomerular Filtrat Rate mL/min Glucose Level 185 Calcium Level 8.4 Test 04/20/19 07:17 04/20/19 08:02 04/20/19 12:27 Lab Scanned BLOOD TRANSFUSIO Report N Bedside Glucose 201 194 Medications Current Medications Albuterol (Proventil 0.083% (Neb)) 2.5 mg Q2H RESP THERAPY PRN NEB SHORTNESS OF BREATH Last administered on 04/11/19at 13:54; Admin Dose 2.5 MG; Start 04/11/19 at 00:00 Ipratropium [place] (Atrovent 0.02% (Neb)) 0.5 mg Q2H RESP THERAPY PRN NEB SHORTNESS OF BREATH Last administered on 04/11/19at 13:54; Admin Dose 0.5 MG; Start 04/11/19 at 00:00 Acetaminophen (Tylenol Liquid) 650 mg Q6H PRN PO PAIN LEVEL 1-3 OR FEVER; Start 04/11/19 at 00:00 Acetaminophen/ Hydrocodone Bitart ([place] (5/325)) 1 tab Q6H PRN PO PAIN LEVEL 4-6 Last administered on 04/11/19at 01:35; Admin Dose 1 TAB; Start 04/11/19 at 00:00 Docusate Sodium (Colace) 100 mg Q12H PRN PO CONSTIPATION; Start 04/11/19 at 00:00 Bisacodyl (Dulcolax) 5 mg DAILY PRN PO CONSTIPATION; Start 04/11/19 at 00:00 Diagnostic Test (Pha) (Accu-Chek) 1 ea 02 XX Last administered on 04/20/19at 02:47; Admin Dose 1 EA; Start 04/11/19 at 02:00 Insulin Aspart (Novolog Insulin Pen) NOVOLOG *MILD* ALGORITHM WITH MEALS BEDTIME SC Last administered on 04/19/19at 21:07; Admin Dose 1 UNIT; Start 04/11/19 at 08:00 Miscellaneous Information 1 ea NOTE XX ; Start 04/11/19 at 00:30 Glucose (Glutose) 15 gm Q15M PRN PO DECREASED GLUCOSE; Start 04/11/19 at 00:30 Glucose (Glutose) 22.5 gm Q15M PRN PO DECREASED GLUCOSE; Start 04/11/19 at 00:30 Dextrose (D50w Syringe) 25 ml Q15M PRN IV DECREASED GLUCOSE; Start 04/11/19 at 00:30 Dextrose (D50w Syringe) 50 ml Q15M PRN IV DECREASED GLUCOSE; Start 04/11/19 at 00:30 Glucagon (Glucagen) 1 mg Q15M PRN IM DECREASED GLUCOSE; Start 04/11/19 at 00:30 Glucose (Glutose) 15 gm Q15M PRN BUCCAL DECREASED GLUCOSE; Start 04/11/19 at 00:30 Miscellaneous Information (Pending Santyl Order For Wound Care) This patient coyle... PRN PRN XX WOUND CARE; Start 04/11/19 at 08:00 Acetaminophen (Tylenol Tab) 650 mg Q4H PRN PO MILD PAIN(1-3)OR ELEVATED TEMP Last administered on 04/15/19at 18:11; Admin Dose 650 MG; Start 04/11/19 at 09:00 Bisacodyl (Dulcolax Supp) 10 mg DAILY PRN [place] CONSTIPATION; Start 04/11/19 at 09:00 Famotidine (Pepcid) 20 mg DAILY PO Last administered on 04/20/19 08:36; Admin Dose 20 MG; Start 04/12/19 at 09:00 Fluconazole (Diflucan) 100 mg DAILY PO Last administered on 04/20/19 08:36; Admin Dose 100 MG; Start 04/11/19 at 09:00 Albuterol/ Ipratropium (Duoneb) 3 ml Q4H RESP THERAPY PRN INH SHORTNESS OF B REATH Last administered on 04/19/19at 01:41; Admin Dose 3 ML; Start 04/11/19 at 09:00 Linezolid (Zyvox) 600 mg BID PO Last administered on 04/20/19 08:36; Admin Dose 600 MG; Start 04/11/19 at 09:00 Amylase/Lipase/ Protease (CREON ([id number])) 1 cap WITH MEALS PO Last administered on 04/19/19at 17:34; Admin Dose 1 CAP; Start 04/11/19 at 12:00 Terazosin HCl (Hytrin) 2 mg HS PO Last administered on 04/19/19 20:41; Admin Dose 2 MG; Start 04/11/19 at 21:00 Cefepime HCl 50 ml @ 100 mls/hr DAILY IVPB Last administered on 04/20/19 08:35; Admin Dose 100 MLS/HR; Start 04/11/19 at 13:00 Multivitamins Therapeutic (Theragran) 1 tab DAILY PO Last administered on 04/20/19 08:35; Admin Dose 1 TAB; Start 04/15/19 at 11:30 Ascorbic Acid (Vitamin C) 500 mg BID PO Last administered on 04/20/19 08:36; Admin Dose 500 MG; Start 04/15/19 at 11:30 Zinc Sulfate (Zinc Sulfate) 220 mg DAILY PO Last administered on 04/20/19 08:35; Admin Dose 220 MG; Start 04/15/19 at 11:30 Loperamide HCl (Imodium Cap) 2 mg BID PRN PO DIARRHEA Last administered on 04/18/19 20:31; Admin Dose 2 MG; Start 04/17/19 at 15:00 Escitalopram Oxalate (Lexapro) 10 mg DAILY PO Last administered on 04/20/19 08:36; Admin Dose 10 MG; Start 04/18/19 at 12:30 Assessment/Plan Hospital Course (Demo Recall) IMPRESSION: 1. Obstructive jaundice. Remains n.p.o. for possible ERCP. 2. Right lower lobe pneumonia. 3. Complicated right parapneumonic effusion with loculations. 4. Chronic kidney disease. 5. Anemia. RECOMMENDATIONS: 1. Continue antibiotics. 2. GI workup as per consultants. 3. Once the patient is stable, the patient will need right-sided VATS procedure. 4. Followup labs. Overall prognosis is guarded. FRANCIE BLAKE MD, [facility] Apr 20, 2019 15:29
[2019-04-20] MEDS ORDERED: IOHEXOL 300MG/ML 30 ML BTL ONE (17:09)
--- NOTE | 2019-04-20 17:49 | PREAC ---
Date/Time of Note Date/Time of Note DATE: 04/20/19 TIME: 17:44 Anesthesia Eval and Record Evaluation Time Pre-Procedure Interview DATE: 04/20/19 TIME: 17:44 Age 78 Sex male NPO: 8 hrs Preoperative diagnosis Common Bile Duct Obstruction Planned procedure ERCP Past Medical History Past Medical History: Includes Cardio: HTN Endo: Diabetes, Other (Pancreatic cancer) Pulm: Other (Plural effusion) GI: Other (Jundice) Heme: Other (DVT) Surgery & Anesthesia Issues No known issue Meds Anticoagulation: No Beta Marcelo within 24 hr: Yes Reported Medications Linezolid* (Zyvox*) 600 Mg Tablet, 600 MG PO BID, TAB 04/11/19 Ondansetron Hcl* (Ondansetron Hcl*) 4 Mg Tablet, 4 MG PO Q6H PRN for NAUSEA AND/OR VOMITING, TAB 04/11/19 Acetaminophen* (Tylenol*) 325 Mg Tablet, 650 MG PO Q4H PRN for PAIN AND OR ELEVATED TEMP, TAB Give 2 tablets by mouth every 8hrs as needed 04/11/19 Terazosin Hcl* (Terazosin Hcl*) 2 Mg Capsule, 2 MG PO HS for HTN, CAP 04/11/19 Sennosides* (Senna Lax*) 8.6 Mg Tablet, 2 TAB PO BID for CONST, TAB 04/11/19 Potassium Chloride* (Klor-Con*) 20 Meq Tabsr, 20 MEQ PO TID for HYPOKALEMIA, TAB.SA 04/11/19 Nifedipine* (Nifedipine ER*) 30 Mg Tablet.sa, 30 MG PO DAILY for HTN, TAB.SA GIVE 30mgBY MOUTH ONE TIME A DAY FOR HTN HOLD IF SBP IS <110 or HR is <60 04/11/19 Metoprolol Tartrate* (Lopressor*) 25 Mg Tablet, 25 MG PO BID for HTN, #60 TAB 04/11/19 Metoclopramide* (Reglan*) 10 Mg Tablet, 0.5 MG PO TID for GERD, TAB 04/11/19 Melatonin (Melatonin) 1 Mg Tablet, 1 MG PO HS, TAB 04/11/19 Magnesium Oxide* (Magnesium Oxide*) 400 Mg Tablet, 400 MG PO BID, TAB 04/11/19 Lactobacillus Rhamnosus GG (Culturelle) 1 Each Capsule, 1 EACH PO BID WITH MEALS for To SupportGUT Tosin, CAP 04/11/19 Ipratropium-Albuterol (Ipratropium-Albuterol) 0.5-3 Mg/3 Ml Ampul.neb, 3 ML INHALATION Q2H, #30 VIAL 04/11/19 Insulin Lispro (Humalog) 100 Unit/1 Ml Cartridge, 100 UNIT SQ SS, EA INJECT PER SLIDING SCALE: IF 70-150=0 UNIT;151-200= 2 UNITS; 201-250=4UNITS; 251-300=6UNITS;301-350=8UNITS; 351-400=10UNITS>400=12UNITS and CALL 04/11/19 Wvdtfsugjre-O-Jrajwzohje Hb* (Guaifenesin* DM Syrup) 120 Ml Syrup, 5 ML PO Q4H PRN for COUGH, ML 04/11/19 Glipizide* (Glipizide*) 5 Mg Tablet, 5 MG PO AC BREAKFAST, TAB 04/11/19 Fluconazole* (Fluconazole*) 100 Mg Tablet, 100 MG PO DAILY for FUNGAL INFECTION, TAB 04/11/19 Mineral Oil* (Fleet* Mineral Oil Enema) 133 Ml Oil, 133 ML DE NEEDED PRN for CONSTIPATION, ENEMA 04/11/19 Famotidine* (Famotidine*) 20 Mg Tablet, 20 MG PO DAILY, #30 TAB 04/11/19 Bisacodyl (Dulcolax) 10 Mg Supp.rect, 10 MG RC, SUPP.RECT 04/11/19 Jcuwjn-Jnrznmfo-Dzqrjla* (Al DR* 12,000) 12,000 L-38,000-60,000 Unit Capsule .dr, 1 CAP PO WITH MEALS, CAP 04/11/19 Calcium Carbonate (Calcium Carbonate) 500 Mg Tab.chew, 500 MG PO Q4H WHILE AWAKE for INDIGESTION, TAB.CHEW 04/11/19 Apixaban* (Eliquis*) 2.5 Mg Tablet, 2.5 MG PO BID, TAB 04/11/19 Current Medications Albuterol (Proventil 0.083% (Neb)) 2.5 mg Q2H RESP THERAPY PRN NEB SHORTNESS OF BREATH Last administered on 04/11/19at 13:54; Admin Dose 2.5 MG; Start 04/11/19 at 00:00 Ipratropium [place] (Atrovent 0.02% (Neb)) 0.5 mg Q2H RESP THERAPY PRN NEB SHORTNESS OF BREATH Last administered on 04/11/19at 13:54; Admin Dose 0.5 MG; Start 04/11/19 at 00:00 Acetaminophen (Tylenol Liquid) 650 mg Q6H PRN PO PAIN LEVEL 1-3 OR FEVER; Start 04/11/19 at 00:00 Acetaminophen/ Hydrocodone Bitart ([place] (5/325)) 1 tab Q6H PRN PO PAIN LEVEL 4-6 Last administered on 04/11/19at 01:35; Admin Dose 1 TAB; Start 04/11/19 at 00:00 Docusate Sodium (Colace) 100 mg Q12H PRN PO CONSTIPATION; Start 04/11/19 at 00:00 Bisacodyl (Dulcolax) 5 mg DAILY PRN PO CONSTIPATION; Start 04/11/19 at 00:00 Diagnostic Test (Pha) (Accu-Chek) 1 ea 02 XX Last administered on 04/20/19at 02:47; Admin Dose 1 EA; Start 04/11/19 at 02:00 Insulin Aspart (Novolog Insulin Pen) NOVOLOG *MILD* ALGORITHM WITH MEALS BEDTIME SC Last administered on 04/19/19at 21:07; Admin Dose 1 UNIT; Start 04/11/19 at 08:00 Miscellaneous Information 1 ea NOTE XX ; Start 04/11/19 at 00:30 Glucose (Glutose) 15 gm Q15M PRN PO DECREASED GLUCOSE; Start 04/11/19 at 00:30 Glucose (Glutose) 22.5 gm Q15M PRN PO DECREASED GLUCOSE; Start 04/11/19 at 00:30 Dextrose (D50w Syringe) 25 ml Q15M PRN IV DECREASED GLUCOSE; Start 04/11/19 at 00:30 Dextrose (D50w Syringe) 50 ml Q15M PRN IV DECREASED GLUCOSE; Start 04/11/19 at 00:30 Glucagon (Glucagen) 1 mg Q15M PRN IM DECREASED GLUCOSE; Start 04/11/19 at 00:30 Glucose (Glutose) 15 gm Q15M PRN BUCCAL DECREASED GLUCOSE; Start 04/11/19 at 00:30 Miscellaneous Information (Pending [facility] Order For Wound Care) This patient coyle... PRN PRN XX WOUND CARE; Start 04/11/19 at 08:00 Acetaminophen (Tylenol Tab) 650 mg Q4H PRN PO MILD PAIN(1-3)OR ELEVATED TEMP Last administered on 04/15/19 18:11; Admin Dose 650 MG; Start 04/11/19 at 09:00 Bisacodyl (Dulcolax Supp) 10 mg DAILY PRN [place] CONSTIPATION; Start 04/11/19 at 09:00 Famotidine (Pepcid) 20 mg DAILY PO Last administered on 04/20/19 08:36; Admin Dose 20 MG; Start 04/12/19 at 09:00 Fluconazole (Diflucan) 100 mg DAILY PO Last administered on 04/20/19 08:36; Admin Dose 100 MG; Start 04/11/19 at 09:00 Albuterol/ Ipratropium (Duoneb) 3 ml Q4H RESP THERAPY PRN INH SHORTNESS OF BREATH Last administered on 04/19/19 01:41; Admin Dose 3 ML; Start 04/11/19 at 09:00 Linezolid (Zyvox) 600 mg BID PO Last administered on 04/20/19 08:36; Admin Dose 600 MG; Start 04/11/19 at 09:00 Amylase/Lipase/ Protease (CREON ([id number])) 1 cap WITH MEALS PO Last administered on 04/19/19 17:34; Admin Dose 1 CAP; Start 04/11/19 at 12:00 Terazosin HCl (Hytrin) 2 mg HS PO Last administered on 04/19/19 20:41; Admin Dose 2 MG; Start 04/11/19 at 21:00 Cefepime HCl 50 ml @ 100 mls/hr DAILY IVPB Last administered on 04/20/19 08:35; Admin Dose 100 MLS/HR; Start 04/11/19 at 13:00 Multivitamins Therapeutic (Theragran) 1 tab DAILY PO Last administered on 04/20/19 08:35; Admin Dose 1 TAB; Start 04/15/19 at 11:30 Ascorbic Acid (Vitamin C) 500 mg BID PO Last administered on 04/20/19 08:36; Admin Dose 500 MG; Start 04/15/19 at 11:30 Zinc Sulfate (Zinc Sulfate) 220 mg DAILY PO Last administered on 6/24/19at 08:35; Admin Dose 220 MG; Start 04/15/19 at 11:30 Loperamide HCl (Imodium Cap) 2 mg BID PRN PO DIARRHEA Last administered on 04/18/19at 20:31; Admin Dose 2 MG; Start 04/17/19 at 15:00 Escitalopram Oxalate (Lexapro) 10 mg DAILY PO Last administered on 04/20/19at 08:36; Admin Dose 10 MG; Start 04/18/19 at 12:30 Meds reviewed: Yes Allergies Coded Allergies: No Known Allergy (Unverified , 04/10/19) Allergies Reviewed: Yes Labs/Studies Labs Reviewed: Reviewed by anesthesiologist Result Diagram: 04/20/19 0510 04/20/19 0510 Laboratory Tests 04/20/19 05:10 test: N/A Pre-procedure Exam Last vitals Vital Signs Date Temp Pulse Resp B/P (MAP) Pulse Ox O2 O2 Flow FiO2 Time Delivery Rate 04/20/19 3.0 30 16:16 04/20/19 103 16:00 04/20/19 98.0 22 112/79 96 Room Air 15:31 (90) Airway: Adequate mouth opening Mallampati: Mallampati II Teeth: Normal Lung: Abnormal (Decreased Breating Sound Bilateral) Heart: Normal ASA Physical Status ASA physical status: 3 Emergency: None Planned Anesthetic General/MAC: MAC Pre-operative Attestations Prior to commencing anesthesia and surgery, the patient was re-evaluated, there was verification of: *The patient's identity *The results of appropriate recent lab work and preoperative vital signs *The above evaluation not changing prior to induction *Anesthetic plan, risk benefits, alternative and complications discussed with patient/family; questions answered; patient/family understands, accepts and wishes to proceed. LIZETT SHERIDAN MD Apr 20, 2019 17:49
[2019-04-20] MEDS ORDERED: INDOMETHACIN 50 MG ONE (17:50)
[2019-04-20] MEDS ORDERED: ROCURONIUM 50 MG INJ ONE (17:58)
[2019-04-20] MEDS ORDERED: PROPOFOL 20 ML ONE (17:58)
[2019-04-20] MEDS ORDERED: SUCCINYLCHOLINE CHLORIDE 100 MG/5 ML SYG IV ONE (17:59)
--- NOTE | 2019-04-20 20:13 | OPR ---
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
--- NOTE | 2019-04-20 20:14 | PAC ---
Date/Time of Note Date/Time of Note DATE: 04/20/19 TIME: 20:13 Post-Anesthesia Notes Post-Anesthesia Note Last documented vital signs Vital Signs Date Temp Pulse Resp B/P (MAP) Pulse Ox O2 O2 Flow FiO2 Time Delivery Rate 04/20/19 3.0 30 16:16 04/20/19 103 16:00 04/20/19 98.0 22 112/79 96 Room Air 15:31 (90) Activity: WNL Respiratory function: WNL Cardiovascular function: WNL Mental status: Baseline Pain reasonably controlled: Yes Hydration appropriate: Yes Nausea/Vomiting absent: Yes LIZETT SHERIDAN MD Apr 20, 2019 20:14
[2019-04-20] MEDS: TERAZOSIN 2 MG CAP PO SCH (21:25)
[2019-04-20] MEDS: LOPERAMIDE 2 MG CAP PO PRN (21:31)
[2019-04-21] VITALS (11 sets, daily range): BP systolic 114–124; BP diastolic 77–83; PULSE 100–125; RESP 17–21
[2019-04-21] MEDS: ACETAMINOPHEN 325 MG TAB PO PRN (02:28)
[2019-04-21] MEDS: ACCU-CHEK XX SCH (02:36)
--- NOTE | 2019-04-21 04:53 | GILP ---
DATE OF PROCEDURE: PROCEDURES: ERCP, removal of transhepatic biliary drainage, SpyGlass examination of common hepatic d uct stricture, biopsies of the common hepatic duct stricture and common bile duct and subsequently pl acement of 10-Vincentian and 12 cm long right hepatic duct stent. PREOPERATIVE DIAGNOSES: The patient has evidence of obstruction at the common hepatic duct area near the confluence of the left and right hepatic duct. Etiology not known. Rule out Klatskin tumor. R ule out inflammatory process. POSTOPERATIVE DIAGNOSES: The patient has evidence of obstruction at the common hepatic duct area rosa r the confluence of the left and right hepatic duct. Etiology not known. Rule out Kl[place]kin tumor. Rule out inflammatory process. No tumor readily noticeable in the common hepatic duct stricture in t he proximal part. DESCRIPTION OF PROCEDURE: After the informed written consent was obtained, the patient was intubated by anesthesiologist. When the patient was intubated in prone position, Olympus video side-viewing duodenoscope was inserte d into the oropharynx, then into the esophagus and subsequently into the stomach and then into the du odenum. The percutaneous transhepatic biliary drainage tube is noted in the duodenum. At this time alongside of this drainage catheter, a Dreamtome was inserted into the common bile duct and injection was made . There is evidence of a stricture noted in the common hepatic duct in the proximal area and subsequ ently through the stricture and proximal to the stricture some biliary radicals were also noted to the right hepatic duct and at this time, the Dreamtome was removed. A Spyscope which is a part o f the SpyGlass was inserted into the common bile duct and common bile duct appeared normal. Common h epatic duct distally appeared normal and closer to the stricture very to the proximal common hepatic duct the lining of the common hepatic duct appeared to be whitish, feathery, mushy type of mucosal vega rface. No definite tumor was identified. A SpyBite was inserted through the biopsy channel of the S pyGlass and multiple biopsies were obtained from the common hepatic duct, common bile duct and also a t the strictured area of the common hepatic duct proximally. At the end of the procedure, the pediat joseluis biopsy forcep also was inserted into the common hepatic duct strictured area. Multiple biopsies were obtained. At this time by using the Dreamtome and guidewire, guidewire was passed through the c ommon hepatic duct stricture into the right hepatic duct and over the guidewire, a 10-Vincentian and 12 c m long [place] type of endobiliary prosthesis was inserted across the stricture in the common hepat ic duct area through the ampulla into the duodenum. Photographs were obtained and the procedure was terminated. PLAN: I recommend to monitor the liver functions closely. Dictated By: ANTONIA BERRY MD NC/NTS Conf#: [id number] DID#: [id number] CC: CHRIS GOMEZ; PETR REESE MD; ALVARO LA MD; TANIKA GRAYSON MD;*EndCC*
[2019-04-21] MEDS: INSULIN ASPART [NOVOLOG] 3 ML PEN SC SCH ×4 (08:27→20:18)
--- NOTE | 2019-04-21 08:57 | PN ---
DATE: 04/21/2019 SUBJECTIVE: The patient is stable, no events overnight. The patient had an ERCP yesterday with evid ence of obstruction or common bile duct. No other events noted. OBJECTIVE: VITAL SIGNS: Blood pressure is 120/82, respirations 20, pulse 100, temperature 97.6. HEENT: Head is normocephalic. NECK: Supple. HEART: Regular rate. LUNGS: Show diminished breath sounds at the base. ABDOMEN: Soft, nontender to palpation without rebound or guarding. EXTREMITIES: Negative for clubbing, cyanosis, no edema. DERMATOLOGIC: No rashes. MUSCULOSKELETAL: No joint effusion. NEUROLOGIC: No change in exam. MEDICATIONS: The patient's medications have been reviewed. LABORATORY DATA: Reviewed. IMAGING STUDIES: Reviewed. ASSESSMENT AND PLAN: 1. Nonoliguric acute kidney injury on top of chronic kidney disease. Etiology is secondary to hemod ynamics. Renal function is improved. Continue current treatment plan, supportive care and renally d ose all medications. 2. Chronic kidney disease. The patient is currently in acute kidney injury as stated above. Contin ue current treatment plan. Continue disease factor modification. 3. Anemia. Monitor hemoglobin and hematocrit levels. 4. Mineral bone disorder, monitor calcium and phosphorus levels. 5. Hypertension. Continue current blood pressure regimen. 6. Pancreatic mass. The patient is status post cholangiogram, status post ERCP with noted stricture in the biliary duct. Continue to monitor. Follow up with GI. 7. Leukocytosis, systemic inflammatory response syndrome. Continue current medical management. 8. Right pleural effusion. Continue to monitor. 9. Hepatic drainage. Continue to monitor. Dictated By: PRANEETH RODRIGUEZ DO NR/NTS Conf#: [id number] DID#: [id number] CC: PETR REESE MD; TANIKA GRAYSON MD; ALVARO LA MD;*EndCC*
[2019-04-21] MEDS: ESCITALOPRAM 10 MG TAB PO SCH (09:01)
[2019-04-21] MEDS: CEFEPIME 1GM/50 ML (PMX) 50 ML IVPB SCH (09:01)
[2019-04-21] MEDS: ASCORBIC ACID 500 MG TAB PO SCH ×2 (09:01→20:09)
[2019-04-21] MEDS: ZINC SULFATE 220 MG CAP PO SCH (09:01)
[2019-04-21] MEDS: FAMOTIDINE 20 MG TAB PO SCH (09:01)
[2019-04-21] MEDS: ZYVOX 600 MG TAB PO SCH ×2 (09:01→20:09)
[2019-04-21] MEDS: CREON (12k-38k-60k) 1 CAP PO SCH ×3 (09:01→17:25)
[2019-04-21] MEDS: FLUCONAZOLE 100 MG TAB PO SCH (09:01)
[2019-04-21] MEDS: MULTIVITAMINS THERAPEUTIC TAB PO SCH (09:01)
--- NOTE | 2019-04-21 14:25 | CONS ---
Assessment/Plan Assessment/Plan Hospital Course (Demo Recall) 1300 Patient is alert looks comfortable no fevers overnight. WBC 11.6 platelets 166 neutrophils 86.6 BUN 23 creatinine 1.26 Microbiology: Blood cultures remain negative Antimicrobials: Cefepime, fluconazole, Zyvox Physical examination: Well-developed ill-appearing elderly man who is awake in no distress. Head atraumatic normocephalic sclera anicteric bugle mucosa dry neck is supple trachea midline chest rise symmetrical breath sounds diminished bases heart: S1-S2 abdomen soft bowel sounds present patient has right-sided abdominal drainage catheter with the back attached. Extremities without cyanosis. Skin: Improved jaundice Assessment: 1. Systemic inflammatory response syndrome 2. 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 Large loculated right-sided pleural effusion ? malignant vs infectious 4. Acute on chronic kidney disease 5. Hypertension 6. Hypertension Plan: Patient is clinically unchanged, overall stable, continue present care, follow GI recommendations, await for biopsy results Consultation Date/Type/Reason Admit Date/Time Apr 11, 2019 at 01:42 Initial Consult Date 04/11/19 Type of Consult id Date/Time of Note DATE: 04/21/19 TIME: 14:23 Exam/Review of Systems Exam Vitals Vital Signs Date Temp Pulse Resp B/P (MAP) Pulse Ox O2 O2 Flow FiO2 Time Delivery Rate 04/21/19 102 12:04 04/21/19 97.4 20 120/82 100 Room Air 07:34 (95) 04/21/19 3.0 07:30 04/21/19 31 01:29 Intake and Output 04/20/19 04/20/19 04/21/19 1515:00 23:00 07:00 IntakeIntake Total 0 ml BalanceBalance 0 ml Results Result Diagram: 04/21/19 0453 04/21/19 0453 Results 24hrs Laboratory Tests Test 04/20/19 17:04 04/20/19 21:19 04/21/19 02:32 04/21/19 04:53 Bedside Glucose 180 210 176 White Blood Count 11.6 H Red Blood Count 2.96 L Hemoglobin 9.0 L Hematocrit 28.4 L Mean Corpuscular 95.9 Volume Mean Corpuscular 30.4 Hemoglobin Mean Corpuscular 31.7 L Hemoglobin Concent Red Cell 15.7 H Distribution Width Platelet Count 166 Mean Platelet Volume 10.0 Immature 1.100 H Granulocytes % Neutrophils % 86.6 H Lymphocytes % 7.7 L Monocytes % 4.1 Eosinophils % 0.3 Basophils % 0.2 Nucleated Red Blood 0.0 Cells % Immature 0.130 H Granulocytes # Neutrophils # 10.0 H Lymphocytes # 0.9 Monocytes # 0.5 Eosinophils # 0.0 Basophils # 0.0 Nucleated Red Blood 0.0 Cells # Sodium Level 139 Potassium Level 4.2 Chloride Level 107 Carbon Dioxide Level 25 Anion Gap 7 Blood Urea Nitrogen 23 H Creatinine 1.26 H Est Glomerular Filtrat Rate mL/min Glucose Level 162 Calcium Level 8.1 L Test 04/21/19 08:23 04/21/19 12:14 Bedside Glucose 144 163 Medications Medication Current Medications Albuterol (Proventil 0.083% (Neb)) 2.5 mg Q2H RESP THERAPY PRN NEB SHORTNESS OF BREATH Last administered on 04/11/19 13:54; Admin Dose 2.5 MG; Start 04/11/19 at 00:00 Ipratropium [place] (Atrovent 0.02% (Neb)) 0.5 mg Q2H RESP THERAPY PRN NEB SHORTNESS OF BREATH Last administered on 04/11/19 13:54; Admin Dose 0.5 MG; Start 04/11/19 at 00:00 Acetaminophen (Tylenol Liquid) 650 mg Q6H PRN PO PAIN LEVEL 1-3 OR FEVER; Start 04/11/19 at 00:00 Acetaminophen/ Hydrocodone Bitart ([place] (5/325)) 1 tab Q6H PRN PO PAIN LEVEL 4-6 Last administered on 04/11/19at 01:35; Admin Dose 1 TAB; Start 04/11/19 at 00:00 Docusate Sodium (Colace) 100 mg Q12H PRN PO CONSTIPATION; Start 04/11/19 at 00:00 Bisacodyl (Dulcolax) 5 mg DAILY PRN PO CONSTIPATION; Start 04/11/19 at 00:00 Diagnostic Test (Pha) (Accu-Chek) 1 ea 02 XX Last administered on 04/21/19at 02:36; Admin Dose 1 EA; Start 04/11/19 at 02:00 Insulin Aspart (Novolog Insulin Pen) NOVOLOG *MILD* ALGORITHM WITH MEALS BEDTIME SC Last administered on 04/21/19 12:17; Admin Dose 1 UNIT; Start 04/11/19 at 08:00 Miscellaneous Information 1 ea NOTE XX ; Start 04/11/19 at 00:30 Glucose (Glutose) 15 gm Q15M PRN PO DECREASED GLUCOSE; Start 04/11/19 at 00:30 Glucose (Glutose) 22.5 gm Q15M PRN PO DECREASED GLUCOSE; Start 04/11/19 at 00:30 Dextrose (D50w Syringe) 25 ml Q15M PRN IV DECREASED GLUCOSE; Start 04/11/19 at 00:30 Dextrose (D50w Syringe) 50 ml Q15M PRN IV DECREASED GLUCOSE; Start 04/11/19 at 00:30 Glucagon (Glucagen) 1 mg Q15M PRN IM DECREASED GLUCOSE; Start 04/11/19 at 00:30 Glucose (Glutose) 15 gm Q15M PRN BUCCAL DECREASED GLUCOSE; Start 04/11/19 at 00:30 Miscellaneous Information [facility] This patient coyle... PRN PRN XX WOUND CARE; Start 04/11/19 at 08:00 Acetaminophen (Tylenol Tab) 650 mg Q4H PRN PO MILD PAIN(1-3)OR ELEVATED TEMP Last administered on 04/21/19at 02:28; Admin Dose 650 MG; Start 04/11/19 at 09:00 Bisacodyl (Dulcolax Supp) 10 mg DAILY PRN [place] CONSTIPATION; Start 04/11/19 at 09:00 Famotidine (Pepcid) 20 mg DAILY PO Last administered on 04/21/19at 09:01; Admin Dose 20 MG; Start 04/12/19 at 09:00 Fluconazole (Diflucan) 100 mg DAILY PO Last administered on 04/21/19at 09:01; Admin Dose 100 MG; Start 04/11/19 at 09:00 Albuterol/ Ipratropium (Duoneb) 3 ml Q4H RESP THERAPY PRN INH SHORTNESS OF BREATH Last administered on 04/19/19at 01:41; Admin Dose 3 ML; Start 04/11/19 at 09:00 Linezolid (Zyvox) 600 mg BID PO Last administered on 04/21/19at 09:01; Admin Dose 600 MG; Start 04/11/19 at 09:00 Amylase/Lipase/ Protease (CREON ([id number])) 1 cap WITH MEALS PO Last administered on 04/21/19 12:14; Admin Dose 1 CAP; Start 04/11/19 at 12:00 Terazosin HCl (Hytrin) 2 mg HS PO Last administered on 04/20/19 21:25; Admin Dose 2 MG; Start 04/11/19 at 21:00 Cefepime HCl 50 ml @ 100 mls/hr DAILY IVPB Last administered on 04/21/19 09:01; Admin Dose 100 MLS/HR; Start 04/11/19 at 13:00 Multivitamins Therapeutic (Theragran) 1 tab DAILY PO Last administered on 04/21/19 09:01; Admin Dose 1 TAB; Start 04/15/19 at 11:30 Ascorbic Acid (Vitamin C) 500 mg BID PO Last administered on 04/21/19 09:01; Admin Dose 500 MG; Start 04/15/19 at 11:30 Zinc Sulfate (Zinc Sulfate) 220 mg DAILY PO Last administered on 04/21/19 09:01; Admin Dose 220 MG; Start 04/15/19 at 11:30 Loperamide HCl (Imodium Cap) 2 mg BID PRN PO DIARRHEA Last administered on 04/20/19 21:31; Admin Dose 2 MG; Start 04/17/19 at 15:00 Escitalopram Oxalate (Lexapro) 10 mg DAILY PO Last administered on 04/21/19 09:01; Admin Dose 10 MG; Start 04/18/19 at 12:30 MAMI DIAZ NP Apr 21, 2019 14:25
--- NOTE | 2019-04-21 15:07 | CONS ---
Consult Date/Type/Reason Admit Date/Time Apr 11, 2019 at 01:42 Initial Consult Date 04/11/19 Type of Consult Pulmonary Date/Time of Note DATE: 04/21/19 TIME: 15:06 Subjective Patient status post ERCP appears comfortable no respiratory distress. Objective Vital Signs Date Temp Pulse Resp B/P (MAP) Pulse Ox O2 O2 Flow FiO2 Time Delivery Rate 04/21/19 102 12:04 04/21/19 97.4 20 120/82 100 Room Air 07:34 (95) 04/21/19 3.0 07:30 04/21/19 31 01:29 Intake and Output 04/20/19 04/20/19 04/21/19 1515:00 23:00 07:00 IntakeIntake Total 0 ml BalanceBalance 0 ml Exam PHYSICAL EXAMINATION: VITAL SIGNS: HEENT: Pupils are equal and react to light. O2. NECK: Supple, no JVD noted, no cervical adenopathy noted. LUNGS: No breath sounds on the left side. CARDIOVASCULAR: S1 and S2 normal. ABDOMEN: Soft, nontender, no guarding noted. EXTREMITIES: No clubbing or cyanosis noted, 3+ edema present on both lower extremities. NEUROLOGICAL: Awake. Vent Setting Fraction of Inspired Oxygen pe: 31 Results/Medications Result Diagram: 04/21/19 0453 04/21/19 0453 Results 24 hrs Laboratory Tests Test 04/20/19 17:04 04/20/19 21:19 04/21/19 02:32 04/21/19 04:53 Bedside Glucose 180 210 176 White Blood Count 11.6 H Red Blood Count 2.96 L Hemoglobin 9.0 L Hematocrit 28.4 L Mean Corpuscular 95.9 Volume Mean Corpuscular 30.4 Hemoglobin Mean Corpuscular 31.7 L Hemoglobin Concent Red Cell 15.7 H Distribution Width Platelet Count 166 Mean Platelet Volume 10.0 Immature 1.100 H Granulocytes % Neutrophils % 86.6 H Lymphocytes % 7.7 L Monocytes % 4.1 Eosinophils % 0.3 Basophils % 0.2 Nucleated Red Blood 0.0 Cells % Immature 0.130 H Granulocytes # Neutrophils # 10.0 H Lymphocytes # 0.9 Monocytes # 0.5 Eosinophils # 0.0 Basophils # 0.0 Nucleated Red Blood 0.0 Cells # Sodium Level 139 Potassium Level 4.2 Chloride Level 107 Carbon Dioxide Level 25 Anion Gap 7 Blood Urea Nitrogen 23 H Creatinine 1.26 H Est Glomerular Filtrat Rate mL/min Glucose Level 162 Calcium Level 8.1 L Test 04/21/19 08:23 04/21/19 12:14 Bedside Glucose 144 163 Medications Current Medications Albuterol (Proventil 0.083% (Neb)) 2.5 mg Q2H RESP THERAPY PRN NEB SHORTNESS OF BREATH Last administered on 04/11/19at 13:54; Admin Dose 2.5 MG; Start 04/11/19 at 00:00 Ipratropium [place] (Atrovent 0.02% (Neb)) 0.5 mg Q2H RESP THERAPY PRN NEB SHORTNESS OF BREATH Last administered on 04/11/19at 13:54; Admin Dose 0.5 MG; Start 04/11/19 at 00:00 Acetaminophen (Tylenol Liquid) 650 mg Q6H PRN PO PAIN LEVEL 1-3 OR FEVER; Start 04/11/19 at 00:00 Acetaminophen/ Hydrocodone Bitart ([place] (5/325)) 1 tab Q6H PRN PO PAIN LEVEL 4-6 Last administered on 04/11/19at 01:35; Admin Dose 1 TAB; Start 04/11/19 at 00:00 Docusate Sodium (Colace) 100 mg Q12H PRN PO CONSTIPATION; Start 04/11/19 at 00:00 Bisacodyl (Dulcolax) 5 mg DAILY PRN PO CONSTIPATION; Start 04/11/19 at 00:00 Diagnostic Test (Pha) (Accu-Chek) 1 ea 02 XX Last administered on 04/21/19at 02:36; Admin Dose 1 EA; Start 04/11/19 at 02:00 Insulin Aspart (Novolog Insulin Pen) NOVOLOG *MILD* ALGORITHM WITH MEALS BEDTIME SC Last administered on 04/21/19at 12:17; Admin Dose 1 UNIT; Start 04/11/19 at 08:00 Miscellaneous Information 1 ea NOTE XX ; Start 04/11/19 at 00:30 Glucose (Glutose) 15 gm Q15M PRN PO DECREASED GLUCOSE; Start 04/11/19 at 00:30 Glucose (Glutose) 22.5 gm Q15M PRN PO DECREASED GLUCOSE; Start 04/11/19 at 00:30 Dextrose (D50w Syringe) 25 ml Q15M PRN IV DECREASED GLUCOSE; Start 04/11/19 at 00:30 Dextrose (D50w Syringe) 50 ml Q15M PRN IV DECREASED GLUCOSE; Start 04/11/19 at 00:30 Glucagon (Glucagen) 1 mg Q15M PRN IM DECREASED GLUCOSE; Start 04/11/19 at 00:30 Glucose (Glutose) 15 gm Q15M PRN BUCCAL DECREASED GLUCOSE; Start 04/11/19 at 00:30 Miscellaneous Information (Pending Santyl Order For Wound Care) This patient coyle... PRN PRN XX WOUND CARE; Start 04/11/19 at 08:00 Acetaminophen (Tylenol Tab) 650 mg Q4H PRN PO MILD PAIN(1-3)OR ELEVATED TEMP Last administered on 04/21/19 02:28; Admin Dose 650 MG; Start 04/11/19 at 09:00 Bisacodyl (Dulcolax Supp) 10 mg DAILY PRN [place] CONSTIPATION; Start 04/11/19 at 09:00 Famotidine (Pepcid) 20 mg DAILY PO Last administered on 04/21/19 09:01; Admin Dose 20 MG; Start 04/12/19 at 09:00 Fluconazole (Diflucan) 100 mg DAILY PO Last administered on 04/21/19 09:01; Admin Dose 100 MG; Start 04/11/19 at 09:00 Albuterol/ Ipratropium (Duoneb) 3 ml Q4H RESP THERAPY PRN INH SHORTNESS OF BREATH Last administered on 04/19/19 01:41; Admin Dose 3 ML; Start 04/11/19 at 09:00 Linezolid (Zyvox) 600 mg BID PO Last administered on 04/21/19 09:01; Admin Dose 600 MG; Start 04/11/19 at 09:00 Amylase/Lipase/ Protease (CREON ([id number])) 1 cap WITH MEALS PO Last administered on 04/21/19 12:14; Admin Dose 1 CAP; Start 04/11/19 at 12:00 Terazosin HCl (Hytrin) 2 mg HS PO Last administered on 04/20/19 21:25; Admin Dose 2 MG; Start 04/11/19 at 21:00 Cefepime HCl 50 ml @ 100 mls/hr DAILY IVPB Last administered on 04/21/19 09:01; Admin Dose 100 MLS/HR; Start 04/11/19 at 13:00 Multivitamins Therapeutic (Theragran) 1 tab DAILY PO Last administered on 04/21/19 09:01; Admin Dose 1 TAB; Start 04/15/19 at 11:30 Ascorbic Acid (Vitamin C) 500 mg BID PO Last administered on 04/21/19 09:01; Admin Dose 500 MG; Start 04/15/19 at 11:30 Zinc Sulfate (Zinc Sulfate) 220 mg DAILY PO Last administered on 04/21/19 09:01; Admin Dose 220 MG; Start 04/15/19 at 11:30 Loperamide HCl (Imodium Cap) 2 mg BID PRN PO DIARRHEA Last administered on 04/20/19 21:31; Admin Dose 2 MG; Start 04/17/19 at 15:00 Escitalopram Oxalate (Lexapro) 10 mg DAILY PO Last administered on 04/21/19 09:; Admin Dose 10 MG; Start 04/18/19 at 12:30 Assessment/Plan Hospital Course (Demo Recall) IMPRESSION: 1. Obstructive jaundice. Status post ERCP 2. Right lower lobe pneumonia. 3. Complicated right parapneumonic effusion with loculations. 4. Chronic kidney disease. 5. Anemia. RECOMMENDATIONS: 1. Continue antibiotics. 2. GI workup as per consultants. 3. Thoracic surgery evaluation for possible VATS decortication Overall prognosis is guarded. FRANCIE BLAKE MD, [facility] Apr 21, 2019 15:06
--- NOTE | 2019-04-21 18:01 | PN ---
Date/Time of Note Date/Time of Note DATE: 04/21/19 TIME: 17:58 Assessment/Plan VTE Prophylaxis Risk score (from Ns)>0 risk: 7 SCD applied (from Ns): Yes Pharmacological prophylaxis: NA/contraindicated Pharm contraindication: low risk/ambulating Lines/Catheters IV Catheter Type (from [facility]): Mid Line Urinary Cath still in place: No Assessment/Plan Assessment/Plan 78-year-old man with unclear medical history admitted for shortness of breath soon after recent hospital admission at [place]. #R pleural effusion- patient also earlier had hypoxia and dyspnea - Currently patient breathing comfortably on nasal cannula 5 L - Has loculated R pleural effusion -thoracentesis not able to be performed secondary to loculated effusion. - Pulmonary is recommending VATS with debridement. Will consult Dr. Felix #Intra-abdominal infection/cholangitis?-At outside hospital a few days ago patient apparently was on linezolid, Zosyn, and fluconazole- Not septic on admission. - Continue current antibiotics per ID recommendations, monitor white blood cell count #Pancreatic mass -patient has jaundice and now transhepatic drain in place, GI on the case -Per records obtained from [place] where the patient was discharged last week on April 07, 2019, patient was found with obstructive jaundice at that time secondary to hepatic duct strictures + CBD strictures, and had percutaneous transhepatic drain placed on April 02, 2019. LFTs are trending d own now. Patient also underwent 2 ERCPs with brushing revealing no evidence of malignancy at that time and subsequent biliary stent placement at that time x2, which have since been removed. -Monitor, follow GI recommendations; based on cholangiogram results, GI team is recommending the following: Another ERCP and a cholangioscopic examination with a Spy Glass to visualize the possible tumor and perform biopsy - to be done in 24 hours on Saturday. -Before that, again will attempt to have IR perform another hepatic drain catheter change or exchange today (or at least an evaluation) since there is some leaking noted externally again #Elevated Cr-slowly trending down -Monitor, follow renal recommendations # hypertension: Blood pressure presently stable -Monitor, presently holding home BP meds given borderline blood pressures # diabetes mellitus: -Monitor, continue insulin sliding scale # DVT prophylaxis: Patient was on Eliquis for a history of atrial flutter, but this is being held secondary to elevated INR and for any potential procedures going to be performed in the next few days. Result Diagram: 04/21/19 0453 04/21/19 0453 Subjective 24 Hr Interval Summary Free Text/Dictation No acute overnight events. Patient feeling well. Exam/Review of Systems Exam Vitals Vital Signs Date Temp Pulse Resp B/P (MAP) Pulse Ox O2 O2 Flow FiO2 Time Delivery Rate 04/21/19 125 17:05 04/21/19 97.7 20 117/77 99 15:46 (90) 04/21/19 Room Air 07:34 04/21/19 3.0 07:30 04/21/19 31 01:29 Intake and Output 04/20/19 04/20/19 04/21/19 1515:00 23:00 07:00 IntakeIntake Total 0 ml BalanceBalance 0 ml Exam General: Frail appearing elderly man lying in bed, sleeping comfortably on 3L NC HEENT: Atraumatic, normocephalic. The pupils are equal, round and reactive. Neck: Supple with full range of motion. No JVD Chest: Nontender Lungs: Coarse breath sounds bilaterally Heart: Normal S1-S2, Regular rhythm and rate. No murmur, S3, or S4 Abdomen: Soft , nontender, nondistended , bowel sounds are present. RUQ transhepatic tube with biliary drainage. Extremities: Normal to inspection, no edema no cyanosis Neurologic: Normal mental status, speech normal, alert and oriented, able to give most medical history. Skin: Diffuse jaundice Results Results 24hrs Laboratory Tests Test 04/20/19 21:19 04/21/19 02:32 04/21/19 04:53 04/21/19 08:23 Bedside Glucose 210 176 144 White Blood Count 11.6 H Red Blood Count 2.96 L Hemoglobin 9.0 L Hematocrit 28.4 L Mean Corpuscular 95.9 Volume Mean Corpuscular 30.4 Hemoglobin Mean Corpuscular 31.7 L Hemoglobin Concent Red Cell 15.7 H Distribution Width Platelet Count 166 Mean Platelet Volume 10.0 Immature 1.100 H Granulocytes % Neutrophils % 86.6 H Lymphocytes % 7.7 L Monocytes % 4.1 Eosinophils % 0.3 Basophils % 0.2 Nucleated Red Blood 0.0 Cells % Immature 0.130 H Granulocytes # Neutrophils # 10.0 H Lymphocytes # 0.9 Monocytes # 0.5 Eosinophils # 0.0 Basophils # 0.0 Nucleated Red Blood 0.0 Cells # Sodium Level 139 Potassium Level 4.2 Chloride Level 107 Carbon Dioxide Level 25 Anion Gap 7 Blood Urea Nitrogen 23 H Creatinine 1.26 H Est Glomerular Filtrat Rate mL/min Glucose Level 162 Calcium Level 8.1 L Test 04/21/19 12:14 04/21/19 17:26 Bedside Glucose 163 183 Medications Medication Current Medications Albuterol (Proventil 0.083% (Neb)) 2.5 mg Q2H RESP THERAPY PRN NEB SHORTNESS OF BREATH Last administered on 04/11/19at 13:54; Admin Dose 2.5 MG; Start 04/11/19 at 00:00 Ipratropium [place] (Atrovent 0.02% (Neb)) 0.5 mg Q2H RESP THERAPY PRN NEB SHORTNESS OF BREATH Last administered on 04/11/19at 13:54; Admin Dose 0.5 MG; Start 04/11/19 at 00:00 Acetaminophen (Tylenol Liquid) 650 mg Q6H PRN PO PAIN LEVEL 1-3 OR FEVER; Start 04/11/19 at 00:00 Acetaminophen/ Hydrocodone Bitart ([place] (5/325)) 1 tab Q6H PRN PO PAIN LEVEL 4-6 Last administered on 04/11/19at 01:35; Admin Dose 1 TAB; Start 04/11/19 at 00:00 Docusate Sodium (Colace) 100 mg Q12H PRN PO CONSTIPATION; Start 04/11/19 at 00:00 Bisacodyl (Dulcolax) 5 mg DAILY PRN PO CONSTIPATION; Start 04/11/19 at 00:00 Diagnostic Test (Pha) (Accu-Chek) 1 ea 02 XX Last administered on 04/21/19at 02:36; Admin Dose 1 EA; Start 04/11/19 at 02:00 Insulin Aspart (Novolog Insulin Pen) NOVOLOG *MILD* ALGORITHM WITH MEALS BEDTIME SC Last administered on 04/21/19at 17:36; Admin Dose 2 UNIT; Start 04/11/19 at 08:00 Miscellaneous Information 1 ea NOTE XX ; Start 04/11/19 at 00:30 Glucose (Glutose) 15 gm Q15M PRN PO DECREASED GLUCOSE; Start 04/11/19 at 00:30 Glucose (Glutose) 22.5 gm Q15M PRN PO DECREASED GLUCOSE; Start 04/11/19 at 00:30 Dextrose (D50w Syringe) 25 ml Q15M PRN IV DECREASED GLUCOSE; Start 04/11/19 at 00:30 Dextrose (D50w Syringe) 50 ml Q15M PRN IV DECREASED GLUCOSE; Start 04/11/19 at 00:30 Glucagon (Glucagen) 1 mg Q15M PRN IM DECREASED GLUCOSE; Start 04/11/19 at 00:30 Glucose (Glutose) 15 gm Q15M PRN BUCCAL DECREASED GLUCOSE; Start 04/11/19 at 00:30 Miscellaneous Information (Pending Santyl Order For Wound Care) This patient coyle... PRN PRN XX WOUND CARE; Start 04/11/19 at 08:00 Acetaminophen (Tylenol Tab) 650 mg Q4H PRN PO MILD PAIN(1-3)OR ELEVATED TEMP Last administered on 04/21/19 02:28; Admin Dose 650 MG; Start 04/11/19 at 09:00 Bisacodyl (Dulcolax Supp) 10 mg DAILY PRN [place] CONSTIPATION; Start 04/11/19 at 09:00 Famotidine (Pepcid) 20 mg DAILY PO Last administered on 04/21/19 09:01; Admin Dose 20 MG; Start 04/12/19 at 09:00 Fluconazole (Diflucan) 100 mg DAILY PO Last administered on 04/21/19 09:01; Admin Dose 100 MG; Start 04/11/19 at 09:00 Albuterol/ Ipratropium (Duoneb) 3 ml Q4H RESP THERAPY PRN INH SHORTNESS OF BREATH Last administered on 04/19/19 01:41; Admin Dose 3 ML; Start 04/11/19 at 09:00 Linezolid (Zyvox) 600 mg BID PO Last administered on 04/21/19 09:01; Admin Dose 600 MG; Start 04/11/19 at 09:00 Amylase/Lipase/ Protease (CREON ([id number])) 1 cap WITH MEALS PO Last administered on 04/21/19 17:25; Admin Dose 1 CAP; Start 04/11/19 at 12:00 Terazosin HCl (Hytrin) 2 mg HS PO Last administered on 04/20/19 21:25; Admin Dose 2 MG; Start 04/11/19 at 21:00 Cefepime HCl 50 ml @ 100 mls/hr DAILY IVPB Last administered on 04/21/19 09:01; Admin Dose 100 MLS/HR; Start 04/11/19 at 13:00 Multivitamins Therapeutic (Theragran) 1 tab DAILY PO Last administered on 04/21/19 09:01; Admin Dose 1 TAB; Start 04/15/19 at 11:30 Ascorbic Acid (Vitamin C) 500 mg BID PO Last administered on 04/21/19 09:01; Admin Dose 500 MG; Start 04/15/19 at 11:30 Zinc Sulfate (Zinc Sulfate) 220 mg DAILY PO Last administered on 04/21/19 09:01; Admin Dose 220 MG; Start 04/15/19 at 11:30 Loperamide HCl (Imodium Cap) 2 mg BID PRN PO DIARRHEA Last administered on 04/20/19 21:31; Admin Dose 2 MG; Start 04/17/19 at 15:00 Escitalopram Oxalate (Lexapro) 10 mg DAILY PO Last administered on 04/21/19 09:01; Admin Dose 10 MG; Start 04/18/19 at 12:30 ALVARO LA MD Apr 21, 2019 18:01
[2019-04-21] MEDS: LOPERAMIDE 2 MG CAP PO PRN (20:09)
[2019-04-21] MEDS: TERAZOSIN 2 MG CAP PO SCH (20:09)
[2019-04-22] VITALS (8 sets, daily range): BP systolic 110–125; BP diastolic 73–85; PULSE 98–126; RESP 18–20
[2019-04-22] MEDS: ACCU-CHEK XX SCH (02:10)
[2019-04-22] MEDS: CEFEPIME 1GM/50 ML (PMX) 50 ML IVPB SCH (08:20)
[2019-04-22] MEDS: INSULIN ASPART [NOVOLOG] 3 ML PEN SC SCH ×4 (08:27→20:55)
[2019-04-22] MEDS: ASCORBIC ACID 500 MG TAB PO SCH ×2 (08:33→20:24)
[2019-04-22] MEDS: CREON (12k-38k-60k) 1 CAP PO SCH ×3 (08:33→17:53)
[2019-04-22] MEDS: ZINC SULFATE 220 MG CAP PO SCH (08:33)
[2019-04-22] MEDS: ZYVOX 600 MG TAB PO SCH ×2 (08:33→20:24)
[2019-04-22] MEDS: MULTIVITAMINS THERAPEUTIC TAB PO SCH (08:33)
[2019-04-22] MEDS: FAMOTIDINE 20 MG TAB PO SCH (08:33)
[2019-04-22] MEDS: ESCITALOPRAM 10 MG TAB PO SCH (08:33)
[2019-04-22] MEDS: FLUCONAZOLE 100 MG TAB PO SCH (08:34)
--- NOTE | 2019-04-22 08:43 | PN ---
DATE: 04/22/2019 SUBJECTIVE: The patient is stable. The patient had mild shortness of breath this morning. No other events noted. OBJECTIVE: VITAL SIGNS: Blood pressure is 119/80, respirations 20, pulse 110, temperature 97.6. HEENT: Head is normocephalic. NECK: Supple. HEART: Regular rate. LUNGS: Show diminished breath sounds at the base. ABDOMEN: Soft, nontender to palpation without rebound or guarding. EXTREMITIES: Negative for clubbing, cyanosis, no edema. DERMATOLOGIC: No rashes. MUSCULOSKELETAL: No joint effusion. NEUROLOGIC: No change in exam. MEDICATIONS: Reviewed. LABORATORY DATA: Reviewed. ASSESSMENT AND PLAN: 1. Nonoliguric acute kidney injury on top of chronic kidney disease. Etiology is secondary to hemod ynamics. Renal function is improved. Continue to monitor. 2. Chronic kidney disease. Continue disease factor modification, continue treatment plan as stated above. 3. Shortness of breath. Plan is to check chest x-ray. 4. Anemia. Monitor hemoglobin and hematocrit levels. 5. Mineral bone disorder. Monitor calcium and phosphorus levels. 6. Hypertension. Continue current blood pressure regimen. 7. Pancreatic mass. The patient is status post ERCP, status post cholangiogram. The patient's hepa tic drainage is noted. Continue to monitor. Follow up with GI. 8. Systemic inflammatory response syndrome. Continue medical management. 9. Right pleural effusion. Continue to monitor. 10. Pneumonia. Continue current antibiotic regimen. Dictated By: PRANEETH BARNES/NTS Conf#: [id number] DID#: [id number] CC: PETR REESE MD; ALVARO LA MD; TANIKA GRAYSON MD;*EndCC*
--- NOTE | 2019-04-22 13:44 | PN ---
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 CT chest shows large loculated effusion. At this time would recommend ct guided pigtail catheter placement and TPA. He is not the best candidate for surgery at this time. Discussed with patient who agrees with plan. Exam/Review of Systems Vital Signs Vitals Vital Signs Date Temp Pulse Resp B/P (MAP) Pulse Ox O2 O2 Flow FiO2 Time Delivery Rate 04/22/19 125 12:15 04/22/19 97.3 20 118/76 100 Room Air 11:35 (90) 04/22/19 3.0 07:31 04/21/19 31 01:29 Intake and Output 04/21/19 04/21/19 04/22/19 1515:00 23:00 07:00 IntakeIntake Total 50 ml 360 ml 290 ml OutputOutput Total 500 ml 400 ml BalanceBalance -450 ml 360 ml -110 ml Results Result Diagram: 04/22/19 0514 04/22/19 0514 MIREILLE RIVAS MD Apr 22, 2019 13:44
--- NOTE | 2019-04-22 14:55 | PN ---
Date/Time of Note Date/Time of Note DATE: 04/22/19 TIME: 14:52 Assessment/Plan VTE Prophylaxis Risk score (from Ns)>0 risk: 7 SCD applied (from Ns): No SCD contraindicated: low risk/ambulating Pharmacological prophylaxis: NA/contraindicated Pharm contraindication: low risk/ambulating Lines/Catheters [facility] Mid Line Urinary Cath still in place: No Assessment/Plan Assessment/Plan 78-year-old man with unclear medical history admitted for shortness of breath soon after recent hospital admission at [place]. #R pleural effusion- patient also earlier had hypoxia and dyspnea - Currently patient breathing comfortably on room air. - Has loculated R pleural effusion - thoracentesis not able to be performed secondary to loculated effusion. - Pulmonary is recommending VATS with debridement, however per Dr. Nelson an IR-guided chest tube would be better. #Intra-abdominal infection/cholangitis?-At outside hospital a few days ago patient apparently was on linezolid, Zosyn, and fluconazole- Not septic on admission. - Continue current antibiotics per ID recommendations, monitor white blood ce ll count #Pancreatic mass -patient has jaundice and now transhepatic drain in place, GI on the case -Per records obtained from [facility] where the patient was discharged last week on April 07, 2019, patient was found with obstructive jaundice at that time secondary to hepatic duct strictures + CBD strictures, and had percutaneous transhepatic drain placed on April 02, 2019. LFTs are trending down now. Patient also underwent 2 ERCPs with brushing revealing no evidence of malignancy at that time and subsequent biliary stent placement at that time x2, which have since been removed. - s/p ERCP 04/21 with biopsies taken and biliary drain internalized. #Elevated Cr-slowly trending down -Monitor, follow renal recommendations # hypertension: Blood pressure presently stable -Monitor, presently holding home BP meds given borderline blood pressures # diabetes mellitus: -Monitor, continue insulin sliding scale # DVT prophylaxis: Patient was on Eliquis for a history of atrial flutter, but this is being held secondary to elevated INR and for any potential procedures going to be performed in the next few days. Dispo: Patient lives alone. He wants to go back home. Result Diagram: 04/22/19 0514 04/22/19 0514 Subjective 24 Hr Interval Summary Free Text/Dictation No acute overnight events. Patient on room air today. Able to ambulate with PT using his prosthesis. He reports feeling much better now that biliary stent has been internalized. Exam/Review of Systems Exam Vitals Vital Signs Date Temp Pulse Resp B/P (MAP) Pulse Ox O2 O2 Flow FiO2 Time Delivery Rate 04/22/19 125 12:15 04/22/19 97.3 20 118/76 100 Room Air 11:35 (90) 04/22/19 3.0 07:31 04/21/19 31 01:29 Intake and Output 04/21/19 04/21/19 04/22/19 1515:00 23:00 07:00 IntakeIntake Total 50 ml 360 ml 290 ml OutputOutput Total 500 ml 400 ml BalanceBalance -450 ml 360 ml -110 ml Exam General: Frail appearing elderly man lying in bed, awake and alert. HEENT: Atraumatic, normocephalic. The pupils are equal, round and reactive. Neck: Supple with full range of motion. No JVD Chest: Nontender Lungs: Coarse breath sounds bilaterally Heart: Normal S1-S2, Regular rhythm and rate. No murmur, S3, or S4 Abdomen: Soft , nontender, nondistended , bowel sounds are present. RUQ transhe patic tube with biliary drainage. Extremities: Normal to inspection, no edema no cyanosis Neurologic: Normal mental status, speech normal, alert and oriented, able to give most medical history. Skin: Diffuse jaundice now improving Results Results 24hrs Laboratory Tests Test 04/21/19 17:26 04/21/19 20:12 04/22/19 02:09 04/22/19 05:14 Bedside Glucose 183 204 182 White Blood Count 9.8 Red Blood Count 3.10 L Hemoglobin 9.5 L Hematocrit 29.9 L Mean Corpuscular 96.5 Volume Mean Corpuscular 30.6 Hemoglobin Mean Corpuscular 31.8 L Hemoglobin Concent Red Cell 15.4 H Distribution Width Platelet Count 169 Mean Platelet Volume 9.7 Immature 1.000 H Granulocytes % Neutrophils % 84.0 H Lymphocytes % 9.0 L Monocytes % 4.9 Eosinophils % 0.8 Basophils % 0.3 Nucleated Red Blood 0.0 Cells % Immature 0.100 H Granulocytes # Neutrophils # 8.2 H Lymphocytes # 0.9 Monocytes # 0.5 Eosinophils # 0.1 Basophils # 0.0 Nucleated Red Blood 0.0 Cells # Sodium Level 138 Potassium Level 4.2 Chloride Level 105 Carbon Dioxide Level 27 Anion Gap 6 Blood Urea Nitrogen 24 H Creatinine 1.15 Est Glomerular Filtrat Rate mL/min Glucose Level 178 Calcium Level 8.2 L Test 04/22/19 08:21 Bedside Glucose 166 Medications Medication Current Medications Albuterol (Proventil 0.083% (Neb)) 2.5 mg Q2H RESP THERAPY PRN NEB SHORTNESS OF BREATH Last administered on 04/11/19at 13:54; Admin Dose 2.5 MG; Start 04/11/19 at 00:00 Ipratropium [place] (Atrovent 0.02% (Neb)) 0.5 mg Q2H RESP THERAPY PRN NEB SHORTNESS OF BREATH Last administered on 04/11/19at 13:54; Admin Dose 0.5 MG; Start 04/11/19 at 00:00 Acetaminophen (Tylenol Liquid) 650 mg Q6H PRN PO PAIN LEVEL 1-3 OR FEVER; Start 04/11/19 at 00:00 Acetaminophen/ Hydrocodone Bitart ([place] (5/325)) 1 tab Q6H PRN PO PAIN LEVEL 4-6 Last administered on 04/11/19at 01:35; Admin Dose 1 TAB; Start 04/11/19 at 00:00 Docusate Sodium (Colace) 100 mg Q12H PRN PO CONSTIPATION; Start 04/11/19 at 00:00 Bisacodyl (Dulcolax) 5 mg DAILY PRN PO CONSTIPATION; Start 04/11/19 at 00:00 Diagnostic Test (Pha) (Accu-Chek) 1 ea 02 XX Last administered on 04/22/19at 02:10; Admin Dose 1 EA; Start 04/11/19 at 02:00 Insulin Aspart (Novolog Insulin Pen) NOVOLOG *MILD* ALGORITHM WITH MEALS BEDTIME SC Last administered on 04/22/19at 08:27; Admin Dose 1 UNIT; Start 04/11/19 at 08:00 Miscellaneous Information 1 ea NOTE XX ; Start 04/11/19 at 00:30 Glucose (Glutose) 15 gm Q15M PRN PO DECREASED GLUCOSE; Start 04/11/19 at 00:30 Glucose (Glutose) 22.5 gm Q15M PRN PO DECREASED GLUCOSE; Start 04/11/19 at 00:30 Dextrose (D50w Syringe) 25 ml Q15M PRN IV DECREASED GLUCOSE; Start 04/11/19 at 00:30 Dextrose (D50w Syringe) 50 ml Q15M PRN IV DECREASED GLUCOSE; Start 04/11/19 at 00:30 Glucagon (Glucagen) 1 mg Q15M PRN IM DECREASED GLUCOSE; Start 04/11/19 at 00:30 Glucose (Glutose) 15 gm Q15M PRN BUCCAL DECREASED GLUCOSE; Start 04/11/19 at 00:30 Miscellaneous Information (Pending [facility] Order For Wound Care) This patient coyle. .. PRN PRN XX WOUND CARE; Start 04/11/19 at 08:00 Acetaminophen (Tylenol Tab) 650 mg Q4H PRN PO MILD PAIN(1-3)OR ELEVATED TEMP Last administered on 04/21/19at 02:28; Admin Dose 650 MG; Start 04/11/19 at 09:00 Bisacodyl (Dulcolax Supp) 10 mg DAILY PRN [place] CONSTIPATION; Start 04/11/19 at 09:00 Famotidine (Pepcid) 20 mg DAILY PO Last administered on 04/22/19 08:33; Admin Dose 20 MG; Start 04/12/19 at 09:00 Fluconazole (Diflucan) 100 mg DAILY PO Last administered on 04/22/19 08:34; Admin Dose 100 MG; Start 04/11/19 at 09:00 Albuterol/ Ipratropium (Duoneb) 3 ml Q4H RESP THERAPY PRN INH SHORTNESS OF BREATH Last administered on 04/19/19 01:41; Admin Dose 3 ML; Start 04/11/19 at 09:00 Linezolid (Zyvox) 600 mg BID PO Last administered on 04/22/19 08:33; Admin Dose 600 MG; Start 04/11/19 at 09:00 Amylase/Lipase/ Protease (CREON (12q-56k-60k)) 1 cap WITH MEALS PO Last administered on 04/22/19 08:33; Admin Dose 1 CAP; Start 04/11/19 at 12:00 Terazosin HCl (Hytrin) 2 mg HS PO Last administered on 04/21/19 20:09; Admin Dose 2 MG; Start 04/11/19 at 21:00 Cefepime HCl 50 ml @ 100 mls/hr DAILY IVPB Last administered on 04/22/19 08:20; Admin Dose 100 MLS/HR; Start 04/11/19 at 13:00 Multivitamins Therapeutic (Theragran) 1 tab DAILY PO Last administered on 04/22/19 08:33; Admin Dose 1 TAB; Start 04/15/19 at 11:30 Ascorbic Acid (Vitamin C) 500 mg BID PO Last administered on 04/22/19 08:33; Admin Dose 500 MG; Start 04/15/19 at 11:30 Zinc Sulfate (Zinc Sulfate) 220 mg DAILY PO Last administered on 04/22/19 08:33; Admin Dose 220 MG; Start 04/15/19 at 11:30 Loperamide HCl (Imodium Cap) 2 mg BID PRN PO DIARRHEA Last administered on 04/21/19 20:09; Admin Dose 2 MG; Start 04/17/19 at 15:00 Escitalopram Oxalate (Lexapro) 10 mg DAILY PO Last administered on 04/22/19 08:33; Admin Dose 10 MG; Start 04/18/19 at 12:30 ALVARO LA MD Apr 22, 2019 14:55
--- NOTE | 2019-04-22 15:31 | CONS ---
Consult Date/Type/Reason Admit Date/Time Apr 11, 2019 at 01:42 Initial Consult Date 04/11/19 Type of Consult Pulmonary Date/Time of Note DATE: 04/22/19 TIME: 15:24 Subjective Patient remained stable. No new events no shortness of breath. Objective Vital Signs Date Temp Pulse Resp B/P (MAP) Pulse Ox O2 O2 Flow FiO2 Time Delivery Rate 04/22/19 97.4 125 18 117/76 98 Room Air 15:19 (90) 04/22/19 3.0 07:31 04/21/19 31 01:29 Intake and Output 04/21/19 04/21/19 04/22/19 1414:59 22:59 06:59 IntakeIntake Total 50 ml 360 ml 290 ml OutputOutput Total 500 ml 400 ml BalanceBalance -450 ml 360 ml -110 ml Exam PHYSICAL EXAMINATION: VITAL SIGNS: HEENT: Pupils are equal and react to light. O2. NECK: Supple, no JVD noted, no cervical adenopathy noted. LUNGS: No breath sounds on the left side. CARDIOVASCULAR: S1 and S2 normal. ABDOMEN: Soft, nontender, no guarding noted. EXTREMITIES: No clubbing or cyanosis noted, 3+ edema present on both lower extremities. NEUROLOGICAL: Awake. Vent Setting Fraction of Inspired Oxygen pe: 31 Results/Medications Result Diagram: 04/22/19 0514 04/22/19 1427 Results 24 hrs Laboratory Tests Test 04/21/19 17:26 04/21/19 20:12 04/22/19 02:09 04/22/19 05:14 Bedside Glucose 183 204 182 White Blood Count 9.8 Red Blood Count 3.10 L Hemoglobin 9.5 L Hematocrit 29.9 L Mean Corpuscular 96.5 Volume Mean Corpuscular 30.6 Hemoglobin Mean Corpuscular 31.8 L Hemoglobin Concent Red Cell 15.4 H Distribution Width Platelet Count 169 Mean Platelet Volume 9.7 Immature 1.000 H Granulocytes % Neutrophils % 84.0 H Lymphocytes % 9.0 L Monocytes % 4.9 Eosinophils % 0.8 Basophils % 0.3 Nucleated Red Blood 0.0 Cells % Immature 0.100 H Granulocytes # Neutrophils # 8.2 H Lymphocytes # 0.9 Monocytes # 0.5 Eosinophils # 0.1 Basophils # 0.0 Nucleated Red Blood 0.0 Cells # Sodium Level 138 Potassium Level 4.2 Chloride Level 105 Carbon Dioxide Level 27 Anion Gap 6 Blood Urea Nitrogen 24 H Creatinine 1.15 Est Glomerular Filtrat Rate mL/min Glucose Level 178 Calcium Level 8.2 L Test 04/22/19 08:21 04/22/19 14:27 Bedside Glucose 166 Sodium Level 136 Potassium Level 4.2 Chloride Level 103 Carbon Dioxide Level 25 Anion Gap 8 Blood Urea Nitrogen 24 H Creatinine 1.15 Est Glomerular Filtrat Rate mL/min Glucose Level 226 H Calcium Level 8.3 L Total Bilirubin 0.9 Direct Bilirubin 0.00 Indirect Bilirubin 0.9 Aspartate Amino 60 H Transf (AST/SGOT) Alanine 47 Aminotransferase (AL T/SGPT) Alkaline Phosphatase 1087 H Total Protein 6.3 Albumin 2.7 L Globulin 3.60 H Albumin/Globulin 0.75 Ratio Medications Current Medications Albuterol (Proventil 0.083% (Neb)) 2.5 mg Q2H RESP THERAPY PRN NEB SHORTNESS OF BREATH Last administered on 04/11/19at 13:54; Admin Dose 2.5 MG; Start 04/11/19 at 00:00 Ipratropium [place] (Atrovent 0.02% (Neb)) 0.5 mg Q2H RESP THERAPY PRN NEB SHORTNESS OF BREATH Last administered on 04/11/19at 13:54; Admin Dose 0.5 MG; Start 04/11/19 at 00:00 Acetaminophen (Tylenol Liquid) 650 mg Q6H PRN PO PAIN LEVEL 1-3 OR FEVER; Start 04/11/19 at 00:00 Acetaminophen/ Hydrocodone Bitart ([place] (5/325)) 1 tab Q6H PRN PO PAIN LEVEL 4-6 Last administered on 04/11/19at 01:35; Admin Dose 1 TAB; Start 04/11/19 at 00:00 Docusate Sodium (Colace) 100 mg Q12H PRN PO CONSTIPATION; Start 04/11/19 at 00:00 Bisacodyl (Dulcolax) 5 mg DAILY PRN PO CONSTIPATION; Start 04/11/19 at 00:00 Diagnostic Test (Pha) (Accu-Chek) 1 ea 02 XX Last administered on 04/22/19at 02:10; Admin Dose 1 EA; Start 04/11/19 at 02:00 Insulin Aspart (Novolog Insulin Pen) NOVOLOG *MILD* ALGORITHM WITH MEALS BEDTIME SC Last administered on 04/22/19at 08:27; Admin Dose 1 UNIT; Start 04/11/19 at 08:00 Miscellaneous Information 1 ea NOTE XX ; Start 04/11/19 at 00:30 Glucose (Glutose) 15 gm Q15M PRN PO DECREASED GLUCOSE; Start 04/11/19 at 00:30 Glucose (Glutose) 22.5 gm Q15M PRN PO DECREASED GLUCOSE; Start 04/11/19 at 00:30 Dextrose (D50w Syringe) 25 ml Q15M PRN IV DECREASED GLUCOSE; Start 04/11/19 at 00:30 Dextrose (D50w Syringe) 50 ml Q15M PRN IV DECREASED GLUCOSE; Start 04/11/19 at 00:30 Glucagon (Glucagen) 1 mg Q15M PRN IM DECREASED GLUCOSE; Start 04/11/19 at 00:30 Glucose (Glutose) 15 gm Q15M PRN BUCCAL DECREASED GLUCOSE; Start 04/11/19 at 00:30 Miscellaneous Information (Pending [facility] Order For Wound Care) This patient coyle... PRN PRN XX WOUND CARE; Start 04/11/19 at 08:00 Acetaminophen (Tylenol Tab) 650 mg Q4H PRN PO MILD PAIN(1-3)OR ELEVATED TEMP Last administered on 04/21/19at 02:28; Admin Dose 650 MG; Start 04/11/19 at 09:00 Bisacodyl (Dulcolax Supp) 10 mg DAILY PRN [place] CONSTIPATION; Start 04/11/19 at 09:00 Famotidine (Pepcid) 20 mg DAILY PO Last administered on 04/22/19at 08:33; Admin Dose 20 MG; Start 04/12/19 at 09:00 Fluconazole (Diflucan) 100 mg DAILY PO Last administered on 04/22/19at 08:34; Admin Dose 100 MG; Start 04/11/19 at 09:00 Albuterol/ Ipratropium (Duoneb) 3 ml Q4H RESP THERAPY PRN INH SHORTNESS OF BREATH Last administered on 04/19/19at 01:41; Admin Dose 3 ML; Start 04/11/19 at 09:00 Linezolid (Zyvox) 600 mg BID PO Last administered on 04/22/19at 08:33; Admin Dose 600 MG; Start 04/11/19 at 09:00 Amylase/Lipase/ Protease (CREON (81k-88k-60k)) 1 cap WITH MEALS PO Last admi nistered on 04/22/19 08:33; Admin Dose 1 CAP; Start 04/11/19 at 12:00 Terazosin HCl (Hytrin) 2 mg HS PO Last administered on 04/21/19 20:09; Admin Dose 2 MG; Start 04/11/19 at 21:00 Cefepime HCl 50 ml @ 100 mls/hr DAILY IVPB Last administered on 04/22/19 08:20; Admin Dose 100 MLS/HR; Start 04/11/19 at 13:00 Multivitamins Therapeutic (Theragran) 1 tab DAILY PO Last administered on 04/22/19 08:33; Admin Dose 1 TAB; Start 04/15/19 at 11:30 Ascorbic Acid (Vitamin C) 500 mg BID PO Last administered on 04/22/19 08:33; Admin Dose 500 MG; Start 04/15/19 at 11:30 Zinc Sulfate (Zinc Sulfate) 220 mg DAILY PO Last administered on 04/22/19 08:33; Admin Dose 220 MG; Start 04/15/19 at 11:30 Loperamide HCl (Imodium Cap) 2 mg BID PRN PO DIARRHEA Last administered on 04/21/19 20:09; Admin Dose 2 MG; Start 04/17/19 at 15:00 Escitalopram Oxalate (Lexapro) 10 mg DAILY PO Last administered on 04/22/19 08:33; Admin Dose 10 MG; Start 04/18/19 at 12:30 Assessment/Plan Hospital Course (Demo Recall) IMPRESSION: 1. Obstructive jaundice. Status post ERCP 2. Right lower lobe pneumonia. 3. Complicated right parapneumonic effusion with loculations. 4. Chronic kidney disease. 5. Anemia. RECOMMENDATIONS: 1. Continue GI recommendations 2. Physical therapy as tolerated Agree with holding off on thoracic work-up given current poor condition Overall prognosis is guarded. FRANCIE BLAKE MD, [facility] Apr 22, 2019 15:31
--- NOTE | 2019-04-22 15:36 | CONS ---
Assessment/Plan Assessment/Plan Hospital Course (Demo Recall) Patient is awake feels better looks comfortable no fevers overnight. WBC 9.8 platelets 169 neutrophils 84 BUN 24 creatinine 1.15 Microbiology: Blood cultures remain negative Antimicrobials: Cefepime, fluconazole, Zyvox Physical examination: Well-developed ill-appearing elderly man who is awake in no distress. Head atraumatic normocephalic sclera anicteric bugle mucosa dry neck is supple trachea midline chest rise symmetrical breath sounds diminished bases heart: S1-S2 abdomen soft bowel sounds present patient has right-sided abdominal drainage catheter with the back attached. Extremities without cyanosis. Skin: Improved jaundice Assessment: 1. Systemic inflammatory response syndrome 2. Obstructive jaundice status post ERCP 3. Large loculated right-sided pleural effusion ? malignant vs infectious 4. Acute on chronic kidney disease 5. Hypertension 6. Hypertension Plan: Remains stable, cardiothoracic surgery recommendations noted, patient is not a surgical candidate, possible Pleurx Consultation Date/Type/Reason Admit Date/Time Apr 11, 2019 at 01:42 Initial Consult Date 04/11/19 Type of Consult id Date/Time of Note DATE: 04/22/19 TIME: 15:35 Exam/Review of Systems Exam Vitals Vital Signs Date Temp Pulse Resp B/P (MAP) Pulse Ox O2 O2 Flow FiO2 Time Delivery Rate 04/22/19 97.4 125 18 117/76 98 Room Air 15:19 (90) 04/22/19 3.0 07:31 04/21/19 31 01:29 Intake and Output 04/21/19 04/21/19 04/22/19 1515:00 23:00 07:00 IntakeIntake Total 50 ml 360 ml 290 ml OutputOutput Total 500 ml 400 ml BalanceBalance -450 ml 360 ml -110 ml Results Result Diagram: 04/22/19 0514 04/22/19 1427 Results 24hrs Laboratory Tests Test 04/21/19 17:26 04/21/19 20:12 04/22/19 02:09 04/22/19 05:14 Bedside Glucose 183 204 182 White Blood Count 9.8 Red Blood Count 3.10 L Hemoglobin 9.5 L Hematocrit 29.9 L Mean Corpuscular 96.5 Volume Mean Corpuscular 30.6 Hemoglobin Mean Corpuscular 31.8 L Hemoglobin Concent Red Cell 15.4 H Distribution Width Platelet Count 169 Mean Platelet Volume 9.7 Immature 1.000 H Granulocytes % Neutrophils % 84.0 H Lymphocytes % 9.0 L Monocytes % 4.9 Eosinophils % 0.8 Basophils % 0.3 Nucleated Red Blood 0.0 Cells % Immature 0.100 H Granulocytes # Neutrophils # 8.2 H Lymphocytes # 0.9 Monocytes # 0.5 Eosinophils # 0.1 Basophils # 0.0 Nucleated Red Blood 0.0 Cells # Sodium Level 138 Potassium Level 4.2 Chloride Level 105 Carbon Dioxide Level 27 Anion Gap 6 Blood Urea Nitrogen 24 H Creatinine 1.15 Est Glomerular Filtrat Rate mL/min Glucose Level 178 Calcium Level 8.2 L Test 04/22/19 08:21 04/22/19 14:27 Bedside Glucose 166 Sodium Level 136 Potassium Level 4.2 Chloride Level 103 Carbon Dioxide Level 25 Anion Gap 8 Blood Urea Nitrogen 24 H Creatinine 1.15 Est Glomerular Filtrat Rate mL/min Glucose Level 226 H Calcium Level 8.3 L Total Bilirubin 0.9 Direct Bilirubin 0.00 Indirect Bilirubin 0.9 Aspartate Amino 60 H Transf (AST/SGOT) Alanine 47 Aminotransferase (AL T/SGPT) Alkaline Phosphatase 1087 H Total Protein 6.3 Albumin 2.7 L Globulin 3.60 H Albumin/Globulin 0.75 Ratio Medications Medication Current Medications Albuterol (Proventil 0.083% (Neb)) 2.5 mg Q2H RESP THERAPY PRN NEB SHORTNESS OF BREATH Last administered on 04/11/19at 13:54; Admin Dose 2.5 MG; Start 04/11/19 at 00:00 Ipratropium [place] (Atrovent 0.02% (Neb)) 0.5 mg Q2H RESP THERAPY PRN NEB SHORTNESS OF BREATH Last administered on 04/11/19at 13:54; Admin Dose 0.5 MG; Start 04/11/19 at 00:00 Acetaminophen (Tylenol Liquid) 650 mg Q6H PRN PO PAIN LEVEL 1-3 OR FEVER; Start 04/11/19 at 00:00 Acetaminophen/ Hydrocodone Bitart ([place] (5/325)) 1 tab Q6H PRN PO PAIN LEVEL 4-6 Last administered on 04/11/19at 01:35; Admin Dose 1 TAB; Start 04/11/19 at 00:00 Docusate Sodium (Colace) 100 mg Q12H PRN PO CONSTIPATION; Start 04/11/19 at 00:00 Bisacodyl (Dulcolax) 5 mg DAILY PRN PO CONSTIPATION; Start 04/11/19 at 00:00 Diagnostic Test (Pha) (Accu-Chek) 1 ea 02 XX Last administered on 04/22/19at 02:10; Admin Dose 1 EA; Start 04/11/19 at 02:00 Insulin Aspart (Novolog Insulin Pen) NOVOLOG *MILD* ALGORITHM WITH MEALS BEDTIME SC Last administered on 04/22/19at 08:27; Admin Dose 1 UNIT; Start 04/11/19 at 08:00 Miscellaneous Information 1 ea NOTE XX ; Start 04/11/19 at 00:30 Glucose (Glutose) 15 gm Q15M PRN PO DECREASED GLUCOSE; Start 04/11/19 at 00:30 Glucose (Glutose) 22.5 gm Q15M PRN PO DECREASED GLUCOSE; Start 04/11/19 at 00:30 Dextrose (D50w Syringe) 25 ml Q15M PRN IV DECREASED GLUCOSE; Start 04/11/19 at 00:30 Dextrose (D50w Syringe) 50 ml Q15M PRN IV DECREASED GLUCOSE; Start 04/11/19 at 00:30 Glucagon (Glucagen) 1 mg Q15M PRN IM DECREASED GLUCOSE; Start 04/11/19 at 00:30 Glucose (Glutose) 15 gm Q15M PRN BUCCAL DECREASED GLUCOSE; Start 04/11/19 at 00:30 [facility]isc[facility] This patient coyle... PRN PRN XX WOUND CARE; Start 04/11/19 at 08:00 Acetaminophen (Tylenol Tab) 650 mg Q4H PRN PO MILD PAIN(1-3)OR ELEVATED TEMP Last administered on 04/21/19at 02:28; Admin Dose 650 MG; Start 04/11/19 at 09:00 Bisacodyl (Dulcolax Supp) 10 mg DAILY PRN [place] CONSTIPATION; Start 04/11/19 at 09:00 Famotidine (Pepcid) 20 mg DAILY PO Last administered on 04/22/19at 08:33; Admin Dose 20 MG; Start 04/12/19 at 09:00 Fluconazole (Diflucan) 100 mg DAILY PO Last administered on 04/22/19at 08:34; Admin Dose 100 MG; Start 04/11/19 at 09:00 Albuterol/ Ipratropium (Duoneb) 3 ml Q4H RESP THERAPY PRN INH SHORTNESS OF BREATH Last administered on 04/19/19 01:41; Admin Dose 3 ML; Start 04/11/19 at 09:00 Linezolid (Zyvox) 600 mg BID PO Last administered on 04/22/19 08:33; Admin Dose 600 MG; Start 04/11/19 at 09:00 Amylase/Lipase/ Protease (CREON (04r-66u-30k)) 1 cap WITH MEALS PO Last administered on 04/22/19 08:33; Admin Dose 1 CAP; Start 04/11/19 at 12:00 Terazosin HCl (Hytrin) 2 mg HS PO Last administered on 04/21/19 20:09; Admin Dose 2 MG; Start 04/11/19 at 21:00 Cefepime HCl 50 ml @ 100 mls/hr DAILY IVPB Last administered on 04/22/19 08:20; Admin Dose 100 MLS/HR; Start 04/11/19 at 13:00 Multivitamins Therapeutic (Theragran) 1 tab DAILY PO Last administered on 04/22/19 08:33; Admin Dose 1 TAB; Start 04/15/19 at 11:30 Ascorbic Acid (Vitamin C) 500 mg BID PO Last administered on 04/22/19 08:33; Admin Dose 500 MG; Start 04/15/19 at 11:30 Zinc Sulfate (Zinc Sulfate) 220 mg DAILY PO Last administered on 04/22/19 08:33; Admin Dose 220 MG; Start 04/15/19 at 11:30 Loperamide HCl (Imodium Cap) 2 mg BID PRN PO DIARRHEA Last administered on 04/21/19 20:09; Admin Dose 2 MG; Start 04/17/19 at 15:00 Escitalopram Oxalate (Lexapro) 10 mg DAILY PO Last administered on 04/22/19 08 :33; Admin Dose 10 MG; Start 04/18/19 at 12:30 MAMI DIAZ NP Apr 22, 2019 15:36
[2019-04-22] MEDS: TERAZOSIN 2 MG CAP PO SCH (20:24)
[2019-04-23 00:13] VITALS: BP 118/74; PULSE 110; RESP 18
[2019-04-23] MEDS: ACCU-CHEK XX SCH (01:51)
[2019-04-23 04:25] VITALS: BP 108/76; PULSE 120; RESP 18
[2019-04-23 07:24] VITALS: BP 102/68; PULSE 124; RESP 19
[2019-04-23] MEDS: INSULIN ASPART [NOVOLOG] 3 ML PEN SC SCH ×4 (07:50→20:54)
[2019-04-23] MEDS: ASCORBIC ACID 500 MG TAB PO SCH ×2 (08:27→20:19)
[2019-04-23] MEDS: FLUCONAZOLE 100 MG TAB PO SCH (08:27)
[2019-04-23] MEDS: ZINC SULFATE 220 MG CAP PO SCH (08:27)
[2019-04-23] MEDS: CREON (12k-38k-60k) 1 CAP PO SCH ×4 (08:27→17:33)
[2019-04-23] MEDS: ESCITALOPRAM 10 MG TAB PO SCH (08:27)
[2019-04-23] MEDS: FAMOTIDINE 20 MG TAB PO SCH (08:27)
[2019-04-23] MEDS: ZYVOX 600 MG TAB PO SCH (08:27)
[2019-04-23] MEDS: MULTIVITAMINS THERAPEUTIC TAB PO SCH (08:27)
[2019-04-23] MEDS: CEFEPIME 1GM/50 ML (PMX) 50 ML IVPB SCH (08:28)
--- NOTE | 2019-04-23 08:53 | PN ---
DATE: 04/23/2019 SUBJECTIVE: The patient is stable. No events overnight. OBJECTIVE: VITAL SIGNS: Blood pressure 102/68, pulse 100, respiratory rate 19, temperature 98.6. HEENT: Head is normocephalic. NECK: Supple. HEART: Regular rate. LUNGS: Diminished breath sounds at base. ABDOMEN: Soft, nontender to palpation without rebound or guarding. EXTREMITIES: Negative for clubbing, cyanosis, no edema. DERMATOLOGIC: No rashes. MUSCULOSKELETAL: No joint effusions. NEUROLOGIC: No focal deficits. MEDICATIONS: The patient's medications have been reviewed. LABORATORY DATA: Has been reviewed. ASSESSMENT AND PLAN: 1. Nonoliguric acute kidney injury on top of chronic kidney disease. Etiology is secondary to hemod ynamics. Renal function is improved. Continue to monitor. 2. Chronic kidney disease. Continue disease factor modification. Continue current treatment plan. 3. Shortness of breath. Etiology is multifactorial secondary to bilateral pleural effusions, atelec tasis. Continue to monitor. Follow up with CT surgery for recommendations. 4. Anemia. Continue to monitor hemoglobin and hematocrit levels. 5. Mineral bone disorder. Monitor calcium and phosphorus levels. 6. Hypertension. Continue current blood pressure regimen. 7. Pancreatic mass. The patient is status post ERCP. The patient with hepatic drainage noted. Con tinue to monitor. Followup with GI. 9. Systemic inflammatory response syndrome. Continue medical management. 10. Pneumonia. Continue current antibiotic regimen. 11. Obstructive jaundice. Continue to monitor. Dictated By: PRANEETH BARNES/NTS Conf#: [id number] DID#: [id number] CC: PETR REESE MD;*EndCC*
[2019-04-23 11:08] VITALS: BP 119/83; PULSE 124; RESP 20
--- NOTE | 2019-04-23 11:21 | PN ---
Date/Time of Note Date/Time of Note DATE: 04/23/19 TIME: 11:19 Assessment/Plan VTE Pro[place]axis [place] [facility] [place]: 7 [place] [facility] [place]CD contraindicated: low risk/ambulating, patient refusal Pharmacological prophylaxis: other Pharm contraindication: patient refusal Lines/Catheters IV Catheter Type [facility] Mid Line Urinary Cath still in place: No Assessment/Plan Assessment/Plan Awaiting Pig tail catheter and TPA into R chest. Clinicallly stable Result Diagram: 04/23/19 0756 04/23/19 0756 Results 24hrs Laboratory Tests Test 04/22/19 14:27 04/22/19 20:22 04/23/19 01:50 04/23/19 07:38 Sodium Level 136 Potassium Level 4.2 Chloride Level 103 Carbon Dioxide Level 25 Anion Gap 8 Blood Urea Nitrogen 24 H Creatinine 1.15 Est Glomerular Filtrat Rate mL/min Glucose Level 226 H Calcium Level 8.3 L Total Bilirubin 0.9 Direct Bilirubin 0.00 Indirect Bilirubin 0.9 Aspartate Amino 60 H Transf (AST/SGOT) Alanine 47 Aminotransferase (AL T/SGPT) Alkaline Phosphatase 1087 H Total Protein 6.3 Albumin 2.7 L Globulin 3.60 H Albumin/Globulin 0.75 Ratio Bedside Glucose 268 H 217 224 H Test 04/23/19 07:56 White Blood Count 9.7 Red Blood Count 3.03 L Hemoglobin 9.4 L Hematocrit 28.9 L Mean Corpuscular 95.4 Volume Mean Corpuscular 31.0 Hemoglobin Mean Corpuscular 32.5 Hemoglobin Concent Red Cell 15.1 H Distribution Width Platelet Count 140 Mean Platelet Volume 9.4 Immature 0.900 H Granulocytes % Neutrophils % 83.8 H Lymphocytes % 8.5 L Monocytes % 5.9 Eosinophils % 0.7 Basophils % 0.2 Nucleated Red Blood 0.2 H Cells % Immature 0.090 H Granulocytes # Neutrophils # 8.1 H Lymphocytes # 0.8 Monocytes # 0.6 Eosinophils # 0.1 Basophils # 0.0 Nucleated Red Blood 0.0 Cells # Sodium Level 137 Potassium Level 4.1 Chloride Level 103 Carbon Dioxide Level 27 Anion Gap 7 Blood Urea Nitrogen 22 H Creatinine 1.08 Est Glomerular Filtrat Rate mL/min Glucose Level 212 Calcium Level 8.3 L Exam/Review of Systems Exam Vitals Vital Signs Date Temp Pulse Resp B/P (MAP) Pulse Ox O2 O2 Flow FiO2 Time Delivery Rate 04/23/19 97.7 124 20 119/83 100 Room Air 11:08 (95) 04/22/19 3.0 07:31 04/21/19 31 01:29 Intake and Output 04/22/19 04/22/19 04/23/19 1515:00 23:00 07:00 IntakeIntake Total 250 ml 200 ml OutputOutput Total 400 ml 250 ml BalanceBalance -150 ml -50 ml Results Results 24hrs Laboratory Tests Test 04/22/19 14:27 04/22/19 20:22 04/23/19 01:50 04/23/19 07:38 Sodium Level 136 Potassium Level 4.2 Chloride Level 103 Carbon Dioxide Level 25 Anion Gap 8 Blood Urea Nitrogen 24 H Creatinine 1.15 Est Glomerular Filtrat Rate mL/min Glucose Level 226 H Calcium Level 8.3 L Total Bilirubin 0.9 Direct Bilirubin 0.00 Indirect Bilirubin 0.9 Aspartate Amino 60 H Transf (AST/SGOT) Alanine 47 Aminotransferase (AL T/SGPT) Alkaline Phosphatase 1087 H Total Protein 6.3 Albumin 2.7 L Globulin 3.60 H Albumin/Globulin 0.75 Ratio Bedside Glucose 268 H 217 224 H Test 04/23/19 07:56 White Blood Count 9.7 Red Blood Count 3.03 L Hemoglobin 9.4 L Hematocrit 28.9 L Mean Corpuscular 95.4 Volume Mean Corpuscular 31.0 Hemoglobin Mean Corpuscular 32.5 Hemoglobin Concent Red Cell 15.1 H Distribution Width Platelet Count 140 Mean Platelet Volume 9.4 Immature 0.900 H Granulocytes % Neutrophils % 83.8 H Lymphocytes % 8.5 L Monocytes % 5.9 Eosinophils % 0.7 Basophils % 0.2 Nucleated Red Blood 0.2 H Cells % Immature 0.090 H Granulocytes # Neutrophils # 8.1 H Lymphocytes # 0.8 Monocytes # 0.6 Eosinophils # 0.1 Basophils # 0.0 Nucleated Red Blood 0.0 Cells # Sodium Level 137 Potassium Level 4.1 Chloride Level 103 Carbon Dioxide Level 27 Anion Gap 7 Blood Urea Nitrogen 22 H Creatinine 1.08 Est Glomerular Filtrat Rate mL/min Glucose Level 212 Calcium Level 8.3 L Medications Medication Current Medications Albuterol (Proventil 0.083% (Neb)) 2.5 mg Q2H RESP THERAPY PRN NEB SHORTNESS OF BREATH Last administered on 04/11/19at 13:54; Admin Dose 2.5 MG; Start 04/11/19 at 00:00 Ipratropium [place] (Atrovent 0.02% (Neb)) 0.5 mg Q2H RESP THERAPY PRN NEB SHORTNESS OF BREATH Last administered on 04/11/19at 13:54; Admin Dose 0.5 MG; Start 04/11/19 at 00:00 Acetaminophen (Tylenol Liquid) 650 mg Q6H PRN PO PAIN LEVEL 1-3 OR FEVER; Start 04/11/19 at 00:00 Acetaminophen/ Hydrocodone Bitart ([place] (5/325)) 1 tab Q6H PRN PO PAIN LEVEL 4-6 Last administered on 04/11/19at 01:35; Admin Dose 1 TAB; Start 04/11/19 at 00:00 Docusate Sodium (Colace) 100 mg Q12H PRN PO CONSTIPATION; Start 04/11/19 at 00:00 Bisacodyl (Dulcolax) 5 mg DAILY PRN PO CONSTIPATION; Start 04/11/19 at 00:00 Diagnostic Test (Pha) (Accu-Chek) 1 ea 02 XX Last administered on 04/23/19at 01:51; Admin Dose 1 EA; Start 04/11/19 at 02:00 Insulin Aspart (Novolog Insulin Pen) NOVOLOG *MILD* ALGORITHM WITH MEALS BEDTI ME SC Last administered on 04/23/19at 07:50; Admin Dose 3 UNIT; Start 04/11/19 at 08:00 Miscellaneous Information 1 ea NOTE XX ; Start 04/11/19 at 00:30 Glucose (Glutose) 15 gm Q15M PRN PO DECREASED GLUCOSE; Start 04/11/19 at 00:30 Glucose (Glutose) 22.5 gm Q15M PRN PO DECREASED GLUCOSE; Start 04/11/19 at 00:30 Dextrose (D50w Syringe) 25 ml Q15M PRN IV DECREASED GLUCOSE; Start 04/11/19 at 00:30 Dextrose (D50w Syringe) 50 ml Q15M PRN IV DECREASED GLUCOSE; Start 04/11/19 at 00:30 Glucagon (Glucagen) 1 mg Q15M PRN IM DECREASED GLUCOSE; Start 04/11/19 at 00:30 Glucose (Glutose) 15 gm Q15M PRN BUCCAL DECREASED GLUCOSE; Start 04/11/19 at 00:30 Miscellaneous Information [facility] This patient coyle... PRN PRN XX WOUND CARE; Start 04/11/19 at 08:00 Acetaminophen (Tylenol Tab) 650 mg Q4H PRN PO MILD PAIN(1-3)OR ELEVATED TEMP Last administered on 04/21/19 02:28; Admin Dose 650 MG; Start 04/11/19 at 09:00 Bisacodyl (Dulcolax Supp) 10 mg DAILY PRN [place] CONSTIPATION; Start 04/11/19 at 09:00 Famotidine (Pepcid) 20 mg DAILY PO Last administered on 04/23/19 08:27; Admin Dose 20 MG; Start 04/12/19 at 09:00 Fluconazole (Diflucan) 100 mg DAILY PO Last administered on 04/23/19 08:27; Admin Dose 100 MG; Start 04/11/19 at 09:00 Albuterol/ Ipratropium (Duoneb) 3 ml Q4H RESP THERAPY PRN INH SHORTNESS OF BREATH Last administered on 04/19/19 01:41; Admin Dose 3 ML; Start 04/11/19 at 09:00 Linezolid (Zyvox) 600 mg BID PO Last administered on 04/23/19 08:27; Admin Dose 600 MG; Start 04/11/19 at 09:00 Amylase/Lipase/ Protease (CREON (12k-38k-60k)) 1 cap WITH MEALS PO Last administered on 04/23/19 08:27; Admin Dose 1 CAP; Start 04/11/19 at 12:00 Terazosin HCl (Hytrin) 2 mg HS PO Last administered on 04/22/19 20:24; Admin Dose 2 MG; Start 04/11/19 at 21:00 Cefepime HCl 50 ml @ 100 mls/hr DAILY IVPB Last administered on 04/23/19 08:28; Admin Dose 100 MLS/HR; Start 04/11/19 at 13:00 Multivitamins Therapeutic (Theragran) 1 tab DAILY PO Last administered on 04/23/19 08:27; Admin Dose 1 TAB; Start 04/15/19 at 11:30 Ascorbic Acid (Vitamin C) 500 mg BID PO Last administered on 04/23/19 08:27; Admin Dose 500 MG; Start 04/15/19 at 11:30 Zinc Sulfate (Zinc Sulfate) 220 mg DAILY PO Last administered on 04/23/19 08:; Admin Dose 220 MG; Start 04/15/19 at 11:30 Loperamide HCl (Imodium Cap) 2 mg BID PRN PO DIARRHEA Last administered on 04/21/19 20:09; Admin Dose 2 MG; Start 04/17/19 at 15:00 Escitalopram Oxalate (Lexapro) 10 mg DAILY PO Last administered on 04/23/19 08:27; Admin Dose 10 MG; Start 04/18/19 at 12:30 MARÍA CASTILLO MD Apr 23, 2019 11:21
[2019-04-23] MEDS: ACETAMINOPHEN 325 MG TAB PO PRN (12:40)
--- NOTE | 2019-04-23 13:51 | CONS ---
Assessment/Plan Assessment/Plan Hospital Course (Demo Recall) Patient is awake feels ok no fevers Microbiology: Blood cultures remain negative Antimicrobials: Cefepime, fluconazole, Zyvox Physical examination: Well-developed ill-appearing elderly man who is awake in no distress. Head atraumatic normocephalic sclera anicteric bugle mucosa dry neck is supple trachea midline chest rise symmetrical breath sounds diminished bases heart: S1-S2 abdomen soft bowel sounds present patient has right-sided abdominal drainage catheter with the back attached. Extremities without cyanosis. Skin: Improved jaundice Assessment: 1. Systemic inflammatory response syndrome 2. Obstructive jaundice status post ERCP 3. Large loculated right-sided pleural effusion ? malignant vs infectious 4. Acute on chronic kidney disease 5. Hypertension 6. Hypertension Plan: Remains stable, pathology came back neg for malignancy, cardiothoracic surgery recommendations noted, patient is not a surgical candidate, possible Pleurx, dc abx and observe Consultation Date/Type/Reason Admit Date/Time Apr 11, 2019 at 01:42 Initial Consult Date 04/11/19 Type of Consult id Date/Time of Note DATE: 04/23/19 TIME: 13:49 Exam/Review of Systems Exam Vitals Vital Signs Date Temp Pulse Resp B/P (MAP) Pulse Ox O2 O2 Flow FiO2 Time Delivery Rate 04/23/19 97.7 124 20 119/83 100 Room Air 11:08 (95) 04/22/19 3.0 07:31 04/21/19 31 01:29 Intake and Output 04/22/19 04/22/19 04/23/19 1515:00 23:00 07:00 IntakeIntake Total 250 ml 200 ml OutputOutput Total 400 ml 250 ml BalanceBalance -150 ml -50 ml Results Result Diagram: 04/23/19 0756 04/23/19 0756 Results 24hrs Laboratory Tests Test 04/22/19 14:27 04/22/19 20:22 04/23/19 01:50 04/23/19 07:38 Sodium Level 136 Potassium Level 4.2 Chloride Level 103 Carbon Dioxide Level 25 Anion Gap 8 Blood Urea Nitrogen 24 H Creatinine 1.15 Est Glomerular Filtrat Rate mL/min Glucose Level 226 H Calcium Level 8.3 L Total Bilirubin 0.9 Direct Bilirubin 0.00 Indirect Bilirubin 0.9 Aspartate Amino 60 H Transf (AST/SGOT) Alanine 47 Aminotransferase (AL T/SGPT) Alkaline Phosphatase 1087 H Total Protein 6.3 Albumin 2.7 L Globulin 3.60 H Albumin/Globulin 0.75 Ratio Bedside Glucose 268 H 217 224 H Test 04/23/19 07:56 04/23/19 11:46 White Blood Count 9.7 Red Blood Count 3.03 L Hemoglobin 9.4 L Hematocrit 28.9 L Mean Corpuscular 95.4 Volume Mean Corpuscular 31.0 Hemoglobin Mean Corpuscular 32.5 Hemoglobin Concent Red Cell 15.1 H Distribution Width Platelet Count 140 Mean Platelet Volume 9.4 Immature 0.900 H Granulocytes % Neutrophils % 83.8 H Lymphocytes % 8.5 L Monocytes % 5.9 Eosinophils % 0.7 Basophils % 0.2 Nucleated Red Blood 0.2 H Cells % Immature 0.090 H Granulocytes # Neutrophils # 8.1 H Lymphocytes # 0.8 Monocytes # 0.6 Eosinophils # 0.1 Basophils # 0.0 Nucleated Red Blood 0.0 Cells # Sodium Level 137 Potassium Level 4.1 Chloride Level 103 Carbon Dioxide Level 27 Anion Gap 7 Blood Urea Nitrogen 22 H Creatinine 1.08 Est Glomerular Filtrat Rate mL/min Glucose Level 212 Calcium Level 8.3 L Bedside Glucose 208 Medications Medication Current Medications Albuterol (Proventil 0.083% (Neb)) 2.5 mg Q2H RESP THERAPY PRN NEB SHORTNESS OF BREATH Last administered on 04/11/19at 13:54; Admin Dose 2.5 MG; Start 04/11/19 at 00:00 Ipratropium [place] (Atrovent 0.02% (Neb)) 0.5 mg Q2H RESP THERAPY PRN NEB SHORTNESS OF BREATH Last administered on 04/11/19at 13:54; Admin Dose 0.5 MG; Start 04/11/19 at 00:00 Acetaminophen (Tylenol Liquid) 650 mg Q6H PRN PO PAIN LEVEL 1-3 OR FEVER; Start 04/11/19 at 00:00 Acetaminophen/ Hydrocodone Bitart ([place] (5/325)) 1 tab Q6H PRN PO PAIN LEVEL 4-6 Last administered on 04/11/19at 01:35; Admin Dose 1 TAB; Start 04/11/19 at 00:00 Docusate Sodium (Colace) 100 mg Q12H PRN PO CONSTIPATION; Start 04/11/19 at 00:00 Bisacodyl (Dulcolax) 5 mg DAILY PRN PO CONSTIPATION; Start 04/11/19 at 00:00 Diagnostic Test (Pha) (Accu-Chek) 1 ea 02 XX Last administered on 04/23/19at 01:51; Admin Dose 1 EA; Start 04/11/19 at 02:00 Insulin Aspart (Novolog Insulin Pen) NOVOLOG *MILD* ALGORITHM WITH MEALS BEDTIME SC Last administered on 04/23/19at 11:54; Admin Dose 2 UNIT; Start 04/11/19 at 08:00 Miscellaneous Information 1 ea NOTE XX ; Start 04/11/19 at 00:30 Glucose (Glutose) 15 gm Q15M PRN PO DECREASED GLUCOSE; Start 04/11/19 at 00:30 Glucose (Glutose) 22.5 gm Q15M PRN PO DECREASED GLUCOSE; Start 04/11/19 at 00:30 Dextrose (D50w Syringe) 25 ml Q15M PRN IV DECREASED GLUCOSE; Start 04/11/19 at 00:30 Dextrose (D50w Syringe) 50 ml Q15M PRN IV DECREASED GLUCOSE; Start 04/11/19 at 00:30 Glucagon (Glucagen) 1 mg Q15M PRN IM DECREASED GLUCOSE; Start 04/11/19 at 00:30 Glucose (Glutose) 15 gm Q15M PRN BUCCAL DECREASED GLUCOSE; Start 04/11/19 at 00:30 Miscellaneous Information (Pending [facility] Order For Wound Care) This patient coyle... PRN PRN XX WOUND CARE; Start 04/11/19 at 08:00 Acetaminophen (Tylenol Tab) 650 mg Q4H PRN PO MILD PAIN(1-3)OR ELEVATED TEMP Last administered on 04/23/19at 12:40; Admin Dose 650 MG; Start 04/11/19 at 09:00 Bisacodyl (Dulcolax Supp) 10 mg DAILY PRN [place] CONSTIPATION; Start 04/11/19 at 09:00 Famotidine (Pepcid) 20 mg DAILY PO Last administered on 04/23/19at 08:27; Admin Dose 20 MG; Start 04/12/19 at 09:00 Fluconazole (Diflucan) 100 mg DAILY PO Last administered on 04/23/19at 08:27; Admin Dose 100 MG; Start 04/11/19 at 09:00 Albuterol/ Ipratropium (Duoneb) 3 ml Q4H RESP THERAPY PRN INH SHORTNESS OF BREATH Last administered on 04/19/19 01:41; Admin Dose 3 ML; Start 04/11/19 at 09:00 Linezolid (Zyvox) 600 mg BID PO Last administered on 04/23/19 08:27; Admin Dose 600 MG; Start 04/11/19 at 09:00 Amylase/Lipase/ Protease (CREON (34d-15h-15k)) 1 cap WITH MEALS PO Last administered on 04/23/19 08:27; Admin Dose 1 CAP; Start 04/11/19 at 12:00 Terazosin HCl (Hytrin) 2 mg HS PO Last administered on 04/22/19 20:24; Admin Dose 2 MG; Start 04/11/19 at 21:00 Cefepime HCl 50 ml @ 100 mls/hr DAILY IVPB Last administered on 04/23/19 08:28; Admin Dose 100 MLS/HR; Start 04/11/19 at 13:00 Multivitamins Therapeutic (Theragran) 1 tab DAILY PO Last administered on 04/23/19 08:27; Admin Dose 1 TAB; Start 04/15/19 at 11:30 Ascorbic Acid (Vitamin C) 500 mg BID PO Last administered on 04/23/19 08:27; Admin Dose 500 MG; Start 04/15/19 at 11:30 Zinc Sulfate (Zinc Sulfate) 220 mg DAILY PO Last administered on 04/23/19 08:27; Admin Dose 220 MG; Start 04/15/19 at 11:30 Loperamide HCl (Imodium Cap) 2 mg BID PRN PO DIARRHEA Last administered on 04/21/19 20:09; Admin Dose 2 MG; Start 04/17/19 at 15:00 Escitalopram Oxalate (Lexapro) 10 mg DAILY PO Last administered on 04/23/19 08:27; Admin Dose 10 MG; Start 04/18/19 at 12:30 MAMI DIAZ NP Apr 23, 2019 13:51
[2019-04-23 15:12] VITALS: BP 117/79; PULSE 123; RESP 18
--- NOTE | 2019-04-23 15:29 | PN ---
Date/Time of Note Date/Time of Note DATE: 04/23/19 TIME: 15:22 Assessment/Plan VTE Prophylaxis Risk score (from [facility])>0 risk: 7 SCD applied (from [facility]): No SCD contraindicated: other (no leg) Pharmacological prophylaxis: NA/contraindicated Pharm contraindication: low risk/ambulating Lines/Catheters IV C[facility]ter [facility] (from [facility] Mid Line Urinary Cath still in place: No Assessment/Plan Assessment/Plan 78-year-old man with unclear medical history admitted for shortness of breath soon after recent hospital admission at [place]. #R pleural effusion- patient also earlier had hypoxia and dyspnea - Currently patient breathing comfortably on room air. - Has loculated R pleural effusion - thoracentesis not able to be performed secondary to loculated effusion. - Pulmonary is recommending VATS with debridement, however per Dr. Nelson an IR-guided chest tube would be better. - Now on repeat imaging effusion is improving. - I will plan to discharge the patient with no chest tube, thoracentesis, or any intervention on the effusion considering how good his respiratory status is now. #Intra-abdominal infection/cholangitis? -At outside hospital a few days ago patient apparently was on linezolid, Zosyn, and fluconazole - Not septic on admission. - Stopped antibiotics. 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 LFTs are trending down now. Patient also underwent 2 ERCPs with brushing revealing no evidence of malignancy at that time and subsequent biliary stent placement at that time x2, which have since been removed. - s/p ERCP 04/21 with biopsies taken and biliary drain internalized. Biopsies again negative for malignancy. - He likely has an early cancer that we're missing. Unfortunately will need to wait until there is a visible mass on imaging. #JADEN - resolved # hypertension: - The patient has been normotensive this whole hospital course. - I will recommend he stops his previous blood pressure meds upon discharge. # diabetes mellitus: - Only requiring about 5 units sliding scale per day - Just resume home glipizide on discharge. # DVT prophylaxis: - Resume home eliquis on discharge. Dispo: Plan for discharge tomorrow with home health. Result Diagram: 04/23/19 0756 04/23/19 0756 Subjective 24 Hr Interval Summary Free Text/Dictation No acute overnight events. Patient feeling well. Breathing comfortably on room air. Ambulating with prosthesis. At patient's request I spoke to his next of kin Renetta on the phone and updated her on his status and the plan. Exam/Review of Systems Exam Vitals Vital Signs Date Temp Pulse Resp B/P (MAP) Pulse Ox O2 O2 Flow FiO2 Time Delivery Rate 04/23/19 97.8 123 18 117/79 100 Room Air 15:12 (92) 04/22/19 3.0 07:31 04/21/19 31 01:29 Intake and Output 04/22/19 04/22/19 04/23/19 1515:00 23:00 07:00 IntakeIntake Total 250 ml 200 ml OutputOutput Total 400 ml 250 ml BalanceBalance -150 ml -50 ml Exam General: Frail appearing elderly man lying in bed, awake and alert. HEENT: Atraumatic, normocephalic. The pupils are equal, round and reactive. Neck: Supple with full range of motion. No JVD Chest: Nontender Lungs: Coarse breath sounds bilaterally Heart: Normal S1-S2, Regular rhythm and rate. No murmur, S3, or S4 Abdomen: Soft , nontender, nondistended , bowel sounds are present. RUQ transhepatic tube with biliary drainage. Extremities: Normal to inspection, no edema no cyanosis Neurologic: Normal mental status, speech normal, alert and oriented, able to give most medical history. Skin: Minimal jaundice; significantly improved. Results Results 24hrs Laboratory Tests Test 04/22/19 20:22 04/23/19 01:50 04/23/19 07:38 04/23/19 07:56 Bedside Glucose 268 H 217 224 H White Blood Count 9.7 Red Blood Count 3.03 L Hemoglobin 9.4 L Hematocrit 28.9 L Mean Corpuscular 95.4 Volume Mean Corpuscular 31.0 Hemoglobin Mean Corpuscular 32.5 Hemoglobin Concent Red Cell 15.1 H Distribution Width Platelet Count 140 Mean Platelet Volume 9.4 Immature 0.900 H Granulocytes % Neutrophils % 83.8 H Lymphocytes % 8.5 L Monocytes % 5.9 Eosinophils % 0.7 Basophils % 0.2 Nucleated Red Blood 0.2 H Cells % Immature 0.090 H Granulocytes # Neutrophils # 8.1 H Lymphocytes # 0.8 Monocytes # 0.6 Eosinophils # 0.1 Basophils # 0.0 Nucleated Red Blood 0.0 Cells # Sodium Level 137 Potassium Level 4.1 Chloride Level 103 Carbon Dioxide Level 27 Anion Gap 7 Blood Urea Nitrogen 22 H Creatinine 1.08 Est Glomerular Filtrat Rate mL/min Glucose Level 212 Calcium Level 8.3 L Test 04/23/19 11:46 Bedside Glucose 208 Medications Medication Current Medications Albuterol (Proventil 0.083% (Neb)) 2.5 mg Q2H RESP THERAPY PRN NEB SHORTNESS OF BREATH Last administered on 04/11/19at 13:54; Admin Dose 2.5 MG; Start 04/11/19 at 00:00 Ipratropium [place] (Atrovent 0.02% (Neb)) 0.5 mg Q2H RESP THERAPY PRN NEB SHORTNESS OF BREATH Last administered on 04/11/19at 13:54; Admin Dose 0.5 MG; Start 04/11/19 at 00:00 Acetaminophen (Tylenol Liquid) 650 mg Q6H PRN PO PAIN LEVEL 1-3 OR FEVER; Start 04/11/19 at 00:00 Acetaminophen/ Hydrocodone Bitart ([place] (5/325)) 1 tab Q6H PRN PO PAIN LEVEL 4-6 Last administered on 04/11/19at 01:35; Admin Dose 1 TAB; Start 04/11/19 at 00:00 Docusate Sodium (Colace) 100 mg Q12H PRN PO CONSTIPATION; Start 04/11/19 at 00:00 Bisacodyl (Dulcolax) 5 mg DAILY PRN PO CONSTIPATION; Start 04/11/19 at 00:00 Diagnostic Test (Pha) (Accu-Chek) 1 ea 02 XX Last administered on 04/23/19at 01:51; Admin Dose 1 EA; Start 04/11/19 at 02:00 Insulin Aspart (Novolog Insulin Pen) NOVOLOG *MILD* ALGORITHM WITH MEALS BEDTIME SC Last administered on 04/23/19at 11:54; Admin Dose 2 UNIT; Start 04/11/19 at 08:00 Miscellaneous Information 1 ea NOTE XX ; Start 04/11/19 at 00:30 Glucose (Glutose) 15 gm Q15M PRN PO DECREASED GLUCOSE; Start 04/11/19 at 00:30 Glucose (Glutose) 22.5 gm Q15M PRN PO DECREASED GLUCOSE; Start 04/11/19 at 00:30 Dextrose (D50w Syringe) 25 ml Q15M PRN IV DECREASED GLUCOSE; Start 04/11/19 at 00:30 Dextrose (D50w Syringe) 50 ml Q15M PRN IV DECREASED GLUCOSE; Start 04/11/19 at 00:30 Glucagon (Glucagen) 1 mg Q15M PRN IM DECREASED GLUCOSE; Start 04/11/19 at 00:30 Glucose (Glutose) 15 gm Q15M PRN BUCCAL DECREASED GLUCOSE; Start 04/11/19 at 00:30 Miscellaneous Information (Pending [facility] Order For Wound Care) This patient coyle... PRN PRN XX WOUND CARE; Start 04/11/19 at 08:00 Acetaminophen (Tylenol Tab) 650 mg Q4H PRN PO MILD PAIN(1-3)OR ELEVATED TEMP Last administered on 04/23/19 12:40; Admin Dose 650 MG; Start 04/11/19 at 09:00 Bisacodyl (Dulcolax Supp) 10 mg DAILY PRN [place] CONSTIPATION; Start 04/11/19 at 09:00 Famotidine (Pepcid) 20 mg DAILY PO Last administered on 04/23/19 08:27; Admin Dose 20 MG; Start 04/12/19 at 09:00 Albuterol/ Ipratropium (Duoneb) 3 ml Q4H RESP THERAPY PRN INH SHORTNESS OF BREATH Last administered on 04/19/19 01:41; Admin Dose 3 ML; Start 04/11/19 at 09:00 Amylase/Lipase/ Protease (CREON (12b-14k-60k)) 1 cap WITH MEALS PO Last administered on 04/23/19 08:27; Admin Dose 1 CAP; Start 04/11/19 at 12:00 Terazosin HCl (Hytrin) 2 mg HS PO Last administered on 04/22/19 20:24; Admin Dose 2 MG; Start 04/11/19 at 21:00 Multivitamins Therapeutic (Theragran) 1 tab DAILY PO Last administered on 04/23/19 08:27; Admin Dose 1 TAB; Start 04/15/19 at 11:30 Ascorbic Acid (Vitamin C) 500 mg BID PO Last administered on 04/23/19 08:27; Admin Dose 500 MG; Start 04/15/19 at 11:30 Zinc Sulfate (Zinc Sulfate) 220 mg DAILY PO Last administered on 04/23/19 08:27; Admin Dose 220 MG; Start 04/15/19 at 11:30 Loperamide HCl (Imodium Cap) 2 mg BID PRN PO DIARRHEA Last administered on 04/21/19 20:09; Admin Dose 2 MG; Start 04/17/19 at 15:00 Escitalopram Oxalate (Lexapro) 10 mg DAILY PO Last administered on 04/23/19 08:27; Admin Dose 10 MG; Start 04/18/19 at 12:30 ALVARO LA MD Apr 23, 2019 15:29
[2019-04-23 19:53] VITALS: BP 111/81; PULSE 125; RESP 18
[2019-04-23] MEDS: TERAZOSIN 2 MG CAP PO SCH (20:18)
--- NOTE | 2019-04-23 21:49 | PN ---
DATE: 04/23/2019 The patient at this time is feeling very well, is not short of breath. He does have a right pleural effusion, which is being medically managed. He has a possible hilar mass in the liver area and I ins erted a stent into the right hepatic duct, entering into the duodenum. He does not have any jaundice at this time. Clinically, he looks well. LABORATORY WORKUP: Shows bilirubin is normal, alkaline phosphatase has gone up. CLINICAL IMPRESSION: He has what appears like a mass in the hilar region. The biopsy at the site wh ere there is obstruction of the common hepatic duct. It came back as a benign biliary tissue, mild r eactive atypia noted on the pathology. CA 19-9 has come down to 300. The etiology of what looks like a hilar mass is not clear. The patient at this time is recovering fr om the pneumonia and a right pleural effusion. He is being discharged. The patient is aware that he has some problems in the hilar region. The surgeon, ____ in [place] has opted not to operate, bu t again when I speak to him recently, he said he may consider exploring the patient again. The patie nt is being discharged and I will be happy to follow him at [facility]. Dictated By: ANTONIA REYNOLDS/NTS Conf#: [id number] DID#: [id number] CC: TANIKA GRAYSON MD; PETR REESE MD; ALVARO LA MD;*EndCC*
[2019-04-24] VITALS: BP 103/70; PULSE 124; RESP 18
[2019-04-24] MEDS: ACCU-CHEK XX SCH (02:21)
[2019-04-24 04:00] VITALS: BP 103/66; PULSE 120; RESP 18
[2019-04-24 07:15] VITALS: BP 110/71; PULSE 113; RESP 18
[2019-04-24] MEDS: MULTIVITAMINS THERAPEUTIC TAB PO SCH (08:24)
[2019-04-24] MEDS: ASCORBIC ACID 500 MG TAB PO SCH (08:24)
[2019-04-24] MEDS: ESCITALOPRAM 10 MG TAB PO SCH (08:24)
[2019-04-24] MEDS: FAMOTIDINE 20 MG TAB PO SCH (08:24)
[2019-04-24] MEDS: ZINC SULFATE 220 MG CAP PO SCH (08:24)
[2019-04-24] MEDS: CREON (12k-38k-60k) 1 CAP PO SCH ×3 (08:25→17:41)
--- NOTE | 2019-04-24 08:27 | PN ---
DATE: 04/24/2019 SUBJECTIVE: The patient is stable. No events overnight. OBJECTIVE: VITAL SIGNS: Blood pressure is 110/71, pulse 113, respirations 18, temperature 98.2. HEENT: Head is normocephalic. NECK: Supple. HEART: Regular rate. LUNGS: Show diminished breath sounds at the base. ABDOMEN: Soft, nontender to palpation without rebound or guarding. EXTREMITIES: Negative for clubbing, cyanosis, no edema. DERMATOLOGIC: No rashes. MUSCULOSKELETAL: No joint effusion. NEUROLOGIC: No change in exam. MEDICATIONS: Reviewed. LABORATORY DATA: Have been reviewed. ASSESSMENT AND PLAN: 1. Nonoliguric acute kidney injury on top of chronic kidney disease. Etiology is secondary to hemod ynamics. Renal function is improved. Continue to monitor. 2. Chronic kidney disease. Continue disease factor modification. 3. Shortness of breath. Etiology is multifactorial. The patient is currently stable on nasal cannu la. Continue to monitor. 4. Anemia. Monitor hemoglobin and hematocrit levels. 5. Mineral bone disorder. Monitor calcium and phosphorus levels. 6. Hypertension. Continue current blood pressure regimen. 7. Pancreatic mass. The patient is status post ERCP, status post drainage in place. Continue to mo nitor. Follow up with GI. 8. Pneumonia. The patient is completing antibiotic course. 9. Pleural effusion, loculated. Thoracentesis is unable to be performed. The patient was evaluated by CT surgery. Consider possible chest tube placement. Will continue to monitor. Dictated By: PRANEETH BARNES/NTS Conf#: [id number] DID#: [id number] CC: PETR REESE MD;*EndCC*
[2019-04-24] MEDS: INSULIN ASPART [NOVOLOG] 3 ML PEN SC SCH ×3 (08:29→17:57)
--- NOTE | 2019-04-24 09:03 | PN ---
Date/Time of Note Date/Time of Note DATE: 04/24/19 TIME: 08:58 Assessment/Plan VTE Prophylaxis Risk score (from [facility])>0 risk: 6 SCD applied (from [facility]): Yes Pharmacological prophylaxis: other Pharm contraindication: liver dx (biliary obstruction) Lines/Catheters IV Catheter Type (from [facility]): Mid Line Urinary Cath still in place: No Assessment/Plan Hospital Course ct pigtail catheter attempted respiratory status stable choice vats decortication vs medical therapy Result Diagram: 04/23/19 0756 04/23/19 0756 Results 24hrs Laboratory Tests Test 04/23/19 11:46 04/23/19 17:27 04/23/19 20:18 04/24/19 01:28 Bedside Glucose 208 202 183 184 Test 04/24/19 08:23 Bedside Glucose 193 Subjective 24 Hr Interval Summary Constitutional: no complaints Respiratory: no complaints Exam/Review of Systems Exam Vitals Vital Signs Date Temp Pulse Resp B/P (MAP) Pulse Ox O2 O2 Flow FiO2 Time Delivery Rate 04/24/19 98.2 113 18 110/71 97 Room Air 07:15 (84) 04/22/19 3.0 07:31 04/21/19 31 01:29 Intake and Output 04/23/19 04/23/19 04/24/19 1515:00 23:00 07:00 IntakeIntake Total 50 ml 440 ml 240 ml OutputOutput Total 800 ml BalanceBalance 50 ml -360 ml 240 ml Constitutional: alert Psych: no complaints Head: normocephalic Respiratory: other (decreased breath sounds on the right) Results Results 24hrs Laboratory Tests Test 04/23/19 11:46 04/23/19 17:27 04/23/19 20:18 04/24/19 01:28 Bedside Glucose 208 202 183 184 Test 04/24/19 08:23 Bedside Glucose 193 Medications Medication Current Medications Albuterol (Proventil 0.083% (Neb)) 2.5 mg Q2H RESP THERAPY PRN NEB SHORTNESS OF BREATH Last administered on 04/11/19at 13:54; Admin Dose 2.5 MG; Start 04/11/19 at 00:00 Ipratropium [place] (Atrovent 0.02% (Neb)) 0.5 mg Q2H RESP THERAPY PRN NEB SHORTNESS OF BREATH Last administered on 04/11/19at 13:54; Admin Dose 0.5 MG; Start 04/11/19 at 00:00 Acetaminophen (Tylenol Liquid) 650 mg Q6H PRN PO PAIN LEVEL 1-3 OR FEVER; Start 04/11/19 at 00:00 Acetaminophen/ Hydrocodone Bitart ([place] (5/325)) 1 tab Q6H PRN PO PAIN LEVEL 4-6 Last administered on 04/11/19at 01:35; Admin Dose 1 TAB; Start 04/11/19 at 00:00 Docusate Sodium (Colace) 100 mg Q12H PRN PO CONSTIPATION; Start 04/11/19 at 00:00 Bisacodyl (Dulcolax) 5 mg DAILY PRN PO CONSTIPATION; Start 04/11/19 at 00:00 Diagnostic Test (Pha) (Accu-Chek) 1 ea 02 XX Last administered on 04/24/19at 02:21; Admin Dose 1 EA; Start 04/11/19 at 02:00 Insulin Aspart (Novolog Insulin Pen) NOVOLOG *MILD* ALGORITHM WITH MEALS BEDTIME SC Last administered on 04/24/19at 08:29; Admin Dose 2 UNIT; Start 04/11/19 at 08:00 Miscellaneous Information 1 ea NOTE XX ; Start 04/11/19 at 00:30 Glucose (Glutose) 15 gm Q15M PRN PO DECREASED GLUCOSE; Start 04/11/19 at 00:30 Glucose (Glutose) 22.5 gm Q15M PRN PO DECREASED GLUCOSE; Start 04/11/19 at 00:30 Dextrose (D50w Syringe) 25 ml Q15M PRN IV DECREASED GLUCOSE; Start 04/11/19 at 00:30 Dextrose (D50w Syringe) 50 ml Q15M PRN IV DECREASED GLUCOSE; Start 04/11/19 at 00:30 Glucagon (Glucagen) 1 mg Q15M PRN IM DECREASED GLUCOSE; Start 04/11/19 at 00:30 Glucose (Glutose) 15 gm Q15M PRN BUCCAL DECREASED GLUCOSE; Start 04/11/19 at 00:30 Miscellaneous Information (Pending [facility] Order For Wound Care) This patient coyle... PRN PRN XX WOUND CARE; Start 04/11/19 at 08:00 Acetaminophen (Tylenol Tab) 650 mg Q4H PRN PO MILD PAIN(1-3)OR ELEVATED TEMP Last administered on 04/23/19 12:40; Admin Dose 650 MG; Start 04/11/19 at 09:00 Bisacodyl (Dulcolax Supp) 10 mg DAILY PRN [place] CONSTIPATION; Start 04/11/19 at 09:00 Famotidine (Pepcid) 20 mg DAILY PO Last administered on 04/24/19 08:24; Admin Dose 20 MG; Start 04/12/19 at 09:00 Albuterol/ Ipratropium (Duoneb) 3 ml Q4H RESP THERAPY PRN INH SHORTNESS OF BREATH Last administered on 04/19/19 01:41; Admin Dose 3 ML; Start 04/11/19 at 09:00 Amylase/Lipase/ Protease (CREON (36l-52s-70m)) 1 cap WITH MEALS PO Last administered on 04/24/19 08:25; Admin Dose 1 CAP; Start 04/11/19 at 12:00 Terazosin HCl (Hytrin) 2 mg HS PO Last administered on 04/23/19 20:18; Admin Dose 2 MG; Start 04/11/19 at 21:00 Multivitamins Therapeutic (Theragran) 1 tab DAILY PO Last administered on 04/24/19 08:24; Admin Dose 1 TAB; Start 04/15/19 at 11:30 Ascorbic Acid (Vitamin C) 500 mg BID PO Last administered on 04/24/19 08:24; Admin Dose 500 MG; Start 04/15/19 at 11:30 Zinc Sulfate (Zinc Sulfate) 220 mg DAILY PO Last administered on 04/24/19 08:24; Admin Dose 220 MG; Start 04/15/19 at 11:30 Loperamide HCl (Imodium Cap) 2 mg BID PRN PO DIARRHEA Last administered on 04/21/19 20:09; Admin Dose 2 MG; Start 04/17/19 at 15:00 Escitalopram Oxalate (Lexapro) 10 mg DAILY PO Last administered on 04/23/19 08:27; Admin Dose 10 MG; Start 04/18/19 at 12:30 ZAK VIRK MD Apr 24, 2019 09:03
[2019-04-24 11:21] VITALS: BP 108/75; PULSE 118; RESP 16
--- NOTE | 2019-04-24 11:50 | PDOCDIS ---
Discharge Instructions DIAGNOSIS Discharge Diagnosis Right loculated pleural effusion Obstructive jaundice CONDITION [id number] Patient Condition: Xldso7m Fair HOME CARE INSTRUCTIONS: [id number] Diet Instructions: Lfsol4q Low Fat /Cholesterol ACTIVITY: Whytv5Zg Activity Restrictions: Atzcg8e Slowly Increase Activity Rest between Activity Avoid heavy lifting FOLLOW UP/APPOINTMENTS Follow-up Plan 1. Review the attached medication list. You should stop taking your two blood pressure medications; your blood pressure has been on the lower end during your hospitalization. You also can stop taking the potassium chloride; your potassium levels have been normal. 2. See your primary care doctor in 1-2 weeks. 3. Return to the emergency room if you develop difficulty breathing at rest. ALVARO LA MD Apr 24, 2019 11:50
--- NOTE | 2019-04-24 14:29 | CONS ---
Consult Date/Type/Reason Admit Date/Time Apr 11, 2019 at 01:42 Initial Consult Date 04/11/19 Type of Consult Pulmonary Date/Time of Note DATE: 04/24/19 TIME: 14:27 Subjective Patient comfortable this morning no respiratory distress. Objective Vital Signs Date Temp Pulse Resp B/P (MAP) Pulse Ox O2 O2 Flow FiO2 Time Delivery Rate 04/24/19 97.9 118 16 108/75 100 Room Air 11:21 (86) 04/22/19 3.0 07:31 04/21/19 31 01:29 Intake and Output 04/23/19 04/23/19 04/24/19 1515:00 23:00 07:00 IntakeIntake Total 50 ml 440 ml 240 ml OutputOutput Total 800 ml BalanceBalance 50 ml -360 ml 240 ml Exam VITAL SIGNS: HEENT: Pupils are equal and react to light. O2. NECK: Supple, no JVD noted, no cervical adenopathy noted. LUNGS: No breath sounds on the left side. CARDIOVASCULAR: S1 and S2 normal. ABDOMEN: Soft, nontender, no guarding noted. EXTREMITIES: No clubbing or cyanosis noted, 3+ edema present on both lower extremities. NEUROLOGICAL: Awake. Vent Setting Fraction of Inspired Oxygen pe: 31 Results/Medications Result Diagram: 04/23/19 0756 04/23/19 0756 Results 24 hrs Laboratory Tests Test 04/23/19 17:27 04/23/19 20:18 04/24/19 01:28 04/24/19 08:23 Bedside Glucose 202 183 184 193 Test 04/24/19 12:24 Bedside Glucose 264 H Medications Current Medications Albuterol (Proventil 0.083% (Neb)) 2.5 mg Q2H RESP THERAPY PRN NEB SHORTNESS OF BREATH Last administered on 04/11/19at 13:54; Admin Dose 2.5 MG; Start 04/11/19 at 00:00 Ipratropium [place] (Atrovent 0.02% (Neb)) 0.5 mg Q2H RESP THERAPY PRN NEB SHORTNESS OF BREATH Last administered on 04/11/19at 13:54; Admin Dose 0.5 MG; Start 04/11/19 at 00:00 Acetaminophen (Tylenol Liquid) 650 mg Q6H PRN PO PAIN LEVEL 1-3 OR FEVER; Start 04/11/19 at 00:00 Acetaminophen/ Hydrocodone Bitart ([place] (5/325)) 1 tab Q6H PRN PO PAIN LEVEL 4-6 Last administered on 04/11/19at 01:35; Admin Dose 1 TAB; Start 04/11/19 at 00:00 Docusate Sodium (Colace) 100 mg Q12H PRN PO CONSTIPATION; Start 04/11/19 at 00:00 Bisacodyl (Dulcolax) 5 mg DAILY PRN PO CONSTIPATION; Start 04/11/19 at 00:00 Diagnostic Test (Pha) (Accu-Chek) 1 ea 02 XX Last administered on 04/24/19at 02:21; Admin Dose 1 EA; Start 04/11/19 at 02:00 Insulin Aspart (Novolog Insulin Pen) NOVOLOG *MILD* ALGORITHM WITH MEALS BEDTIME SC Last administered on 04/24/19at 12:29; Admin Dose 4 UNIT; Start 04/11/19 at 08:00 Miscellaneous Information 1 ea NOTE XX ; Start 04/11/19 at 00:30 Glucose (Glutose) 15 gm Q15M PRN PO DECREASED GLUCOSE; Start 04/11/19 at 00:30 Glucose (Glutose) 22.5 gm Q15M PRN PO DECREASED GLUCOSE; Start 04/11/19 at 00:30 Dextrose (D50w Syringe) 25 ml Q15M PRN IV DECREASED GLUCOSE; Start 04/11/19 at 00:30 Dextrose (D50w Syringe) 50 ml Q15M PRN IV DECREASED GLUCOSE; Start 04/11/19 at 00:30 Glucagon (Glucagen) 1 mg Q15M PRN IM DECREASED GLUCOSE; Start 04/11/19 at 00:30 Glucose (Glutose) 15 gm Q15M PRN BUCCAL DECREASED GLUCOSE; Start 04/11/19 at 00:30 Miscellaneous Information (Pending [facility] Order For Wound Care) This patient coyle... PRN PRN XX WOUND CARE; Start 04/11/19 at 08:00 Acetaminophen (Tylenol Tab) 650 mg Q4H PRN PO MILD PAIN(1-3)OR ELEVATED TEMP Last administered on 04/23/19at 12:40; Admin Dose 650 MG; Start 04/11/19 at 09:00 Bisacodyl (Dulcolax Supp) 10 mg DAILY PRN [place] CONSTIPATION; Start 04/11/19 at 09:00 Famotidine (Pepcid) 20 mg DAILY PO Last administered on 04/24/19 08:24; Admin Dose 20 MG; Start 04/12/19 at 09:00 Albuterol/ Ipratropium (Duoneb) 3 ml Q4H RESP THERAPY PRN INH SHORTNESS OF BREATH Last administered on 04/19/19 01:41; Admin Dose 3 ML; Start 04/11/19 at 09:00 Amylase/Lipase/ Protease (CREON (12k-38k-60k)) 1 cap WITH MEALS PO Last administered on 04/24/19 12:25; Admin Dose 1 CAP; Start 04/11/19 at 12:00 Terazosin HCl (Hytrin) 2 mg HS PO Last administered on 04/23/19 20:18; Admin Dose 2 MG; Start 04/11/19 at 21:00 Multivitamins Therapeutic (Theragran) 1 tab DAILY PO Last administered on 04/24/19 08:24; Admin Dose 1 TAB; Start 04/15/19 at 11:30 Ascorbic Acid (Vitamin C) 500 mg BID PO Last administered on 04/24/19 08:24; Admin Dose 500 MG; Start 04/15/19 at 11:30 Zinc Sulfate (Zinc Sulfate) 220 mg DAILY PO Last administered on 04/24/19 08:24; Admin Dose 220 MG; Start 04/15/19 at 11:30 Loperamide HCl (Imodium Cap) 2 mg BID PRN PO DIARRHEA Last administered on 04/21/19 20:09; Admin Dose 2 MG; Start 04/17/19 at 15:00 Escitalopram Oxalate (Lexapro) 10 mg DAILY PO Last administered on 04/23/19 08:27; Admin Dose 10 MG; Start 04/18/19 at 12:30 Assessment/Plan Hospital Course (Demo Recall) IMPRESSION: 1. Obstructive jaundice. Status post ERCP 2. Right lower lobe pneumonia. 3. Complicated right parapneumonic effusion with loculations. 4. Chronic kidney disease. 5. Anemia. RECOMMENDATIONS: 1. Continue GI recommendations likely malignancy but no definitive mass noted brushings negative. 2. Physical therapy as tolerated 3. Outpatient pulmonary follow-up, pleural effusion follow-up. DC planning. FRANCIE BLAKE MD, [facility] Apr 24, 2019 14:29
[2019-04-24 15:08] VITALS: BP 111/70; PULSE 127; RESP 18
--- NOTE | 2019-04-24 15:16 | CONS ---
Assessment/Plan Assessment/Plan Hospital Course (Demo Recall) Patient is awake feels ok no fevers Microbiology: Blood cultures remain negative Physical examination: Well-developed ill-appearing elderly man who is awake in no distress. Head atraumatic normocephalic sclera anicteric bugle mucosa dry neck is supple trachea midline chest rise symmetrical breath sounds diminished bases heart: S1-S2 abdomen soft bowel sounds present patient has right-sided abdominal drainage catheter with the back attached. Extremities without cyanosis. Skin: Improved jaundice Assessment: 1. Systemic inflammatory response syndrome 2. Obstructive jaundice status post ERCP 3. Large loculated right-sided pleural effusion 4. Acute on chronic kidney disease 5. Hypertension 6. Hypertension Plan: Remains stable, off antibiotics Consultation Date/Type/Reason Admit Date/Time Apr 11, 2019 at 01:42 Initial Consult Date 04/11/19 Type of Consult id Date/Time of Note DATE: 04/24/19 TIME: 15:15 Exam/Review of Systems Exam Vitals Vital Signs Date Temp Pulse Resp B/P (MAP) Pulse Ox O2 O2 Flow FiO2 Time Delivery Rate 04/24/19 98.3 127 18 111/70 99 Room Air 15:08 (84) 04/22/19 3.0 07:31 04/21/19 31 01:29 Intake and Output 04/23/19 04/23/19 04/24/19 1515:00 23:00 07:00 IntakeIntake Total 50 ml 440 ml 240 ml OutputOutput Total 800 ml BalanceBalance 50 ml -360 ml 240 ml Results Result Diagram: 04/23/19 0756 04/23/19 0756 Results 24hrs Laboratory Tests Test 04/23/19 17:27 04/23/19 20:18 04/24/19 01:28 04/24/19 08:23 Bedside Glucose 202 183 184 193 Test 04/24/19 12:24 Bedside Glucose 264 H Medications Medication Current Medications Albuterol (Proventil 0.083% (Neb)) 2.5 mg Q2H RESP THERAPY PRN NEB SHORTNESS OF BREATH Last administered on 04/11/19at 13:54; Admin Dose 2.5 MG; Start 04/11/19 at 00:00 Ipratropium [place] (Atrovent 0.02% (Neb)) 0.5 mg Q2H RESP THERAPY PRN NEB SHORTNESS OF BREATH Last administered on 04/11/19at 13:54; Admin Dose 0.5 MG; Start 04/11/19 at 00:00 Acetaminophen (Tylenol Liquid) 650 mg Q6H PRN PO PAIN LEVEL 1-3 OR FEVER; Start 04/11/19 at 00:00 Acetaminophen/ Hydrocodone Bitart ([place] (5/325)) 1 tab Q6H PRN PO PAIN LEVEL 4-6 Last administered on 04/11/19at 01:35; Admin Dose 1 TAB; Start 04/11/19 at 00:00 Docusate Sodium (Colace) 100 mg Q12H PRN PO CONSTIPATION; Start 04/11/19 at 00:00 Bisacodyl (Dulcolax) 5 mg DAILY PRN PO CONSTIPATION; Start 04/11/19 at 00:00 Diagnostic Test (Pha) (Accu-Chek) 1 ea 02 XX Last administered on 04/24/19at 02:21; Admin Dose 1 EA; Start 04/11/19 at 02:00 Insulin Aspart (Novolog Insulin Pen) NOVOLOG *MILD* ALGORITHM WITH MEALS BEDTIME SC Last administered on 04/24/19at 12:29; Admin Dose 4 UNIT; Start 04/11/19 at 08:00 Miscellaneous Information 1 ea NOTE XX ; Start 04/11/19 at 00:30 Glucose (Glutose) 15 gm Q15M PRN PO DECREASED GLUCOSE; Start 04/11/19 at 00:30 Glucose (Glutose) 22.5 gm Q15M PRN PO DECREASED GLUCOSE; Start 04/11/19 at 00:30 Dextrose (D50w Syringe) 25 ml Q15M PRN IV DECREASED GLUCOSE; Start 04/11/19 at 00:30 Dextrose (D50w Syringe) 50 ml Q15M PRN IV DECREASED GLUCOSE; Start 04/11/19 at 00:30 Glucagon (Glucagen) 1 mg Q15M PRN IM DECREASED GLUCOSE; Start 04/11/19 at 00:30 Glucose (Glutose) 15 gm Q15M PRN BUCCAL DECREASED GLUCOSE; Start 04/11/19 at 00:30 [facility] This patient coyle... PRN PRN XX WOUND CARE; Start 04/11/19 at 08:00 Acetaminophen (Tylenol Tab) 650 mg Q4H PRN PO MILD PAIN(1-3)OR ELEVATED TEMP Last administered on 04/23/19 12:40; Admin Dose 650 MG; Start 04/11/19 at 09:00 Bisacodyl (Dulcolax Supp) 10 mg DAILY PRN [place] CONSTIPATION; Start 04/11/19 at 09:00 Famotidine (Pepcid) 20 mg DAILY PO Last administered on 04/24/19 08:24; Admin Dose 20 MG; Start 04/12/19 at 09:00 Albuterol/ Ipratropium (Duoneb) 3 ml Q4H RESP THERAPY PRN INH SHORTNESS OF BREATH Last administered on 04/19/19 01:41; Admin Dose 3 ML; Start 04/11/19 at 09:00 Amylase/Lipase/ Protease (CREON (72r-07y-83m)) 1 cap WITH MEALS PO Last administered on 04/24/19 12:25; Admin Dose 1 CAP; Start 04/11/19 at 12:00 Terazosin HCl (Hytrin) 2 mg HS PO Last administered on 04/23/19 20:18; Admin Dose 2 MG; Start 04/11/19 at 21:00 Multivitamins Therapeutic (Theragran) 1 tab DAILY PO Last administered on 04/24/19 08:24; Admin Dose 1 TAB; Start 04/15/19 at 11:30 Ascorbic Acid (Vitamin C) 500 mg BID PO Last administered on 04/24/19 08:24; Admin Dose 500 MG; Start 04/15/19 at 11:30 Zinc Sulfate (Zinc Sulfate) 220 mg DAILY PO Last administered on 04/24/19 08: 24; Admin Dose 220 MG; Start 04/15/19 at 11:30 Loperamide HCl (Imodium Cap) 2 mg BID PRN PO DIARRHEA Last administered on 04/21/19 20:09; Admin Dose 2 MG; Start 04/17/19 at 15:00 Escitalopram Oxalate (Lexapro) 10 mg DAILY PO Last administered on 04/23/19 08:27; Admin Dose 10 MG; Start 04/18/19 at 12:30 MAMI DIAZ NP Apr 24, 2019 15:16
--- NOTE | 2019-04-24 18:07 | DS ---
Date/Time of Note Date/Time of Note DATE: 04/24/19 TIME: 17:48 Discharge Summary Admission/Discharge Info Admit Date/Time Apr 11, 2019 at 01:42 Discharge Date/Time Apr 24, 2019 Discharge Diagnosis Right loculated pleural effusion Obstructive jaundice Patient Condition: Good Procedures 04/21: ERCP, stent internalization, biopsies Hx of Present Illness Chief complaint: Hypoxia Patient is a poor historian unable to provide full history. This is a 78-year-old gentleman who presents to the emergency room with reported hypoxia. He had a prolonged hospitalization at [facility] during which he was found to have obstructive jaundice and a large loculated pleural effusion. He had recieved ERCP with brush biopsies negative for malignancy. He had just been discharged 3 days prior to his admission here. Patient himself states that he feels that his baseline. He denies any fevers chills cough chest pain or shortness of breath. He denies any chest pain or shortness of breath. He visibly on exam has generalized jaundice. Allergies: NKDA medications: Acetaminophen Eliquis Dulcolax Famotidine Fluconazole Glipizide Guaifenesin DuoNeb Lactobacillus Zyvox Creon Mag-Ox Reglan Lopressor Mineral oil enema Nifedipine Zofran Potassium 20 M EQ Senna Calcium carbonate Insulin Melatonin Hospital Course For his obstructive jaundice; he had an intrahepatic transcutanous drain which was placed at [facility]. This was draining appropriate but did have some leakage. CT abdomen was done showing it was in appropriate place, some hepatic duct dilation. Dr Gurrola took the patient for ERCP with spyglass. He was not able to identify a clear mass. Several biopsies were taken, these were all negative for malignancy. The external drain was removed and an internal biliary stent was placed. His jaundice cleared up, bilirubin returned to <1. He was noted to have large loculated R>L pleural effusion. He was hypoxic on admission. After the above biliary obstruction was addressed attention was turn to this drain. Thoracentesis was not possible because of loculation. CT surgery was consulted for VATS but the surgeon said IR-guided pigtail drain would be a better idea. However the patient's hypoxia improved and on repeat imaging the effusion had decreased in size. He is now ambulating comfortably on room air. So pigtail drain was cancelled. The patient is eager to return home but according to physical therapy he isn't quite ready. Plan for discharge to SNF. Home Meds Reported Medications Ondansetron Hcl* (Ondansetron Hcl*) 4 Mg Tablet, 4 MG PO Q6H PRN for NAUSEA AND/OR VOMITING, TAB 04/11/19 Acetaminophen* (Tylenol*) 325 Mg Tablet, 650 MG PO Q4H PRN for PAIN AND OR ELEVATED TEMP, TAB Give 2 tablets by mouth every 8hrs as needed 04/11/19 Terazosin Hcl* (Terazosin Hcl*) 2 Mg Capsule, 2 MG PO HS for HTN, CAP 04/11/19 Sennosides* (Senna Lax*) 8.6 Mg Tablet, 2 TAB PO BID for CONST, TAB 04/11/19 Metoclopramide* (Reglan*) 10 Mg Tablet, 0.5 MG PO TID for GERD, TAB 04/11/19 Melatonin (Melatonin) 1 Mg Tablet, 1 MG PO HS, TAB 04/11/19 Magnesium Oxide* (Magnesium Oxide*) 400 Mg Tablet, 400 MG PO BID, TAB 04/11/19 Lactobacillus Rhamnosus GG (Culturelle) 1 Each Capsule, 1 EACH PO BID WITH MEALS for To SupportGUT Tosin, CAP 04/11/19 Ipratropium-Albuterol (Ipratropium-Albuterol) 0.5-3 Mg/3 Ml Ampul.neb, 3 ML INHALATION Q2H, #30 VIAL 04/11/19 Twlmehgqtkn-U-Njunrzxuye Hb* (Guaifenesin* DM Syrup) 120 Ml Syrup, 5 ML PO Q4H PRN for COUGH, ML 04/11/19 Glipizide* (Glipizide*) 5 Mg Tablet, 5 MG PO AC BREAKFAST, TAB 04/11/19 Mineral Oil* (Fleet* Mineral Oil Enema) 133 Ml Oil, 133 ML MN NEEDED PRN for CONSTIPATION, ENEMA 04/11/19 Famotidine* (Famotidine*) 20 Mg Tablet, 20 MG PO DAILY, #30 TAB 04/11/19 Bisacodyl (Dulcolax) 10 Mg Supp.rect, 10 MG RC, SUPP.RECT 04/11/19 Iyywbv-Hfeixzde-Rtlmhui* (Al HUMPHREYS* 12,000) 12,000 L-38,000-60,000 Unit Capsule.dr, 1 CAP PO WITH MEALS, CAP 04/11/19 Calcium Carbonate (Calcium Carbonate) 500 Mg Tab.chew, 500 MG PO Q4H WHILE AWAKE for INDIGESTION, TAB.CHEW 04/11/19 Apixaban* (Eliquis*) 2.5 Mg Tablet, 2.5 MG PO BID, TAB 04/11/19 Discontinued Reported Medications Linezolid* (Zyvox*) 600 Mg Tablet, 600 MG PO BID, TAB 04/11/19 Potassium Chloride* (Klor-Con*) 20 Meq Tabsr, 20 MEQ PO TID for HYPOKALEMIA, TAB.SA 04/11/19 Nifedipine* (Nifedipine ER*) 30 Mg Tablet.sa, 30 MG PO DAILY for HTN, TAB.SA GIVE 30mgBY MOUTH ONE TIME A DAY FOR HTN HOLD IF SBP IS <110 or HR is <60 04/11/19 Metoprolol Tartrate* (Lopressor*) 25 Mg Tablet, 25 MG PO BID for HTN, #60 TAB 04/11/19 Insulin Lispro (Humalog) 100 Unit/1 Ml Cartridge, 100 UNIT SQ SS, EA INJECT PER SLIDING SCALE: IF 70-150=0 UNIT;151-200= 2 UNITS; 201-250=4UNITS; 251-300=6UNITS;301-350=8UNITS; 351-400=10UNITS>400=12UNITS and CALL 04/11/19 Fluconazole* (Fluconazole*) 100 Mg Tablet, 100 MG PO DAILY for FUNGAL INFECTION, TAB 04/11/19 Follow-up Plan 1. Review the attached medication list. You should stop taking your two blood pressure medications; your blood pressure has been on the lower end during your hospitalization. You also can stop taking the potassium chloride; your potassium levels have been normal. 2. See your primary care doctor in 1-2 weeks. 3. Return to the emergency room if you develop difficulty breathing at rest. Primary Care Provider Not On Staff Doctor Time spent on discharge: > 30 minutes Pending Labs Laboratory Tests Test 04/23/19 20:18 04/24/19 01:28 04/24/19 08:23 04/24/19 12:24 Bedside 183 184 193 264 Glucose mg/dL (70-220) mg/dL (70-220) mg/dL (70-220) mg/dL (70-220) Test 04/24/19 17:39 Bedside 331 Glucose mg/dL (70-220) ALVARO LA MD Apr 24, 2019 18:06
== END 2019-04-24 19:33 | DRG 186 ==
LOC: E/R 17:47 → CANRESERV 23:08 → EDBEDREQ 23:33 → EDBEDREQTM 23:33 → EDBEDREQSVC 23:33 → 6WM 04-11 01:42 → EDBEDREQTM 04-11 01:47 → EDBEDREQSVC 04-11 01:47 → EDBEDREQDT 04-11 01:47
PROVIDERS: ADMIT Family Medicine; ATTEND Internal Medicine
PROC: 30233K1 Transfusion of Nonautologous Frozen Plasma into Peripheral Vein, Percutaneous Approach (ICD-10-PCS; 2019-04-11)
PROC: 5A09357 Assistance with Respiratory Ventilation, Less than 24 Consecutive Hours, Continuous Positive Airway Pressure (ICD-10-PCS; 2019-04-11)
PROC: 30233K1 Transfusion of Nonautologous Frozen Plasma into Peripheral Vein, Percutaneous Approach (ICD-10-PCS; 2019-04-12)
PROC: BF10YZZ Fluoroscopy of Bile Ducts using Other Contrast (ICD-10-PCS; 2019-04-14)
PROC: 0F9930Z Drainage of Common Bile Duct with Drainage Device, Percutaneous Approach (ICD-10-PCS; 2019-04-16)
PROC: 30233N1 Transfusion of Nonautologous Red Blood Cells into Peripheral Vein, Percutaneous Approach (ICD-10-PCS; 2019-04-19)
PROC: 0F758DZ Dilation of Right Hepatic Duct with Intraluminal Device, Via Natural or Artificial Opening Endoscopic (ICD-10-PCS; 2019-04-20)
PROC: 0FB98ZX Excision of Common Bile Duct, Via Natural or Artificial Opening Endoscopic, Diagnostic (ICD-10-PCS; 2019-04-20)
PROC: 0FB78ZX Excision of Common Hepatic Duct, Via Natural or Artificial Opening Endoscopic, Diagnostic (ICD-10-PCS; 2019-04-20)
PROC: 0FPB8DZ Removal of Intraluminal Device from Hepatobiliary Duct, Via Natural or Artificial Opening Endoscopic (ICD-10-PCS; principal; 2019-04-20 18:00)
DX: J90 Pleural effusion, not elsewhere classified (principal); K83.1 Obstruction of bile duct; J18.9 Pneumonia, unspecified organism; N17.9 Acute kidney failure, unspecified; D68.9 Coagulation defect, unspecified; E11.22 Type 2 diabetes mellitus with diabetic chronic kidney disease; D64.9 Anemia, unspecified; R09.02 Hypoxemia; N18.9 Chronic kidney disease, unspecified; I12.9 Hypertensive chronic kidney disease with stage 1 through stage 4 chronic kidney disease, or unspecified chronic kidney disease; Z79.4 Long term (current) use of insulin; Z89.512 Acquired absence of left leg below knee
CPT/HCPCS: 36415; 36430; 36600; 71045; 71250; 71260; 74018; 74177; 74181; 74320; 74330; 75984; 76604; 76775; 80048; 80053; 80061; 81001; 81003; 82105; 82140; 82306; 82378; 82570; 82728; 82803; 82962; 83036; 83540; 83605; 83690; 83735; 83930; 83935; 84100; 84145; 84300; 84443; 84484; 85014; 85018; 85025; 85610; 85651; 85730; 86140; 86301; 86850; 86900; 86901; 86920; 88305; 92526; 92610; 93005; 93306; 94640; 94660; 94664; 97162; 97166; 97530; C1729; C2617; J0692; J1815; J2250; J3010; J3370; J7030; J7040; P9016; P9047; P9059; Q9967